=== PATIENT | female | born 1950 | race Caucasian/White ===

== ENCOUNTER 2019-08-04 14:10 | Inpatient (IN) | payer MEDICARE ==
[~2019-08-04] VITALS: Ht 167.6 cm; Wt 92.0 kg
[2019-08-04] MEDS ORDERED: IV NORMAL SALINE 1,000ML 1,000 ML IV ONE (14:30)
--- NOTE | 2019-08-04 14:36 | PHYS DOC ---
Past History Past Medical History: Anxiety, Cancer (Squamous Cell Carcinoma, Melanoma), Dementia, Depression, GERD, High Cholesterol, Migraines Additional Past Medical Histor: Multiple Lung Nodules Past Medical History Limited secondary to dementia Past Surgical History Limited secondary to dementia Social History Limited secondary to dementia General Adult EDM: Chief Complaint: MEDICAL CLEARANCE HPI: HPI: 69-year-old female presents from residential for medical clearance for Senior behavioral unit. Patient does have a history of dementia and has apparently bee n more combative with staff and other residents. Patient has also multiple medications without improvement. Patient was recently tested for COVID-19 and found to be negative. History of present illness limited secondary to dementia. Review of Systems: Review of Systems: Review of systems limited secondary to dementia Current Medications: Current Meds: Current Medications Medications (Trade) Dose Ordered Sig/Bindu Start Time Stop Time Status Last Admin Dose Admin Sodium Chloride 1,000 ml @ 1,000 mls/hr 1X ONCE 08/04/19 14:30 08/04/19 15:29 UNV Physical Exam: PE: Constitutional: Well developed, well nourished, no acute distress, non-toxic appearance HENT: Normocephalic, atraumatic Eyes: Conjunctiva normal, no discharge Neck: Normal range of motion, no tenderness, supple Cardiovascular: Heart rate normal, regular rhythm Lungs & Thorax: Bilateral breath sounds clear to auscultation, no wheezing Abdomen: Soft, no tenderness Skin: Warm, dry, no erythema, no rash Extremities: No tenderness, ROM intact Neurologic: Alert and oriented to name only, patient will intermittently follow commands however majority of the time she does not follow, moves all extremities, sensation appears intact, no focal deficits noted Psychologic: Affect flat, judgment abnormal EKG: EKG: @1429 NSR at 97bpm, NO ST elevation, QRS 86ms, QT/QTc 362/464ms Radiology/Procedures: Radiology/Procedures: PROCEDURE: PORTABLE CHEST 1V EXAM: CHEST 1 VIEW History: Osteoarthritis COMPARISON: None available. TECHNIQUE: Single portable radiograph of the chest FINDINGS: The cardiac silhouette is unremarkable. The lungs are clear bilaterally. The costophrenic sulci are clear and well demarcated. . IMPRESSION: No radiographic evidence of an acute cardiopulmonary process. Electronically signed by: Piotr Mcknight MD (08/04/2019 3:49 PM) [id number] PROCEDURE: CT HEAD WO CONTRAST Exam: CT head INDICATION: Altered mental status TECHNIQUE: Sequential axial images through the head were obtained without the administration of IV contrast. Comparisons: None FINDINGS: No focal parenchymal lesion or hemorrhage is identified. There is no midline shift or sulcal effacement. No acute vascular territory infarction is identified. Hauser-white distinction is preserved. The ventricular system is within normal limits without compression hydrocephalus. The basal cisterns are well maintained. The visualized portions of the paranasal sinuses and mastoid air cells are well-pneumatized. No acute fractures. IMPRESSION: No acute intracranial abnormality. Exposure: One or more of the following in the visualized dose reduction techniques were utilized for this examination: 1. Automated exposure control 2. Adjustment of the MA and/or KV according to patient size Use of iterative of reconstructive technique Electronically signed by: Opal Braxton MD (08/04/2019 4:12 PM) [id number] Course & Med Decision Making: Course & Med Decision Making Pertinent Labs and Imaging studies reviewed. (See chart for details) Patient with past medical history of dementia presents from residential for medical clearance for Senior behavioral unit. Patient does appear significantly confused. Unclear what baseline mentation is. CT head without acute process. Chest x-ray stable. Labs obtained and posted to chart. Patient deemed medically cleared for inpatient psychiatric admission to Senior behavioral unit. Willie Disclaimer: Willie Disclaimer: This electronic medical record was generated, in whole or in part, using a voice recognition dictation system. Departure Departure: Impression: Primary Impression: Medical clearance for psychiatric admission Disposition: ADMITTED INPATIENT (Geriatric psych- Senior Behavioral Health) Condition: STABLE TABITHA LONDON DO August 04, 2019 14:36
--- NOTE | 2019-08-04 15:17 | EKG ---
[address] [address] Test Date: 2019-08-04 Test Time: 14:29:56 Pat Name: MUNDO LONDON Department: Room: Gender: F Doctor Of Naturopathic Medicine: : 1950 Requested By: TABITHA LONDON Order Number: [id number] Reading MD: Jacky Becker Measurements Intervals [facility] Rate: 97 P: 51 CO: 154 QRS: 24 QRSD: 86 T: 71 QT: 362 QTc: 464 Interpretive Statements SINUS RHYTHM T ABNORMALITY IN HIGH LATERAL LEADS ABNORMAL ECG RI6.02 No previous ECG available for comparison Electronically Signed On 08-05-2019 8:24:53 CDT by Jacky Becker
[2019-08-04 15:23] LABS: BARBITURATES NEG (NEG); BENZODIAZEPINES NEG (NEG); CANNABINOIDS NEG (NEG); COCAINE NEG (NEG); METHADONE NEG (NEG); OPIATES NEG (NEG); PHENCYCLIDINE NEG (NEG)
[2019-08-04 15:23] LABS: BASO # 0.1 x10^3/uL (0.0-0.2); BASO % 1 % (0-3); EOS # 0.1 x10^3/uL (0.0-0.7); EOS % 2 % (0-3); HEMATOCRIT 44.9 % (36.0-47.0); HEMOGLOBIN 14.9 g/dL (12.0-15.5); LYMPH # 0.8 x10^3/uL (1.0-4.8); LYMPH % 13 % (24-48); MEAN CORPUSCULAR HEMOGLOBIN 32 pg (25-35); MEAN CORPUSCULAR HGB CONC 33 g/dL (31-37); MEAN CORPUSCULAR VOLUME 97 fL (79-100); MONO # 0.5 x10^3/uL (0.0-1.1); MONO % 9 % (0-9); NEUT # 4.7 x10^3uL (1.8-7.7); NEUT % 75 % (31-73); PLATELET COUNT 322 x10^3/uL (140-400); RED BLOOD COUNT 4.65 x10^6/uL (3.50-5.40); RED CELL DISTRIBUTION WIDTH 13.1 % (11.5-14.5); WHITE BLOOD COUNT 6.3 x10^3/uL (4.0-11.0)
[2019-08-04 15:25] LABS: AMPHETAMINE/METHAMPHETAMINE NEG (NEG)
[2019-08-04 15:32] LABS: BACTERIA,URINE 0 /HPF (0-FEW); BILIRUBIN,URINE NEG (NEG); CLARITY,URINE CLEAR; COLOR,URINE YELLOW; GLUCOSE,URINE NEG (NEG); NITRITE,URINE NEG (NEG); RBC,URINE OCC /HPF (0-2); UROBILINOGEN,URINE 0.2 mg/dL (0.2 mg/dL)
[2019-08-04 15:33] LABS: HYALINE CASTS, URINE FEW /HPF
[2019-08-04 15:39] LABS: CALCIUM 9.2 mg/dL (8.5-10.1); CREATININE 0.7 mg/dL (0.6-1.0); GFR 82.5; POTASSIUM 4.4 mmol/L (3.5-5.1)
[2019-08-04 15:45] LABS: ALBUMIN 3.1 g/dL (3.4-5.0); ALBUMIN/GLOBULIN RATIO 0.8 (1.0-1.7); MAGNESIUM 1.9 mg/dL (1.8-2.4); TOTAL BILIRUBIN 0.4 mg/dL (0.2-1.0); TOTAL PROTEIN 7.2 g/dL (6.4-8.2)
[2019-08-04 15:47] LABS: SALIC < 2.8 mg/dL (2.8-20.0)
[2019-08-04 15:48] LABS: ACETAMIN < 2.0 mcg/mL (10-30)
--- NOTE | 2019-08-04 15:52 | RAD ---
EXAM: CHEST 1 VIEW History: Osteoarthritis COMPARISON: None available. TECHNIQUE: Single portable radiograph of the chest FINDINGS: The cardiac silhouette is unremarkable. The lungs are clear bilaterally. The costophrenic sulci are clear and well demarcated. . IMPRESSION: No radiographic evidence of an acute cardiopulmonary process. Electronically signed by: Piotr Mcknight MD (08/04/2019 3:49 PM) [id number]
--- NOTE | 2019-08-04 16:15 | RAD ---
Exam: CT head INDICATION: Altered mental status TECHNIQUE: Sequential axial images through the head were obtained without the administration of IV contrast. Comparisons: None FINDINGS: No focal parenchymal lesion or hemorrhage is identified. There is no midline shift or sulcal effacement. No acute vascular territory infarction is identified. Hauser-white distinction is preserved. The ventricular system is within normal limits without compression hydrocephalus. The basal cisterns are well maintained. The visualized portions of the paranasal sinuses and mastoid air cells are well-pneumatized. No acute fractures. IMPRESSION: No acute intracranial abnormality. Exposure: One or more of the following in the visualized dose reduction techniques were utilized for this examination: 1. Automated exposure control 2. Adjustment of the MA and/or KV according to patient size Use of iterative of reconstructive technique Electronically signed by: Opal Braxton MD (08/04/2019 4:12 PM) [id number]
--- NOTE | 2019-08-04 16:45 | NUR ---
Admission Note with Justification for Admission to [facility] Patient admitted to [facility] for protective oversight for emergency stabilization of acute psychiatric crisis. Pt admitted from: [facility] via [facility] ED Mode of arrival: EMS Accompanied By: [facility] Staff Precipitating behaviors that initiated intake and admission: Patient reportedly believes staff are poisoning her; talking to people that aren't there; attempting to bite and kick staff; hitting staff; and hallucinating. Description of failure of out patient attempts at stabilization in previous setting list behavior and medication trials: Patient sent to [facility] for medical evaluation with no improvement in behaviors. Behaviors and assessment findings upon admission: Patient initially agitated and combativei with cares ans assessment, then calmed down and fell asleep. She was unable to answer any orientation questions, and denied any pain. Patient has a large bruise on the right upper sideo fo her face and a smaller on the left side of her face. She has some reddening of the skin under each breast. Her legs have multiple small abrasions in various states of healing. Plan: Admit for protective oversight for adjustment and stabilization of medications, behaviors and mood. Intense treatment regimen including groups, medication adjustments, therapy, consistent regimen for ADL's, self care, and sleep hygiene. Daily monitoring by Inpatient staff, Psychiatry, and Medical Physician.
[2019-08-04 17:38] VITALS: BP 132/76
[2019-08-04] MEDS ORDERED: METHYL SALICYLATE/MENTHOL TOPICAL OINTMENT 57GM TUBE. TP PRN (18:15)
[2019-08-04] MEDS ORDERED: MAG HYDROX/AL HYDROX/SIMETH 30 ML ORAL.SUSP PO PRN (18:15)
[2019-08-04] MEDS ORDERED: HYDR-2868 PO (18:48)
[2019-08-04] MEDS ORDERED: MELA5TAB20 PO (18:48)
[2019-08-04] MEDS ORDERED: CEPH500C PO (18:48)
[2019-08-04] MEDS ORDERED: LORA-254 PO (18:48)
[2019-08-04] MEDS ORDERED: FURO20TA3 PO (18:48)
[2019-08-04] MEDS ORDERED: ASCO500C PO (18:48)
[2019-08-04] MEDS ORDERED: [UNRECOGNIZED DRUG - CODE] TP (18:48)
[2019-08-04] MEDS ORDERED: MUPI15CR8 TP (18:48)
[2019-08-04] MEDS ORDERED: BISA10SU4 RC (18:48)
[2019-08-04] MEDS ORDERED: ACET500T68 PO (18:48)
[2019-08-04] MEDS ORDERED: OLAN10VI2 IM (18:48)
[2019-08-04] MEDS ORDERED: SENN1TAB62 PO (18:48)
[2019-08-04] MEDS ORDERED: RISP0.5T3 PO (18:54)
[2019-08-04] MEDS ORDERED: ZIPR20CA3 PO (18:54)
[2019-08-04] MEDS ORDERED: POTA10TA5 PO (18:54)
[2019-08-04] MEDS ORDERED: THIA100T57 PO (18:54)
[2019-08-04] MEDS ORDERED: OLAN5TAB9 PO (18:54)
[2019-08-04] MEDS ORDERED: CAMPHOR TP PRN (20:00)
[2019-08-04] MEDS ORDERED: BISACODYL 10 MG SUPP.RECT RC PRN (20:00)
[2019-08-04] MEDS ORDERED: MENTHOL TP PRN (20:00)
[2019-08-04] MEDS: hydrALAZINE 25 MG TABLET PO SCH (21:00)
[2019-08-04] MEDS: MUPIROCIN 2% TOPICAL OINTMENT 22GM TUBE. TP SCH (21:00)
[2019-08-04] MEDS: SENNOSIDES/DOCUSATE 8.6/50MG TABLET. PO SCH (21:00)
[2019-08-04] MEDS: LORazepam 1 MG TABLET PO SCH (21:00)
[2019-08-04] MEDS: ZIPRASIDONE 20 MG CAPSULE. PO SCH (21:00)
[2019-08-04] MEDS ORDERED: OLANZapine IM 10 MG VIAL. IM SCH (21:00)
[2019-08-04] MEDS: MELATONIN 3 MG TABLET PO SCH (21:00)
[2019-08-04] MEDS: risperiDONE 0.5 MG TABLET. PO SCH (21:00)
--- NOTE | 2019-08-04 22:15 | PDOC ---
Exam Note: David Note: Please also refer to the separate dictated note~for this date of service dictated separately. Discussed the patient with Nursing staff reviewed the chart.~Reviewed interim history and current functioning. Reviewed vital signs,~Labs/ Radiology~and current medications noted below. Continue current treatment with the changes noted in the dictated addendum note Assessment: Vital Signs/I&O: Vital Signs Date Time Temp Pulse Resp B/P (MAP) Pulse Ox O2 Delivery O2 Flow Rate FiO2 08/04/19 20:29 97.6 08/04/19 17:38 99 18 132/76 (94) 98 08/04/19 14:11 Room Air Labs: Laboratory Tests Test 08/04/19 14:46 08/04/19 14:53 White Blood Count 6.3 x10^3/uL (4.0-11.0) Red Blood Count 4.65 x10^6/uL (3.50-5.40) Hemoglobin 14.9 g/dL (12.0-15.5) Hematocrit 44.9 % (36.0-47.0) Mean Corpuscular Volume 97 fL (79-100) Mean Corpuscular Hemoglobin 32 pg (25-35) Mean Corpuscular Hemoglobin Concent 33 g/dL (31-37) Red Cell Distribution Width 13.1 % (11.5-14.5) Platelet Count 322 x10^3/uL (140-400) Neutrophils (%) (Auto) 75 % (31-73) H Lymphocytes (%) (Auto) 13 % (24-48) L Monocytes (%) (Auto) 9 % (0-9) Eosinophils (%) (Auto) 2 % (0-3) Basophils (%) (Auto) 1 % (0-3) Neutrophils # (Auto) 4.7 x10^3uL (1.8-7.7) Lymphocytes # (Auto) 0.8 x10^3/uL (1.0-4.8) L Monocytes # (Auto) 0.5 x10^3/uL (0.0-1.1) Eosinophils # (Auto) 0.1 x10^3/uL (0.0-0.7) Basophils # (Auto) 0.1 x10^3/uL (0.0-0.2) Prothrombin Time 9.9 SEC (9.4-11.4) Prothrombin Time INR 1.0 (0.9-1.1) Activated Partial Thromboplast Time 31 SEC (23-33) Sodium Level 143 mmol/L (136-145) Potassium Level 4.4 mmol/L (3.5-5.1) Chloride Level 104 mmol/L (98-107) Carbon Dioxide Level 29 mmol/L (21-32) Anion Gap 10 (6-14) Blood Urea Nitrogen 23 mg/dL (7-20) H Creatinine 0.7 mg/dL (0.6-1.0) Estimated GFR (Cockcroft-Gault) 82.5 BUN/Creatinine Ratio 33 (6-20) H Glucose Level 102 mg/dL (70-99) H Lactic Acid Level < 0.3 mmol/L (0.4-2.0) L Calcium Level 9.2 mg/dL (8.5-10.1) Magnesium Level 1.9 mg/dL (1.8-2.4) Total Bilirubin 0.4 mg/dL (0.2-1.0) Aspartate Amino Transferase (AST) 22 U/L (15-37) Alanine Aminotransferase (ALT) 22 U/L (14-59) Alkaline Phosphatase 109 U/L (46-116) Ammonia 24 mcmol/L (11-34) Creatine Kinase 144 U/L (26-192) Creatine Kinase MB (Mass) 1.3 ng/mL (0.0-3.6) Creatine Kinase MB Relative Index 0.9 % (0-4) Troponin I Quantitative < 0.017 ng/mL (0-0.055) Total Protein 7.2 g/dL (6.4-8.2) Albumin 3.1 g/dL (3.4-5.0) L Albumin/Globulin Ratio 0.8 (1.0-1.7) L Salicylates Level < 2.8 mg/dL (2.8-20.0) L Salicylate Last Dose Date Unknown Salicylate Last Dose Time Unknown Acetaminophen Level < 2.0 mcg/mL (10-30) L Acetaminophen Last Dose Date Unknown Acetaminophen Last Dose Time Unknown Urine Collection Type U cath Urine Color Yellow Urine Clarity Clear Urine pH 6.5 Urine Specific [place] 1.020 Urine Protein Neg (NEG-TRACE) Urine Glucose (UA) Neg mg/dL (NEG) Urine Ketones (Stick) Neg mg/dL (NEG) Urine Blood Neg (NEG) Urine Nitrite Neg (NEG) Urine Bilirubin Neg (NEG) Urine Urobilinogen Dipstick 0.2 mg/dL (0.2 mg/dL) Urine Leukocyte Esterase Neg (NEG) Urine RBC Occ /HPF (0-2) Urine WBC 1-4 /HPF (0-4) Urine Bacteria 0 /HPF (0-FEW) Urine Hyaline Casts Few /HPF Urine Mucus Slight /LPF Urine Opiates Screen Neg (NEG) Urine Methadone Screen Neg (NEG) Urine Barbiturates Neg (NEG) Urine Phencyclidine Screen Neg (NEG) Urine Amphetamine/Methamphetamine Neg (NEG) Urine Benzodiazepines Screen Neg (NEG) Urine Cocaine Screen Neg (NEG) Urine Cannabinoids Screen Neg (NEG) Urine Ethyl Alcohol Neg (NEG) Current Medications: Meds: Current Medications Medications (Trade) Dose Ordered Sig/Bindu Route PRN Reason Start Time Stop Time Status Last Admin Dose Admin Sodium Chloride 1,000 ml @ 1,000 mls/hr 1X ONCE IV 08/04/19 14:30 08/04/19 15:29 DC 08/04/19 15:26 Lorazepam (Ativan Inj) 1 mg 1X ONCE IVP 08/04/19 15:30 08/04/19 15:42 DC 08/04/19 15:27 I have reviewed the current psychotropics carefully including drug interactions. Risk benefit ratio favors no change other than as noted in my dictated progress note. Diagnosis: Problems: (1) Behavior disorder NAEEM SADLER MD August 04, 2019 22:15
--- NOTE | 2019-08-05 02:07 | NUR ---
Pt was sleeping in bed this shift she is responsive and follows simple commands then goes back to sleep. With HS cares pt did fully awaken and said to staff "get out of here you bastards" then went back to sleep.
[2019-08-05] MEDS: CEPHALEXIN 250 MG CAPSULE PO SCH ×6 (06:00→23:54)
[2019-08-05 06:36] VITALS: BP 132/84
--- NOTE | 2019-08-05 06:40 | NUR ---
Pt has slept well now up and in her WC in [facility] she is sleepy, possibly ignoring staff, and will not take meds . Lab here and pt cooperative with blood draw.
[2019-08-05 06:58] LABS: BASO # 0.1 x10^3/uL (0.0-0.2); BASO % 1 % (0-3); EOS # 0.1 x10^3/uL (0.0-0.7); EOS % 2 % (0-3); HEMATOCRIT 43.1 % (36.0-47.0); HEMOGLOBIN 14.3 g/dL (12.0-15.5); LYMPH # 0.7 x10^3/uL (1.0-4.8); LYMPH % 13 % (24-48); MEAN CORPUSCULAR HEMOGLOBIN 32 pg (25-35); MEAN CORPUSCULAR HGB CONC 33 g/dL (31-37); MEAN CORPUSCULAR VOLUME 96 fL (79-100); MONO # 0.5 x10^3/uL (0.0-1.1); MONO % 9 % (0-9); NEUT # 4.1 x10^3uL (1.8-7.7); NEUT % 75 % (31-73); PLATELET COUNT 330 x10^3/uL (140-400); RED BLOOD COUNT 4.48 x10^6/uL (3.50-5.40); RED CELL DISTRIBUTION WIDTH 13.2 % (11.5-14.5); WHITE BLOOD COUNT 5.5 x10^3/uL (4.0-11.0)
[2019-08-05 07:15] LABS: ALBUMIN/GLOBULIN RATIO 0.7 (1.0-1.7); CALCIUM 9.1 mg/dL (8.5-10.1); CREATININE 0.7 mg/dL (0.6-1.0); GFR 82.5; MAGNESIUM 1.9 mg/dL (1.8-2.4); TOTAL BILIRUBIN 0.5 mg/dL (0.2-1.0); TOTAL PROTEIN 7.1 g/dL (6.4-8.2)
[2019-08-05] MEDS: ZIPRASIDONE 20 MG CAPSULE. PO SCH ×3 (08:32→20:29)
[2019-08-05] MEDS: SENNOSIDES/DOCUSATE 8.6/50MG TABLET. PO SCH ×2 (08:32→20:28)
[2019-08-05] MEDS: hydrALAZINE 25 MG TABLET PO SCH ×3 (08:32→20:30)
[2019-08-05] MEDS: risperiDONE 0.5 MG TABLET. PO SCH ×2 (08:33→20:30)
[2019-08-05] MEDS: LORazepam 1 MG TABLET PO SCH ×3 (08:33→20:29)
[2019-08-05] MEDS: POTASSIUM CHLORIDE 10 MEQ TABLET.ER. PO SCH (08:33)
[2019-08-05] MEDS: FUROSEMIDE 20 MG TABLET PO SCH (08:33)
[2019-08-05] MEDS: THIAMINE 100 MG TABLET. PO SCH (08:33)
[2019-08-05] MEDS: ASCORBIC ACID 500 MG TABLET PO SCH (08:33)
[2019-08-05] MEDS: MUPIROCIN 2% TOPICAL OINTMENT 22GM TUBE. TP SCH ×2 (08:34→20:30)
--- NOTE | 2019-08-05 10:28 | NUR ---
Call placed to Rajan at [facility], , to inform of admission to [facility]. Pre-authorization is not required per Rajan. Call reference number is [id number]. Addendum: 08/05/19 at 1039 by KATHLEEN BENJAMIN Claims can be mailed to [address] [place] [address] or faxed to [phone] attn: Claims.
--- NOTE | 2019-08-05 13:49 | NUR ---
PSYCHOSOCIAL ASSESSMENT ADMISSION DATE: 08/04/19 CONTACT INFORMATION: DPOA/Guardian Contact Name: Pal Curiel Contact Address: [place], [place] Contact Phone #: ETHNIC ORIGIN: REASONS FOR ADMISSION: Aggressive Combative Confusion/Disoriented Poor impulse control ADDITIONAL ADMISSION COMMENTS: According to the intake, pt things that staff are poisoning her, confused, talking to people not there, kicking and hitting the nurse, attempted to bite, hallucinating, paranoid (picking at her skin), agitated. REASON FOR ADMISSION IN PATIENT/FAMILY'S OWN WORDS: She has never been like this. I assume this is part of the diagnosis? PATIENT/FAMILY EXPECTATIONS FOR ADMISSION: Medication and Behavioral Mgmt LIVING SITUATION: Patient lives with: [facility] Other living arrangements: Contact Name: Rock Duarte Contact Address: [address] [place] [address]; [place], [place] Contact Phone #: Contact Fax #: FAMILY RELATIONS: Marital Status: # of Marriages: 2 # of Children: 0 [facility] Family Support: Concerned Involved in DC Planning Additional Comments r/t Family: Pt sister reports that pt was 2 times for roughly 10 years each marriage ending in divorce. Pt does not have any children. SIGNIFICANT PSYCHIATRIC/MEDICAL HISTORY: Psychiatric/Treatment History: This is pt first psychiatric stay at [facility]. Pt has been to [facility] and a couple other facilities. Hx of Dementia and Anxiety Pertinent Family History: Pt father had Dementia dx; roughly 20 years ago. HISTORICAL DATA: Childhood Environment: [place] Supportive Childhood Environment Additional Comments: [place] a farm "we had 1 cow" and a bunch of land. Pt is 1 of 4 girls. We had a great childhood. Trauma History: None Is Trauma: Additional Comments: Drug Abuse History last 12 months: No Comment: PERSONAL HISTORY: Vocational history: Pt has worked at [employer] since the age 14 and retired from there. service: N [employer] background: No Preference Sexual orientation: Heterosexual Educational Level: Pt graduated from . Past/Present Interests/Hobbies: Pt used to do a lot of painting and crafts. Pt also maintained a tomato gardening. Pt loves dogs Financial support/resources: Mcfp/Pension Social Security Monthly income: Person handling finances: Pt sister maintains finances Do you have a history of legal problems: N Cultural considerations: SOCIAL RELATIONSHIPS-CURRENT/PAST: Psychiatrist: PCP: Dr. Tatianna Black Counselor/Therapist: [facility]: Support Group: Hat Ironer/Chip Crusher Operator: Other relationships: STRENGTHS & WEAKNESSES: Patient's strengths: Good verbal skills Education level Other patient strengths: Patient's weaknesses: Impulsive Poor social skills Other patient weaknesses: PRELIMINARY PLAN OF TREATMENT: Preliminary plan: Dec. Hallucination/Delus Promote Coping Skill Medication Stabilization Dec. Outbursts Dec. Aggression Other preliminary treatment comments: DISCHARGE PLANNING: Discharge planning/disposition: Current Living Arrange. Additional discharge needs identified: Potential for a different level of care; family is concerned that current placement cannot handle pt. ADDITIONAL INFORMATION: Other Pertinent Data: SW completed PSA with pt sister. She reports that pt has always been an upbeat person with tons of friends. Pt sister reports that she has never seen her sister angry. In this current state, pt is very delusional and hallucinates. Pt sister will plan to participate in tx team on .
--- NOTE | 2019-08-05 16:11 | NUR ---
Nursing note: Pt in the hallway this morning for meds and assessment. She was compliant with her meds whole and cooperative with her assessment. Pt was unable to answer orientation questions and does not seem to be in any pain. She is very disorganized and rambles when she talks about things that are completely off topic and then yelling out occasionally. Pt had asked for a cigarette this morning, record shows that she is a former smoker. Called [facility]. According to them, pt quit smoking in February before moving to the facility where they had put her on a "level 3" nicotine patch, but eventually took her off of it, and pt never asked for cigarette after that. Facility was also questioned about the Keflex on her medication list that she is supposed to receive for 3 days. [facility] was unable to say how many days she had received it. Dr. Avery reviewed pt's UA results. Keflex will be d/c on 08/[address] Avery. Will continue to monitor.
--- NOTE | 2019-08-05 16:20 | NUR ---
ACTIVITY THERAPY ASSESSMENT Completed based on observation, interview, and notes. Pt. was agreeable to speak with OUTBOARD TECHNICIAN and knew where his room was. He was talkative and needed some redirection back on topic. He felt that he was tricked here, told he was needed here for a job. When asked about leisure interest/ hobbies, Pt. talked about work. 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 Pt. talked about his awareness of this "Alzheimers" OUTBOARD TECHNICIAN tried to ask about hobbies again, music interest specifically, and Pt. shared he liked [employer]Want[employer] roll (Metall[employer]) the best. Notes indicate Pt. was a "worker" but had interest in canoeing, hiking and some yard work. Pt. made a couple jokes, complimented OUTBOARD TECHNICIAN's eyes and quickly clarified he wasn't "hitting on" her because he doesn't do that. Pt. has been seen in a hospital gown, wandering the halls, needing reminders to keep his mask on this face appropriately. Usually responds well to redirection. Pt. expressed interest in calling his which OUTBOARD TECHNICIAN was able to help coordinate after the interview. Initial goal aimed to increase leisure engagement and socialization: Pt. will participate in at least three Activity Therapy groups before discharge. Addendum: 08/10/19 at 1127 by ESTEPHANIA MARCH ACT DISREGARD this assessment. Entered on the wrong patient.
--- NOTE | 2019-08-05 16:35 | NUR ---
ACTIVITY THERAPY ASSESSMENT Completed based on observation, attempted interview, and notes. Pt. appeared to be sleeping when TYRE FINISHER AND EXAMINER tried to arouse her. Pt. remained asleep and did not respond to TYRE FINISHER AND EXAMINER. TYRE FINISHER AND EXAMINER confirmed she was breathing. Reports of this have been noted- Pt. possibly ignoring staff. She is difficult to engage in an activity for any length of time. She hallucinates and has nonsensical speech. Potentially simple cues with repeat directions. Pt. is impulsive, restless, disorganized if she is not sleeping. Reports indicate Pt is usually "upbeat w/ tons of friends." Pt. enjoys painting, crafts, imgix, and loves dogs. Initial goal aimed to increase sensory stimulation: Pt. will participate in at least one individual Activity Therapy session before discharge. Addendum: 08/22/19 at 1505 by ESTEPHANIA MARCH ACT Goal changed 08/18/19: Pt. will participate in at three Activity Therapy group sessions per week Addendum: 08/25/19 at 1050 by VIRGINIA KIRK ACT Goal changed 08/25/19: Pt. will participate moderately in at least three Activity Therapy Sessions per week.
[2019-08-05 16:47] VITALS: BP 107/56
--- NOTE | 2019-08-05 18:15 | NUR ---
Nursing note: Pt refused 1800 Keflex, spitting both the meds and water on staff. Pt continued to drink more water to spit back out until cup was managed to be removed. She then took the ice out of her cup from dinner and also threw it at staff. Pt was redirected at that time. Will continue to monitor.
--- NOTE | 2019-08-05 18:37 | NUR ---
Nursing note: Pt became agitated. She was yelling at staff and attempting to hit and bite staff. She was moved to the quiet room for deescalation. Will continue to monitor.
[2019-08-05 19:28] LABS: THYROID STIM HORMONE (TSH) 2.258 uIU/mL (0.358-3.740)
[2019-08-05] MEDS: LACTOBACILLUS RHAMNOSUS GG 1 CAPSULE. PO SCH (20:28)
[2019-08-05] MEDS: MELATONIN 3 MG TABLET PO SCH (20:31)
[2019-08-05] MEDS: OLANZapine 5 MG TABLET PO PRN (20:31)
--- NOTE | 2019-08-05 22:00 | NUR ---
Patient is located in the quiet room on assumption of care. She is intermittently yelling out, "Come get me Catracho, put your arms around me!" She was compliant with assessments and medications whole in pudding. Babbling nonsensically, asking this nurse about the "green button" and slapping the floor repeatedly. PRN Zydis given with HS meds, with good effect. Patient was cooperative with HS cares. Refused to take 0000 dose of Keflex. No further agitation. No s/s or c/o pain or discomfort. Will continue to monitor.
--- NOTE | 2019-08-05 22:06 | PDOC ---
Exam Note: David Note: Please also refer to the separate dictated note~for this date of service dictated separately.~Patient seen individually. Discussed the patient with Nursing staff reviewed the chart.~Reviewed interim history and current functioning. Reviewed vital signs,~Labs/ Radiology~and current medications noted below. Continue current treatment with the changes noted in the dictated addendum note Assessment: Vital Signs/I&O: Vital Signs Date Time Temp Pulse Resp B/P (MAP) Pulse Ox O2 Delivery O2 Flow Rate FiO2 08/05/19 21:43 97.4 92 08/05/19 20:30 79 107/56 08/05/19 16:47 18 08/04/19 14:11 Room Air Labs: Laboratory Tests Test 08/05/19 06:48 White Blood Count 5.5 x10^3/uL (4.0-11.0) Red Blood Count 4.48 x10^6/uL (3.50-5.40) Hemoglobin 14.3 g/dL (12.0-15.5) Hematocrit 43.1 % (36.0-47.0) Mean Corpuscular Volume 96 fL (79-100) Mean Corpuscular Hemoglobin 32 pg (25-35) Mean Corpuscular Hemoglobin Concent 33 g/dL (31-37) Red Cell Distribution Width 13.2 % (11.5-14.5) Platelet Count 330 x10^3/uL (140-400) Neutrophils (%) (Auto) 75 % (31-73) H Lymphocytes (%) (Auto) 13 % (24-48) L Monocytes (%) (Auto) 9 % (0-9) Eosinophils (%) (Auto) 2 % (0-3) Basophils (%) (Auto) 1 % (0-3) Neutrophils # (Auto) 4.1 x10^3uL (1.8-7.7) Lymphocytes # (Auto) 0.7 x10^3/uL (1.0-4.8) L Monocytes # (Auto) 0.5 x10^3/uL (0.0-1.1) Eosinophils # (Auto) 0.1 x10^3/uL (0.0-0.7) Basophils # (Auto) 0.1 x10^3/uL (0.0-0.2) Sodium Level 143 mmol/L (136-145) Potassium Level 4.0 mmol/L (3.5-5.1) Chloride Level 105 mmol/L (98-107) Carbon Dioxide Level 28 mmol/L (21-32) Anion Gap 10 (6-14) Blood Urea Nitrogen 20 mg/dL (7-20) Creatinine 0.7 mg/dL (0.6-1.0) Estimated GFR (Cockcroft-Gault) 82.5 BUN/Creatinine Ratio 29 (6-20) H Glucose Level 95 mg/dL (70-99) Calcium Level 9.1 mg/dL (8.5-10.1) Magnesium Level 1.9 mg/dL (1.8-2.4) Iron Level 54 ug/dL (50-170) Total Iron Binding Capacity 241 ug/dL (250-450) L Iron Saturation 22 % (15-34) Total Bilirubin 0.5 mg/dL (0.2-1.0) Aspartate Amino Transferase (AST) 19 U/L (15-37) Alanine Aminotransferase (ALT) 21 U/L (14-59) Alkaline Phosphatase 108 U/L (46-116) Total Protein 7.1 g/dL (6.4-8.2) Albumin 3.0 g/dL (3.4-5.0) L Albumin/Globulin Ratio 0.7 (1.0-1.7) L Triglycerides Level 74 mg/dL (0-150) Cholesterol Level 160 mg/dL (0-200) LDL Cholesterol, Calculated 88 mg/dL (0-100) VLDL Cholesterol, Calculated 14 mg/dL (0-40) Non-HDL Cholesterol Calculated 102 mg/dL (0-129) HDL Cholesterol 58 mg/dL (40-60) Cholesterol/HDL Ratio 2.0 Vitamin B12 Level 840 pg/mL (247-911) 25-Hydroxy Vitamin D Total 16.9 ng/mL (30-100) L Thyroid Stimulating Hormone (TSH) 2.258 uIU/mL (0.358-3.740) Treponema pallidum Antibody Nonreactive (Nonreactive) Current Medications: Meds: Current Medications Medications (Trade) Dose Ordered Sig/Bindu Route PRN Reason Start Time Stop Time Status Last Admin Dose Admin Furosemide (Lasix) 20 mg DAILY PO 08/05/19 09:00 08/05/19 08:33 Ascorbic Acid (Vitamin C) 500 mg DAILY PO 08/05/19 09:00 08/05/19 08:33 Cephalexin HCl (Keflex) 500 mg Q6HRS PO 08/05/19 00:00 08/06/19 18:00 08/05/19 11:51 Potassium Chloride (Klor-Con) 10 meq DAILY PO 08/05/19 09:00 08/05/19 08:33 Thiamine HCl (Vitamin B-1) 100 mg DAILY PO 08/05/19 09:00 08/05/19 08:33 Lactobacillus Rhamnosus (Culturelle) 1 cap BID PO 08/05/19 21:00 08/05/19 20:28 I have reviewed the current psychotropics carefully including drug interactions. Risk benefit ratio favors no change other than as noted in my dictated progress note. Diagnosis: Problems: (1) Behavior disorder NAEEM SADLER MD August 05, 2019 22:06
[2019-08-06 00:06] LABS: THYROXINE 7.1 ug/dL (4.5-12.0)
[2019-08-06 02:07] LABS: HEMOGLOBIN A1C 5.3 % (4.8-5.6)
--- NOTE | 2019-08-06 02:49 | CONS ---
DATE OF CONSULTATION: 08/05/2019 REASON FOR CONSULTATION: Medical management. HISTORY OF PRESENT ILLNESS: The patient is a 69-year-old female patient, a resident at [facility] who was [facility] on account of hitting staff, thinks they are poisoning her, hallucinating, screaming, paranoid, picking at her skin, all this on a background of major neurocognitive disorder, vascular Alzheimer with delusion. She is here for inpatient psychiatric stabilization. The patient is extremely demented and does not really give any useful information. PAST MEDICAL HISTORY: Significant for hyperlipidemia, gastroesophageal reflux disease, migraine headache, squamous cell carcinoma, lung nodules and anxiety. PAST PSYCHIATRIC HISTORY: Significant for dementia of Alzheimer vascular type and anxiety disorder. PAST SURGICAL HISTORY: Unremarkable. ALLERGIES: She is allergic to AUGMENTIN. MEDICATIONS: She is currently on following medications: She is on cephalexin 500 mg every 6 hours, started yesterday in the Emergency Room; hydralazine 25 mg 3 times a day; acetaminophen 500 mg every 4 hours; olanzapine 10 mg 3 times a day; olanzapine 5 mg 3 times a day as needed; Respirdal 0.5 mg twice a day; ziprasidone 20 mg 3 times a day; lorazepam 0.5 mg 3 times a day; potassium chloride 10 mEq daily; furosemide 20 mg once a day; Dulcolax suppositories 10 mg rectally daily p.r.n. for constipation; senna-S 1 capsule twice a day; mupirocin cream apply topically twice a day; menthol/camphor applied topically for muscle pain; thiamine 100 mg once a day; ascorbic acid 500 mg once a day; melatonin 5 mg at bedtime. REVIEW OF SYSTEMS: Unobtainable. PHYSICAL EXAMINATION: GENERAL: On examining the patient, she looked well and was clearly in no apparent respiratory distress. She was pale, but no jaundice, cyanosis or thyromegaly. No jugular venous distention. No lower limb edema. VITAL SIGNS: Her heart rate was 82, blood pressure 132/84, her temperature was 97.4, respiratory rate was 14 and oxygen saturation was 98%. HEAD, EYES, EARS, NOSE AND THROAT: Showed normocephalic, atraumatic. NECK: Supple. HEART: Showed normal first and second heart sounds. No gallop, rub or murmur. CHEST: Shows central trachea, equal bilateral expansion, air entry, vesicular sounds. No crepitation or rhonchi. ABDOMEN: Distended, soft, nontender. NEUROLOGIC: She is demented, but without any obvious lateralizing sign. All her cranial nerves intact. EXTREMITIES: She moves extremities without difficulty, although she is mostly bedbound, wheelchair bound. She is extremely unsteady on her feet and is very high fall risk. LABORATORY DATA: On admission showed a white cell count of 6300, hemoglobin 15, hematocrit 45, MCV 97 and platelet count of 322,000, with normal manual differential. Her chemistry showed a serum sodium 143, potassium 4.4, chloride 104, bicarbonate 29, anion gap of 10, BUN 23, creatinine 0.7, estimated GFR was 82 mL per minute. Her glucose 102, calcium was 9.2, magnesium was 1.9. Total bilirubin, AST, ALT, alkaline phosphatase were normal. CK was 144. Total protein 7.2, albumin 3.1. Her prothrombin time, INR and aPTT are all normal. Urinalysis was fairly unremarkable. The urine was yellow, clear with a pH of 6.5, specific gravity of 1.020. Her urine was negative for protein, glucose, ketones, blood, nitrites, and leukocyte esterase. There are occasional rbc's, 1-4 wbc's and no bacteria. Her toxic screen was essentially negative. ASSESSMENT AND PLAN: In summary, this is a 69-year-old female patient, a resident at [facility], who was admitted on account of hitting staff, thinks they are poisoning her, hallucinating, screaming, paranoid, all this in a background of major neurocognitive disorder, vascular Alzheimer with delusion. The patient is medically very stable. Her vital signs and all her labs are all within acceptable range. I am not really sure that she has UTI. I would have waited at least for a few days and my recommendation is to discontinue Keflex. Thank you, Dr. Hensley for allowing me to participate in the care of this patient. JESSICA GALEAS MD DR: DENNY/telma JOB#: [id number] / [id number]
[2019-08-06] MEDS: CEPHALEXIN 250 MG CAPSULE PO SCH ×3 (06:11→17:38)
[2019-08-06 06:15] VITALS: BP 117/75
[2019-08-06] MEDS: LACTOBACILLUS RHAMNOSUS GG 1 CAPSULE. PO SCH ×2 (08:21→20:32)
[2019-08-06] MEDS: ZIPRASIDONE 20 MG CAPSULE. PO SCH ×3 (08:21→20:33)
[2019-08-06] MEDS: MUPIROCIN 2% TOPICAL OINTMENT 22GM TUBE. TP SCH ×2 (08:21→20:33)
[2019-08-06] MEDS: SENNOSIDES/DOCUSATE 8.6/50MG TABLET. PO SCH ×2 (08:21→20:33)
[2019-08-06] MEDS: hydrALAZINE 25 MG TABLET PO SCH ×3 (08:21→20:34)
[2019-08-06] MEDS: LORazepam 1 MG TABLET PO SCH ×3 (08:22→20:33)
[2019-08-06] MEDS: ASCORBIC ACID 500 MG TABLET PO SCH (08:22)
[2019-08-06] MEDS: POTASSIUM CHLORIDE 10 MEQ TABLET.ER. PO SCH (08:22)
[2019-08-06] MEDS: risperiDONE 0.5 MG TABLET. PO SCH ×2 (08:22→20:34)
[2019-08-06] MEDS: THIAMINE 100 MG TABLET. PO SCH (08:22)
[2019-08-06] MEDS: FUROSEMIDE 20 MG TABLET PO SCH (08:23)
--- NOTE | 2019-08-06 09:33 | NUR ---
Patient compliant with medication and assessment. Patient cheerful and social this morning. Patient unable to hold a conversation, patient has flight of ideas.
[2019-08-06 16:19] VITALS: BP 129/87
[2019-08-06] MEDS: MELATONIN 3 MG TABLET PO SCH (20:34)
--- NOTE | 2019-08-06 21:35 | HP ---
ADMIT DATE: 08/04/2019 This late entry date of service 08/04/2019 covers the elements not covered in my initial note. SUBJECTIVE: I met with the patient in the evening of 08/04/2019 on telehealth rounds shortly after she was admitted on our unit. She is quite sedated since she received Ativan in the ER due to being extremely agitated. She remains confused. IDENTIFYING DATA: The patient is a 69-year-old female referred to us from [facility] by Dr. Black, her primary care physician after she had failed an inpatient psychiatric hospitalization at [facility] from 07/08/2019-07/29/2019 and then had a medical deterioration resulting in her referral to [facility]. She was then returned back to the nursing facility, but has been agitated, aggressive, extremely confused, hitting staff. She thinks they are poisoning her and she is extremely paranoid, delusional. She has been having active hallucinations, screaming, picking at her skin. She has failed outpatient psychiatric interventions resulting in this referral, having failed prior inpatient and outpatient treatment. I met with the patient in the evening of 08/04/2019 for this evaluation. CHIEF COMPLAINT: "No." The patient is not very verbally interactive. She is quite sedated with the Ativan, received in the ER, has a bruise on her right temporal area, but CT head in the ER was unremarkable. HISTORY OF PRESENT ILLNESS: The patient has a history of dementia, Alzheimer's vascular type. She has been residing at the above facility for some time, recently getting more paranoid, agitated, active hallucinations are being problematic. She has been screaming, paranoid, picking at her skin. No active suicidal or homicidal ideation. No clear history of bipolar disorder. PAST PSYCHIATRIC HISTORY: As above. MEDICAL HISTORY: Positive for hyperlipidemia, GERD, migraines, squamous cell carcinoma, melanoma, lung nodules. ACCU-CHEKS: None. DIET: Regular. Takes medications whole, ambulates in wheelchair. UA 08/04/2019 was negative. CODE STATUS: DNR. ALLERGIES: AUGMENTIN. CURRENT PSYCHOTROPICS: Ativan 0.5 mg t.i.d., melatonin 4.5 mg at bedtime, Risperdal 0.5 mg b.i.d., Zyprexa 5 mg t.i.d. p.r.n., Geodon 20 mg t.i.d. FAMILY HISTORY: Noncontributory. SOCIAL HISTORY: No history of alcohol, drug abuse, physical, sexual or elder abuse. She is not known to be a perpetrator. REACTION TO HOSPITALIZATION: The patient oblivious of this. Ambulation impaired. MENTAL STATUS EXAMINATION: The patient is oriented to herself. She is quite sedated. Insight, judgment, recent and remote memory, attention, concentration, fund of knowledge poor, consistent with her diagnosis. The patient is not very verbal. LABORATORY DATA: Reviewed. IMPRESSION: Major neurocognitive disorder, Alzheimer, vascular with delusion, depression, behavioral disturbance; anxiety disorder, unspecified; impulse control disorder, unspecified. Rest as above. PLAN: Admit to Geropsychiatry Unit at [facility]. I will see the patient daily individually from a psychiatric standpoint. Medical followup per Dr. Avery/Dr. Alatorre. We will observe the patient's baseline. Continue current psychotropics and then adjust as clinically indicated. She is on multiple atypical antipsychotics and I would like to simplify this regimen and if she is extremely agitated may consider Depakote. May consider SSRIs for anxiety, mood lability. Estimated length of stay 10-12 days. DISPOSITION: Plans back to nursing facility when stable. MAN Lobo SADLER MD DR: BEN/telma JOB#: [id number] / [id number]
--- NOTE | 2019-08-06 21:39 | PN ---
DATE: 08/06/2019 PSYCHIATRIC PROGRESS NOTE This note covers the elements not covered in my initial note of 08/05. SUBJECTIVE: I met with the patient on the evening of 08/05 face to face rounds. The patient has been confused, anxious, restless, trying to get out of her chair, has flight of ideas. She is trying to remove her clothes and has been placed in onesie per LALIT Wade. She was agitated, restless as I met with over her dinnertime, trying to get out of her chair. REVIEW OF SYSTEMS: No CV, , pulmonary, eye, ENT systems symptoms on review. Reliability poor. MENTAL STATUS EXAM: Oriented to herself. Insight, judgment, recent and remote memory, attention, concentration, fund of knowledge poor, consistent with her diagnosis. IMPRESSION: Major neurocognitive disorder, Alzheimer vascular with delusion, depression, behavioral disturbance; anxiety disorder, unspecified; impulse control disorder, unspecified. Rest unchanged from admission. PLAN: Continue current psychotropics including Ativan, schedule melatonin, Risperdal, and Geodon along with Zyprexa p.r.n. She was sedated the first day and I need another 24 hours to assess her before deciding on SSRIs versus Depakote as a mood stabilizer. Reviewed all of this at length. NAEEM SADLER MD DR: BEN/telma JOB#: [id number] / [id number]
--- NOTE | 2019-08-06 21:39 | PN ---
DATE: 08/05/2019 PSYCHIATRIC PROGRESS NOTE This late entry 08/05/2019 covers elements not covered in my initial note. SUBJECTIVE: I met with the patient evening of 08/05/2019 in [id number] rounds. The patient slept 6-3/4 hours previous night. The patient was also staffed at a treatment team meeting in the morning with LALIT Murphy and social service staff and seen individually in the evening face to face rounds. The patient slept 6-3/4 hours previous night. She remains confused. CT head shows no acute changes. She has a bruise right side of forehead. She is anxious, restless. REVIEW OF SYSTEMS: No CV, , pulmonary, eye system symptoms on review. Ambulation impaired. MENTAL STATUS EXAM: Oriented to herself. Insight, judgment, recent and remote memory, attention, concentration, fund of knowledge poor, consistent with her diagnoses. IMPRESSION: Major neurocognitive disorder, Alzheimer, vascular with delusion, depression, behavioral disturbance; anxiety disorder, unspecified; impulse control disorder, unspecified. Rest unchanged from admission. PLAN: Continue the patient on her current psychotropics including Ativan 0.5 t.i.d., melatonin 4.5 mg at bedtime, Risperdal 0.5 b.i.d., Zyprexa 5 mg t.i.d. p.r.n. psychosis or agitation, Geodon 20 mg t.i.d. Adjust further as clinically indicated. Consider Depakote and SSRIs. We will observe another 24 hours and decide. NAEEM SADLER MD DR: BEN/telma JOB#: [id number] / [id number]
--- NOTE | 2019-08-06 22:00 | NUR ---
Patient is in her room on assumption of care. She is disorganized, confused, but seems to be in good spirits. Nonsensical babbling, flight of ideas. She was cooperative with HS cares, but repeatedly removed her clothing and brief, and then proceeded to play with and throw feces around. After being cleaned thoroughly for a second time, she was dressed in a onesie. Compliant with medications taken whole and floated in pudding. No agitation. Does not appear to be experiencing any pain or discomfort. Patient currently appears to be sleeping comfortably. Will continue to monitor.
--- NOTE | 2019-08-06 22:35 | PDOC ---
Exam Note: David Note: Please also refer to the separate dictated note~for this date of service dictated separately.~Patient seen individually. Discussed the patient with Nursing staff reviewed the chart.~Reviewed interim history and current functioning. Reviewed vital signs,~Labs/ Radiology~and current medications noted below. Continue current treatment with the changes noted in the dictated addendum note Assessment: Vital Signs/I&O: Vital Signs Date Time Temp Pulse Resp B/P (MAP) Pulse Ox O2 Delivery O2 Flow Rate FiO2 08/06/19 21:00 98.3 93 08/06/19 20:34 76 129/87 08/06/19 16:19 16 Room Air I & O 08/05/19 08/05/19 08/06/19 15:00 23:00 07:00 Intake Total 240 ml 240 ml Balance 240 ml 240 ml Current Medications: I have reviewed the current psychotropics carefully including drug interactions. Risk benefit ratio favors no change other than as noted in my dictated progress note. Diagnosis: Problems: (1) Major neurocognitive disorder, due to vascular disease, with behavioral disturbance, mild (2) Dementia, vascular, with depression (3) Dementia, vascular, with delusions (4) Dementia in Alzheimer's disease with delusions (5) Dementia in Alzheimer's disease with depression (6) Anxiety disorder, unspecified (7) Impulse control disorder, unspecified NAEEM SADLER MD August 06, 2019 22:35
[2019-08-07 06:50] VITALS: BP 93/60
[2019-08-07] MEDS: hydrALAZINE 25 MG TABLET PO SCH ×3 (07:25→20:45)
[2019-08-07] MEDS: SENNOSIDES/DOCUSATE 8.6/50MG TABLET. PO SCH ×2 (08:35→20:44)
[2019-08-07] MEDS: MUPIROCIN 2% TOPICAL OINTMENT 22GM TUBE. TP SCH ×2 (08:36→20:44)
[2019-08-07] MEDS: LACTOBACILLUS RHAMNOSUS GG 1 CAPSULE. PO SCH ×2 (08:36→20:44)
[2019-08-07] MEDS: FUROSEMIDE 20 MG TABLET PO SCH (08:36)
[2019-08-07] MEDS: THIAMINE 100 MG TABLET. PO SCH (08:36)
[2019-08-07] MEDS: ZIPRASIDONE 20 MG CAPSULE. PO SCH ×3 (08:36→20:45)
[2019-08-07] MEDS: POTASSIUM CHLORIDE 10 MEQ TABLET.ER. PO SCH (08:36)
[2019-08-07] MEDS: risperiDONE 0.5 MG TABLET. PO SCH ×2 (08:36→20:44)
[2019-08-07] MEDS: LORazepam 1 MG TABLET PO SCH ×3 (08:36→20:45)
[2019-08-07] MEDS: ASCORBIC ACID 500 MG TABLET PO SCH (08:36)
[2019-08-07 08:47] VITALS: BP 93/60
--- NOTE | 2019-08-07 08:56 | NUR ---
Patient is compliant with medication and assessment. Patient ornery towards staff attempting to making unconventional jokes to amuse her self.
[2019-08-07 16:12] VITALS: BP 100/62
[2019-08-07] MEDS: MELATONIN 3 MG TABLET PO SCH (20:46)
--- NOTE | 2019-08-07 22:01 | PDOC ---
Exam Note: David Note: Please also refer to the separate dictated note~for this date of service dictated separately.~Patient seen individually. Discussed the patient with Nursing staff reviewed the chart.~Reviewed interim history and current functioning. Reviewed vital signs,~Labs/ Radiology~and current medications noted below. Continue current treatment with the changes noted in the dictated addendum note Assessment: Vital Signs/I&O: Vital Signs Date Time Temp Pulse Resp B/P (MAP) Pulse Ox O2 Delivery O2 Flow Rate FiO2 08/07/19 20:45 89 100/62 08/07/19 18:07 97.6 08/07/19 16:12 16 95 Room Air I & O 08/06/19 08/06/19 08/07/19 15:00 23:00 07:00 Intake Total 720 ml 240 ml Balance 720 ml 240 ml Current Medications: I have reviewed the current psychotropics carefully including drug interactions. Risk benefit ratio favors no change other than as noted in my dictated progress note. Diagnosis: Problems: (1) Behavior disorder (2) Impulse control disorder, unspecified (3) Anxiety disorder, unspecified (4) Dementia, vascular, with depression (5) Dementia, vascular, with delusions (6) Dementia in Alzheimer's disease with depression (7) Dementia in Alzheimer's disease with delusions (8) Major neurocognitive disorder, due to vascular disease, with behavioral disturbance, mild NAEEM SADLER MD August 07, 2019 22:01
--- NOTE | 2019-08-07 22:47 | NUR ---
Patient is in her room on assumption of care. She is disorganized, confused, but seems to be in good spirits. Nonsensical babbling, flight of ideas. She was cooperative with HS cares. Compliant with medications crushed and floated in pudding. No agitation. Does not appear to be experiencing any pain or discomfort. Patient currently appears to be sleeping comfortably. Will continue to monitor.
[2019-08-08 06:21] VITALS: BP 119/64
[2019-08-08 07:14] LABS: BASO # 0.1 x10^3/uL (0.0-0.2); BASO % 1 % (0-3); EOS # 0.2 x10^3/uL (0.0-0.7); EOS % 3 % (0-3); HEMATOCRIT 43.9 % (36.0-47.0); HEMOGLOBIN 14.1 g/dL (12.0-15.5); LYMPH # 0.9 x10^3/uL (1.0-4.8); LYMPH % 17 % (24-48); MEAN CORPUSCULAR HEMOGLOBIN 32 pg (25-35); MEAN CORPUSCULAR HGB CONC 32 g/dL (31-37); MEAN CORPUSCULAR VOLUME 99 fL (79-100); MONO # 0.5 x10^3/uL (0.0-1.1); MONO % 8 % (0-9); NEUT % 71 % (31-73); PLATELET COUNT 327 x10^3/uL (140-400); RED BLOOD COUNT 4.43 x10^6/uL (3.50-5.40); RED CELL DISTRIBUTION WIDTH 13.5 % (11.5-14.5); WHITE BLOOD COUNT 5.6 x10^3/uL (4.0-11.0)
[2019-08-08 07:26] LABS: ALBUMIN 2.9 g/dL (3.4-5.0); ALBUMIN/GLOBULIN RATIO 0.7 (1.0-1.7); CALCIUM 9.2 mg/dL (8.5-10.1); CREATININE 0.6 mg/dL (0.6-1.0); GFR 98.5; POTASSIUM 3.8 mmol/L (3.5-5.1); TOTAL BILIRUBIN 0.4 mg/dL (0.2-1.0); TOTAL PROTEIN 6.9 g/dL (6.4-8.2)
--- NOTE | 2019-08-08 07:29 | PDOC ---
Exam Note: David Note: This note is a late entry for 08/07/2019 covers elements not covered in my initial note. Subjective: The patient was seen face to face in the evening of 08/07/2019. Nursing report was with Armen COHN. Discussed the patient with nursing staff reviewed the chart. She slept reasonably well previous night. Appetite is fair compliant with medications in pudding. Has flight of ideas, confused. She was in a wheelchair as I entered the unit. She was blocking the door. I adjusted her wheelchair and then she was banging on the doors. Review of Systems: No CV, GI/, Pulmonary, Eye system symptoms on review. Mental Status Exam: Oriented to herself. Insight and judgment, recent and seymour te memory, attention and concentration, fund of knowledge is poor consistent with her diagnosis. Laboratory Data: Reviewed. Impression: Major neurocognitive disorder Alzheimer, vascular with delusion, depression and behavioral disturbance. Anxiety disorder unspecified. Impulse control disorder unspecified. Rest as mentioned in initial note. Plan: No change from initial note. Assessment: Vital Signs/I&O: Vital Signs Date Time Temp Pulse Resp B/P (MAP) Pulse Ox O2 Delivery O2 Flow Rate FiO2 08/08/19 06:21 97.7 68 18 119/64 (82) 95 08/07/19 16:12 Room Air I & O 08/07/19 08/07/19 08/08/19 15:00 23:00 07:00 Intake Total 480 ml 120 ml Balance 480 ml 120 ml Labs: Laboratory Tests Test 08/08/19 06:12 White Blood Count 5.6 x10^3/uL (4.0-11.0) Red Blood Count 4.43 x10^6/uL (3.50-5.40) Hemoglobin 14.1 g/dL (12.0-15.5) Hematocrit 43.9 % (36.0-47.0) Mean Corpuscular Volume 99 fL (79-100) Mean Corpuscular Hemoglobin 32 pg (25-35) Mean Corpuscular Hemoglobin Concent 32 g/dL (31-37) Red Cell Distribution Width 13.5 % (11.5-14.5) Platelet Count 327 x10^3/uL (140-400) Neutrophils (%) (Auto) 71 % (31-73) Lymphocytes (%) (Auto) 17 % (24-48) L Monocytes (%) (Auto) 8 % (0-9) Eosinophils (%) (Auto) 3 % (0-3) Basophils (%) (Auto) 1 % (0-3) Neutrophils # (Auto) 4.0 x10^3uL (1.8-7.7) Lymphocytes # (Auto) 0.9 x10^3/uL (1.0-4.8) L Monocytes # (Auto) 0.5 x10^3/uL (0.0-1.1) Eosinophils # (Auto) 0.2 x10^3/uL (0.0-0.7) Basophils # (Auto) 0.1 x10^3/uL (0.0-0.2) Current Medications: I have reviewed the current psychotropics carefully including drug interactions. Risk benefit ratio favors no change other than as noted in my dictated progress note. Diagnosis: Problems: (1) Behavior disorder (2) Impulse control disorder, unspecified (3) Anxiety disorder, unspecified (4) Dementia, vascular, with depression (5) Dementia, vascular, with delusions (6) Dementia in Alzheimer's disease with depression (7) Dementia in Alzheimer's disease with delusions (8) Major neurocognitive disorder, due to vascular disease, with behavioral disturbance, mild NAEEM SADLER MD August 08, 2019 07:29
[2019-08-08] MEDS: ZIPRASIDONE 20 MG CAPSULE. PO SCH ×2 (08:08→20:32)
[2019-08-08] MEDS: LORazepam 1 MG TABLET PO SCH ×3 (08:08→20:31)
[2019-08-08] MEDS: SENNOSIDES/DOCUSATE 8.6/50MG TABLET. PO SCH ×3 (08:08→20:31)
[2019-08-08] MEDS: risperiDONE 0.5 MG TABLET. PO SCH (08:08)
[2019-08-08] MEDS: ASCORBIC ACID 500 MG TABLET PO SCH ×2 (08:08→09:00)
[2019-08-08] MEDS: FUROSEMIDE 20 MG TABLET PO SCH ×2 (08:08→09:00)
[2019-08-08] MEDS: POTASSIUM CHLORIDE 10 MEQ TABLET.ER. PO SCH ×2 (08:09→09:00)
[2019-08-08] MEDS: hydrALAZINE 25 MG TABLET PO SCH ×3 (08:09→20:32)
[2019-08-08] MEDS: LACTOBACILLUS RHAMNOSUS GG 1 CAPSULE. PO SCH ×3 (08:09→20:31)
[2019-08-08] MEDS: THIAMINE 100 MG TABLET. PO SCH ×2 (08:09→09:00)
[2019-08-08] MEDS: MUPIROCIN 2% TOPICAL OINTMENT 22GM TUBE. TP SCH ×2 (08:10→20:32)
[2019-08-08] MEDS ORDERED: ZIPRASIDONE 40 MG CAPSULE. PO SCH (14:00)
[2019-08-08 16:19] VITALS: BP 101/67
--- NOTE | 2019-08-08 16:38 | NUR ---
Nursing note: Pt was in dining room for morning meds and assessment. Pt was very resistive with her meds, she was eventually compliant with her psych meds crushed in pudding. Pt was compliant with her 1400 meds whole. She continues to have nonsensical babbling. Pt is currently in good spirits and is up in her wheelchair getting ready to eat supper. Will continue to monitor.
[2019-08-08] MEDS: MELATONIN 3 MG TABLET PO SCH (20:32)
--- NOTE | 2019-08-08 21:08 | NUR ---
Nursing note: Assumed care of pt in her room where she was awake in her bed and talking nonsensically. She was pleasant and interactive, compliant with meds and assessment. No s/s or c/o pain. No negative behaviors.
[2019-08-09 05:47] VITALS: BP 116/67
--- NOTE | 2019-08-09 08:21 | PDOC ---
Exam Note: David Note: This is a late entry for DOS 08/08/2019. Please also refer to the separate dictated note~for this date of service dictated separately.~Patient seen individually. Discussed the patient with Nursing staff reviewed the chart.~Reviewed interim history and current functioning. Reviewed vital signs,~Labs/ Radiology~and current medications noted below. Continue current treatment with the changes noted in the dictated addendum note Assessment: Vital Signs/I&O: Vital Signs Date Time Temp Pulse Resp B/P (MAP) Pulse Ox O2 Delivery O2 Flow Rate FiO2 08/09/19 05:47 97.4 91 16 116/67 (83) 96 08/07/19 16:12 Room Air I & O 08/08/19 08/08/19 08/09/19 15:00 23:00 07:00 Intake Total 300 ml 360 ml Balance 300 ml 360 ml Current Medications: Meds: Current Medications Medications (Trade) Dose Ordered Sig/Bindu Route PRN Reason Start Time Stop Time Status Last Admin Dose Admin Ziprasidone (Geodon) 40 mg [id number] PO 08/08/19 14:00 08/08/19 19:59 DC 08/08/19 13:52 Ziprasidone (Geodon) 20 mg QHS PO 08/08/19 21:00 08/08/19 20:32 I have reviewed the current psychotropics carefully including drug interactions. Risk benefit ratio favors no change other than as noted in my dictated progress note. Diagnosis: Problems: (1) Behavior disorder (2) Impulse control disorder, unspecified (3) Anxiety disorder, unspecified (4) Dementia, vascular, with depression (5) Dementia, vascular, with delusions (6) Dementia in Alzheimer's disease with depression (7) Dementia in Alzheimer's disease with delusions (8) Major neurocognitive disorder, due to vascular disease, with behavioral disturbance, mild NAEEM SADLER MD August 09, 2019 08:21
[2019-08-09] MEDS: SERTRALINE 25 MG TABLET. PO SCH (08:30)
[2019-08-09] MEDS: LACTOBACILLUS RHAMNOSUS GG 1 CAPSULE. PO SCH ×2 (08:30→19:39)
[2019-08-09] MEDS: SENNOSIDES/DOCUSATE 8.6/50MG TABLET. PO SCH ×2 (08:30→19:38)
[2019-08-09] MEDS: FUROSEMIDE 20 MG TABLET PO SCH (08:31)
[2019-08-09] MEDS: hydrALAZINE 25 MG TABLET PO SCH ×3 (08:31→19:39)
[2019-08-09] MEDS: POTASSIUM CHLORIDE 10 MEQ TABLET.ER. PO SCH (08:31)
[2019-08-09] MEDS: LORazepam 1 MG TABLET PO SCH ×3 (08:32→19:39)
[2019-08-09] MEDS: ASCORBIC ACID 500 MG TABLET PO SCH (08:32)
[2019-08-09] MEDS: THIAMINE 100 MG TABLET. PO SCH (08:32)
[2019-08-09] MEDS: MUPIROCIN 2% TOPICAL OINTMENT 22GM TUBE. TP SCH ×2 (08:34→19:38)
[2019-08-09] MEDS: ZIPRASIDONE 40 MG CAPSULE. PO SCH (08:34)
[2019-08-09 15:59] VITALS: BP 107/69
[2019-08-09] MEDS: MELATONIN 3 MG TABLET PO SCH (19:38)
[2019-08-09] MEDS: ZIPRASIDONE 20 MG CAPSULE. PO SCH (19:39)
--- NOTE | 2019-08-09 21:24 | NUR ---
Nursing note: Assumed care of pt in he room where she was awake. She was compliant with meds and assessment. Pleasant and interactive, nonsensical conversation. No s/s or c/o pain. No behaviors.
--- NOTE | 2019-08-09 22:11 | PDOC ---
Exam Note: David Note: Please also refer to the separate dictated note~for this date of service dictated separately.~Patient seen individually. Discussed the patient with Nursing staff reviewed the chart.~Reviewed interim history and current functioning. Reviewed vital signs,~Labs/ Radiology~and current medications noted below. Continue current treatment with the changes noted in the dictated addendum note Assessment: Vital Signs/I&O: Vital Signs Date Time Temp Pulse Resp B/P (MAP) Pulse Ox O2 Delivery O2 Flow Rate FiO2 08/09/19 19:39 84 107/69 08/09/19 18:37 97.9 08/09/19 15:59 16 95 08/07/19 16:12 Room Air I & O 08/08/19 08/08/19 08/09/19 15:00 23:00 07:00 Intake Total 300 ml 360 ml Balance 300 ml 360 ml Current Medications: Meds: Current Medications Medications (Trade) Dose Ordered Sig/Bindu Route PRN Reason Start Time Stop Time Status Last Admin Dose Admin Sertraline HCl (Zoloft) 25 mg DAILY PO 08/09/19 09:00 08/11/19 21:00 08/09/19 08:30 Ziprasidone (Geodon) 40 mg DAILY PO 08/09/19 09:00 08/09/19 08:34 I have reviewed the current psychotropics carefully including drug interactions. Risk benefit ratio favors no change other than as noted in my dictated progress note. Diagnosis: Problems: (1) Behavior disorder (2) Impulse control disorder, unspecified (3) Anxiety disorder, unspecified (4) Dementia, vascular, with depression (5) Dementia, vascular, with delusions (6) Dementia in Alzheimer's disease with depression (7) Dementia in Alzheimer's disease with delusions (8) Major neurocognitive disorder, due to vascular disease, with behavioral disturbance, mild NAEEM SADLER MD August 09, 2019 22:11
[2019-08-10 05:11] VITALS: BP 116/72
[2019-08-10 07:16] LABS: BASO # 0.1 x10^3/uL (0.0-0.2); BASO % 1 % (0-3); EOS # 0.2 x10^3/uL (0.0-0.7); EOS % 4 % (0-3); HEMATOCRIT 42.5 % (36.0-47.0); HEMOGLOBIN 13.9 g/dL (12.0-15.5); LYMPH # 0.8 x10^3/uL (1.0-4.8); LYMPH % 16 % (24-48); MEAN CORPUSCULAR HEMOGLOBIN 32 pg (25-35); MEAN CORPUSCULAR HGB CONC 33 g/dL (31-37); MEAN CORPUSCULAR VOLUME 97 fL (79-100); MONO # 0.3 x10^3/uL (0.0-1.1); MONO % 7 % (0-9); NEUT # 3.8 x10^3uL (1.8-7.7); NEUT % 73 % (31-73); PLATELET COUNT 340 x10^3/uL (140-400); RED BLOOD COUNT 4.39 x10^6/uL (3.50-5.40); RED CELL DISTRIBUTION WIDTH 13.3 % (11.5-14.5); WHITE BLOOD COUNT 5.2 x10^3/uL (4.0-11.0)
[2019-08-10 07:30] LABS: ALBUMIN/GLOBULIN RATIO 0.8 (1.0-1.7); CREATININE 0.6 mg/dL (0.6-1.0); GFR 98.5; POTASSIUM 3.8 mmol/L (3.5-5.1); TOTAL BILIRUBIN 0.4 mg/dL (0.2-1.0); TOTAL PROTEIN 6.8 g/dL (6.4-8.2)
--- NOTE | 2019-08-10 07:53 | PDOC ---
Exam Note: David Note: This note is a late entry for 08/08/2019 covers elements not covered in my initial note. Subjective: The patient was seen face to face in the evening of 08/08/2019. Nursing report was with Katherine COHN. Discussed the patient with nursing staff reviewed the chart. She slept 7-3/4 hours previous night. She remains confused, is throwing her fecal matter around, inappropriate, having some non- sensible conversations and perceptions resistive to medications. She is in his wheelchair pushing herself up and down the hallway. Review of Systems: No CV, GI/, Pulmonary, Eye system symptoms on review. Mental Status Exam: Oriented to herself. Insight and judgment, recent and remote memory, attention and concentration, fund of knowledge is poor consistent with her diagnosis. Laboratory Data: Reviewed. Impression: Major neurocognitive disorder Alzheimer, vascular with delusion, depression and behavioral disturbance. Anxiety disorder unspecified. Impulse control disorder unspecified. Plan: The patient is currently on Geodon 20 mg t.i.d. We will change to 40 mg a.m. and 20 mg p.m. Start Zoloft as an SSRI agent for her mood and anxiety symptoms 25 mg a day for 3 days and 50 mg a day. She is also on another atypical antipsychotic Risperdal 0.5 mg b.i.d. and we will go ahead and stop this. Maintain rest of the psychotropics as noted. Adjust further as clinically indicated. Assessment: Vital Signs/I&O: Vital Signs Date Time Temp Pulse Resp B/P (MAP) Pulse Ox O2 Delivery O2 Flow Rate FiO2 08/10/19 05:11 98.1 86 16 116/72 (87) 95 08/07/19 16:12 Room Air I & O 08/09/19 08/09/19 08/10/19 15:00 23:00 07:00 Intake Total 720 ml 120 ml Balance 720 ml 120 ml Labs: Laboratory Tests Test 08/10/19 06:47 White Blood Count 5.2 x10^3/uL (4.0-11.0) Red Blood Count 4.39 x10^6/uL (3.50-5.40) Hemoglobin 13.9 g/dL (12.0-15.5) Hematocrit 42.5 % (36.0-47.0) Mean Corpuscular Volume 97 fL (79-100) Mean Corpuscular Hemoglobin 32 pg (25-35) Mean Corpuscular Hemoglobin Concent 33 g/dL (31-37) Red Cell Distribution Width 13.3 % (11.5-14.5) Platelet Count 340 x10^3/uL (140-400) Neutrophils (%) (Auto) 73 % (31-73) Lymphocytes (%) (Auto) 16 % (24-48) L Monocytes (%) (Auto) 7 % (0-9) Eosinophils (%) (Auto) 4 % (0-3) H Basophils (%) (Auto) 1 % (0-3) Neutrophils # (Auto) 3.8 x10^3uL (1.8-7.7) Lymphocytes # (Auto) 0.8 x10^3/uL (1.0-4.8) L Monocytes # (Auto) 0.3 x10^3/uL (0.0-1.1) Eosinophils # (Auto) 0.2 x10^3/uL (0.0-0.7) Basophils # (Auto) 0.1 x10^3/uL (0.0-0.2) Sodium Level 146 mmol/L (136-145) H Potassium Level 3.8 mmol/L (3.5-5.1) Chloride Level 109 mmol/L (98-107) H Carbon Dioxide Level 28 mmol/L (21-32) Anion Gap 9 (6-14) Blood Urea Nitrogen 21 mg/dL (7-20) H Creatinine 0.6 mg/dL (0.6-1.0) Estimated GFR (Cockcroft-Gault) 98.5 BUN/Creatinine Ratio 35 (6-20) H Glucose Level 95 mg/dL (70-99) Calcium Level 9.0 mg/dL (8.5-10.1) Total Bilirubin 0.4 mg/dL (0.2-1.0) Aspartate Amino Transferase (AST) 21 U/L (15-37) Alanine Aminotransferase (ALT) 23 U/L (14-59) Alkaline Phosphatase 101 U/L (46-116) Total Protein 6.8 g/dL (6.4-8.2) Albumin 3.0 g/dL (3.4-5.0) L Albumin/Globulin Ratio 0.8 (1.0-1.7) L Current Medications: Meds: Current Medications Medications (Trade) Dose Ordered Sig/Bindu Route PRN Reason Start Time Stop Time Status Last Admin Dose Admin Sertraline HCl (Zoloft) 25 mg DAILY PO 08/09/19 09:00 08/11/19 21:00 08/09/19 08:30 Ziprasidone (Geodon) 40 mg DAILY PO 08/09/19 09:00 08/09/19 08:34 I have reviewed the current psychotropics carefully including drug interactions. Risk benefit ratio favors no change other than as noted in my dictated progress note. Diagnosis: Problems: (1) Behavior disorder (2) Impulse control disorder, unspecified (3) Anxiety disorder, unspecified (4) Dementia, vascular, with depression (5) Dementia, vascular, with delusions (6) Dementia in Alzheimer's disease with depression (7) Dementia in Alzheimer's disease with delusions (8) Major neurocognitive disorder, due to vascular disease, with behavioral disturbance, mild NAEEM SADLER MD August 10, 2019 07:53
--- NOTE | 2019-08-10 08:14 | PDOC ---
Exam Note: David Note: This note is a late entry for 08/09/2019 covers elements not covered in my initial note. Subjective: The patient was seen face to face with the treatment team in the morning including Jihan Kaplan, and Sienna (social insurance adviser), Agueda, Activity Therapy. Nursing report was with Cele COHN. Discussed the patient with nursing staff in the evening reviewed the chart. She slept 3-1/2 hours previous night. She is complaint with medications. She undresses herself oblivious of all of this. Review of Systems: Ambulation impaired, in wheelchair. No CV, GI/, Pulm onary, Eye system symptoms on review. Reliability poor. Mental Status Exam: Oriented to herself. Insight and judgment, recent and remote memory, attention and concentration, fund of knowledge is poor consistent with her diagnosis. Laboratory Data: Reviewed. Impression: Major neurocognitive disorder Alzheimer, vascular with delusion, depression and behavioral disturbance. Anxiety disorder unspecified. Impulse control disorder unspecified. Plan: No change from initial note. Assessment: Vital Signs/I&O: Vital Signs Date Time Temp Pulse Resp B/P (MAP) Pulse Ox O2 Delivery O2 Flow Rate FiO2 08/10/19 05:11 98.1 86 16 116/72 (87) 95 08/07/19 16:12 Room Air I & O 08/09/19 08/09/19 08/10/19 15:00 23:00 07:00 Intake Total 720 ml 120 ml Balance 720 ml 120 ml Labs: Laboratory Tests Test 08/10/19 06:47 White Blood Count 5.2 x10^3/uL (4.0-11.0) Red Blood Count 4.39 x10^6/uL (3.50-5.40) Hemoglobin 13.9 g/dL (12.0-15.5) Hematocrit 42.5 % (36.0-47.0) Mean Corpuscular Volume 97 fL (79-100) Mean Corpuscular Hemoglobin 32 pg (25-35) Mean Corpuscular Hemoglobin Concent 33 g/dL (31-37) Red Cell Distribution Width 13.3 % (11.5-14.5) Platelet Count 340 x10^3/uL (140-400) Neutrophils (%) (Auto) 73 % (31-73) Lymphocytes (%) (Auto) 16 % (24-48) L Monocytes (%) (Auto) 7 % (0-9) Eosinophils (%) (Auto) 4 % (0-3) H Basophils (%) (Auto) 1 % (0-3) Neutrophils # (Auto) 3.8 x10^3uL (1.8-7.7) Lymphocytes # (Auto) 0.8 x10^3/uL (1.0-4.8) L Monocytes # (Auto) 0.3 x10^3/uL (0.0-1.1) Eosinophils # (Auto) 0.2 x10^3/uL (0.0-0.7) Basophils # (Auto) 0.1 x10^3/uL (0.0-0.2) Sodium Level 146 mmol/L (136-145) H Potassium Level 3.8 mmol/L (3.5-5.1) Chloride Level 109 mmol/L (98-107) H Carbon Dioxide Level 28 mmol/L (21-32) Anion Gap 9 (6-14) Blood Urea Nitrogen 21 mg/dL (7-20) H Creatinine 0.6 mg/dL (0.6-1.0) Estimated GFR (Cockcroft-Gault) 98.5 BUN/Creatinine Ratio 35 (6-20) H Glucose Level 95 mg/dL (70-99) Calcium Level 9.0 mg/dL (8.5-10.1) Total Bilirubin 0.4 mg/dL (0.2-1.0) Aspartate Amino Transferase (AST) 21 U/L (15-37) Alanine Aminotransferase (ALT) 23 U/L (14-59) Alkaline Phosphatase 101 U/L (46-116) Total Protein 6.8 g/dL (6.4-8.2) Albumin 3.0 g/dL (3.4-5.0) L Albumin/Globulin Ratio 0.8 (1.0-1.7) L Current Medications: Meds: Current Medications Medications (Trade) Dose Ordered Sig/Bindu Route PRN Reason Start Time Stop Time Status Last Admin Dose Admin Sertraline HCl (Zoloft) 25 mg DAILY PO 08/09/19 09:00 08/11/19 21:00 08/09/19 08:30 Ziprasidone (Geodon) 40 mg DAILY PO 08/09/19 09:00 08/09/19 08:34 I have reviewed the current psychotropics carefully including drug interactions. Risk benefit ratio favors no change other than as noted in my dictated progress note. Diagnosis: Problems: (1) Behavior disorder (2) Impulse control disorder, unspecified (3) Anxiety disorder, unspecified (4) Dementia, vascular, with depression (5) Dementia, vascular, with delusions (6) Dementia in Alzheimer's disease with depression (7) Dementia in Alzheimer's disease with delusions (8) Major neurocognitive disorder, due to vascular disease, with behavioral disturbance, mild NAEEM SADLER MD August 10, 2019 08:14
[2019-08-10] MEDS: LORazepam 1 MG TABLET PO SCH ×3 (08:35→20:09)
[2019-08-10] MEDS: SERTRALINE 25 MG TABLET. PO SCH (08:35)
[2019-08-10] MEDS: SENNOSIDES/DOCUSATE 8.6/50MG TABLET. PO SCH ×2 (08:35→20:09)
[2019-08-10] MEDS: ASCORBIC ACID 500 MG TABLET PO SCH (08:35)
[2019-08-10] MEDS: FUROSEMIDE 20 MG TABLET PO SCH (08:35)
[2019-08-10] MEDS: POTASSIUM CHLORIDE 10 MEQ TABLET.ER. PO SCH (08:36)
[2019-08-10] MEDS: ZIPRASIDONE 40 MG CAPSULE. PO SCH (08:36)
[2019-08-10] MEDS: LACTOBACILLUS RHAMNOSUS GG 1 CAPSULE. PO SCH ×2 (08:36→20:09)
[2019-08-10] MEDS: hydrALAZINE 25 MG TABLET PO SCH ×3 (08:36→20:13)
[2019-08-10] MEDS: THIAMINE 100 MG TABLET. PO SCH (08:37)
[2019-08-10] MEDS: MUPIROCIN 2% TOPICAL OINTMENT 22GM TUBE. TP SCH ×2 (08:37→20:10)
--- NOTE | 2019-08-10 08:57 | NUR ---
Wound Care Wound care consult for multiple abrasions to BLE. Pt has several abrasions to lower legs as well as old, in different stages of healing, pressure ulcers to bilateral feet. Right heel remains open, stage II PU and left lalteral foot is also open stage II PU. Both are dry and crusty, not new wounds. Dressed both with skin prep and hydrocolloid dressings, change every 3-4 days. No other open wounds noted, other healing and healed PU to Bilat feet painted with skin prep. No other wounds noted. WC will continue to follow for possible changes.
--- NOTE | 2019-08-10 15:30 | NUR ---
Nursing note: Pt in dining room for morning meds and assessment. She was compliant with her meds whole and cooperative with her assessment. Pt did need to be encouraged to swallow her medications rather than chew them. She was very happy, social, and sarcastic this morning making several jokes. Pt has continued to be pleasant throughout the shift, restless at times but able to be redirected. She is currently in her room listening to relaxing music. Will continue to monitor.
[2019-08-10 15:51] VITALS: BP 92/55
[2019-08-10] MEDS: ACETAMINOPHEN 325 MG TABLET PO PRN (20:08)
[2019-08-10] MEDS: MIRTAZAPINE 7.5 MG TABLET. PO SCH (20:08)
[2019-08-10] MEDS: MELATONIN 3 MG TABLET PO SCH (20:09)
[2019-08-10] MEDS: ZIPRASIDONE 20 MG CAPSULE. PO SCH (20:09)
--- NOTE | 2019-08-10 22:07 | PDOC ---
Exam Note: David Note: Please also refer to the separate dictated note~for this date of service dictated separately.~Patient seen individually. Discussed the patient with Nursing staff reviewed the chart.~Reviewed interim history and current functioning. Reviewed vital signs,~Labs/ Radiology~and current medications noted below. Continue current treatment with the changes noted in the dictated addendum note Assessment: Vital Signs/I&O: Vital Signs Date Time Temp Pulse Resp B/P (MAP) Pulse Ox O2 Delivery O2 Flow Rate FiO2 08/10/19 20:34 97.5 92 08/10/19 20:13 107 110/68 08/10/19 15:51 18 08/07/19 16:12 Room Air I & O 08/09/19 08/09/19 08/10/19 15:00 23:00 07:00 Intake Total 720 ml 120 ml Balance 720 ml 120 ml Labs: Laboratory Tests Test 08/10/19 06:47 White Blood Count 5.2 x10^3/uL (4.0-11.0) Red Blood Count 4.39 x10^6/uL (3.50-5.40) Hemoglobin 13.9 g/dL (12.0-15.5) Hematocrit 42.5 % (36.0-47.0) Mean Corpuscular Volume 97 fL (79-100) Mean Corpuscular Hemoglobin 32 pg (25-35) Mean Corpuscular Hemoglobin Concent 33 g/dL (31-37) Red Cell Distribution Width 13.3 % (11.5-14.5) Platelet Count 340 x10^3/uL (140-400) Neutrophils (%) (Auto) 73 % (31-73) Lymphocytes (%) (Auto) 16 % (24-48) L Monocytes (%) (Auto) 7 % (0-9) Eosinophils (%) (Auto) 4 % (0-3) H Basophils (%) (Auto) 1 % (0-3) Neutrophils # (Auto) 3.8 x10^3uL (1.8-7.7) Lymphocytes # (Auto) 0.8 x10^3/uL (1.0-4.8) L Monocytes # (Auto) 0.3 x10^3/uL (0.0-1.1) Eosinophils # (Auto) 0.2 x10^3/uL (0.0-0.7) Basophils # (Auto) 0.1 x10^3/uL (0.0-0.2) Sodium Level 146 mmol/L (136-145) H Potassium Level 3.8 mmol/L (3.5-5.1) Chloride Level 109 mmol/L (98-107) H Carbon Dioxide Level 28 mmol/L (21-32) Anion Gap 9 (6-14) Blood Urea Nitrogen 21 mg/dL (7-20) H Creatinine 0.6 mg/dL (0.6-1.0) Estimated GFR (Cockcroft-Gault) 98.5 BUN/Creatinine Ratio 35 (6-20) H Glucose Level 95 mg/dL (70-99) Calcium Level 9.0 mg/dL (8.5-10.1) Total Bilirubin 0.4 mg/dL (0.2-1.0) Aspartate Amino Transferase (AST) 21 U/L (15-37) Alanine Aminotransferase (ALT) 23 U/L (14-59) Alkaline Phosphatase 101 U/L (46-116) Total Protein 6.8 g/dL (6.4-8.2) Albumin 3.0 g/dL (3.4-5.0) L Albumin/Globulin Ratio 0.8 (1.0-1.7) L Current Medications: Meds: Current Medications Medications (Trade) Dose Ordered Sig/Bindu Route PRN Reason Start Time Stop Time Status Last Admin Dose Admin Mirtazapine (Remeron) 7.5 mg QHS PO 08/10/19 21:00 08/10/19 20:08 I have reviewed the current psychotropics carefully including drug interactions. Risk benefit ratio favors no change other than as noted in my dictated progress note. Diagnosis: Problems: (1) Behavior disorder (2) Impulse control disorder, unspecified (3) Anxiety disorder, unspecified (4) Dementia, vascular, with depression (5) Dementia, vascular, with delusions (6) Dementia in Alzheimer's disease with depression (7) Dementia in Alzheimer's disease with delusions (8) Major neurocognitive disorder, due to vascular disease, with behavioral disturbance, mild VIKTORIYANAEEM PEREZ MD August 10, 2019 22:07
--- NOTE | 2019-08-11 00:04 | NUR ---
At shift change pt restless in bed, pt slide self out of bed and onto the ground. Incontinent pt changed and assisted back into bed. Pressure alarm/chair alarm in place. Pt compliant with medication. Pt is pleasant and interactive with staff.
[2019-08-11] MEDS: ACETAMINOPHEN 325 MG TABLET PO PRN ×2 (06:06→22:22)
[2019-08-11 06:11] VITALS: BP 93/58
[2019-08-11 08:00] VITALS: BP 114/72
[2019-08-11] MEDS: hydrALAZINE 25 MG TABLET PO SCH ×3 (08:02→20:58)
[2019-08-11] MEDS: LACTOBACILLUS RHAMNOSUS GG 1 CAPSULE. PO SCH ×2 (08:03→20:58)
[2019-08-11] MEDS: POTASSIUM CHLORIDE 10 MEQ TABLET.ER. PO SCH (08:03)
[2019-08-11] MEDS: MULTIVITAMIN with MINERAL TABLET. PO SCH (08:03)
[2019-08-11] MEDS: ZIPRASIDONE 40 MG CAPSULE. PO SCH (08:03)
[2019-08-11] MEDS: ASCORBIC ACID 500 MG TABLET PO SCH (08:03)
[2019-08-11] MEDS: SERTRALINE 25 MG TABLET. PO SCH (08:03)
[2019-08-11] MEDS: SENNOSIDES/DOCUSATE 8.6/50MG TABLET. PO SCH ×2 (08:03→20:59)
[2019-08-11] MEDS: FUROSEMIDE 20 MG TABLET PO SCH (08:04)
[2019-08-11] MEDS: MUPIROCIN 2% TOPICAL OINTMENT 22GM TUBE. TP SCH ×2 (08:04→20:59)
[2019-08-11] MEDS: LORazepam 1 MG TABLET PO SCH ×3 (08:04→20:59)
[2019-08-11] MEDS: THIAMINE 100 MG TABLET. PO SCH (08:04)
--- NOTE | 2019-08-11 09:31 | NUR ---
Nursing note: Pt in dining room for morning meds and assessment. She was compliant with her meds crushed in pudding and cooperative with her assessment. Pt does not appear to have any pain. She is currently in the day room sleeping Will continue to monitor.
--- NOTE | 2019-08-11 13:48 | NUR ---
WEEKLY ACTIVITY THERAPY NOTE Date of Admission: 08/04/19 Date of AT Assessment: 08/05/19 Precipitating behaviors that initiated intake and admission: Patient reportedly believes staff are poisoning her; talking to people that aren't there; attempting to bite and kick staff; hitting staff; and hallucinating Goal aimed: to increase sensory stimulation Initial Goal: Pt. will participate in at least one individual Activity Therapy session before discharge. Weekly progress towards goal: 0/1 Group participation level: zero Weekly highlights: around group and music on Wednesday 08/09 Behaviors observed: sleeping often, restless and attempts to get up from seat, confused, nonsensical Plan: no change to goal Beneficial adaptations:
[2019-08-11 16:14] VITALS: BP 104/71
[2019-08-11] MEDS: MIRTAZAPINE 7.5 MG TABLET. PO SCH (20:58)
[2019-08-11] MEDS: ZIPRASIDONE 20 MG CAPSULE. PO SCH (20:58)
[2019-08-11] MEDS: MELATONIN 3 MG TABLET PO SCH (20:59)
--- NOTE | 2019-08-11 22:04 | PDOC ---
Exam Note: David Note: Please also refer to the separate dictated note~for this date of service dictated separately.~Patient seen individually. Discussed the patient with Nursing staff reviewed the chart.~Reviewed interim history and current functioning. Reviewed vital signs,~Labs/ Radiology~and current medications noted below. Continue current treatment with the changes noted in the dictated addendum note Assessment: Vital Signs/I&O: Vital Signs Date Time Temp Pulse Resp B/P (MAP) Pulse Ox O2 Delivery O2 Flow Rate FiO2 08/11/19 20:58 88 104/71 08/11/19 16:14 98.2 20 96 08/07/19 16:12 Room Air I & O 08/10/19 08/10/19 08/11/19 15:00 23:00 07:00 Intake Total 360 ml 460 ml Balance 360 ml 460 ml Current Medications: Meds: Current Medications Medications (Trade) Dose Ordered Sig/Bindu Route PRN Reason Start Time Stop Time Status Last Admin Dose Admin Multivitamins/ Calcium (Thera-M Plus) 1 tab DAILY PO 08/11/19 09:00 08/11/19 08:03 I have reviewed the current psychotropics carefully including drug interactions. Risk benefit ratio favors no change other than as noted in my dictated progress note. Diagnosis: Problems: (1) Behavior disorder (2) Impulse control disorder, unspecified (3) Anxiety disorder, unspecified (4) Dementia, vascular, with depression (5) Dementia, vascular, with delusions (6) Dementia in Alzheimer's disease with depression (7) Dementia in Alzheimer's disease with delusions (8) Major neurocognitive disorder, due to vascular disease, with behavioral disturbance, mild NAEEM SADLER MD August 11, 2019 22:04
[2019-08-11] MEDS: OLANZapine 5 MG TABLET PO PRN (22:21)
--- NOTE | 2019-08-12 00:07 | NUR ---
Nursing Note The patient was located in her room laying in bed for her assessment and medication pass. The patient took her medication crushed in pudding. The patient was very restless and was repeatedly attempting to get out of bed. The patient was agitated when staff attempted to redirect the patient. The patient was given PRN Tylenol and Zyprexa per PRN order. The patient is currently laying in the quiet room for patient safety and observation.
[2019-08-12 06:03] VITALS: BP 121/60
--- NOTE | 2019-08-12 07:29 | PDOC ---
Exam Note: David Note: This note is a late entry for 08/10/2019 covers elements not covered in my initial note. Subjective: The patient was seen face to face in the evening. Nursing report was with Mandie COHN. Discussed the patient with nursing staff reviewed the chart. She slept 1-1/2 hours previous night. She has been confused, rambling in her speech, babbling, sarcastic at times, somewhat expansive per nursing report. Review of Systems: Ambulation impaired, in Broda chair. No CV, GI/, Pulmonary, Eye system symptoms on review. Mental Status Exam: Oriented to herself. Insight and judgment, recent and remote memory, attention and concentration, fund of knowledge is poor consistent with her diagnosis. Laboratory Data: Reviewed. Impression: Major neurocognitive disorder Alzheimer, vascular with delusion, depression and behavioral disturbance. Anxiety disorder unspecified. Impulse control disorder unspecified. Plan: No change from initial note. We will add Remeron 7.5 mg h.s. to help with insomnia. Assessment: Vital Signs/I&O: Vital Signs Date Time Temp Pulse Resp B/P (MAP) Pulse Ox O2 Delivery O2 Flow Rate FiO2 08/12/19 06:03 97.0 80 18 121/60 (80) 95 08/07/19 16:12 Room Air I & O 08/11/19 08/11/19 08/12/19 15:00 23:00 07:00 Intake Total 240 ml 120 ml Balance 240 ml 120 ml Current Medications: Meds: Current Medications Medications (Trade) Dose Ordered Sig/Bindu Route PRN Reason Start Time Stop Time Status Last Admin Dose Admin Multivitamins/ Calcium (Thera-M Plus) 1 tab DAILY PO 08/11/19 09:00 08/11/19 08:03 I have reviewed the current psychotropics carefully including drug interactions. Risk benefit ratio favors no change other than as noted in my dictated progress note. Diagnosis: Problems: (1) Behavior disorder (2) Impulse control disorder, unspecified (3) Anxiety disorder, unspecified (4) Dementia, vascular, with depression (5) Dementia, vascular, with delusions (6) Dementia in Alzheimer's disease with depression (7) Dementia in Alzheimer's disease with delusions (8) Major neurocognitive disorder, due to vascular disease, with behavioral disturbance, mild NAEEM SADLER MD August 12, 2019 07:29
--- NOTE | 2019-08-12 07:45 | PDOC ---
Exam Note: David Note: This note is a late entry for 08/11/2019 covers elements not covered in my initial note. Subjective: The patient was seen face to face with the treatment team in the morning including Jihan Kaplan, and Sienna (psychologist social), Agueda, Activity Therapy. Nursing report was with Adelaida COHN. The patient assisted Domenic and [id number] attended the conference room. We reviewed the patients history at length. She is sleeping average 3-1/2 hours previous night with Remeron. She remains grandiose, confused, flight of ideas, non-sensible in her speech, restless. CT head shows atrophic changes consistent with diagnosis. 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 There are bunches of beer cans fond in her house but sister said she would just drink about 2 beers every night but then would go around the area collecting and hoarding beer and that is the reason there were so many of them. The [id number] was paying her bills and helping her out a lot that she progressively deteriorated over the past 1 year. She was able to go to the grocery store till about a year back. In the evening discussed with Mandie COHN. Review of Systems: Ambulation impaired, in Broda chair. No CV, GI/, Pulmonary, Eye system symptoms on review. Mental Status Exam: Oriented to herself. She has been restless trying to get out of bed. She is pleasant, verbal, smiling as I met with her in the evening. Insight and judgment, recent and remote memory, attention and concentration, fund of knowledge is poor consistent with her diagnosis. Laboratory Data: Reviewed. Impression: Major neurocognitive disorder Alzheimer, vascular with delusion, depression and behavioral disturbance. Anxiety disorder unspecified. Impulse control disorder unspecified. Plan: No change from initial note. We will maintain the Remeron which was added. Ativan has been reduced. Maintain melatonin, Zyprexa, Geodon. Adjust further as clinically indicated. Assessment: Vital Signs/I&O: Vital Signs Date Time Temp Pulse Resp B/P (MAP) Pulse Ox O2 Delivery O2 Flow Rate FiO2 08/12/19 06:03 97.0 80 18 121/60 (80) 95 08/07/19 16:12 Room Air I & O 08/11/19 08/11/19 08/12/19 15:00 23:00 07:00 Intake Total 240 ml 120 ml Balance 240 ml 120 ml Current Medications: Meds: Current Medications Medications (Trade) Dose Ordered Sig/Bindu Route PRN Reason Start Time Stop Time Status Last Admin Dose Admin Multivitamins/ Calcium (Thera-M Plus) 1 tab DAILY PO 08/11/19 09:00 08/11/19 08:03 I have reviewed the current psychotropics carefully including drug interactions. Risk benefit ratio favors no change other than as noted in my dictated progress note. Diagnosis: Problems: (1) Behavior disorder (2) Impulse control disorder, unspecified (3) Anxiety disorder, unspecified (4) Dementia, vascular, with depression (5) Dementia, vascular, with delusions (6) Dementia in Alzheimer's disease with depression (7) Dementia in Alzheimer's disease with delusions (8) Major neurocognitive disorder, due to vascular disease, with behavioral disturbance, mild NAEEM SADLER MD August 12, 2019 07:45
[2019-08-12] MEDS: MULTIVITAMIN with MINERAL TABLET. PO SCH (08:08)
[2019-08-12] MEDS: ZIPRASIDONE 40 MG CAPSULE. PO SCH (08:08)
[2019-08-12] MEDS: hydrALAZINE 25 MG TABLET PO SCH ×3 (08:08→21:00)
[2019-08-12] MEDS: LACTOBACILLUS RHAMNOSUS GG 1 CAPSULE. PO SCH ×2 (08:08→21:25)
[2019-08-12] MEDS: ASCORBIC ACID 500 MG TABLET PO SCH (08:08)
[2019-08-12] MEDS: POTASSIUM CHLORIDE 10 MEQ TABLET.ER. PO SCH (08:08)
[2019-08-12] MEDS: THIAMINE 100 MG TABLET. PO SCH (08:09)
[2019-08-12] MEDS: MUPIROCIN 2% TOPICAL OINTMENT 22GM TUBE. TP SCH ×2 (08:09→21:26)
[2019-08-12] MEDS: SENNOSIDES/DOCUSATE 8.6/50MG TABLET. PO SCH ×2 (08:09→21:26)
[2019-08-12] MEDS: FUROSEMIDE 20 MG TABLET PO SCH (08:09)
[2019-08-12] MEDS: LORazepam 1 MG TABLET PO SCH ×3 (08:13→21:28)
[2019-08-12] MEDS: SERTRALINE 50 MG TABLET. PO SCH (08:14)
[2019-08-12 15:27] VITALS: BP 101/64
--- NOTE | 2019-08-12 18:30 | NUR ---
Pt up in broda for meals. impulsive at times. has been compliant with meds and cares.
[2019-08-12] MEDS: MELATONIN 3 MG TABLET PO SCH (21:00)
[2019-08-12] MEDS: ZIPRASIDONE 20 MG CAPSULE. PO SCH (21:25)
[2019-08-12] MEDS: MIRTAZAPINE 15 MG TABLET PO SCH (21:28)
--- NOTE | 2019-08-12 21:51 | PDOC ---
Exam Note: David Note: Please also refer to the separate dictated note~for this date of service dictated separately.~Patient seen individually. Discussed the patient with Nursing staff reviewed the chart.~Reviewed interim history and current functioning. Reviewed vital signs,~Labs/ Radiology~and current medications noted below. Continue current treatment with the changes noted in the dictated addendum note Assessment: Vital Signs/I&O: Vital Signs Date Time Temp Pulse Resp B/P (MAP) Pulse Ox O2 Delivery O2 Flow Rate FiO2 08/12/19 21:00 91 101/68 08/12/19 20:52 98.4 96 08/12/19 15:27 16 08/07/19 16:12 Room Air I & O 08/11/19 08/11/19 08/12/19 14:59 22:59 06:59 Intake Total 240 ml 120 ml Balance 240 ml 120 ml Current Medications: Meds: Current Medications Medications (Trade) Dose Ordered Sig/Bindu Route PRN Reason Start Time Stop Time Status Last Admin Dose Admin Sertraline HCl (Zoloft) 50 mg DAILY PO 08/12/19 09:00 08/12/19 08:14 Mirtazapine (Remeron) 15 mg QHS PO 08/12/19 21:00 08/12/19 21:28 I have reviewed the current psychotropics carefully including drug interactions. Risk benefit ratio favors no change other than as noted in my dictated progress note. Diagnosis: Problems: (1) Behavior disorder (2) Impulse control disorder, unspecified (3) Anxiety disorder, unspecified (4) Dementia, vascular, with depression (5) Dementia, vascular, with delusions (6) Dementia in Alzheimer's disease with depression (7) Dementia in Alzheimer's disease with delusions (8) Major neurocognitive disorder, due to vascular disease, with behavioral disturbance, mild NAEEM SADLER MD August 12, 2019 21:51
[2019-08-12] MEDS: OLANZapine 5 MG TABLET PO PRN (22:50)
--- NOTE | 2019-08-13 02:16 | NUR ---
Nursing Note The patient was initially located in the quiet room for observation and patient safety. When this nurse approached the patient for her assessment the patient was found to be cooperative and was thus transferred to her wheel chair where she received her medication crushed in pudding. The patient continues to be very disorganized but pleasant during interactions. The patient was restless and difficult to redirect when taken to bed. The patient received PRN Zyprexa per PRN order. The patient is currently sleeping in her room.
[2019-08-13 06:06] VITALS: BP 94/62
[2019-08-13] MEDS: MUPIROCIN 2% TOPICAL OINTMENT 22GM TUBE. TP SCH ×2 (08:19→20:46)
[2019-08-13] MEDS: LACTOBACILLUS RHAMNOSUS GG 1 CAPSULE. PO SCH ×2 (08:19→20:48)
[2019-08-13] MEDS: THIAMINE 100 MG TABLET. PO SCH (08:19)
[2019-08-13] MEDS: FUROSEMIDE 20 MG TABLET PO SCH (08:19)
[2019-08-13] MEDS: POTASSIUM CHLORIDE 10 MEQ TABLET.ER. PO SCH (08:19)
[2019-08-13] MEDS: ASCORBIC ACID 500 MG TABLET PO SCH (08:19)
[2019-08-13] MEDS: ZIPRASIDONE 40 MG CAPSULE. PO SCH (08:20)
[2019-08-13] MEDS: SERTRALINE 50 MG TABLET. PO SCH (08:20)
[2019-08-13] MEDS: MULTIVITAMIN with MINERAL TABLET. PO SCH (08:20)
[2019-08-13] MEDS: SENNOSIDES/DOCUSATE 8.6/50MG TABLET. PO SCH ×2 (08:20→20:47)
[2019-08-13] MEDS: hydrALAZINE 25 MG TABLET PO SCH ×3 (08:20→20:48)
[2019-08-13] MEDS: LORazepam 1 MG TABLET PO SCH ×2 (08:22→13:11)
--- NOTE | 2019-08-13 08:51 | PDOC ---
Exam Note: David Note: This note is a late entry for 08/12/2019 covers elements not covered in my initial note. Subjective: The patient was seen face to face in the evening of 08/12/2019. Nursing report was with Ana COHN. She is sleeping average 3-3/4 hours previous night. She remains anxious, restless, trying to get out of her Broda chair. She was restless previous night as well. Received p.r.n.s twice and her lack of sleep worsens her daytime restlessness as well. Review of Systems: Ambulation impaired, in Broda chair. No CV, GI/, Pulmonary, Eye system symptoms on review. Reliability poor. Mental Status Exam: Oriented to herself. She is pleasant, smiling as I met with her. Oblivious of the dinner she was eating. Insight and judgment, recent and remote memory, attention and concentration, fund of knowledge is poor consistent with her diagnosis. Laboratory Data: Reviewed. Impression: Major neurocognitive disorder Alzheimer, vascular with delusion, depression and behavioral disturbance. Anxiety disorder unspecified. Impulse control disorder unspecified. Plan: No change from initial note. Her CT head shows no acute changes and in fact no significant atrophy is noted as well. Functionally, however, she is extremely compromised cognitively. We will continue Ativan 0.5 mg t.i.d. We will reduce it gradually; melatonin is 4.5 mg h.s., Zyprexa p.r.n., Geodon 40 mg a.m. and 20 mg h.s. We will increase the Remeron from 7.5 mg h.s. to 15 mg h.s. to help with insomnia and daytime anxiety and restless. We will make further adjustments as clinically indicated. Assessment: Vital Signs/I&O: Vital Signs Date Time Temp Pulse Resp B/P (MAP) Pulse Ox O2 Delivery O2 Flow Rate FiO2 08/13/19 08:34 97.9 97 08/13/19 08:20 65 94/62 08/13/19 06:06 16 08/07/19 16:12 Room Air I & O 08/12/19 08/12/19 08/13/19 14:59 22:59 06:59 Intake Total 480 ml 240 ml Balance 480 ml 240 ml Current Medications: Meds: Current Medications Medications (Trade) Dose Ordered Sig/Bindu Route PRN Reason Start Time Stop Time Status Last Admin Dose Admin Sertraline HCl (Zoloft) 50 mg DAILY PO 08/12/19 09:00 08/13/19 08:20 Mirtazapine (Remeron) 15 mg QHS PO 08/12/19 21:00 08/12/19 21:28 I have reviewed the current psychotropics carefully including drug interactions. Risk benefit ratio favors no change other than as noted in my dictated progress note. Diagnosis: Problems: (1) Behavior disorder (2) Impulse control disorder, unspecified (3) Anxiety disorder, unspecified (4) Dementia, vascular, with depression (5) Dementia, vascular, with delusions (6) Dementia in Alzheimer's disease with depression (7) Dementia in Alzheimer's disease with delusions (8) Major neurocognitive disorder, due to vascular disease, with behavioral disturbance, mild NAEEM SADLER MD August 13, 2019 08:51
[2019-08-13 13:48] LABS: BASO # 0.1 x10^3/uL (0.0-0.2); BASO % 1 % (0-3); EOS # 0.4 x10^3/uL (0.0-0.7); EOS % 6 % (0-3); HEMATOCRIT 40.5 % (36.0-47.0); HEMOGLOBIN 13.4 g/dL (12.0-15.5); LYMPH # 0.9 x10^3/uL (1.0-4.8); LYMPH % 16 % (24-48); MEAN CORPUSCULAR HEMOGLOBIN 32 pg (25-35); MEAN CORPUSCULAR HGB CONC 33 g/dL (31-37); MEAN CORPUSCULAR VOLUME 97 fL (79-100); MONO # 0.3 x10^3/uL (0.0-1.1); MONO % 6 % (0-9); NEUT % 71 % (31-73); PLATELET COUNT 283 x10^3/uL (140-400); RED BLOOD COUNT 4.15 x10^6/uL (3.50-5.40); WHITE BLOOD COUNT 5.6 x10^3/uL (4.0-11.0)
[2019-08-13 14:06] LABS: ALBUMIN 2.7 g/dL (3.4-5.0); ALBUMIN/GLOBULIN RATIO 0.7 (1.0-1.7); CALCIUM 8.1 mg/dL (8.5-10.1); CREATININE 0.7 mg/dL (0.6-1.0); GFR 82.5; POTASSIUM 3.6 mmol/L (3.5-5.1); TOTAL BILIRUBIN 0.2 mg/dL (0.2-1.0); TOTAL PROTEIN 6.5 g/dL (6.4-8.2)
[2019-08-13 15:27] VITALS: BP 133/81
--- NOTE | 2019-08-13 18:05 | NUR ---
Pt up in wc for meals. Has been pleasantly confused. Compliant with meds and cares.
[2019-08-13] MEDS: ZIPRASIDONE 20 MG CAPSULE. PO SCH (20:47)
[2019-08-13] MEDS: traZODone 50 MG TABLET. PO PRN ×2 (20:47→22:30)
[2019-08-13] MEDS: MIRTAZAPINE 15 MG TABLET PO SCH (20:47)
[2019-08-13] MEDS: MELATONIN 3 MG TABLET PO SCH (20:48)
[2019-08-13] MEDS: LORazepam 0.5 MG TABLET PO SCH (20:57)
--- NOTE | 2019-08-13 21:56 | PDOC ---
Exam Note: David Note: Please also refer to the separate dictated note~for this date of service dictated separately.~Patient seen individually. Discussed the patient with Nursing staff reviewed the chart.~Reviewed interim history and current functioning. Reviewed vital signs,~Labs/ Radiology~and current medications noted below. Continue current treatment with the changes noted in the dictated addendum note Assessment: Vital Signs/I&O: Vital Signs Date Time Temp Pulse Resp B/P (MAP) Pulse Ox O2 Delivery O2 Flow Rate FiO2 08/13/19 20:58 97.6 96 08/13/19 20:48 71 133/81 08/13/19 15:27 18 08/07/19 16:12 Room Air I & O 08/12/19 08/12/19 08/13/19 14:59 22:59 06:59 Intake Total 480 ml 240 ml Balance 480 ml 240 ml Labs: Laboratory Tests Test 08/13/19 13:40 White Blood Count 5.6 x10^3/uL (4.0-11.0) Red Blood Count 4.15 x10^6/uL (3.50-5.40) Hemoglobin 13.4 g/dL (12.0-15.5) Hematocrit 40.5 % (36.0-47.0) Mean Corpuscular Volume 97 fL (79-100) Mean Corpuscular Hemoglobin 32 pg (25-35) Mean Corpuscular Hemoglobin Concent 33 g/dL (31-37) Red Cell Distribution Width 13.0 % (11.5-14.5) Platelet Count 283 x10^3/uL (140-400) Neutrophils (%) (Auto) 71 % (31-73) Lymphocytes (%) (Auto) 16 % (24-48) L Monocytes (%) (Auto) 6 % (0-9) Eosinophils (%) (Auto) 6 % (0-3) H Basophils (%) (Auto) 1 % (0-3) Neutrophils # (Auto) 4.0 x10^3uL (1.8-7.7) Lymphocytes # (Auto) 0.9 x10^3/uL (1.0-4.8) L Monocytes # (Auto) 0.3 x10^3/uL (0.0-1.1) Eosinophils # (Auto) 0.4 x10^3/uL (0.0-0.7) Basophils # (Auto) 0.1 x10^3/uL (0.0-0.2) Sodium Level 144 mmol/L (136-145) Potassium Level 3.6 mmol/L (3.5-5.1) Chloride Level 108 mmol/L (98-107) H Carbon Dioxide Level 31 mmol/L (21-32) Anion Gap 5 (6-14) L Blood Urea Nitrogen 21 mg/dL (7-20) H Creatinine 0.7 mg/dL (0.6-1.0) Estimated GFR (Cockcroft-Gault) 82.5 BUN/Creatinine Ratio 30 (6-20) H Glucose Level 114 mg/dL (70-99) H Calcium Level 8.1 mg/dL (8.5-10.1) L Total Bilirubin 0.2 mg/dL (0.2-1.0) Aspartate Amino Transferase (AST) 25 U/L (15-37) Alanine Aminotransferase (ALT) 27 U/L (14-59) Alkaline Phosphatase 101 U/L (46-116) Total Protein 6.5 g/dL (6.4-8.2) Albumin 2.7 g/dL (3.4-5.0) L Albumin/Globulin Ratio 0.7 (1.0-1.7) L Current Medications: Meds: Current Medications Medications (Trade) Dose Ordered Sig/Bindu Route PRN Reason Start Time Stop Time Status Last Admin Dose Admin Lorazepam (Ativan) 0.5 mg TID PO 08/13/19 21:00 08/13/19 20:57 Trazodone HCl (Desyrel) 50 mg PRN QHS PRN PO INSOMNIA, JULY REPEAT X1 08/13/19 17:15 08/13/19 20:47 I have reviewed the current psychotropics carefully including drug interactions. Risk benefit ratio favors no change other than as noted in my dictated progress note. Diagnosis: Problems: (1) Behavior disorder (2) Impulse control disorder, unspecified (3) Anxiety disorder, unspecified (4) Dementia, vascular, with depression (5) Dementia, vascular, with delusions (6) Dementia in Alzheimer's disease with depression (7) Dementia in Alzheimer's disease with delusions (8) Major neurocognitive disorder, due to vascular disease, with behavioral disturbance, NAEEM Martino MD August 13, 2019:56
--- NOTE | 2019-08-14 04:18 | NUR ---
Nursing Note The patient was restless and disoriented while up in the day room. The patient is unable to reliably follow conversations when engaged. The patient took her medication crushed in ice cream. The patient received PRN Trazodone with HS medication and repeat dose an hour later. The patient is currently sleeping in her room.
[2019-08-14] MEDS ORDERED: NYSTATIN TOPICAL POWDER 15GM BOTTLE. TP PRN (05:45)
[2019-08-14 06:00] VITALS: BP 116/74
[2019-08-14] MEDS: ASCORBIC ACID 500 MG TABLET PO SCH (08:12)
[2019-08-14] MEDS: SENNOSIDES/DOCUSATE 8.6/50MG TABLET. PO SCH ×2 (08:12→19:56)
[2019-08-14] MEDS: LORazepam 0.5 MG TABLET PO SCH ×3 (08:12→19:55)
[2019-08-14] MEDS: MULTIVITAMIN with MINERAL TABLET. PO SCH (08:12)
[2019-08-14] MEDS: LACTOBACILLUS RHAMNOSUS GG 1 CAPSULE. PO SCH ×2 (08:13→19:55)
[2019-08-14] MEDS: SERTRALINE 50 MG TABLET. PO SCH (08:13)
[2019-08-14] MEDS: hydrALAZINE 25 MG TABLET PO SCH ×3 (08:13→19:56)
[2019-08-14] MEDS: POTASSIUM CHLORIDE 10 MEQ TABLET.ER. PO SCH (08:13)
[2019-08-14] MEDS: THIAMINE 100 MG TABLET. PO SCH (08:13)
[2019-08-14] MEDS: ZIPRASIDONE 40 MG CAPSULE. PO SCH (08:13)
[2019-08-14] MEDS: FUROSEMIDE 20 MG TABLET PO SCH (08:14)
[2019-08-14] MEDS: MUPIROCIN 2% TOPICAL OINTMENT 22GM TUBE. TP SCH ×2 (08:14→19:57)
[2019-08-14 16:19] VITALS: BP 96/65
--- NOTE | 2019-08-14 17:13 | NUR ---
Pt in dining room for morning meds and assessment. Pt compliant, disorganized, non-sensical with conversation, pleasant, yells out at times, talks to people who aren't there.
[2019-08-14] MEDS: MELATONIN 3 MG TABLET PO SCH (19:56)
[2019-08-14] MEDS: MIRTAZAPINE 15 MG TABLET PO SCH (19:56)
[2019-08-14] MEDS: ZIPRASIDONE 20 MG CAPSULE. PO SCH (19:56)
--- NOTE | 2019-08-14 20:48 | NUR ---
Nursing note: Assumed care of pt in the hallway outside the nurses station. She was in a broda chair but attempting to get up frequently. She is confused but pleasant and compliant with meds and assessment. Pt denies pain.
--- NOTE | 2019-08-14 22:06 | PDOC ---
Exam Note: David Note: Please also refer to the separate dictated note~for this date of service dictated separately.~Patient seen individually. Discussed the patient with Nursing staff reviewed the chart.~Reviewed interim history and current functioning. Reviewed vital signs,~Labs/ Radiology~and current medications noted below. Continue current treatment with the changes noted in the dictated addendum note Assessment: Vital Signs/I&O: Vital Signs Date Time Temp Pulse Resp B/P (MAP) Pulse Ox O2 Delivery O2 Flow Rate FiO2 08/14/19 21:07 98.1 92 08/14/19 19:56 90 96/65 08/14/19 06:00 18 I & O 08/13/19 08/13/19 08/14/19 15:00 23:00 07:00 Intake Total 840 ml 480 ml Balance 840 ml 480 ml Current Medications: I have reviewed the current psychotropics carefully including drug interactions. Risk benefit ratio favors no change other than as noted in my dictated progress note. Diagnosis: Problems: (1) Behavior disorder (2) Impulse control disorder, unspecified (3) Anxiety disorder, unspecified (4) Dementia, vascular, with depression (5) Dementia, vascular, with delusions (6) Dementia in Alzheimer's disease with depression (7) Dementia in Alzheimer's disease with delusions (8) Major neurocognitive disorder, due to vascular disease, with behavioral disturbance, mild NAEEM SADLER MD August 14, 2019 22:06
[2019-08-15 06:17] VITALS: BP 147/90
--- NOTE | 2019-08-15 07:52 | PDOC ---
Exam Note: David Note: This note is a late entry for 08/13/2019 covers elements not covered in my initial note. Subjective: The patient was seen face to face in the evening of 08/13/2019. Nursing report was with Ana COHN. She slept 4 hours previous night. She is tolerating the increased Remeron, less combative. Review of Systems: Ambulation impaired, in wheelchair. No CV, GI/, Pulmonary, Eye system symptoms on review. Mental Status Exam: Oriented to herself. Insight and judgment, recent and remote memory, attention and concentration, fund of knowledge is poor consistent with her diagnosis. Laboratory Data: Reviewed. Impression: Major neurocognitive disorder Alzheimer, vascular with delusion, d epression and behavioral disturbance. Anxiety disorder unspecified. Impulse control disorder unspecified. Plan: No change from initial note. Start trazodone 50 mg h.s. p.r.n. may repeat x1 for insomnia, rest unchanged for now including increased Remeron. Assessment: Vital Signs/I&O: Vital Signs Date Time Temp Pulse Resp B/P (MAP) Pulse Ox O2 Delivery O2 Flow Rate FiO2 08/15/19 06:17 98.4 84 147/90 (109) 93 08/14/19 06:00 18 I & O 08/14/19 08/14/19 08/15/19 15:00 23:00 07:00 Intake Total 720 ml 600 ml Balance 720 ml 600 ml Current Medications: I have reviewed the current psychotropics carefully including drug interactions. Risk benefit ratio favors no change other than as noted in my dictated progress note. Diagnosis: Problems: (1) Behavior disorder (2) Impulse control disorder, unspecified (3) Anxiety disorder, unspecified (4) Dementia, vascular, with depression (5) Dementia, vascular, with delusions (6) Dementia in Alzheimer's disease with depression (7) Dementia in Alzheimer's disease with delusions (8) Major neurocognitive disorder, due to vascular disease, with behavioral di sturbance, mild NAEEM SADLER MD Aug 15, 2019 07:52
[2019-08-15] MEDS: MULTIVITAMIN with MINERAL TABLET. PO SCH (10:27)
[2019-08-15] MEDS: LORazepam 0.5 MG TABLET PO SCH ×3 (10:27→19:56)
[2019-08-15] MEDS: MUPIROCIN 2% TOPICAL OINTMENT 22GM TUBE. TP SCH ×2 (10:27→19:57)
[2019-08-15] MEDS: THIAMINE 100 MG TABLET. PO SCH (10:28)
[2019-08-15] MEDS: FUROSEMIDE 20 MG TABLET PO SCH (10:28)
[2019-08-15] MEDS: hydrALAZINE 25 MG TABLET PO SCH ×3 (10:28→19:56)
[2019-08-15] MEDS: SENNOSIDES/DOCUSATE 8.6/50MG TABLET. PO SCH ×2 (10:28→19:57)
[2019-08-15] MEDS: POTASSIUM CHLORIDE 10 MEQ TABLET.ER. PO SCH (10:28)
[2019-08-15] MEDS: SERTRALINE 50 MG TABLET. PO SCH (10:28)
[2019-08-15] MEDS: ASCORBIC ACID 500 MG TABLET PO SCH (10:29)
[2019-08-15] MEDS: ZIPRASIDONE 40 MG CAPSULE. PO SCH (10:29)
[2019-08-15] MEDS: LACTOBACILLUS RHAMNOSUS GG 1 CAPSULE. PO SCH ×2 (10:29→19:57)
--- NOTE | 2019-08-15 15:32 | NUR ---
Patient was asleep in quiet room at start of shift. She was awakened after breakfast and assisted to the toilet and into her chair, she was not cooperative with staff. She has been cooperative with meds and assessment. Patient is confused, very disorganized, hyperverbal at times, tangental, and hallucinating. During her assessment, she described a maldonado deer that she was seeing that she watched jump the fence into the patio and was bedding down next to one of the flower beds. Will continue to monitor and report to oncoming shift.
[2019-08-15 15:41] VITALS: BP 93/60
--- NOTE | 2019-08-15 17:02 | TX PLAN ---
Interdisciplinary Tx Plan Admission Information August 04, 2019 at 16:31 Legal Status (on Admission): Voluntary DPOA/Guardian Name: Pal Curiel Contact Other Contact Name: Rock Duarte Other Contact Verified Code Status: DNR Allergies: Coded Allergies: amoxicillin (Verified Allergy, Unknown, 08/04/19) clavulanic acid (Verified Allergy, Unknown, 08/04/19) Diagnoses Primary Diagnosis: Major Neurocognitive D/O, vascular alzheimers with delusions Reasons for Admission: Aggressive, Combative, Confusion/Disoriented, Poor impulse control Problem in Patient's Words: She has never been like this. I assume this is part of the diagnosis? Additional Admission Comments: According to the intake, pt things that staff are poisoning her, confused, talking to people not there, kicking and hitting the nurse, attempted to bite, hallucinating, paranoid (picking at her skin), agitated. Problems Active Problems: hitting staff delusional hallucinating screaming paranoid (picking at skin) Inactive Problems: Compliant with cares Pt Strengths/Limitations Ability for [place]: Poor Cognitive Functioning/Ability: Poor Communication Skills/Ability: Poor Financial Resources: Fair Insight/Judgement: Poor Intellectual Ability: Poor Physical Health: Poor Social Skills: Poor Stability in Family: Good Stability in School/Work: Poor Verbal Skills: Fair Discharge Criteria Discharge Criteria: No need for close observ., Adequate arrangements @DC, Improved behavior Preliminary Discharge Plan Preliminary DC Plan: Current Living Arrange. Special Precautions Fall Risk: Moderate Initial D/C Plan Pt is scheduled to [facility] Identified Discharge Needs: Potential for a different level of care; family is concerned that current placement cannot handle pt. Currently Utilized Resources Currently Utilized Resources/P: Primary Care Physician through placement Referrals Community Resources: Mental health services Identified Problems/Hx/Goals Objectives/Short-Term Goals Short Term Goals: Dec. Aggression, Dec. Hallucination/Delus, Dec. Outbursts, Medication Stabilization, Promote Coping Skill Short Term Goals in Patient's: Get me out of here Interventions/Frequency Staff Interventions/Frequency&: Psychiatrist to assess pt at least 3x per week. Social Work to asses pt at least 2x per week. Nursing to assess medications, behaviors and complete 15 minute checks daily Encourage group participation or 1:1 engagement based off activity assessment and goals. History Vocational History: Pt has worked at [employer] since the age 14 and retired from there. Education: Pt graduated from . 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 TELLO PRITCHETT Aug 15, 2019 17:02
[2019-08-15] MEDS: ZIPRASIDONE 20 MG CAPSULE. PO SCH (19:57)
[2019-08-15] MEDS: MELATONIN 3 MG TABLET PO SCH (19:57)
[2019-08-15] MEDS: MIRTAZAPINE 15 MG TABLET PO SCH (19:57)
--- NOTE | 2019-08-15 20:02 | NUR ---
Nursing note: Held hydralazine r/t BP 93/60.
--- NOTE | 2019-08-15 20:27 | NUR ---
Nursing note: Assumed care of pt in the quiet room where we took her for safety. She was pleasant and compliant with meds. She thinks another pt is a family member and she keeps telling her she loves her. Most verbalization is word salad. No c/o pain.
--- NOTE | 2019-08-15 22:05 | PDOC ---
Exam Note: David Note: Please also refer to the separate dictated note~for this date of service dictated separately.~Patient seen individually. Discussed the patient with Nursing staff reviewed the chart.~Reviewed interim history and current functioning. Reviewed vital signs,~Labs/ Radiology~and current medications noted below. Continue current treatment with the changes noted in the dictated addendum note Assessment: Vital Signs/I&O: Vital Signs Date Time Temp Pulse Resp B/P (MAP) Pulse Ox O2 Delivery O2 Flow Rate FiO2 08/15/19 19:56 95 93/60 08/15/19 18:33 98.1 08/15/19 15:41 18 93 I & O 08/14/19 08/14/19 08/15/19 15:00 23:00 07:00 Intake Total 720 ml 600 ml Balance 720 ml 600 ml Current Medications: I have reviewed the current psychotropics carefully including drug interactions. Risk benefit ratio favors no change other than as noted in my dictated progress note. Diagnosis: Problems: (1) Behavior disorder (2) Impulse control disorder, unspecified (3) Anxiety disorder, unspecified (4) Dementia, vascular, with depression (5) Dementia, vascular, with delusions (6) Dementia in Alzheimer's disease with depression (7) Dementia in Alzheimer's disease with delusions (8) Major neurocognitive disorder, due to vascular disease, with behavioral disturbance, mild NAEEM SADLER MD Aug 15, 2019 22:05
[2019-08-15] MEDS: traZODone 50 MG TABLET. PO PRN (22:49)
[2019-08-15] MEDS: OLANZapine 5 MG TABLET PO PRN (22:49)
[2019-08-16 06:34] VITALS: BP 129/76
--- NOTE | 2019-08-16 06:46 | PDOC ---
Exam Note: David Note: This note is a late entry for 08/14/2019 covers elements not covered in my initial note. Subjective: The patient was seen face to face in the evening of 08/14/2019. Nursing report was with Cele COHN. She slept 2-3/4 hours previous night. She has been disorganized, anxious, restless. She slept somewhat poorly last night but we will monitor for another night and then decide. Review of Systems: Ambulation impaired, in wheelchair. No CV, GI/, Pulmonary, Eye system symptoms on review. Mental Status Exam: Oriented to herself. She was calling out repeatedly as I was visiting for her, quite oblivious of her circumstances, but pleasant, smiling, verbally interactive, disorganized as I met with her. Insight and judgment, recent and remote memory, attention and concentration, fund of knowledge is poor consistent with her diagnosis. Laboratory Data: Reviewed. Impression: Major neurocognitive disorder Alzheimer, vascular with delusion, depression and behavioral disturbance. Anxiety disorder unspecified. Impulse control disorder unspecified. Plan: No change from initial note. Maintain Geodon, Remeron, trazodone, melatonin, along with Zyprexa. May add low dose Depakote as a mood stabilizer. Assessment: Vital Signs/I&O: Vital Signs Date Time Temp Pulse Resp B/P (MAP) Pulse Ox O2 Delivery O2 Flow Rate FiO2 08/16/19 06:34 97.4 76 18 129/76 (93) 94 I & O 0 08/15/19 08/15/19 08/16/19 15:00 23:00 07:00 Intake Total 360 ml 340 ml Balance 360 ml 340 ml Current Medications: I have reviewed the current psychotropics carefully including drug interactions. Risk benefit ratio favors no change other than as noted in my dictated progress note. Diagnosis: Problems: (1) Behavior disorder (2) Impulse control disorder, unspecified (3) Anxiety disorder, unspecified (4) Dementia, vascular, with depression (5) Dementia, vascular, with delusions (6) Dementia in Alzheimer's disease with depression (7) Dementia in Alzheimer's disease with delusions (8) Major neurocognitive disorder, due to vascular disease, with behavioral disturbance, mild NAEEM SADLER MD Aug 16, 2019 06:46
[2019-08-16 07:13] LABS: COLOR,URINE YELLOW
[2019-08-16 07:14] LABS: BACTERIA,URINE FEW /HPF (0-FEW); BILIRUBIN,URINE NEG (NEG); CLARITY,URINE CLEAR; GLUCOSE,URINE NEG (NEG); NITRITE,URINE NEG (NEG); SQUAMOUS EPITHELIAL CELL,UR FEW /LPF
[2019-08-16 07:42] LABS: BASO % 1 % (0-3); EOS # 0.3 x10^3/uL (0.0-0.7); EOS % 5 % (0-3); HEMOGLOBIN 12.5 g/dL (12.0-15.5); LYMPH # 0.9 x10^3/uL (1.0-4.8); LYMPH % 16 % (24-48); MEAN CORPUSCULAR HEMOGLOBIN 32 pg (25-35); MEAN CORPUSCULAR HGB CONC 33 g/dL (31-37); MEAN CORPUSCULAR VOLUME 96 fL (79-100); MONO # 0.4 x10^3/uL (0.0-1.1); MONO % 8 % (0-9); NEUT % 71 % (31-73); PLATELET COUNT 271 x10^3/uL (140-400); RED BLOOD COUNT 3.97 x10^6/uL (3.50-5.40); WHITE BLOOD COUNT 5.6 x10^3/uL (4.0-11.0)
[2019-08-16 07:48] LABS: ALBUMIN 2.7 g/dL (3.4-5.0); ALBUMIN/GLOBULIN RATIO 0.8 (1.0-1.7); CALCIUM 8.5 mg/dL (8.5-10.1); CREATININE 0.5 mg/dL (0.6-1.0); GFR 121.6; POTASSIUM 3.9 mmol/L (3.5-5.1); TOTAL BILIRUBIN 0.3 mg/dL (0.2-1.0)
[2019-08-16] MEDS: ZIPRASIDONE 40 MG CAPSULE. PO SCH (08:22)
[2019-08-16] MEDS: MULTIVITAMIN with MINERAL TABLET. PO SCH (08:22)
[2019-08-16] MEDS: MUPIROCIN 2% TOPICAL OINTMENT 22GM TUBE. TP SCH ×2 (08:22→19:55)
[2019-08-16] MEDS: SERTRALINE 50 MG TABLET. PO SCH (08:22)
[2019-08-16] MEDS: THIAMINE 100 MG TABLET. PO SCH (08:22)
[2019-08-16] MEDS: POTASSIUM CHLORIDE 10 MEQ TABLET.ER. PO SCH (08:23)
[2019-08-16] MEDS: SENNOSIDES/DOCUSATE 8.6/50MG TABLET. PO SCH ×2 (08:23→19:51)
[2019-08-16] MEDS: hydrALAZINE 25 MG TABLET PO SCH ×3 (08:23→19:51)
[2019-08-16] MEDS: LACTOBACILLUS RHAMNOSUS GG 1 CAPSULE. PO SCH ×2 (08:24→19:52)
[2019-08-16] MEDS: LORazepam 0.5 MG TABLET PO SCH ×3 (08:24→19:51)
[2019-08-16] MEDS: FUROSEMIDE 20 MG TABLET PO SCH (08:24)
[2019-08-16] MEDS: ASCORBIC ACID 500 MG TABLET PO SCH (08:24)
--- NOTE | 2019-08-16 10:14 | NUR ---
Patient is joking with staff in the dining room. She told nurse she is 20 years old and "hasn't had enough sex". She is compliant with her medications and cooperative. In the day room at various times she would say random things like "Who is ready to go to the store" and "God Dawson" to no one in particular. She has expressed no delusions this day and is oriented to name only.
--- NOTE | 2019-08-16 13:30 | NUR ---
CASSIDY contacted pt sister to go over the form that informs them that pt, as of today, is beginning to use her Medicare [employer] days. CASSIDY was able to discuss with pt sister that these are days that cannot be recalled or restarted and once they are used, they are used. With pt secondary insurance as a Medicare [employer] supplement, they will be able to continue some form of payment to keep pt days covered. Pt sister enquired how much longer pt would be here and CASSIDY informed her that CASSIDY could call her after treatment team on with that update.
--- NOTE | 2019-08-16 15:41 | NUR ---
Patient has been more labile since lunch ended; variating between crying/tearful, and mildly agitated and sarcastic. She frequently reaches for objects that are not there; chair alarm in place. Will continue to monitor.
[2019-08-16 15:56] VITALS: BP 107/70
[2019-08-16] MEDS: MIRTAZAPINE 15 MG TABLET PO SCH (19:52)
[2019-08-16] MEDS: MELATONIN 3 MG TABLET PO SCH (19:52)
--- NOTE | 2019-08-16 20:36 | NUR ---
Nursing note: Assumed care of pt in the quiet room. She is cooperative but confused, previously before she had her meds she was yelling out for help and tearful/emotional.
--- NOTE | 2019-08-16 21:38 | PDOC ---
Exam Note: David Note: Please also refer to the separate dictated note~for this date of service dictated separately.~Patient seen individually. Discussed the patient with Nursing staff reviewed the chart.~Reviewed interim history and current functioning. Reviewed vital signs,~Labs/ Radiology~and current medications noted below. Continue current treatment with the changes noted in the dictated addendum note Assessment: Vital Signs/I&O: Vital Signs Date Time Temp Pulse Resp B/P (MAP) Pulse Ox O2 Delivery O2 Flow Rate FiO2 08/16/19 19:51 91 107/70 08/16/19 18:18 98.6 08/16/19 15:56 19 96 I & O 08/15/19 08/15/19 08/16/19 15:00 23:00 07:00 Intake Total 360 ml 340 ml Balance 360 ml 340 ml Labs: Laboratory Tests Test 08/16/19 06:25 08/16/19 07:17 Urine Collection Type Unknown Urine Color Yellow Urine Clarity Clear Urine pH 6.5 Urine Specific [place] 1.020 Urine Protein Neg (NEG-TRACE) Urine Glucose (UA) Neg mg/dL (NEG) Urine Ketones (Stick) Neg mg/dL (NEG) Urine Blood Neg (NEG) Urine Nitrite Neg (NEG) Urine Bilirubin Neg (NEG) Urine Urobilinogen Dipstick 1.0 mg/dL (0.2 mg/dL) Urine Leukocyte Esterase Trace (NEG) Urine RBC 1-2 /HPF (0-2) Urine WBC 11-20 /HPF (0-4) Urine Squamous Epithelial Cells Few /LPF Urine Bacteria Few /HPF (0-FEW) White Blood Count 5.6 x10^3/uL (4.0-11.0) Red Blood Count 3.97 x10^6/uL (3.50-5.40) Hemoglobin 12.5 g/dL (12.0-15.5) Hematocrit 38.0 % (36.0-47.0) Mean Corpuscular Volume 96 fL (79-100) Mean Corpuscular Hemoglobin 32 pg (25-35) Mean Corpuscular Hemoglobin Concent 33 g/dL (31-37) Red Cell Distribution Width 13.0 % (11.5-14.5) Platelet Count 271 x10^3/uL (140-400) Neutrophils (%) (Auto) 71 % (31-73) Lymphocytes (%) (Auto) 16 % (24-48) L Monocytes (%) (Auto) 8 % (0-9) Eosinophils (%) (Auto) 5 % (0-3) H Basophils (%) (Auto) 1 % (0-3) Neutrophils # (Auto) 4.0 x10^3uL (1.8-7.7) Lymphocytes # (Auto) 0.9 x10^3/uL (1.0-4.8) L Monocytes # (Auto) 0.4 x10^3/uL (0.0-1.1) Eosinophils # (Auto) 0.3 x10^3/uL (0.0-0.7) Basophils # (Auto) 0.0 x10^3/uL (0.0-0.2) Sodium Level 141 mmol/L (136-145) Potassium Level 3.9 mmol/L (3.5-5.1) Chloride Level 105 mmol/L (98-107) Carbon Dioxide Level 30 mmol/L (21-32) Anion Gap 6 (6-14) Blood Urea Nitrogen 21 mg/dL (7-20) H Creatinine 0.5 mg/dL (0.6-1.0) L Estimated GFR (Cockcroft-Gault) 121.6 BUN/Creatinine Ratio 42 (6-20) H Glucose Level 88 mg/dL (70-99) Calcium Level 8.5 mg/dL (8.5-10.1) Total Bilirubin 0.3 mg/dL (0.2-1.0) Aspartate Amino Transferase (AST) 25 U/L (15-37) Alanine Aminotransferase (ALT) 27 U/L (14-59) Alkaline Phosphatase 94 U/L (46-116) Total Protein 6.0 g/dL (6.4-8.2) L Albumin 2.7 g/dL (3.4-5.0) L Albumin/Globulin Ratio 0.8 (1.0-1.7) L Current Medications: Meds: Current Medications Medications (Trade) Dose Ordered Sig/Bindu Route PRN Reason Start Time Stop Time Status Last Admin Dose Admin Lorazepam (Ativan) 0.5 mg 1400,2100 PO 08/16/19 14:00 08/17/19 23:50 08/16/19 19:51 Lorazepam (Ativan) 0.25 mg DAILY PO 08/16/19 09:00 08/17/19 23:50 08/16/19 08:24 I have reviewed the current psychotropics carefully including drug interactions. Risk benefit ratio favors no change other than as noted in my dictated progress note. Diagnosis: Problems: (1) Behavior disorder (2) Impulse control disorder, unspecified (3) Anxiety disorder, unspecified (4) Dementia, vascular, with depression (5) Dementia, vascular, with delusions (6) Dementia in Alzheimer's disease with depression (7) Dementia in Alzheimer's disease with delusions (8) Major neurocognitive disorder, due to vascular disease, with behavioral di sturbance, mild NAEEM SADLER MD Aug 16, 2019 21:38
[2019-08-17] MEDS: ACETAMINOPHEN 325 MG TABLET PO PRN (05:14)
[2019-08-17 06:29] VITALS: BP 123/68
--- NOTE | 2019-08-17 07:16 | PDOC ---
Exam Note: David Note: This note is a late entry for 08/15/2019 covers elements not covered in my initial note. Subjective: The patient was seen face to face in the evening of 08/15/2019. Nursing report was with Guanako COHN. She slept 4-1/4 hours previous night. She has been confused, anxious, restless, trying to get out of her Broda chair, disorganized with intermittent hallucinations. She is compliant with her medications. We will check her repeat UA to make sure she does not have UTI worsening her agitation. She was talking to nursing staff about seeing a maldonado jumping on the patio with questionable hallucinations per nursing report. Review of Systems: Ambulation impaired, in wheelchair. No CV, GI/, Pulmonary, Eye, ENT system symptoms on review. Mental Status Exam: Oriented to herself. She was confused, anxious, restless. Insight and judgment, recent and remote memory, attention and concentration, fund of knowledge is poor consistent with her diagnosis. Laboratory Data: Reviewed. Impression: Major neurocognitive disorder Alzheimer, vascular with delusion, depression and behavioral disturbance. Anxiety disorder unspecified. Impulse control disorder unspecified. Plan: No change from initial note. The patient remains intermittently psychotic. She is on Ativan 0.5 mg t.i.d. This could be causing paradoxical disinhibition and we will reduce to 0.25 mg a.m. and 0.5 mg b.i.d. for 2 days and then 0.25 mg b.i.d. and 0.5 mg once a day thereafter and we will gradually reduce further thereafter. Maintain melatonin 4 mg h.s. p.r.n., Zyprexa 5 mg t.i.d., Geodon 40 mg a day and 20 mg h.s., Remeron 15 mg h.s., trazodone h.s. p.r.n. We will reduce and possibly taper and stop the Geodon and if needed adj ust the Zyprexa. She is on two atypical antipsychotics and I would like to minimize the use of these given the risk-benefit ratio. She has also been started on Zoloft 50 mg a day, Remeron 7.5 mg h.s. We will see how she does with insomnia and then adjust further. Assessment: Vital Signs/I&O: Vital Signs Date Time Temp Pulse Resp B/P (MAP) Pulse Ox O2 Delivery O2 Flow Rate FiO2 08/17/19 06:29 98.3 81 18 123/68 (86) 95 I & O0 08/16/19 08/16/19 08/17/19 15:00 23:00 07:00 Intake Total 1200 ml 580 ml Balance 1200 ml 580 ml Labs: Laboratory Tests Test 08/16/19 07:17 White Blood Count 5.6 x10^3/uL (4.0-11.0) Red Blood Count 3.97 x10^6/uL (3.50-5.40) Hemoglobin 12.5 g/dL (12.0-15.5) Hematocrit 38.0 % (36.0-47.0) Mean Corpuscular Volume 96 fL (79-100) Mean Corpuscular Hemoglobin 32 pg (25-35) Mean Corpuscular Hemoglobin Concent 33 g/dL (31-37) Red Cell Distribution Width 13.0 % (11.5-14.5) Platelet Count 271 x10^3/uL (140-400) Neutrophils (%) (Auto) 71 % (31-73) Lymphocytes (%) (Auto) 16 % (24-48) L Monocytes (%) (Auto) 8 % (0-9) Eosinophils (%) (Auto) 5 % (0-3) H Basophils (%) (Auto) 1 % (0-3) Neutrophils # (Auto) 4.0 x10^3uL (1.8-7.7) Lymphocytes # (Auto) 0.9 x10^3/uL (1.0-4.8) L Monocytes # (Auto) 0.4 x10^3/uL (0.0-1.1) Eosinophils # (Auto) 0.3 x10^3/uL (0.0-0.7) Basophils # (Auto) 0.0 x10^3/uL (0.0-0.2) Sodium Level 141 mmol/L (136-145) Potassium Level 3.9 mmol/L (3.5-5.1) Chloride Level 105 mmol/L (98-107) Carbon Dioxide Level 30 mmol/L (21-32) Anion Gap 6 (6-14) Blood Urea Nitrogen 21 mg/dL (7-20) H Creatinine 0.5 mg/dL (0.6-1.0) L Estimated GFR (Cockcroft-Gault) 121.6 BUN/Creatinine Ratio 42 (6-20) H Glucose Level 88 mg/dL (70-99) Calcium Level 8.5 mg/dL (8.5-10.1) Total Bilirubin 0.3 mg/dL (0.2-1.0) Aspartate Amino Transferase (AST) 25 U/L (15-37) Alanine Aminotransferase (ALT) 27 U/L (14-59) Alkaline Phosphatase 94 U/L (46-116) Total Protein 6.0 g/dL (6.4-8.2) L Albumin 2.7 g/dL (3.4-5.0) L Albumin/Globulin Ratio 0.8 (1.0-1.7) L Current Medications: Meds: Current Medications Medications (Trade) Dose Ordered Sig/Bindu Route PRN Reason Start Time Stop Time Status Last Admin Dose Admin Lorazepam (Ativan) 0.5 mg 1400,2100 PO 08/16/19 14:00 08/17/19 23:50 08/16/19 19:51 Lorazepam (Ativan) 0.25 mg DAILY PO 08/16/19 09:00 08/17/19 23:50 08/16/19 08:24 I have reviewed the current psychotropics carefully including drug interactions. Risk benefit ratio favors no change other than as noted in my dictated progress note. Diagnosis: Problems: (1) Behavior disorder (2) Impulse control disorder, unspecified (3) Anxiety disorder, unspecified (4) Dementia, vascular, with depression (5) Dementia, vascular, with delusions (6) Dementia in Alzheimer's disease with depression (7) Dementia in Alzheimer's disease with delusions (8) Major neurocognitive disorder, due to vascular disease, with behavioral disturbance, mild NAEEM SADLER MD Aug 17, 2019 07:16
[2019-08-17] MEDS: MUPIROCIN 2% TOPICAL OINTMENT 22GM TUBE. TP SCH ×2 (08:42→19:56)
[2019-08-17] MEDS: SENNOSIDES/DOCUSATE 8.6/50MG TABLET. PO SCH ×2 (08:42→19:49)
[2019-08-17] MEDS: MULTIVITAMIN with MINERAL TABLET. PO SCH (08:42)
[2019-08-17] MEDS: hydrALAZINE 25 MG TABLET PO SCH ×3 (08:43→19:50)
[2019-08-17] MEDS: LACTOBACILLUS RHAMNOSUS GG 1 CAPSULE. PO SCH ×2 (08:43→19:49)
[2019-08-17] MEDS: THIAMINE 100 MG TABLET. PO SCH (08:43)
[2019-08-17] MEDS: SERTRALINE 50 MG TABLET. PO SCH (08:44)
[2019-08-17] MEDS: FUROSEMIDE 20 MG TABLET PO SCH (08:44)
[2019-08-17] MEDS: POTASSIUM CHLORIDE 10 MEQ TABLET.ER. PO SCH (08:44)
[2019-08-17] MEDS: DIVALPROEX 125 MG CAP.SPRINK PO SCH ×2 (08:44→17:22)
[2019-08-17] MEDS: ASCORBIC ACID 500 MG TABLET PO SCH (08:44)
[2019-08-17] MEDS: LORazepam 0.5 MG TABLET PO SCH ×3 (08:45→19:48)
--- NOTE | 2019-08-17 09:08 | NUR ---
Wound Care Wound care consult for multiple abrasions to BLE. Pt has several abrasions to lower legs as well as old, in different stages of healing, pressure ulcers to bilateral feet. Right heel remains open, Unstageable PU and left lalteral foot is also unstageable PU. Both are dry, crusty slough, not new wounds. Painted both with betadine and left ALONDRA change every 3-4 days. No other open wounds noted, other healing and healed PU to Bilat feet painted with betadine as well. WC will continue to follow for possible changes. Pt unable to retain teaching of PU prevention due to mental status, please continue to reinforce
--- NOTE | 2019-08-17 12:24 | NUR ---
Patient drowsy today. She was compliant with medications and joking with nurse at breakfast. She stated that it is 2002. She is only oriented to herself. Patient is cooperative with staff and pleasant.
[2019-08-17] MEDS: OLANZapine 5 MG TABLET PO PRN ×2 (15:43→21:30)
[2019-08-17 16:18] VITALS: BP 113/76
--- NOTE | 2019-08-17 18:29 | NUR ---
Patient has been calling out repeatedly and tearful since supper. She is very anxious, calling out 'Please don't leave me, Catracho come and get me' repeatedly. MD paged, new orders received.
[2019-08-17] MEDS: MIRTAZAPINE 15 MG TABLET PO SCH (19:49)
[2019-08-17] MEDS: traZODone 50 MG TABLET. PO PRN ×2 (19:49→23:30)
[2019-08-17] MEDS: MELATONIN 3 MG TABLET PO SCH (19:50)
[2019-08-17] MEDS: hydrOXYzine HCL 25 MG TABLET PO PRN (21:30)
--- NOTE | 2019-08-17 21:51 | NUR ---
Nursing Note Pt on the floor in her room yelling for "Catracho" repeatedly. Trazodone given with HS meds with little effect. Hydroxyzine and Zyprexa given later for continued yelling and agitation. Pt rolling around on the floor throwing her brief, she currently is wearing a brief around her breasts in a sort of make shift brasier. She talks non stop from topic to topic, seems manic. She is now hallucinating calling the dog to come to her, she is whistling and snapping her fingers, making kissing noises to the dog she sees at the doorway. She also sees a female standing in the door, which is my computer on wheels.
--- NOTE | 2019-08-17 22:05 | PDOC ---
Exam Note: David Note: This note is a late entry for 08/16/2019 covers elements not covered in my initial note. Subjective: The patient was seen face to face in the evening of 08/16/2019. Nursing report was with Guanako COHN. She slept 3-1/2 hours previous night. She remains confused, restless, constantly moving, trying to get out of her Broda chair, crying and agitated at times. UA has reflex to culture. We will await the results and then decide whether to treat it or not per Dr. Alatorre/Dr. Avery. She has been trying to get out of her chair, does redirect. Review of Systems: Ambulation impaired, in Broda chair. No CV, GI/, Pulmonary, Eye, ENT system symptoms on review. Mental Status Exam: Oriented to herself. She was confused, anxious, restless. Insight and judgment, recent and remote memory, attention and concentration, fund of knowledge is poor consistent with her diagnosis. Laboratory Data: Reviewed. Impression: Major neurocognitive disorder Alzheimer, vascular with delusion, depression and behavioral disturbance. Anxiety disorder unspecified. Impulse control disorder unspecified. Plan: Given the marked restlessness, constantly moving, mood lability we will start Depakote Sprinkle 125 mg 9 a.m. and 5 p.m. Check CBC, CMP, valproic acid level in 3 days. Await urine C&S and then decide of further interventions. Assessment: Vital Signs/I&O: Vital Signs Date Time Temp Pulse Resp B/P (MAP) Pulse Ox O2 Delivery O2 Flow Rate FiO2 08/17/19 20:20 99.1 98 08/17/19 19:50 95 113/76 08/17/19 16:18 16 I & O 08/16/19 08/16/19 08/17/19 15:00 23:00 07:00 Intake Total 1200 ml 580 ml Balance 1200 ml 580 ml Current Medications: Meds: Current Medications Medications (Trade) Dose Ordered Sig/Bindu Route PRN Reason Start Time Stop Time Status Last Admin Dose Admin Divalproex Sodium (Depakote Sprinkles) 125 mg 0900,1700 PO 08/17/19 09:00 08/17/19 17:22 Hydroxyzine HCl (Atarax) 25 mg PRN Q2HR PRN PO ANXIETY / AGITATION 08/17/19 18:45 08/17/19 21:30 I have reviewed the current psychotropics carefully including drug interactions. Risk benefit ratio favors no change other than as noted in my dictated progress note. Diagnosis: Problems: (1) Behavior disorder (2) Impulse control disorder, unspecified (3) Anxiety disorder, unspecified (4) Dementia, vascular, with depression (5) Dementia, vascular, with delusions (6) Dementia in Alzheimer's disease with depression (7) Dementia in Alzheimer's disease with delusions (8) Major neurocognitive disorder, due to vascular disease, with behavioral di sturbance, mild NAEEM SADLER MD Aug 17, 2019 22:05
--- NOTE | 2019-08-17 22:06 | PDOC ---
Exam Note: David Note: Please also refer to the separate dictated note~for this date of service dictated separately.~Patient seen individually. Discussed the patient with Nursing staff reviewed the chart.~Reviewed interim history and current functioning. Reviewed vital signs,~Labs/ Radiology~and current medications noted below. Continue current treatment with the changes noted in the dictated addendum note Assessment: Vital Signs/I&O: Vital Signs Date Time Temp Pulse Resp B/P (MAP) Pulse Ox O2 Delivery O2 Flow Rate FiO2 08/17/19 20:20 99.1 98 08/17/19 19:50 95 113/76 08/17/19 16:18 16 I & O 08/16/19 08/16/19 08/17/19 15:00 23:00 07:00 Intake Total 1200 ml 580 ml Balance 1200 ml 580 ml Current Medications: Meds: Current Medications Medications (Trade) Dose Ordered Sig/Bindu Route PRN Reason Start Time Stop Time Status Last Admin Dose Admin Divalproex Sodium (Depakote Sprinkles) 125 mg 0900,1700 PO 08/17/19 09:00 08/17/19 17:22 Hydroxyzine HCl (Atarax) 25 mg PRN Q2HR PRN PO ANXIETY / AGITATION 08/17/19 18:45 08/17/19 21:30 I have reviewed the current psychotropics carefully including drug interactions. Risk benefit ratio favors no change other than as noted in my dictated progress note. Diagnosis: Problems: (1) Behavior disorder (2) Impulse control disorder, unspecified (3) Anxiety disorder, unspecified (4) Dementia, vascular, with depression (5) Dementia, vascular, with delusions (6) Dementia in Alzheimer's disease with depression (7) Dementia in Alzheimer's disease with delusions (8) Major neurocognitive disorder, due to vascular disease, with behavioral disturbance, mild NAEEM SADLER MD Aug 17, 2019 22:06
--- NOTE | 2019-08-18 00:42 | NUR ---
Nursing Note Pt still awake and in her room on mats. Trazodone repeated.
[2019-08-18 07:36] LABS: ALBUMIN 2.6 g/dL (3.4-5.0); ALBUMIN/GLOBULIN RATIO 0.8 (1.0-1.7); CALCIUM 8.4 mg/dL (8.5-10.1); CREATININE 0.6 mg/dL (0.6-1.0); GFR 98.5; POTASSIUM 3.8 mmol/L (3.5-5.1); TOTAL BILIRUBIN 0.3 mg/dL (0.2-1.0); TOTAL PROTEIN 5.9 g/dL (6.4-8.2)
[2019-08-18] MEDS: MULTIVITAMIN with MINERAL TABLET. PO SCH (08:46)
[2019-08-18] MEDS: SENNOSIDES/DOCUSATE 8.6/50MG TABLET. PO SCH ×2 (08:46→20:03)
[2019-08-18] MEDS: LORazepam 0.5 MG TABLET PO SCH ×3 (08:46→20:03)
[2019-08-18] MEDS: LACTOBACILLUS RHAMNOSUS GG 1 CAPSULE. PO SCH ×2 (08:46→20:01)
[2019-08-18] MEDS: POTASSIUM CHLORIDE 10 MEQ TABLET.ER. PO SCH (08:46)
[2019-08-18] MEDS: DIVALPROEX 125 MG CAP.SPRINK PO SCH ×2 (08:46→16:58)
[2019-08-18] MEDS: THIAMINE 100 MG TABLET. PO SCH (08:47)
[2019-08-18] MEDS: FUROSEMIDE 20 MG TABLET PO SCH (08:47)
[2019-08-18] MEDS: hydrALAZINE 25 MG TABLET PO SCH ×3 (08:47→20:03)
[2019-08-18] MEDS: ASCORBIC ACID 500 MG TABLET PO SCH (08:47)
[2019-08-18] MEDS: SERTRALINE 50 MG TABLET. PO SCH (08:47)
[2019-08-18] MEDS: MUPIROCIN 2% TOPICAL OINTMENT 22GM TUBE. TP SCH ×2 (09:00→21:00)
[2019-08-18 09:27] LABS: BASO % 1 % (0-3); EOS # 0.3 x10^3/uL (0.0-0.7); EOS % 5 % (0-3); HEMATOCRIT 35.2 % (36.0-47.0); HEMOGLOBIN 11.6 g/dL (12.0-15.5); LYMPH # 1.1 x10^3/uL (1.0-4.8); LYMPH % 20 % (24-48); MEAN CORPUSCULAR HEMOGLOBIN 32 pg (25-35); MEAN CORPUSCULAR HGB CONC 33 g/dL (31-37); MEAN CORPUSCULAR VOLUME 96 fL (79-100); MONO # 0.4 x10^3/uL (0.0-1.1); MONO % 8 % (0-9); NEUT # 3.6 x10^3uL (1.8-7.7); NEUT % 67 % (31-73); PLATELET COUNT 258 x10^3/uL (140-400); RED BLOOD COUNT 3.65 x10^6/uL (3.50-5.40); RED CELL DISTRIBUTION WIDTH 13.3 % (11.5-14.5); WHITE BLOOD COUNT 5.4 x10^3/uL (4.0-11.0)
[2019-08-18] MEDS: OLANZapine 5 MG TABLET PO PRN ×3 (12:55→23:36)
--- NOTE | 2019-08-18 13:39 | NUR ---
WEEKLY ACTIVITY THERAPY NOTE Date of Admission: 08/04/19 Date of AT Assessment: 08/05/19 Precipitating behaviors that initiated intake and admission: Patient reportedly believes staff are poisoning her; talking to people that aren't there; attempting to bite and kick staff; hitting staff; and hallucinating Goal aimed: to increase sensory stimulation Initial Goal: Pt. will participate in at least one individual Activity Therapy session before discharge. Weekly progress towards goal: 0/1 individual sessions, five groups Group participation level: varied Weekly highlights: singing with [employer] songs on Thursday in group Behaviors observed: impulsive: yelling out which can be disruptive, random thoughts, pleasant and smiles often Plan: change goal to: Pt. will participate in at three Activity Therapy sessions per week Beneficial adaptations: direct prompting
--- NOTE | 2019-08-18 15:38 | NUR ---
WEEKLY NOTE: Pt is eating 100% of meals but only sleeping on average 4 hours per night. Pt continues to be confused, at times tearful, and verbally aggressive. Pt continues to hallucinate that she is seeing dogs and will whistle/call to them. Pt is compliant with her medications whole; furthermore, pt does randomly participate in group. Pt needs more 1:1 prompting as pt can be disruptive during activities. Pt is able to discharge back to [facility] once stable.
--- NOTE | 2019-08-18 15:45 | RAD ---
VENOUS LOWER EXTREMITY LEFT 08/18/2019 12:55 PM Clinical Information: Edema, wound Comparison: None. Technique: Multiple grayscale, color Doppler, and spectral Doppler sonographic images of the lower extremity venous structures were obtained. Findings: The left common femoral, femoral, and popliteal veins exhibit normal compression, respiratory phasicity, and augmentation. No intraluminal thrombi are identified. Color Doppler flow is demonstrated in the left posterior tibial veins. Greater saphenous veins are patent at the saphenofemoral junction. Impression: 1. No evidence of deep venous thrombosis. Electronically signed by: Delma Patel MD (08/18/2019 3:42 PM) VARUN
[2019-08-18 15:49] VITALS: BP 106/62
--- NOTE | 2019-08-18 15:51 | TX PLAN ---
Interdisciplinary Tx Plan Admission Information August 04, 2019 at 16:31 Legal Status (on Admission): Voluntary DPOA/Guardian Name: Pal Curiel Contact Other Contact Name: Rock Duarte Other Contact Verified Code Status: DNR Allergies: Coded Allergies: amoxicillin (Verified Allergy, Unknown, 08/04/19) clavulanic acid (Verified Allergy, Unknown, 08/04/19) Diagnoses Primary Diagnosis: Major Neurocognitive D/O, vascular alzheimers with delusions Reasons for Admission: Aggressive, Combative, Confusion/Disoriented, Poor impulse control Problem in Patient's Words: She has never been like this. I assume this is part of the diagnosis? Additional Admission Comments: According to the intake, pt things that staff are poisoning her, confused, talking to people not there, kicking and hitting the nurse, attempted to bite, hallucinating, paranoid (picking at her skin), agitated. Problems Active Problems: hitting staff delusional hallucinating screaming paranoid (picking at skin) Inactive Problems: Compliant with cares Pt Strengths/Limitations Ability for [place]: Poor Cognitive Functioning/Ability: Poor Communication Skills/Ability: Poor Financial Resources: Fair Insight/Judgement: Poor Intellectual Ability: Poor Physical Health: Poor Social Skills: Poor Stability in Family: Good Stability in School/Work: Poor Verbal Skills: Fair Discharge Criteria Discharge Criteria: No need for close observ., Adequate arrangements @DC, Improved behavior Preliminary Discharge Plan Preliminary DC Plan: Current Living Arrange. Special Precautions Fall Risk: Moderate Initial D/C Plan Pt is scheduled to return to [facility] Identified Discharge Needs: Potential for a different level of care; family is concerned that current placement cannot handle pt. Currently Utilized Resources Currently Utilized Resources/P: Primary Care Physician through placement Referrals Community Resources: Mental health services Identified Problems/Hx/Goals Objectives/Short-Term Goals Short Term Goals: Dec. Aggression, Dec. Hallucination/Delus, Dec. Outbursts, Medication Stabilization, Promote Coping Skill Short Term Goals in Patient's: Get me out of here Interventions/Frequency Staff Interventions/Frequency&: Psychiatrist to assess pt at least 3x per week. Social Work to asses pt at least 2x per week. Nursing to assess medications, behaviors and complete 15 minute checks daily Encourage group participation or 1:1 engagement based off activity assessment and goals. History Vocational History: Pt has worked at [employer] since the age 14 and retired from there. Education: Pt graduated from . Community Follow-up Follow up with PCP Community Provider/Family Inpu: She has significantly decline within the last year (August 2018) Treatment Plan Explained Patient/Regional Controller had this treatment plan explained to him/her as indicated by the signature below and has been given the opportunity to ask questions and make suggestions: Date: Patient/Regional Controller Signature: Status Update Update Pt is eating 100% of meals but only sleeping on average 4 hours per night. Pt continues to be confused, at times tearful, and verbally aggressive. Pt co ntinues to hallucinate that she is seeing dogs and will whistle/call to them. Pt is compliant with her medications whole; furthermore, pt does randomly participate in group. Pt needs more 1:1 prompting as pt can be disruptive during activities. Pt is able to discharge back to [facility] once stable. TELLO PRITCHETT Aug 18, 2019 15:51
[2019-08-18] MEDS: hydrOXYzine HCL 25 MG TABLET PO PRN (16:57)
--- NOTE | 2019-08-18 17:41 | NUR ---
Pt in dining room for morning meds and assessment. Pt compliant, disorganized, non-sensical with conversation, pleasant, yells out at times, talks to people who aren't there. Pt restless this afternoon.
--- NOTE | 2019-08-18 19:07 | RAD ---
Exam: Left foot 2 views INDICATION: Swollen, left foot with multiple wound TECHNIQUE: Frontal and lateral views left foot Comparisons: None FINDINGS: Severe degenerative change at the first MTP joint. Diffuse osteopenia. Diffuse soft tissue swelling is noted. No acute or healed fractures. IMPRESSION: Diffuse soft tissue swelling at the foot without underlying osseous abnormality identified. Electronically signed by: Opal Braxton MD (08/18/2019 7:04 PM) [id number]
--- NOTE | 2019-08-18 19:58 | PN ---
DATE: 08/18/2019 SUBJECTIVE: The patient was seen today by the nursing staff that concerned about her left foot that is swollen with multiple scabbed wounds on the dorsal aspect of the left big toe, left fifth toe as well as on the dorsal aspect of left foot. Apparently, she has had a Doppler ultrasound done, which showed that there is no evidence of deep vein thrombosis. Her urine culture has grown Pseudomonas aeruginosa with more than 100,000 colony forming units per mL and that is sensitive to oral antibiotics including ciprofloxacin and Levaquin. Unfortunately, she is on multiple medications that prolonged the QT interval and I did consult the pharmacist to recommend the antibiotic treatment as she probably needs a cephalosporin that can be given intravenously. When I examined her this afternoon, she looked well and was clearly in no apparent respiratory distress. No pallor, jaundice, cyanosis or thyromegaly. No jugular venous distention. Her left foot is more swollen than the right, although obviously her Doppler ultrasound was negative. LABORATORY DATA: Most recent lab work showed a white cell count was 5400, hemoglobin 11.6, hematocrit 35, MCV 96 and platelet count 258,000. Her chemistry showed a serum sodium 140, potassium 3.8, chloride 105, bicarbonate 31, anion gap of 4, BUN 22, creatinine 0.6. PLAN: My plan is to arrange for an x-ray of the left foot and await for the pharmacist recommendation for treatment of her urinary tract infection due to Pseudomonas aeruginosa. JESSICA GALEAS MD DR: DENNY/telma JOB#: [id number] / [id number]
[2019-08-18] MEDS: CIPROFLOXACIN HCL 250 MG TABLET PO SCH (20:02)
[2019-08-18] MEDS: ACETAMINOPHEN 500 MG TABLET PO PRN (20:02)
[2019-08-18] MEDS: MIRTAZAPINE 15 MG TABLET PO SCH (20:02)
[2019-08-18] MEDS: MELATONIN 3 MG TABLET PO SCH (21:00)
[2019-08-18] MEDS ORDERED: CIPROFLOXACIN HCL 500 MG TABLET PO SCH (21:00)
--- NOTE | 2019-08-18 21:23 | NUR ---
Nursing Note Pt in the broda chair wheeling around the unit, confused, making odd remarks that have no relation to much of anything. Tearful at times states her legs hurt. Tylenol given at HS and zyprexa.
--- NOTE | 2019-08-18 22:01 | PDOC ---
Exam Note: David Note: Please also refer to the separate dictated note~for this date of service dictated separately.~Patient seen individually. Discussed the patient with Nursing staff reviewed the chart.~Reviewed interim history and current functioning. Reviewed vital signs,~Labs/ Radiology~and current medications noted below. Continue current treatment with the changes noted in the dictated addendum note Assessment: Vital Signs/I&O: Vital Signs Date Time Temp Pulse Resp B/P (MAP) Pulse Ox O2 Delivery O2 Flow Rate FiO2 08/18/19 21:57 98.7 93 08/18/19 20:03 103 106/62 08/17/19 16:18 16 I & O 08/17/19 08/17/19 08/18/19 15:00 23:00 07:00 Intake Total 960 ml 580 ml Balance 960 ml 580 ml Labs: Laboratory Tests Test 08/18/19 06:30 White Blood Count 5.4 x10^3/uL (4.0-11.0) Red Blood Count 3.65 x10^6/uL (3.50-5.40) Hemoglobin 11.6 g/dL (12.0-15.5) L Hematocrit 35.2 % (36.0-47.0) L Mean Corpuscular Volume 96 fL (79-100) Mean Corpuscular Hemoglobin 32 pg (25-35) Mean Corpuscular Hemoglobin Concent 33 g/dL (31-37) Red Cell Distribution Width 13.3 % (11.5-14.5) Platelet Count 258 x10^3/uL (140-400) Neutrophils (%) (Auto) 67 % (31-73) Lymphocytes (%) (Auto) 20 % (24-48) L Monocytes (%) (Auto) 8 % (0-9) Eosinophils (%) (Auto) 5 % (0-3) H Basophils (%) (Auto) 1 % (0-3) Neutrophils # (Auto) 3.6 x10^3uL (1.8-7.7) Lymphocytes # (Auto) 1.1 x10^3/uL (1.0-4.8) Monocytes # (Auto) 0.4 x10^3/uL (0.0-1.1) Eosinophils # (Auto) 0.3 x10^3/uL (0.0-0.7) Basophils # (Auto) 0.0 x10^3/uL (0.0-0.2) Sodium Level 140 mmol/L (136-145) Potassium Level 3.8 mmol/L (3.5-5.1) Chloride Level 105 mmol/L (98-107) Carbon Dioxide Level 31 mmol/L (21-32) Anion Gap 4 (6-14) L Blood Urea Nitrogen 22 mg/dL (7-20) H Creatinine 0.6 mg/dL (0.6-1.0) Estimated GFR (Cockcroft-Gault) 98.5 BUN/Creatinine Ratio 37 (6-20) H Glucose Level 88 mg/dL (70-99) Calcium Level 8.4 mg/dL (8.5-10.1) L Total Bilirubin 0.3 mg/dL (0.2-1.0) Aspartate Amino Transferase (AST) 28 U/L (15-37) Alanine Aminotransferase (ALT) 27 U/L (14-59) Alkaline Phosphatase 90 U/L (46-116) Total Protein 5.9 g/dL (6.4-8.2) L Albumin 2.6 g/dL (3.4-5.0) L Albumin/Globulin Ratio 0.8 (1.0-1.7) L Current Medications: Meds: Current Medications Medications (Trade) Dose Ordered Sig/Bindu Route PRN Reason Start Time Stop Time Status Last Admin Dose Admin Lorazepam (Ativan) 0.25 mg TID PO 08/18/19 09:00 08/18/19 20:03 Ciprofloxacin (Cipro) 250 mg BID PO 08/18/19 21:00 08/18/19 20:02 I have reviewed the current psychotropics carefully including drug interactions. Risk benefit ratio favors no change other than as noted in my dictated progress note. Diagnosis: Problems: (1) Behavior disorder (2) Impulse control disorder, unspecified (3) Anxiety disorder, unspecified (4) Dementia, vascular, with depression (5) Dementia, vascular, with delusions (6) Dementia in Alzheimer's disease with depression (7) Dementia in Alzheimer's disease with delusions (8) Major neurocognitive disorder, due to vascular disease, with behavioral disturbance, mild NAEEM SADLER MD Aug 18, 2019 22:01
[2019-08-19 06:34] VITALS: BP 102/65
[2019-08-19] MEDS: OLANZapine 5 MG TABLET PO PRN ×3 (06:43→20:12)
[2019-08-19 06:52] LABS: ALBUMIN 2.8 g/dL (3.4-5.0); ALBUMIN/GLOBULIN RATIO 0.8 (1.0-1.7); CALCIUM 8.7 mg/dL (8.5-10.1); CREATININE 0.7 mg/dL (0.6-1.0); GFR 82.5; MAGNESIUM 2.1 mg/dL (1.8-2.4); POTASSIUM 3.9 mmol/L (3.5-5.1); TOTAL BILIRUBIN 0.3 mg/dL (0.2-1.0); TOTAL PROTEIN 6.3 g/dL (6.4-8.2)
--- NOTE | 2019-08-19 07:36 | PDOC ---
Exam Note: David Note: This note is a late entry for 08/17/2019 covers elements not covered in my initial note. Subjective: The patient was seen face to face in the evening of 08/17/2019. Nursing report was with Guanako COHN. She slept 6 hours previous night. She restless, labile, crying and laughing at times, talking about wanting her dads truck to be returned to her. UA shows pseudomonas and I will defer to Dr. Avery but the UTI seems to be worsening her agitation. Review of Systems: Ambulation impaired, in Broda chair. No CV, , pulmonary, eye, ENT system symptoms on review. Reliability poor. Mental Status Exam: Oriented to herself. She was confused, labile. Insight and judgment, recent and remote memory, attention and concentration, fund of knowledge is poor consistent with her diagnoses. Laboratory Data: Reviewed. Impression: Major neurocognitive disorder Alzheimer, vascular with delusion, depression and behavioral disturbance. Anxiety disorder unspecified. Impulse control disorder unspecified. Plan: No change from initial note. Treat the UTI as indicated and adjust psychotropics. Valproic acid level to be checked on 08/20/2019. We will adjust to reach therapeutic level. Assessment: Vital Signs/I&O: Vital Signs Date Time Temp Pulse Resp B/P (MAP) Pulse Ox O2 Delivery O2 Flow Rate FiO2 08/19/19 06:34 97.6 86 18 102/65 (77) 93 I & O 08/18/19 08/18/19 08/19/19 15:00 23:00 07:00 Intake Total 600 ml 240 ml Balance 600 ml 240 ml Labs: Laboratory Tests Test 08/19/19 06:02 Sodium Level 141 mmol/L (136-145) Potassium Level 3.9 mmol/L (3.5-5.1) Chloride Level 104 mmol/L (98-107) Carbon Dioxide Level 31 mmol/L (21-32) Anion Gap 6 (6-14) Blood Urea Nitrogen 18 mg/dL (7-20) Creatinine 0.7 mg/dL (0.6-1.0) Estimated GFR (Cockcroft-Gault) 82.5 BUN/Creatinine Ratio 26 (6-20) H Glucose Level 81 mg/dL (70-99) Calcium Level 8.7 mg/dL (8.5-10.1) Magnesium Level 2.1 mg/dL (1.8-2.4) Total Bilirubin 0.3 mg/dL (0.2-1.0) Aspartate Amino Transferase (AST) 31 U/L (15-37) Alanine Aminotransferase (ALT) 29 U/L (14-59) Alkaline Phosphatase 91 U/L (46-116) Total Protein 6.3 g/dL (6.4-8.2) L Albumin 2.8 g/dL (3.4-5.0) L Albumin/Globulin Ratio 0.8 (1.0-1.7) L Current Medications: Meds: Current Medications Medications (Trade) Dose Ordered Sig/Bindu Route PRN Reason Start Time Stop Time Status Last Admin Dose Admin Lorazepam (Ativan) 0.25 mg TID PO 08/18/19 09:00 08/18/19 20:03 Ciprofloxacin (Cipro) 250 mg BID PO 08/18/19 21:00 08/18/19 20:02 I have reviewed the current psychotropics carefully including drug interactions. Risk benefit ratio favors no change other than as noted in my dictated progress note. Diagnosis: Problems: (1) Behavior disorder (2) Impulse control disorder, unspecified (3) Anxiety disorder, unspecified (4) Dementia, vascular, with depression (5) Dementia, vascular, with delusions (6) Dementia in Alzheimer's disease with depression (7) Dementia in Alzheimer's disease with delusions (8) Major neurocognitive disorder, due to vascular disease, with behavioral disturbance, mild NAEEM SADLER MD Aug 19, 2019 07:36
--- NOTE | 2019-08-19 07:54 | PDOC ---
Exam Note: David Note: This note is a late entry for 08/18/2019 covers elements not covered in my initial note. Subjective: The patient was seen face to face in the morning of 08/18/2019 with treatment team meeting with Valentina COHN, Sienna Alfred and Paula (social service staff) and [facility]. Appetite is 100%. She is anxious, restless. UA is positive. She tried to jump out of the chair hallucinating intermittently, distractible. I met with her in the evening and also discussed with Cele COHN. She slept 3 hours previous night, restless. Review of Systems: Ambulation impaired, in Broda chair. No CV, , pulmonary, eye, ENT system symptoms on review. Mental Status Exam: Oriented to herself. She was confused, anxious, restless. Insight and judgment, recent and remote memory, attention and concentration, fund of knowledge is poor consistent with her diagnoses. Laboratory Data: Reviewed. Impression: Major neurocognitive disorder Alzheimer, vascular with delusion, depression and behavioral disturbance. Anxiety disorder unspecified. Impulse control disorder unspecified. Urinary tract infection. Plan: No change from initial note. Assessment: Vital Signs/I&O: Vital Signs Date Time Temp Pulse Resp B/P (MAP) Pulse Ox O2 Delivery O2 Flow Rate FiO2 08/19/19 06:34 97.6 86 18 102/65 (77) 93 I & O 08/18/19 08/18/19 08/19/19 15:00 23:00 07:00 Intake Total 600 ml 240 ml Balance 600 ml 240 ml Labs: Laboratory Tests Test 08/19/19 06:02 Sodium Level 141 mmol/L (136-145) Potassium Level 3.9 mmol/L (3.5-5.1) Chloride Level 104 mmol/L (98-107) Carbon Dioxide Level 31 mmol/L (21-32) Anion Gap 6 (6-14) Blood Urea Nitrogen 18 mg/dL (7-20) Creatinine 0.7 mg/dL (0.6-1.0) Estimated GFR (Cockcroft-Gault) 82.5 BUN/Creatinine Ratio 26 (6-20) H Glucose Level 81 mg/dL (70-99) Calcium Level 8.7 mg/dL (8.5-10.1) Magnesium Level 2.1 mg/dL (1.8-2.4) Total Bilirubin 0.3 mg/dL (0.2-1.0) Aspartate Amino Transferase (AST) 31 U/L (15-37) Alanine Aminotransferase (ALT) 29 U/L (14-59) Alkaline Phosphatase 91 U/L (46-116) Total Protein 6.3 g/dL (6.4-8.2) L Albumin 2.8 g/dL (3.4-5.0) L Albumin/Globulin Ratio 0.8 (1.0-1.7) L Current Medications: Meds: Current Medications Medications (Trade) Dose Ordered Sig/Bindu Route PRN Reason Start Time Stop Time Status Last Admin Dose Admin Lorazepam (Ativan) 0.25 mg TID PO 08/18/19 09:00 08/18/19 20:03 Ciprofloxacin (Cipro) 250 mg BID PO 08/18/19 21:00 08/18/19 20:02 I have reviewed the current psychotropics carefully including drug interactions. Risk benefit ratio favors no change other than as noted in my dictated progress note. Diagnosis: Problems: (1) Behavior disorder (2) Impulse control disorder, unspecified (3) Anxiety disorder, unspecified (4) Dementia, vascular, with depression (5) Dementia, vascular, with delusions (6) Dementia in Alzheimer's disease with depression (7) Dementia in Alzheimer's disease with delusions (8) Major neurocognitive disorder, due to vascular disease, with behavioral disturbance, mild NAEEM SADLER MD Aug 19, 2019 07:54
[2019-08-19] MEDS: POTASSIUM CHLORIDE 10 MEQ TABLET.ER. PO SCH (08:24)
[2019-08-19] MEDS: DIVALPROEX 125 MG CAP.SPRINK PO SCH ×2 (08:24→16:37)
[2019-08-19] MEDS: THIAMINE 100 MG TABLET. PO SCH (08:24)
[2019-08-19] MEDS: ASCORBIC ACID 500 MG TABLET PO SCH (08:24)
[2019-08-19] MEDS: CIPROFLOXACIN HCL 250 MG TABLET PO SCH ×2 (08:24→20:12)
[2019-08-19] MEDS: LORazepam 0.5 MG TABLET PO SCH ×3 (08:25→20:13)
[2019-08-19] MEDS: LACTOBACILLUS RHAMNOSUS GG 1 CAPSULE. PO SCH ×2 (08:25→20:12)
[2019-08-19] MEDS: SENNOSIDES/DOCUSATE 8.6/50MG TABLET. PO SCH ×2 (08:25→20:12)
[2019-08-19] MEDS: SERTRALINE 50 MG TABLET. PO SCH (08:25)
[2019-08-19] MEDS: MULTIVITAMIN with MINERAL TABLET. PO SCH (08:25)
[2019-08-19] MEDS: FUROSEMIDE 20 MG TABLET PO SCH (08:25)
[2019-08-19] MEDS: MUPIROCIN 2% TOPICAL OINTMENT 22GM TUBE. TP SCH ×2 (08:26→20:13)
[2019-08-19] MEDS: hydrALAZINE 25 MG TABLET PO SCH ×3 (08:26→20:11)
--- NOTE | 2019-08-19 13:39 | NUR ---
Patient was in the dining room during morning rounding, took medications whole, allowed for morning assessment. Pt has been a little restless mentioned to the nurse that she "needed to leave the hospital to check on her sister who is in labor." Pt was able to be redirected. Is currently visiting with staff in the dayroom. Will continue to monitor.
--- NOTE | 2019-08-19 16:14 | EKG ---
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
[2019-08-19 16:23] VITALS: BP 104/75
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
[2019-08-19] MEDS: MELATONIN 3 MG TABLET PO SCH (20:13)
[2019-08-19] MEDS: DOXEPIN HCL 10 MG CAPSULE PO SCH (21:16)
--- NOTE | 2019-08-19 22:12 | PDOC ---
Exam Note: David Note: Please also refer to the separate dictated note~for this date of service dictated separately.~Patient seen individually. Discussed the patient with Nursing staff reviewed the chart.~Reviewed interim history and current functioning. Reviewed vital signs,~Labs/ Radiology~and current medications noted below. Continue current treatment with the changes noted in the dictated addendum note Assessment: Vital Signs/I&O: Vital Signs Date Time Temp Pulse Resp B/P (MAP) Pulse Ox O2 Delivery O2 Flow Rate FiO2 08/19/19 22:06 97.8 93 08/19/19 20:11 97 104/75 08/19/19 16:23 20 I & O 08/18/19 08/18/19 08/19/19 15:00 23:00 07:00 Intake Total 600 ml 240 ml Balance 600 ml 240 ml Labs: Laboratory Tests Test 08/19/19 06:02 Sodium Level 141 mmol/L (136-145) Potassium Level 3.9 mmol/L (3.5-5.1) Chloride Level 104 mmol/L (98-107) Carbon Dioxide Level 31 mmol/L (21-32) Anion Gap 6 (6-14) Blood Urea Nitrogen 18 mg/dL (7-20) Creatinine 0.7 mg/dL (0.6-1.0) Estimated GFR (Cockcroft-Gault) 82.5 BUN/Creatinine Ratio 26 (6-20) H Glucose Level 81 mg/dL (70-99) Calcium Level 8.7 mg/dL (8.5-10.1) Magnesium Level 2.1 mg/dL (1.8-2.4) Total Bilirubin 0.3 mg/dL (0.2-1.0) Aspartate Amino Transferase (AST) 31 U/L (15-37) Alanine Aminotransferase (ALT) 29 U/L (14-59) Alkaline Phosphatase 91 U/L (46-116) Total Protein 6.3 g/dL (6.4-8.2) L Albumin 2.8 g/dL (3.4-5.0) L Albumin/Globulin Ratio 0.8 (1.0-1.7) L Current Medications: Meds: Current Medications Medications (Trade) Dose Ordered Sig/Bindu Route PRN Reason Start Time Stop Time Status Last Admin Dose Admin Doxepin HCl (SINEquan) 30 mg QHS PO 08/19/19 21:00 6/5/20 21:16 I have reviewed the current psychotropics carefully including drug interactions. Risk benefit ratio favors no change other than as noted in my dictated progress note. Diagnosis: Problems: (1) Behavior disorder (2) Impulse control disorder, unspecified (3) Anxiety disorder, unspecified (4) Dementia, vascular, with depression (5) Dementia, vascular, with delusions (6) Dementia in Alzheimer's disease with depression (7) Dementia in Alzheimer's disease with delusions (8) Major neurocognitive disorder, due to vascular disease, with behavioral disturbance, mild NAEEM SADLER MD Aug 19, 2019 22:12
--- NOTE | 2019-08-19 23:30 | NUR ---
Nursing Note Pt very disorganized, very combative with cares. Misperceives what is happening to her highly combative and angry. Zyprexa given without any effect. Lays on the floor agitated and angry kicking at staff.
[2019-08-20 06:03] VITALS: BP 116/75
[2019-08-20 07:40] LABS: BASO % 1 % (0-3); EOS # 0.2 x10^3/uL (0.0-0.7); EOS % 5 % (0-3); HEMOGLOBIN 12.3 g/dL (12.0-15.5); LYMPH # 0.8 x10^3/uL (1.0-4.8); LYMPH % 16 % (24-48); MEAN CORPUSCULAR HEMOGLOBIN 32 pg (25-35); MEAN CORPUSCULAR HGB CONC 33 g/dL (31-37); MEAN CORPUSCULAR VOLUME 96 fL (79-100); MONO # 0.5 x10^3/uL (0.0-1.1); MONO % 9 % (0-9); NEUT # 3.6 x10^3uL (1.8-7.7); NEUT % 70 % (31-73); PLATELET COUNT 271 x10^3/uL (140-400); RED BLOOD COUNT 3.86 x10^6/uL (3.50-5.40); RED CELL DISTRIBUTION WIDTH 13.6 % (11.5-14.5); WHITE BLOOD COUNT 5.2 x10^3/uL (4.0-11.0)
[2019-08-20 08:35] LABS: ALBUMIN 2.6 g/dL (3.4-5.0); ALBUMIN/GLOBULIN RATIO 0.7 (1.0-1.7); ALK PHOS 88 U/L (46-116); ALT (SGPT) 29 U/L (14-59); ANION GAP 8 (6-14); AST (SGOT) 30 U/L (15-37); BLOOD UREA NITROGEN 16 mg/dL (7-20); BUN/CREATININE RATIO 27 (6-20); CALCIUM 8.4 mg/dL (8.5-10.1); CARBON DIOXIDE 28 mmol/L (21-32); CHLORIDE 103 mmol/L (98-107); CREATININE 0.6 mg/dL (0.6-1.0); GFR 98.5; GLUCOSE 83 mg/dL (70-99); POTASSIUM 3.8 mmol/L (3.5-5.1); SODIUM 139 mmol/L (136-145); TOTAL BILIRUBIN 0.2 mg/dL (0.2-1.0); TOTAL PROTEIN 6.1 g/dL (6.4-8.2)
[2019-08-20 08:37] LABS: VAL ACID 15 mcg/mL (50-100)
[2019-08-20] MEDS: LACTOBACILLUS RHAMNOSUS GG 1 CAPSULE. PO SCH ×2 (10:53→20:32)
[2019-08-20] MEDS: CIPROFLOXACIN HCL 250 MG TABLET PO SCH ×2 (10:53→20:19)
[2019-08-20] MEDS: hydrALAZINE 25 MG TABLET PO SCH ×3 (10:53→20:31)
[2019-08-20] MEDS: LORazepam 0.5 MG TABLET PO SCH ×3 (10:53→20:18)
[2019-08-20] MEDS: MULTIVITAMIN with MINERAL TABLET. PO SCH (10:54)
[2019-08-20] MEDS: FUROSEMIDE 20 MG TABLET PO SCH (10:54)
[2019-08-20] MEDS: POTASSIUM CHLORIDE 10 MEQ TABLET.ER. PO SCH (10:54)
[2019-08-20] MEDS: DIVALPROEX 125 MG CAP.SPRINK PO SCH ×2 (10:54→16:25)
[2019-08-20] MEDS: SENNOSIDES/DOCUSATE 8.6/50MG TABLET. PO SCH ×2 (10:54→20:32)
[2019-08-20] MEDS: MUPIROCIN 2% TOPICAL OINTMENT 22GM TUBE. TP SCH ×2 (10:55→20:32)
[2019-08-20] MEDS: ASCORBIC ACID 500 MG TABLET PO SCH (10:55)
[2019-08-20] MEDS: THIAMINE 100 MG TABLET. PO SCH (10:55)
[2019-08-20] MEDS: SERTRALINE 50 MG TABLET. PO SCH (10:55)
--- NOTE | 2019-08-20 11:06 | NUR ---
Pt slept in a little this morning, took medications whole, allowed for morning assessment. Pt is sitting quietly in the dayroom. Will continue to monitor.
[2019-08-20 15:53] VITALS: BP 103/65
[2019-08-20] MEDS: OLANZapine 5 MG TABLET PO PRN ×2 (18:03→20:20)
--- NOTE | 2019-08-20 18:26 | NUR ---
Pt was restless and agitated after dinner, was hitting, kicking, spitting, trying to bite. PRN zyprexa crushed and syringed @1803. Pt is now in the hallway. Will continue to monitor.
[2019-08-20] MEDS: DOXEPIN HCL 10 MG CAPSULE PO SCH (20:18)
[2019-08-20] MEDS: MELATONIN 3 MG TABLET PO SCH (20:18)
--- NOTE | 2019-08-20 21:53 | PDOC ---
Exam Note: David Note: Please also refer to the separate dictated note~for this date of service dictated separately.~Patient seen individually. Discussed the patient with Nursing staff reviewed the chart.~Reviewed interim history and current functioning. Reviewed vital signs,~Labs/ Radiology~and current medications noted below. Continue current treatment with the changes noted in the dictated addendum note Assessment: Vital Signs/I&O: Vital Signs Date Time Temp Pulse Resp B/P (MAP) Pulse Ox O2 Delivery O2 Flow Rate FiO2 08/20/19 20:31 97 103/65 08/20/19 15:53 97.7 20 95 Room Air I & O 08/19/19 08/19/19 08/20/19 15:00 23:00 07:00 Intake Total 720 ml 240 ml Balance 720 ml 240 ml Labs: Laboratory Tests Test 08/20/19 06:45 White Blood Count 5.2 x10^3/uL (4.0-11.0) Red Blood Count 3.86 x10^6/uL (3.50-5.40) Hemoglobin 12.3 g/dL (12.0-15.5) Hematocrit 37.0 % (36.0-47.0) Mean Corpuscular Volume 96 fL (79-100) Mean Corpuscular Hemoglobin 32 pg (25-35) Mean Corpuscular Hemoglobin Concent 33 g/dL (31-37) Red Cell Distribution Width 13.6 % (11.5-14.5) Platelet Count 271 x10^3/uL (140-400) Neutrophils (%) (Auto) 70 % (31-73) Lymphocytes (%) (Auto) 16 % (24-48) L Monocytes (%) (Auto) 9 % (0-9) Eosinophils (%) (Auto) 5 % (0-3) H Basophils (%) (Auto) 1 % (0-3) Neutrophils # (Auto) 3.6 x10^3uL (1.8-7.7) Lymphocytes # (Auto) 0.8 x10^3/uL (1.0-4.8) L Monocytes # (Auto) 0.5 x10^3/uL (0.0-1.1) Eosinophils # (Auto) 0.2 x10^3/uL (0.0-0.7) Basophils # (Auto) 0.0 x10^3/uL (0.0-0.2) Sodium Level 139 mmol/L (136-145) Potassium Level 3.8 mmol/L (3.5-5.1) Chloride Level 103 mmol/L (98-107) Carbon Dioxide Level 28 mmol/L (21-32) Anion Gap 8 (6-14) Blood Urea Nitrogen 16 mg/dL (7-20) Creatinine 0.6 mg/dL (0.6-1.0) Estimated GFR (Cockcroft-Gault) 98.5 BUN/Creatinine Ratio 27 (6-20) H Glucose Level 83 mg/dL (70-99) Calcium Level 8.4 mg/dL (8.5-10.1) L Total Bilirubin 0.2 mg/dL (0.2-1.0) Aspartate Amino Transferase (AST) 30 U/L (15-37) Alanine Aminotransferase (ALT) 29 U/L (14-59) Alkaline Phosphatase 88 U/L (46-116) Total Protein 6.1 g/dL (6.4-8.2) L Albumin 2.6 g/dL (3.4-5.0) L Albumin/Globulin Ratio 0.7 (1.0-1.7) L Valproic Acid Level 15 mcg/mL (50-100) L Valproic Acid Last Dose Date 08/19/19 Valproic Acid Last Dose Time 1700 Current Medications: I have reviewed the current psychotropics carefully including drug interactions. Risk benefit ratio favors no change other than as noted in my dictated progress note. Diagnosis: Problems: (1) Impulse control disorder, unspecified (2) Anxiety disorder, unspecified (3) Dementia, vascular, with depression (4) Dementia, vascular, with delusions (5) Dementia in Alzheimer's disease with depression (6) Dementia in Alzheimer's disease with delusions (7) Major neurocognitive disorder, due to vascular disease, with behavioral disturbance, mild NAEEM SADLER MD Aug 20, 2019 21:53
--- NOTE | 2019-08-20 23:11 | NUR ---
Pt has been highly agitated this evening. Pt rolling herself in her wheelchair up and down the hallway yelling. Pt highly resistive to HS medications. Psychiatric medications crushed and administered sublingually. PRN Zyprexa administered. Pt combative and spit approximately 50% out. Pt taken to her room and laid down on mats for safety. Pt continues to yell out for Catracho Schwartz and Dr. Mi. Pt highly restless and removing her brief and gown. Pt changed and placed in a onesie. Will continue to monitor.
[2019-08-21 06:27] VITALS: BP 131/81
--- NOTE | 2019-08-21 07:34 | PDOC ---
Exam Note: David Note: This note is a late entry for 08/19/2019 covers elements not covered in my initial note. Subjective: The patient was seen face to face in the evening of 08/19/2019. Nursing report was with Gilma COHN. She slept 3-1/4 hours previous night. She is restless, agitated. Trazodone has been held since there was a propensity to cause elevated QTC due to interaction with Cipro per pharmacy recommendation and I will defer to Dr. Avery. We are repeating an EKG for QTC. She has been tearful at times. Review of Systems: Ambulation impaired, in Broda chair. No CV, , pulmonary, eye, ENT system symptoms on review. Reliability poor. Mental Status Exam: Oriented to herself. She was tearful, anxious, restless. Insight and judgment, recent and remote memory, attention and concentration, fund of knowledge is poor consistent with her diagnoses. Laboratory Data: Reviewed. Impression: Major neurocognitive disorder Alzheimer, vascular with delusion, depression and behavioral disturbance. Anxiety disorder unspecified. Impulse control disorder unspecified. Urinary tract infection. Plan: No change from initial note. Assessment: Vital Signs/I&O: Vital Signs Date Time Temp Pulse Resp B/P (MAP) Pulse Ox O2 Delivery O2 Flow Rate FiO2 08/21/19 06:27 97.5 94 16 131/81 (98) 92 08/20/19 15:53 Room Air I & O 08/20/19 08/20/19 08/21/19 15:00 23:00 07:00 Intake Total 360 ml 240 ml Balance 360 ml 240 ml Current Medications: I have reviewed the current psychotropics carefully including drug interactions. Risk benefit ratio favors no change other than as noted in my dictated progress note. Diagnosis: Problems: (1) Impulse control disorder, unspecified (2) Anxiety disorder, unspecified (3) Dementia, vascular, with depression (4) Dementia, vascular, with delusions (5) Dementia in Alzheimer's disease with depression (6) Dementia in Alzheimer's disease with delusions (7) Major neurocognitive disorder, due to vascular disease, with behavioral disturbance, mild NAEEM SADLER MD Aug 21, 2019 07:34
--- NOTE | 2019-08-21 07:50 | PDOC ---
Exam Note: David Note: This note is a late entry for 08/20/2019 covers elements not covered in my initial note. Subjective: The patient was seen face to face in the evening of 08/20/2019. Nursing report with Gilma COHN. She slept 1-3/4 hours previous night. She has been pleasant. Review of Systems: Ambulation impaired, in Broda chair. No CV, , pulmonary, eye, ENT system symptoms on review. Reliability poor. Mental Status Exam: Oriented to herself. She was confused, anxious, restless. Insight and judgment, recent and remote memory, attention and concentration, fund of knowledge is poor consistent with her diagnoses. Laboratory Data: Reviewed. Impression: Major neurocognitive disorder Alzheimer, vascular with delusion, depression and behavioral disturbance. Anxiety disorder unspecified. Impulse control disorder unspecified. Urinary tract infection. Plan: The patient continues to have significant insomnia despite Remeron 15 mg h.s. We will change this to doxepin 30 mg h.s. Maintain rest of the psychotropics unchanged from initial note. Assessment: Vital Signs/I&O: Vital Signs Date Time Temp Pulse Resp B/P (MAP) Pulse Ox O2 Delivery O2 Flow Rate FiO2 08/21/19 06:27 97.5 94 16 131/81 (98) 92 08/20/19 15:53 Room Air I & O 08/20/19 08/20/19 08/21/19 15:00 23:00 07:00 Intake Total 360 ml 240 ml Balance 360 ml 240 ml Current Medications: I have reviewed the current psychotropics carefully including drug interactions. Risk benefit ratio favors no change other than as noted in my dictated progress note. Diagnosis: Problems: (1) Impulse control disorder, unspecified (2) Anxiety disorder, unspecified (3) Dementia, vascular, with depression (4) Dementia, vascular, with delusions (5) Dementia in Alzheimer's disease with depression (6) Dementia in Alzheimer's disease with delusions (7) Major neurocognitive disorder, due to vascular disease, with behavioral disturbance, mild NAEEM SADLER MD Aug 21, 2019 07:50
[2019-08-21] MEDS: hydrALAZINE 25 MG TABLET PO SCH ×3 (09:20→15:46)
[2019-08-21] MEDS: CIPROFLOXACIN HCL 250 MG TABLET PO SCH ×2 (09:22→20:09)
[2019-08-21] MEDS: LORazepam 0.5 MG TABLET PO SCH ×2 (09:22→14:00)
[2019-08-21] MEDS: DIVALPROEX 125 MG CAP.SPRINK PO SCH ×2 (09:22→16:09)
[2019-08-21] MEDS: POTASSIUM CHLORIDE 10 MEQ TABLET.ER. PO SCH (09:22)
[2019-08-21] MEDS: LACTOBACILLUS RHAMNOSUS GG 1 CAPSULE. PO SCH ×2 (09:22→21:00)
[2019-08-21] MEDS: ASCORBIC ACID 500 MG TABLET PO SCH (09:23)
[2019-08-21] MEDS: SENNOSIDES/DOCUSATE 8.6/50MG TABLET. PO SCH ×2 (09:23→21:00)
[2019-08-21] MEDS: MULTIVITAMIN with MINERAL TABLET. PO SCH (09:23)
[2019-08-21] MEDS: FUROSEMIDE 20 MG TABLET PO SCH (09:23)
[2019-08-21] MEDS: MUPIROCIN 2% TOPICAL OINTMENT 22GM TUBE. TP SCH ×2 (09:23→21:00)
[2019-08-21] MEDS: SERTRALINE 50 MG TABLET. PO SCH (09:23)
[2019-08-21] MEDS: THIAMINE 100 MG TABLET. PO SCH (09:23)
--- NOTE | 2019-08-21 10:04 | NUR ---
Pt is confused and is yelling out. Nurse was able to redirect and reorient pt. Pt talks to self. Pt is compliant with her medication and assessment. No aggression at this time.
--- NOTE | 2019-08-21 10:45 | NUR ---
Pt yelling out for "Ashley!" pt was unable to be redirected. PRN dante licona given.
[2019-08-21 13:03] VITALS: BP 90/53
[2019-08-21 15:57] VITALS: BP 94/60
[2019-08-21 16:08] VITALS: BP 117/72
--- NOTE | 2019-08-21 16:11 | NUR ---
Pt is yelling out, pt thinks she needs to leave to see her dad at the hospital, pt is exit seeking and door checking. pt is calling out to others. Pt was unable to be redirected, calmed or reassured by staff. PRN zyprexa given.
--- NOTE | 2019-08-21 18:15 | NUR ---
Dr. Hensley here for rounds. Pt asking staff including Dr. Hensley are you "one of them." Pt yelling up and down the mena while wheeling herself. Pt stating "I want to see what they are doing with them." "I need to see them, they are all sitting on the floor." Pt is yelling "run girls!" "Help!" Pt taken to [facility] for deescalation. Dr. Hensley gave order for hydroxyzine hcl 25mg q 2 hours PRN max dose 75mg in 24 hours. Risperdal .25mg x 1 may repeat in 1 hour.
[2019-08-21] MEDS: hydrOXYzine HCL 25 MG TABLET PO PRN ×2 (18:26→20:09)
--- NOTE | 2019-08-21 18:27 | NUR ---
Pt refused to let nurse scan her arm band
[2019-08-21] MEDS ORDERED: risperiDONE 0.25 MG TABLET. PO ONE ×2 (18:30→20:15)
--- NOTE | 2019-08-21 18:32 | NUR ---
Pt continues to have hallucinations and delusions, banging on the window to the nurses station while stating things like "I'm opening this door and you start shooting." "This ain't no time for fucking around." When you hear me say hold it we are going to shoot big ones up here and little ones down here. Don't fuck with me someone is going to get hurt." "Ok, I want you not her you two grown boys or girls whatever you are, hey! shoot a couple of shots right down here." "Right in front of you I want you to shoot right in here down to the floor."Pt makes all of these statements [facility].
[2019-08-21] MEDS: DOXEPIN HCL 10 MG CAPSULE PO SCH (21:00)
[2019-08-21] MEDS: MELATONIN 3 MG TABLET PO SCH (21:00)
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
[2019-08-22 06:07] VITALS: BP 144/73
--- NOTE | 2019-08-22 06:43 | PDOC ---
Exam Note: David Note: This note is a late entry for 08/21/2019 covers elements not covered in my initial note. Subjective: The patient was seen face to face in the evening of 08/21/2019. Nursing report with Adelaida COHN. She slept just 2 hours previous night. She has been anxious, agitated, confused. She has been calling out for Efren and Catracho and previous night disrobed herself. Today calling out for Carolyn. Herr seems to help. At one point, BP was low, 2 p.m. Ativan was held, 3 p.m. BP was stable, then she was getting more agitated. She is still getting her Cipro for the UTI and I feel the UTI is worsening her psychosis, agitation, and confusion. Review of Systems: Ambulation impaired, in Broda chair. No CV, , pulmonary, eye, ENT system symptoms on review. Mental Status Exam: The patient was in the West hallway to get her out of the environment. As I met with her she was making statements that I was in with them. She was paranoid, suspicious, restless, constantly moving. Insight and judgment, recent and remote memory, attention and concentration, fund of knowle dge is poor consistent with her diagnoses. Laboratory Data: Reviewed. Impression: Major neurocognitive disorder Alzheimer, vascular with delusion, depression and behavioral disturbance. Anxiety disorder unspecified. Impulse control disorder unspecified. Urinary tract infection. Plan: Continue Cipro at current dosage. We will taper and stop the Ativan since this could be causing paradoxical disinhibition, Remeron 15 mg h.s. We will change to doxepin 30 mg h.s. due to her ongoing insomnia. Valproic acid level is subtherapeutic at 15 on Depakote Sprinkle 125 mg twice a day. We will increase it to 125 mg four times a day. Check CBC, CMP, valproic acid level in 3 days. Rest unchanged for now. Assessment: Vital Signs/I&O: Vital Signs Date Time Temp Pulse Resp B/P (MAP) Pulse Ox O2 Delivery O2 Flow Rate FiO2 08/22/19 06:07 97.5 74 18 144/73 (96) 92 08/21/19 15:57 Room Air I & O 08/21/19 08/21/19 08/22/19 15:00 23:00 07:00 Intake Total 360 ml 120 ml Balance 360 ml 120 ml Current Medications: Meds: Current Medications Medications (Trade) Dose Ordered Sig/Bindu Route PRN Reason Start Time Stop Time Status Last Admin Dose Admin Olanzapine (ZyPREXA ZYDIS) 5 mg TID PRN PRN PO PSYCHOSIS 08/21/19 10:00 08/21/19 20:09 Hydroxyzine HCl (Atarax) 25 mg PRN Q2HR PRN PO ITCHING 08/21/19 18:15 08/21/19 20:09 Risperidone (RisperDAL) 0.25 mg 1X ONCE PO 08/21/19 18:30 08/21/19 18:31 DC 08/21/19 18:25 Risperidone (RisperDAL) 0.25 mg 1X ONCE PO 08/21/19 20:15 08/21/19 20:16 DC 08/21/19 20:09 I have reviewed the current psychotropics carefully including drug interactions. Risk benefit ratio favors no change other than as noted in my dictated progress note. Diagnosis: Problems: (1) Impulse control disorder, unspecified (2) Anxiety disorder, unspecified (3) Dementia, vascular, with depression (4) Dementia, vascular, with delusions (5) Dementia in Alzheimer's disease with depression (6) Dementia in Alzheimer's disease with delusions (7) Major neurocognitive disorder, due to vascular disease, with behavioral disturbance, mild NAEEM SADLER MD Aug 22, 2019 06:43
[2019-08-22] MEDS: hydrALAZINE 25 MG TABLET PO SCH ×3 (09:42→20:03)
[2019-08-22] MEDS: LORazepam 0.5 MG TABLET PO SCH ×2 (09:42→20:05)
[2019-08-22] MEDS: CIPROFLOXACIN HCL 250 MG TABLET PO SCH ×2 (09:43→20:01)
[2019-08-22] MEDS: POTASSIUM CHLORIDE 10 MEQ TABLET.ER. PO SCH (09:43)
[2019-08-22] MEDS: DIVALPROEX 125 MG CAP.SPRINK PO SCH ×3 (09:43→16:10)
[2019-08-22] MEDS: FUROSEMIDE 20 MG TABLET PO SCH (09:44)
[2019-08-22] MEDS: SERTRALINE 50 MG TABLET. PO SCH (09:44)
[2019-08-22] MEDS: risperiDONE 0.25 MG TABLET. PO SCH ×2 (09:44→13:15)
[2019-08-22] MEDS: LACTOBACILLUS RHAMNOSUS GG 1 CAPSULE. PO SCH ×2 (09:53→20:01)
[2019-08-22] MEDS: MULTIVITAMIN with MINERAL TABLET. PO SCH (09:54)
[2019-08-22] MEDS: SENNOSIDES/DOCUSATE 8.6/50MG TABLET. PO SCH ×2 (09:54→19:59)
[2019-08-22] MEDS: MUPIROCIN 2% TOPICAL OINTMENT 22GM TUBE. TP SCH ×2 (09:54→21:00)
[2019-08-22] MEDS: ASCORBIC ACID 500 MG TABLET PO SCH (09:54)
[2019-08-22] MEDS: THIAMINE 100 MG TABLET. PO SCH (09:54)
--- NOTE | 2019-08-22 10:04 | NUR ---
Pt is labile, yelling out then crying. Pt will cry for her dogs or her mother. She is delusional believing she is being harmed then looking for her mom believing she is here. Pt was resistive in the shower yelling "ahhhhhh no! Please don't do this to me! Don't lock me in the box like they did." After her shower staff attempted to redirect pt to the dayroom and offer her breakfast however pt continued to yell out "Stop, please someone help me! I don't want to be locked up again." Nurse gave pt am medication and pt taken to [facility] for deescalation. Pt ate her breakfast. Pt is currently sitting in the [facility].
[2019-08-22 11:04] LABS: BASO % 1 % (0-3); EOS # 0.2 x10^3/uL (0.0-0.7); EOS % 5 % (0-3); HEMATOCRIT 37.2 % (36.0-47.0); HEMOGLOBIN 12.3 g/dL (12.0-15.5); LYMPH # 0.6 x10^3/uL (1.0-4.8); LYMPH % 16 % (24-48); MEAN CORPUSCULAR HEMOGLOBIN 32 pg (25-35); MEAN CORPUSCULAR HGB CONC 33 g/dL (31-37); MEAN CORPUSCULAR VOLUME 96 fL (79-100); MONO # 0.3 x10^3/uL (0.0-1.1); MONO % 8 % (0-9); NEUT # 2.9 x10^3uL (1.8-7.7); NEUT % 71 % (31-73); PLATELET COUNT 267 x10^3/uL (140-400); RED BLOOD COUNT 3.88 x10^6/uL (3.50-5.40); RED CELL DISTRIBUTION WIDTH 13.6 % (11.5-14.5); WHITE BLOOD COUNT 4.1 x10^3/uL (4.0-11.0)
[2019-08-22 11:25] LABS: ALBUMIN 2.7 g/dL (3.4-5.0); ALBUMIN/GLOBULIN RATIO 0.8 (1.0-1.7); CALCIUM 8.6 mg/dL (8.5-10.1); CREATININE 0.7 mg/dL (0.6-1.0); GFR 82.5; POTASSIUM 3.6 mmol/L (3.5-5.1); TOTAL BILIRUBIN 0.4 mg/dL (0.2-1.0); TOTAL PROTEIN 6.2 g/dL (6.4-8.2)
[2019-08-22 13:13] VITALS: BP 118/77
[2019-08-22] MEDS: hydrOXYzine HCL 25 MG TABLET PO PRN (15:04)
[2019-08-22] MEDS: ACETAMINOPHEN 325 MG TABLET PO PRN (15:04)
--- NOTE | 2019-08-22 15:10 | NUR ---
Pt is attempting to get out of her chair unassisted. Pt is pulling on the handles of doors to the cabinets of the dayroom attempting to stand unassisted. Pt is delusional stating she must give this blanket away. When nurse approached pt, pt stated she needed to leave. Staff is unable to redirect pt. PRN tylenol and hydroxyzine given.
[2019-08-22 16:01] VITALS: BP 94/59
--- NOTE | 2019-08-22 16:37 | NUR ---
While doing rounds the security system installer reported pt stated she still works for [employer] has been for 50 years and is about to retire but she thinks she may get fired bc another employee (patient) is stealing from her. Pt then started to cry. airport operations officer offered pt redirection and emotional support. While giving report to Dr. Hensley new orders received. Give risperdal 0.25mg now and starting tomorrow increase am dose to 0.5mg.
[2019-08-22] MEDS ORDERED: risperiDONE 0.25 MG TABLET. PO ONE (16:45)
--- NOTE | 2019-08-22 17:12 | NUR ---
While giving x1 dose of risperdal pt bit the pill in half and took one half of the pill and put the other half down her shirt.
--- NOTE | 2019-08-22 17:15 | NUR ---
Spoke with Dr. Aveyr regarding pts Cipro, urine c & s, and psychiatric medications. new order to dc hydroxyzine d/t potential drug interactions. Pt is to stay on the cipro until 08/24 r/t the strain of bacteria in her urine.
[2019-08-22] MEDS: DOXEPIN HCL 10 MG CAPSULE PO SCH (20:00)
[2019-08-22] MEDS: MELATONIN 3 MG TABLET PO SCH (20:02)
--- NOTE | 2019-08-22 22:05 | PDOC ---
Exam Note: David Note: Please also refer to the separate dictated note~for this date of service dictated separately.~Patient seen individually. Discussed the patient with Nursing staff reviewed the chart.~Reviewed interim history and current functioning. Reviewed vital signs,~Labs/ Radiology~and current medications noted below. Continue current treatment with the changes noted in the dictated addendum note Assessment: Vital Signs/I&O: Vital Signs Date Time Temp Pulse Resp B/P (MAP) Pulse Ox O2 Delivery O2 Flow Rate FiO2 08/22/19 20:03 93 110/59 08/22/19 16:01 98.7 18 94 08/21/19 15:57 Room Air I & O 08/21/19 08/21/19 08/22/19 15:00 23:00 07:00 Intake Total 360 ml 120 ml Balance 360 ml 120 ml Labs: Laboratory Tests Test 08/22/19 10:25 White Blood Count 4.1 x10^3/uL (4.0-11.0) Red Blood Count 3.88 x10^6/uL (3.50-5.40) Hemoglobin 12.3 g/dL (12.0-15.5) Hematocrit 37.2 % (36.0-47.0) Mean Corpuscular Volume 96 fL (79-100) Mean Corpuscular Hemoglobin 32 pg (25-35) Mean Corpuscular Hemoglobin Concent 33 g/dL (31-37) Red Cell Distribution Width 13.6 % (11.5-14.5) Platelet Count 267 x10^3/uL (140-400) Neutrophils (%) (Auto) 71 % (31-73) Lymphocytes (%) (Auto) 16 % (24-48) L Monocytes (%) (Auto) 8 % (0-9) Eosinophils (%) (Auto) 5 % (0-3) H Basophils (%) (Auto) 1 % (0-3) Neutrophils # (Auto) 2.9 x10^3uL (1.8-7.7) Lymphocytes # (Auto) 0.6 x10^3/uL (1.0-4.8) L Monocytes # (Auto) 0.3 x10^3/uL (0.0-1.1) Eosinophils # (Auto) 0.2 x10^3/uL (0.0-0.7) Basophils # (Auto) 0.0 x10^3/uL (0.0-0.2) Sodium Level 139 mmol/L (136-145) Potassium Level 3.6 mmol/L (3.5-5.1) Chloride Level 104 mmol/L (98-107) Carbon Dioxide Level 27 mmol/L (21-32) Anion Gap 8 (6-14) Blood Urea Nitrogen 14 mg/dL (7-20) Creatinine 0.7 mg/dL (0.6-1.0) Estimated GFR (Cockcroft-Gault) 82.5 BUN/Creatinine Ratio 20 (6-20) Glucose Level 121 mg/dL (70-99) H Calcium Level 8.6 mg/dL (8.5-10.1) Total Bilirubin 0.4 mg/dL (0.2-1.0) Aspartate Amino Transferase (AST) 29 U/L (15-37) Alanine Aminotransferase (ALT) 28 U/L (14-59) Alkaline Phosphatase 91 U/L (46-116) Total Protein 6.2 g/dL (6.4-8.2) L Albumin 2.7 g/dL (3.4-5.0) L Albumin/Globulin Ratio 0.8 (1.0-1.7) L Current Medications: Meds: Current Medications Medications (Trade) Dose Ordered Sig/Bindu Route PRN Reason Start Time Stop Time Status Last Admin Dose Admin Divalproex Sodium (Depakote Sprinkles) 125 mg 0900,1300,1700 PO 08/22/19 09:00 08/22/19 16:10 Lorazepam (Ativan) 0.25 mg BID PO 08/22/19 09:00 08/23/19 11:00 08/22/19 20:05 Risperidone (RisperDAL) 0.25 mg 0900,1500 PO 08/22/19 09:45 08/22/19 16:50 DC 08/22/19 13:15 Risperidone (RisperDAL) 0.25 mg 1X ONCE PO 08/22/19 16:45 08/22/19 16:54 DC 08/22/19 17:02 Hydralazine HCl (Apresoline) 25 mg BID PO 08/22/19 21:00 08/22/19 20:03 I have reviewed the current psychotropics carefully including drug interactions. Risk benefit ratio favors no change other than as noted in my dictated progress note. Diagnosis: Problems: (1) Impulse control disorder, unspecified (2) Anxiety disorder, unspecified (3) Dementia, vascular, with depression (4) Dementia, vascular, with delusions (5) Dementia in Alzheimer's disease with depression (6) Dementia in Alzheimer's disease with delusions (7) Major neurocognitive disorder, due to vascular disease, with behavioral disturbance, mild NAEEM SADLER MD Aug 22, 2019 22:05
--- NOTE | 2019-08-22 23:24 | NUR ---
Nursing Note Pt in hallway in chair at shift change. She is loud, demanding, disruptive, manic acting with peers, alternating with crying at times. Highly combative with HS care. Pt on the mats in his room.
[2019-08-23 05:22] VITALS: BP 152/90
[2019-08-23] MEDS: DIVALPROEX 125 MG CAP.SPRINK PO SCH ×3 (08:36→16:47)
[2019-08-23] MEDS: risperiDONE 0.5 MG TABLET. PO SCH (08:36)
[2019-08-23] MEDS: MULTIVITAMIN with MINERAL TABLET. PO SCH (08:36)
[2019-08-23] MEDS: LACTOBACILLUS RHAMNOSUS GG 1 CAPSULE. PO SCH ×2 (08:36→20:13)
[2019-08-23] MEDS: SENNOSIDES/DOCUSATE 8.6/50MG TABLET. PO SCH ×2 (08:36→20:14)
[2019-08-23] MEDS: THIAMINE 100 MG TABLET. PO SCH (08:36)
[2019-08-23] MEDS: SERTRALINE 50 MG TABLET. PO SCH (08:36)
[2019-08-23] MEDS: POTASSIUM CHLORIDE 10 MEQ TABLET.ER. PO SCH (08:36)
[2019-08-23] MEDS: ASCORBIC ACID 500 MG TABLET PO SCH (08:36)
[2019-08-23] MEDS: LORazepam 0.5 MG TABLET PO SCH (08:37)
[2019-08-23] MEDS: CIPROFLOXACIN HCL 250 MG TABLET PO SCH ×2 (08:37→20:14)
[2019-08-23] MEDS: MUPIROCIN 2% TOPICAL OINTMENT 22GM TUBE. TP SCH ×2 (08:37→20:15)
[2019-08-23] MEDS: FUROSEMIDE 20 MG TABLET PO SCH (08:37)
[2019-08-23] MEDS: hydrALAZINE 25 MG TABLET PO SCH ×2 (08:37→20:14)
--- NOTE | 2019-08-23 10:12 | NUR ---
Patient was drowsy at breakfast. She was able to take most of her medicine crushed in chocolate pudding. She spit the last bite of pudding with medication in it into the cup of water. Patient is very disorganized and has poor short term memory. She alternates between sleeping and drowsy to being talkative and delusional. She is looking for different things, at one point she was yelling "you know, the various ones" but she is unable to express what it is she is actually talking about. Later she came up to this nurse in the hallway and said "you want these checks? well I am just gonna throw them away". She does not seem too notice that people do not know what she is talking about. She is able to ambulate in wheelchair. On the right side of her foot there is an open area, she has been picking at a scab on her knee. Mupirocin ointment applied to dry, scabby areas on feet and legs. Patient told nurse she "needed a shower, there was grease on her legs" about five minutes after nurse applied ointment.
--- NOTE | 2019-08-23 10:35 | NUR ---
CASSIDY received call from Nuvia (CASSIDY), Radha (THUAN) and Salena (Admin) to discuss how pt is doing. SW explained that pt is not doing as well as expected as she has a UTI that came up on 08/15 and had to be placed on Cipro. There were concerns about some of her psych meds interacting with the Cipro and those had to be stopped for a period of time. Pt did start back on a low dose of Risperdal and will work towards getting that increased. In the meantime, pt has been labile (crying, angry), yelling at peers/staff, and having delusions/hallucinations throughout the day. CASSIDY will send updated notes for them to review and discussed another 10-12 days for pt to be on SB[facility].
--- NOTE | 2019-08-23 11:40 | NUR ---
Patient has been non stop talking since breakfast. She is switching subjects in the middle of her sentences and very disorganized. She has been asking for directions to [place], [place] and other places. She becomes anxious and tearful mid sentence. She also stated that her feet hurt. She has very dry skin with some scabs on them, she refuses to keep socks or shoes on them. PRN zydis provided per order for agitation/anxiety and PRN tylenol provided for foot pain. Will continue to monitor. Addendum: 08/23/19 at 1155 by FAIZAN LEE RN Patient very resistive with medications given crushed in chocolate pudding. She eventually took them. Will continue to monitor her behaviors.
[2019-08-23] MEDS: ACETAMINOPHEN 500 MG TABLET PO PRN (11:49)
--- NOTE | 2019-08-23 13:04 | NUR ---
CASSIDY faxed updated notes to Nuvia at [facility]. CASSIDY will plan to update Nuvia on Thursday.
[2019-08-23 15:57] VITALS: BP 100/71
[2019-08-23] MEDS: risperiDONE 0.25 MG TABLET. PO SCH (16:49)
[2019-08-23] MEDS: DOXEPIN HCL 10 MG CAPSULE PO SCH (20:13)
[2019-08-23] MEDS: MELATONIN 3 MG TABLET PO SCH (20:14)
--- NOTE | 2019-08-23 21:45 | PDOC ---
Exam Note: David Note: Please also refer to the separate dictated note~for this date of service dictated separately.~Patient seen individually. Discussed the patient with Nursing staff reviewed the chart.~Reviewed interim history and current functioning. Reviewed vital signs,~Labs/ Radiology~and current medications noted below. Continue current treatment with the changes noted in the dictated addendum note Assessment: Vital Signs/I&O: Vital Signs Date Time Temp Pulse Resp B/P (MAP) Pulse Ox O2 Delivery O2 Flow Rate FiO2 08/23/19 20:14 88 100/71 08/23/19 15:57 98.1 20 94 08/21/19 15:57 Room Air I & O 08/22/19 08/22/19 08/23/19 15:00 23:00 07:00 Intake Total 860 ml 240 ml Balance 860 ml 240 ml Current Medications: Meds: Current Medications Medications (Trade) Dose Ordered Sig/Bindu Route PRN Reason Start Time Stop Time Status Last Admin Dose Admin Risperidone (RisperDAL) 0.25 mg 1500 PO 08/23/19 15:00 08/23/19 16:49 Risperidone (RisperDAL) 0.5 mg DAILY PO 08/23/19 09:00 08/23/19 08:36 I have reviewed the current psychotropics carefully including drug interactions. Risk benefit ratio favors no change other than as noted in my dictated progress note. Diagnosis: Problems: (1) Impulse control disorder, unspecified (2) Anxiety disorder, unspecified (3) Dementia, vascular, with depression (4) Dementia, vascular, with delusions (5) Dementia in Alzheimer's disease with depression (6) Dementia in Alzheimer's disease with delusions (7) Major neurocognitive disorder, due to vascular disease, with behavioral disturbance, mild NAEEM SADLER MD Aug 23, 2019 21:45
[2019-08-24 06:00] VITALS: BP 146/84
[2019-08-24 06:32] LABS: BASO % 1 % (0-3); EOS # 0.2 x10^3/uL (0.0-0.7); EOS % 5 % (0-3); HEMATOCRIT 39.2 % (36.0-47.0); HEMOGLOBIN 13.1 g/dL (12.0-15.5); LYMPH # 1.1 x10^3/uL (1.0-4.8); LYMPH % 24 % (24-48); MEAN CORPUSCULAR HEMOGLOBIN 32 pg (25-35); MEAN CORPUSCULAR HGB CONC 34 g/dL (31-37); MEAN CORPUSCULAR VOLUME 97 fL (79-100); MONO # 0.4 x10^3/uL (0.0-1.1); MONO % 9 % (0-9); NEUT # 2.7 x10^3uL (1.8-7.7); NEUT % 61 % (31-73); PLATELET COUNT 292 x10^3/uL (140-400); RED BLOOD COUNT 4.05 x10^6/uL (3.50-5.40); RED CELL DISTRIBUTION WIDTH 13.9 % (11.5-14.5); WHITE BLOOD COUNT 4.5 x10^3/uL (4.0-11.0)
[2019-08-24 06:45] LABS: ALBUMIN 2.9 g/dL (3.4-5.0); ALBUMIN/GLOBULIN RATIO 0.8 (1.0-1.7); CALCIUM 8.5 mg/dL (8.5-10.1); CREATININE 0.7 mg/dL (0.6-1.0); GFR 82.5; TOTAL BILIRUBIN 0.4 mg/dL (0.2-1.0); TOTAL PROTEIN 6.6 g/dL (6.4-8.2)
--- NOTE | 2019-08-24 07:29 | PDOC ---
Exam Note: David Note: This note is a late entry for 08/22/2019 covers elements not covered in my initial note. Subjective: The patient was seen face to face in the evening of 08/22/2019. Nursing report with Adelaida COHN. She slept 3 hours previous night. At night she was up and down in her moods according to nursing staff. All night she was extremely agitated, labile, and reece blood and she was agitated, aggressive, disruptive. Mood is labile, compliant with medications. She received Atarax and Tylenol after staff called me late in the evening. Review of Systems: Ambulation impaired, in Broda chair. No CV, , pulmonary, eye, ENT system symptoms on review. Mental Status Exam: Insight and judgment, recent and remote memory, attention and concentration, fund of knowledge is poor consistent with her diagnoses. Laboratory Data: Reviewed. Impression: Major neurocognitive disorder Alzheimer, vascular with delusion, depression and behavioral disturbance. Anxiety disorder unspecified. Impulse control disorder unspecified. Urinary tract infection. Plan: Continue her psychotropics. Check valproic acid level on 08/24. We will continue Risperdal at current dosage but on 08/22 increase it to 0.5 mg a.m. and 0.25 mg p.m. Rest unchanged for now. She is still on Cipro for UTI. Assessment: Vital Signs/I&O: Vital Signs Date Time Temp Pulse Resp B/P (MAP) Pulse Ox O2 Delivery O2 Flow Rate FiO2 08/24/19 06:00 97.7 77 20 146/84 (104) 97 08/21/19 15:57 Room Air I & O 08/23/19 08/23/19 08/24/19 15:00 23:00 07:00 Intake Total 600 ml 480 ml Balance 600 ml 480 ml Labs: Laboratory Tests Test 08/24/19 05:54 White Blood Count 4.5 x10^3/uL (4.0-11.0) Red Blood Count 4.05 x10^6/uL (3.50-5.40) Hemoglobin 13.1 g/dL (12.0-15.5) Hematocrit 39.2 % (36.0-47.0) Mean Corpuscular Volume 97 fL (79-100) Mean Corpuscular Hemoglobin 32 pg (25-35) Mean Corpuscular Hemoglobin Concent 34 g/dL (31-37) Red Cell Distribution Width 13.9 % (11.5-14.5) Platelet Count 292 x10^3/uL (140-400) Neutrophils (%) (Auto) 61 % (31-73) Lymphocytes (%) (Auto) 24 % (24-48) Monocytes (%) (Auto) 9 % (0-9) Eosinophils (%) (Auto) 5 % (0-3) H Basophils (%) (Auto) 1 % (0-3) Neutrophils # (Auto) 2.7 x10^3uL (1.8-7.7) Lymphocytes # (Auto) 1.1 x10^3/uL (1.0-4.8) Monocytes # (Auto) 0.4 x10^3/uL (0.0-1.1) Eosinophils # (Auto) 0.2 x10^3/uL (0.0-0.7) Basophils # (Auto) 0.0 x10^3/uL (0.0-0.2) Sodium Level 143 mmol/L (136-145) Potassium Level 4.0 mmol/L (3.5-5.1) Chloride Level 106 mmol/L (98-107) Carbon Dioxide Level 29 mmol/L (21-32) Anion Gap 8 (6-14) Blood Urea Nitrogen 17 mg/dL (7-20) Creatinine 0.7 mg/dL (0.6-1.0) Estimated GFR (Cockcroft-Gault) 82.5 BUN/Creatinine Ratio 24 (6-20) H Glucose Level 82 mg/dL (70-99) Calcium Level 8.5 mg/dL (8.5-10.1) Total Bilirubin 0.4 mg/dL (0.2-1.0) Aspartate Amino Transferase (AST) 26 U/L (15-37) Alanine Aminotransferase (ALT) 28 U/L (14-59) Alkaline Phosphatase 94 U/L (46-116) Total Protein 6.6 g/dL (6.4-8.2) Albumin 2.9 g/dL (3.4-5.0) L Albumin/Globulin Ratio 0.8 (1.0-1.7) L Current Medications: Meds: Current Medications Medications (Trade) Dose Ordered Sig/Bindu Route PRN Reason Start Time Stop Time Status Last Admin Dose Admin Risperidone (RisperDAL) 0.25 mg 1500 PO 08/23/19 15:00 08/23/19 16:49 Risperidone (RisperDAL) 0.5 mg DAILY PO 08/23/19 09:00 08/23/19 08:36 I have reviewed the current psychotropics carefully including drug interactions. Risk benefit ratio favors no change other than as noted in my dictated progress note. Diagnosis: Problems: (1) Behavior disorder (2) Impulse control disorder, unspecified (3) Anxiety disorder, unspecified (4) Dementia, vascular, with depression (5) Dementia, vascular, with delusions (6) Dementia in Alzheimer's disease with depression (7) Dementia in Alzheimer's disease with delusions (8) Major neurocognitive disorder, due to vascular disease, with behavioral disturbance, mild NAEEM SADLER MD Aug 24, 2019 07:29
--- NOTE | 2019-08-24 07:30 | PDOC ---
Exam Note: David Note: This note is a late entry for 08/23/2019 covers elements not covered in my initial note. Subjective: The patient was seen face to face in the evening of 08/23/2019. Nursing report with Valentina COHN. She slept just 2-1/2 hours previous night. She is disorganized, labile in her mood, tearful with flight of ideas, talking about going to [place]. She took her a.m. meds in [facility]. Labs are due on 08/24. She received Zyprexa at 11 p.m. and in the morning for her psychosis, agitation, and mood lability. I met with her in her room in the evening. She was lying on the mat on the floor. Review of Systems: Ambulation impaired, in Broda chair. No CV, , pulmonary, eye, ENT system symptoms on review. Mental Status Exam: Insight and judgment, recent and remote memory, attention and concentration, fund of knowledge is poor consistent with her diagnoses. Mood and affect extremely labile. Laboratory Data: Reviewed. Impression: Major neurocognitive disorder Alzheimer, vascular with delusion, depression and behavioral disturbance. Anxiety disorder unspecified. Impulse control disorder unspecified. Urinary tract infection. Plan: Continue psychotropics from initial note. Continue Cipro for UTI, Risperdal has been adjusted. Rest unchanged for now. Assessment: Vital Signs/I&O: Vital Signs Date Time Temp Pulse Resp B/P (MAP) Pulse Ox O2 Delivery O2 Flow Rate FiO2 08/24/19 06:00 97.7 77 20 146/84 (104) 97 08/21/19 15:57 Room Air I & O 08/23/19 08/23/19 08/24/19 15:00 23:00 07:00 Intake Total 600 ml 480 ml Balance 600 ml 480 ml Labs: Laboratory Tests Test 08/24/19 05:54 White Blood Count 4.5 x10^3/uL (4.0-11.0) Red Blood Count 4.05 x10^6/uL (3.50-5.40) Hemoglobin 13.1 g/dL (12.0-15.5) Hematocrit 39.2 % (36.0-47.0) Mean Corpuscular Volume 97 fL (79-100) Mean Corpuscular Hemoglobin 32 pg (25-35) Mean Corpuscular Hemoglobin Concent 34 g/dL (31-37) Red Cell Distribution Width 13.9 % (11.5-14.5) Platelet Count 292 x10^3/uL (140-400) Neutrophils (%) (Auto) 61 % (31-73) Lymphocytes (%) (Auto) 24 % (24-48) Monocytes (%) (Auto) 9 % (0-9) Eosinophils (%) (Auto) 5 % (0-3) H Basophils (%) (Auto) 1 % (0-3) Neutrophils # (Auto) 2.7 x10^3uL (1.8-7.7) Lymphocytes # (Auto) 1.1 x10^3/uL (1.0-4.8) Monocytes # (Auto) 0.4 x10^3/uL (0.0-1.1) Eosinophils # (Auto) 0.2 x10^3/uL (0.0-0.7) Basophils # (Auto) 0.0 x10^3/uL (0.0-0.2) Sodium Level 143 mmol/L (136-145) Potassium Level 4.0 mmol/L (3.5-5.1) Chloride Level 106 mmol/L (98-107) Carbon Dioxide Level 29 mmol/L (21-32) Anion Gap 8 (6-14) Blood Urea Nitrogen 17 mg/dL (7-20) Creatinine 0.7 mg/dL (0.6-1.0) Estimated GFR (Cockcroft-Gault) 82.5 BUN/Creatinine Ratio 24 (6-20) H Glucose Level 82 mg/dL (70-99) Calcium Level 8.5 mg/dL (8.5-10.1) Total Bilirubin 0.4 mg/dL (0.2-1.0) Aspartate Amino Transferase (AST) 26 U/L (15-37) Alanine Aminotransferase (ALT) 28 U/L (14-59) Alkaline Phosphatase 94 U/L (46-116) Total Protein 6.6 g/dL (6.4-8.2) Albumin 2.9 g/dL (3.4-5.0) L Albumin/Globulin Ratio 0.8 (1.0-1.7) L Current Medications: Meds: Current Medications Medications (Trade) Dose Ordered Sig/Bindu Route PRN Reason Start Time Stop Time Status Last Admin Dose Admin Risperidone (RisperDAL) 0.25 mg 1500 PO 08/23/19 15:00 08/23/19 16:49 Risperidone (RisperDAL) 0.5 mg DAILY PO 08/23/19 09:00 08/23/19 08:36 I have reviewed the current psychotropics carefully including drug interactions. Risk benefit ratio favors no change other than as noted in my dictated progress note. Diagnosis: Problems: (1) Behavior disorder (2) Impulse control disorder, unspecified (3) Anxiety disorder, unspecified (4) Dementia, vascular, with depression (5) Dementia, vascular, with delusions (6) Dementia in Alzheimer's disease with depression (7) Dementia in Alzheimer's disease with delusions (8) Major neurocognitive disorder, due to vascular disease, with behavioral disturbance, mild NAEEM SADLER MD Aug 24, 2019 07:30
[2019-08-24] MEDS: FUROSEMIDE 20 MG TABLET PO SCH (08:17)
[2019-08-24] MEDS: SENNOSIDES/DOCUSATE 8.6/50MG TABLET. PO SCH ×2 (08:17→20:16)
[2019-08-24] MEDS: MULTIVITAMIN with MINERAL TABLET. PO SCH (08:17)
[2019-08-24] MEDS: THIAMINE 100 MG TABLET. PO SCH (08:17)
[2019-08-24] MEDS: risperiDONE 0.5 MG TABLET. PO SCH (08:17)
[2019-08-24] MEDS: LACTOBACILLUS RHAMNOSUS GG 1 CAPSULE. PO SCH ×2 (08:17→20:17)
[2019-08-24] MEDS: LORazepam 0.5 MG TABLET PO SCH (08:18)
[2019-08-24] MEDS: POTASSIUM CHLORIDE 10 MEQ TABLET.ER. PO SCH (08:19)
[2019-08-24] MEDS: CIPROFLOXACIN HCL 250 MG TABLET PO SCH ×2 (08:19→20:17)
[2019-08-24] MEDS: SERTRALINE 50 MG TABLET. PO SCH (08:19)
[2019-08-24] MEDS: DIVALPROEX 125 MG CAP.SPRINK PO SCH ×3 (08:19→17:29)
[2019-08-24] MEDS: ASCORBIC ACID 500 MG TABLET PO SCH (08:19)
[2019-08-24] MEDS: hydrALAZINE 25 MG TABLET PO SCH ×2 (08:20→20:16)
--- NOTE | 2019-08-24 10:28 | NUR ---
Patient very concerned that she did not have her glasses at breakfast. According to patient belonging sheet patient did not bring any glasses. Medications given crushed and hidden in chocolate ice cream. Patient oriented to self only. Patient showered by staff, she was not combative in shower. She has been drowsy this morning.
[2019-08-24] MEDS: risperiDONE 0.25 MG TABLET. PO SCH (14:43)
--- NOTE | 2019-08-24 14:45 | NUR ---
Patient is in day room running over [employer] feet. She is delusional and asking people about money and talking about [employer]. She is screaming and yelling, crying at times. Verbal redirection has failed. PRN zyprexa given for agitation/psychosis. Addendum: 08/24/19 at 1457 by FAIZAN LEE RN patient slapped medication out of nurse. Refusing medications stating they are not hers. Medication administered crushed and hidden in chocolate ice cream. Patient has a [employer] greeting card that someone sent her. She has been reading it and is now "looking for the directions". Addendum: 08/24/19 at 1507 by FAIZAN LEE RN Medication administered sublingually. Patient is in [facility] at this time. Will continue to monitor.
[2019-08-24 15:47] VITALS: BP 106/68
--- NOTE | 2019-08-24 16:11 | NUR ---
CASSIDY contacted pt sister, Monet, to give her an update on how pt is doing. Pt continues to exhibit quite a few behaviors as she is just finishing the antibiotic for her UTI and then having to have her psychiatric medications re-started yesterday. Monet questioned pt behaviors, in which SW told her about the last few days and Monet apologized thoroughly for pt behaviors. Monet stated "I just wish you guys knew her before this came about. 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 CASSIDY explained that pt cannot help a lot of her behaviors. Between the UTI and having her psych medications stopped, it was a set back for her. CASSIDY will continue to keep pt sister up to date and encouraged her to call anytime she has questions or wants to check in.
[2019-08-24] MEDS: MELATONIN 3 MG TABLET PO SCH (20:17)
[2019-08-24] MEDS: DOXEPIN HCL 10 MG CAPSULE PO SCH (20:17)
--- NOTE | 2019-08-24 22:07 | PDOC ---
Exam Note: David Note: Please also refer to the separate dictated note~for this date of service dictated separately.~Patient seen individually. Discussed the patient with Nursing staff reviewed the chart.~Reviewed interim history and current functioning. Reviewed vital signs,~Labs/ Radiology~and current medications noted below. Continue current treatment with the changes noted in the dictated addendum note Assessment: Vital Signs/I&O: Vital Signs Date Time Temp Pulse Resp B/P (MAP) Pulse Ox O2 Delivery O2 Flow Rate FiO2 08/24/19 20:16 98 106/68 08/24/19 15:47 97.6 20 97 08/21/19 15:57 Room Air I & O 08/23/19 08/23/19 08/24/19 15:00 23:00 07:00 Intake Total 600 ml 480 ml Balance 600 ml 480 ml Labs: Laboratory Tests Test 08/24/19 05:54 White Blood Count 4.5 x10^3/uL (4.0-11.0) Red Blood Count 4.05 x10^6/uL (3.50-5.40) Hemoglobin 13.1 g/dL (12.0-15.5) Hematocrit 39.2 % (36.0-47.0) Mean Corpuscular Volume 97 fL (79-100) Mean Corpuscular Hemoglobin 32 pg (25-35) Mean Corpuscular Hemoglobin Concent 34 g/dL (31-37) Red Cell Distribution Width 13.9 % (11.5-14.5) Platelet Count 292 x10^3/uL (140-400) Neutrophils (%) (Auto) 61 % (31-73) Lymphocytes (%) (Auto) 24 % (24-48) Monocytes (%) (Auto) 9 % (0-9) Eosinophils (%) (Auto) 5 % (0-3) H Basophils (%) (Auto) 1 % (0-3) Neutrophils # (Auto) 2.7 x10^3uL (1.8-7.7) Lymphocytes # (Auto) 1.1 x10^3/uL (1.0-4.8) Monocytes # (Auto) 0.4 x10^3/uL (0.0-1.1) Eosinophils # (Auto) 0.2 x10^3/uL (0.0-0.7) Basophils # (Auto) 0.0 x10^3/uL (0.0-0.2) Sodium Level 143 mmol/L (136-145) Potassium Level 4.0 mmol/L (3.5-5.1) Chloride Level 106 mmol/L (98-107) Carbon Dioxide Level 29 mmol/L (21-32) Anion Gap 8 (6-14) Blood Urea Nitrogen 17 mg/dL (7-20) Creatinine 0.7 mg/dL (0.6-1.0) Estimated GFR (Cockcroft-Gault) 82.5 BUN/Creatinine Ratio 24 (6-20) H Glucose Level 82 mg/dL (70-99) Calcium Level 8.5 mg/dL (8.5-10.1) Total Bilirubin 0.4 mg/dL (0.2-1.0) Aspartate Amino Transferase (AST) 26 U/L (15-37) Alanine Aminotransferase (ALT) 28 U/L (14-59) Alkaline Phosphatase 94 U/L (46-116) Total Protein 6.6 g/dL (6.4-8.2) Albumin 2.9 g/dL (3.4-5.0) L Albumin/Globulin Ratio 0.8 (1.0-1.7) L Current Medications: Meds: Current Medications Medications (Trade) Dose Ordered Sig/Bindu Route PRN Reason Start Time Stop Time Status Last Admin Dose Admin Lorazepam (Ativan) 0.25 mg DAILY PO 08/24/19 09:00 08/25/19 11:00 08/24/19 08:18 I have reviewed the current psychotropics carefully including drug interactions. Risk benefit ratio favors no change other than as noted in my dictated progress note. Diagnosis: Problems: (1) Impulse control disorder, unspecified (2) Anxiety disorder, unspecified (3) Dementia, vascular, with depression (4) Dementia, vascular, with delusions (5) Dementia in Alzheimer's disease with depression (6) Dementia in Alzheimer's disease with delusions (7) Major neurocognitive disorder, due to vascular disease, with behavioral disturbance, mild VIKTORIYANAEEM PEREZ MD Aug 24, 2019 22:07
--- NOTE | 2019-08-24 23:59 | NUR ---
Nursing Note pt asks for chocolate pudding. I take her the chocolate pudding and she tells me it "tastes like shit! I asked for pudding NOT poopy!!" she then laughs quite loud smiling. She takes meds crushed in 1 bite of pudding and is pleasant and cooperative.
[2019-08-25 05:21] VITALS: BP 117/74
[2019-08-25 06:16] LABS: BASO % 1 % (0-3); EOS # 0.2 x10^3/uL (0.0-0.7); EOS % 6 % (0-3); HEMATOCRIT 36.6 % (36.0-47.0); HEMOGLOBIN 12.3 g/dL (12.0-15.5); LYMPH # 0.9 x10^3/uL (1.0-4.8); LYMPH % 21 % (24-48); MEAN CORPUSCULAR HEMOGLOBIN 32 pg (25-35); MEAN CORPUSCULAR HGB CONC 34 g/dL (31-37); MEAN CORPUSCULAR VOLUME 97 fL (79-100); MONO # 0.4 x10^3/uL (0.0-1.1); MONO % 10 % (0-9); NEUT # 2.7 x10^3uL (1.8-7.7); NEUT % 63 % (31-73); PLATELET COUNT 281 x10^3/uL (140-400); RED BLOOD COUNT 3.79 x10^6/uL (3.50-5.40); RED CELL DISTRIBUTION WIDTH 13.8 % (11.5-14.5); WHITE BLOOD COUNT 4.3 x10^3/uL (4.0-11.0)
[2019-08-25 06:30] LABS: ALBUMIN 2.7 g/dL (3.4-5.0); ALBUMIN/GLOBULIN RATIO 0.8 (1.0-1.7); ALK PHOS 84 U/L (46-116); ALT (SGPT) 24 U/L (14-59); ANION GAP 6 (6-14); AST (SGOT) 22 U/L (15-37); BLOOD UREA NITROGEN 17 mg/dL (7-20); BUN/CREATININE RATIO 24 (6-20); CALCIUM 8.3 mg/dL (8.5-10.1); CARBON DIOXIDE 30 mmol/L (21-32); CHLORIDE 106 mmol/L (98-107); CREATININE 0.7 mg/dL (0.6-1.0); GFR 82.5; GLUCOSE 82 mg/dL (70-99); POTASSIUM 4.1 mmol/L (3.5-5.1); SODIUM 142 mmol/L (136-145); TOTAL BILIRUBIN 0.3 mg/dL (0.2-1.0)
[2019-08-25 06:31] LABS: VAL ACID 13 mcg/mL (50-100)
--- NOTE | 2019-08-25 07:11 | PN ---
DATE: 08/24/2019 PSYCHIATRIC PROGRESS NOTE This late entry 08/23 covers elements not covered in my initial note. SUBJECTIVE: I met with the patient evening of 08/23 in her room. Per LALIT Montgomery, the patient slept 8-1/2 hours previous night. She remains on Cipro for her UTI. She remains extremely disorganized, obsessive about her glasses. Did well during showers, but at 2:30 p.m., she was screaming, yelling, trying to run over other residents' feet with her wheelchair, oblivious of this; spit out her medications twice. REVIEW OF SYSTEMS: Ambulation impaired, in wheelchair. No CV, , pulmonary, eye, ENT system symptoms on review. Reliability poor. MENTAL STATUS EXAM: Oriented to herself. Insight, judgment, recent and remote memory, attention, concentration, fund of knowledge poor consistent with her diagnoses. IMPRESSION: Major neurocognitive disorder, Alzheimer, vascular with delusion; depression; behavioral disturbance; anxiety disorder, unspecified; impulse control disorder, unspecified; urinary tract infection. Rest unchanged from initial note. PLAN: Increase Risperdal from 0.25 mg at 1500 to 0.5 mg at 1500. Continue Risperdal 0.5 mg daily. Maintain rest of the psychotropics unchanged from initial note. Adjust further as clinically indicated. MAN Lobo SADLER MD DR: BEN/telma JOB#: [id number] / [id number]
[2019-08-25] MEDS: MULTIVITAMIN with MINERAL TABLET. PO SCH (08:13)
[2019-08-25] MEDS: THIAMINE 100 MG TABLET. PO SCH (08:13)
[2019-08-25] MEDS: ASCORBIC ACID 500 MG TABLET PO SCH (08:13)
[2019-08-25] MEDS: DIVALPROEX 125 MG CAP.SPRINK PO SCH ×3 (08:14→17:00)
[2019-08-25] MEDS: LACTOBACILLUS RHAMNOSUS GG 1 CAPSULE. PO SCH ×2 (08:14→20:41)
[2019-08-25] MEDS: FUROSEMIDE 20 MG TABLET PO SCH (08:14)
[2019-08-25] MEDS: SERTRALINE 50 MG TABLET. PO SCH (08:14)
[2019-08-25] MEDS: POTASSIUM CHLORIDE 10 MEQ TABLET.ER. PO SCH (08:14)
[2019-08-25] MEDS: LORazepam 0.5 MG TABLET PO SCH (08:15)
[2019-08-25] MEDS: CIPROFLOXACIN HCL 250 MG TABLET PO SCH (08:15)
[2019-08-25] MEDS: risperiDONE 0.5 MG TABLET. PO SCH ×2 (08:15→15:00)
[2019-08-25] MEDS: SENNOSIDES/DOCUSATE 8.6/50MG TABLET. PO SCH ×2 (08:15→20:41)
[2019-08-25] MEDS: hydrALAZINE 25 MG TABLET PO SCH ×2 (08:15→21:00)
--- NOTE | 2019-08-25 09:07 | NUR ---
Patient refused to take her medications crushed in ice cream as he usually does. Nurse pulled meds again and the patient took the medications whole. She has been calm, social with peers. Patient is currently sitting with an anxious, tearful peer holding her hand and comforting her. She is oriented to self, [facility] and [place]. She is aware that she is not in [place], has no idea what the date is.
--- NOTE | 2019-08-25 10:19 | NUR ---
WEEKLY ACTIVITY THERAPY NOTE Date of Admission: 08/04/19 Date of AT Assessment: 08/05/19 Precipitating behaviors that initiated intake and admission: Patient reportedly believes staff are poisoning her; talking to people that aren't there; attempting to bite and kick staff; hitting staff; and hallucinating Goal aimed: to increase sensory stimulation Initial Goal: Pt. will participate in at least one individual Activity Therapy session before discharge. Goal changed 08/18/19: Pt. will participate in at three Activity Therapy group sessions per week Weekly progress towards goal: achieved 07/16, 1:1 with MANAGER SALES Group participation level: 4 MIN, 1 FULL Weekly highlights: horseshoes, sang along to songs Behaviors observed: pleasant, asks to go to the bathroom frequently, tearful, responds well to music, needs redirection, wandering, nonsensical at times, inappropriate language at times, anxious on Thursday morning Plan: Change goal to Pt. will participate moderately in at least three Activity Therapy Sessions per week. Beneficial adaptations: direct prompting
[2019-08-25] MEDS: MAGNESIUM HYDROXIDE 2,400 MG/30 ML ORAL.SUSP. PO PRN (10:59)
--- NOTE | 2019-08-25 11:02 | NUR ---
Patient does not have a documented bowel movement since 08/20. Milk of Magnesium given for constipation with a large glass of water.
--- NOTE | 2019-08-25 11:23 | TX PLAN ---
Interdisciplinary Tx Plan Admission Information August 04, 2019 at 16:31 Legal Status (on Admission): Voluntary DPOA/Guardian Name: Pal Curiel Contact Other Contact Name: Rock Duarte Other Contact Verified Code Status: DNR Allergies: Coded Allergies: amoxicillin (Verified Allergy, Unknown, 08/04/19) clavulanic acid (Verified Allergy, Unknown, 08/04/19) Diagnoses Primary Diagnosis: Major Neurocognitive D/O, vascular alzheimers with delusions Reasons for Admission: Aggressive, Combative, Confusion/Disoriented, Poor impulse control Problem in Patient's Words: She has never been like this. I assume this is part of the diagnosis? Additional Admission Comments: According to the intake, pt things that staff are poisoning her, confused, talking to people not there, kicking and hitting the nurse, attempted to bite, hallucinating, paranoid (picking at her skin), agitated. Problems Active Problems: hitting staff delusional hallucinating screaming paranoid (picking at skin) Inactive Problems: Compliant with cares Pt Strengths/Limitations Ability for [place]: Poor Cognitive Functioning/Ability: Poor Communication Skills/Ability: Poor Financial Resources: Fair Insight/Judgement: Poor Intellectual Ability: Poor Physical Health: Poor Social Skills: Poor Stability in Family: Good Stability in School/Work: Poor Verbal Skills: Fair Discharge Criteria Discharge Criteria: No need for close observ., Adequate arrangements @DC, Improved behavior Preliminary Discharge Plan Preliminary DC Plan: Current Living Arrange. Special Precautions Fall Risk: Moderate Initial D/C Plan Pt is scheduled [facility] to [facility] Identified Discharge Needs: Potential for a different level of care; family is concerned that current placement cannot handle pt. Currently Utilized Resources Currently Utilized Resources/P: Primary Care Physician through placement Referrals Community Resources: Mental health services Identified Problems/Hx/Goals Objectives/Short-Term Goals Short Term Goals: Dec. Aggression, Dec. Hallucination/Delus, Dec. Outbursts, Medication Stabilization, Promote Coping Skill Short Term Goals in Patient's: Get me out of here Interventions/Frequency Staff Interventions/Frequency&: Psychiatrist to assess pt at least 3x per week. Social Work to asses pt at least 2x per week. Nursing to assess medications, behaviors and complete 15 minute checks daily Encourage group participation or 1:1 engagement based off activity assessment and goals. History Vocational History: Pt has worked at [employer] since the age 14 and retired from there. Education: Pt graduated from . 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 Pt continues to be resistive to medications in which different attempts and techn iques have to be made (e.g. whole versus crushed; hidden in food). Pt continues to yell and is very delusional. Today is pt last day pt is to take Cipro for her UTI; a repeat UA will be completed in concern that pt is still having behaviors despite its treatment. Pt will be able to return to [facility] once stable. SW will continue to update the facility and pt family of pt progress. TELLO PRITCHETT Aug 25, 2019 11:23
[2019-08-25 15:29] VITALS: BP 96/64
--- NOTE | 2019-08-25 15:32 | NUR ---
Staff unable to get urine sample at this time as patient was incontinent. Patient is sitting on the very front edge of her wheelchair seat. Multiple staff members have asked her at least 5 times to sit back onto chair. She is capable of scooting back on cushion but will not do it. Patient compliant with 1500 Risperdal taken whole.
--- NOTE | 2019-08-25 15:34 | NUR ---
WOW has lost communication with system. IT is aware. Had to use "administer" button on computer when give meds.
--- NOTE | 2019-08-25 17:04 | NUR ---
WOW has lost communication with system. IT is aware. Medication administered without scanning.
[2019-08-25] MEDS: DOXEPIN HCL 10 MG CAPSULE PO SCH (20:41)
[2019-08-25] MEDS: MELATONIN 3 MG TABLET PO SCH (20:41)
--- NOTE | 2019-08-25 22:21 | PDOC ---
Exam Note: David Note: Please also refer to the separate dictated note~for this date of service dictated separately.~Patient seen individually. Discussed the patient with Nursing staff reviewed the chart.~Reviewed interim history and current functioning. Reviewed vital signs,~Labs/ Radiology~and current medications noted below. Continue current treatment with the changes noted in the dictated addendum note Assessment: Vital Signs/I&O: Vital Signs Date Time Temp Pulse Resp B/P (MAP) Pulse Ox O2 Delivery O2 Flow Rate FiO2 08/25/19 15:29 98.3 95 16 96/64 (75) 96 08/25/19 05:21 Room Air I & O 08/24/19 08/24/19 08/25/19 14:59 22:59 06:59 Intake Total 720 ml 480 ml Balance 720 ml 480 ml Labs: Laboratory Tests Test 08/25/19 05:52 White Blood Count 4.3 x10^3/uL (4.0-11.0) Red Blood Count 3.79 x10^6/uL (3.50-5.40) Hemoglobin 12.3 g/dL (12.0-15.5) Hematocrit 36.6 % (36.0-47.0) Mean Corpuscular Volume 97 fL (79-100) Mean Corpuscular Hemoglobin 32 pg (25-35) Mean Corpuscular Hemoglobin Concent 34 g/dL (31-37) Red Cell Distribution Width 13.8 % (11.5-14.5) Platelet Count 281 x10^3/uL (140-400) Neutrophils (%) (Auto) 63 % (31-73) Lymphocytes (%) (Auto) 21 % (24-48) L Monocytes (%) (Auto) 10 % (0-9) H Eosinophils (%) (Auto) 6 % (0-3) H Basophils (%) (Auto) 1 % (0-3) Neutrophils # (Auto) 2.7 x10^3uL (1.8-7.7) Lymphocytes # (Auto) 0.9 x10^3/uL (1.0-4.8) L Monocytes # (Auto) 0.4 x10^3/uL (0.0-1.1) Eosinophils # (Auto) 0.2 x10^3/uL (0.0-0.7) Basophils # (Auto) 0.0 x10^3/uL (0.0-0.2) Sodium Level 142 mmol/L (136-145) Potassium Level 4.1 mmol/L (3.5-5.1) Chloride Level 106 mmol/L (98-107) Carbon Dioxide Level 30 mmol/L (21-32) Anion Gap 6 (6-14) Blood Urea Nitrogen 17 mg/dL (7-20) Creatinine 0.7 mg/dL (0.6-1.0) Estimated GFR (Cockcroft-Gault) 82.5 BUN/Creatinine Ratio 24 (6-20) H Glucose Level 82 mg/dL (70-99) Calcium Level 8.3 mg/dL (8.5-10.1) L Total Bilirubin 0.3 mg/dL (0.2-1.0) Aspartate Amino Transferase (AST) 22 U/L (15-37) Alanine Aminotransferase (ALT) 24 U/L (14-59) Alkaline Phosphatase 84 U/L (46-116) Total Protein 6.0 g/dL (6.4-8.2) L Albumin 2.7 g/dL (3.4-5.0) L Albumin/Globulin Ratio 0.8 (1.0-1.7) L Valproic Acid Level 13 mcg/mL (50-100) L Valproic Acid Last Dose Date 08/24/2019 Valproic Acid Last Dose Time 1700 Current Medications: Meds: Current Medications Medications (Trade) Dose Ordered Sig/Bindu Route PRN Reason Start Time Stop Time Status Last Admin Dose Admin Risperidone (RisperDAL) 0.5 mg 1500 PO 08/25/19 15:00 08/25/19 15:00 Divalproex Sodium (Depakote Sprinkles) 125 mg 0900,1700 PO 08/25/19 17:00 08/25/19 17:00 Divalproex Sodium (Depakote Sprinkles) 250 mg 1300 PO 08/25/19 13:00 08/25/19 12:15 I have reviewed the current psychotropics carefully including drug interactions. Risk benefit ratio favors no change other than as noted in my dictated progress note. Diagnosis: Problems: (1) Impulse control disorder, unspecified (2) Anxiety disorder, unspecified (3) Dementia, vascular, with depression (4) Dementia, vascular, with delusions (5) Dementia in Alzheimer's disease with depression (6) Dementia in Alzheimer's disease with delusions (7) Major neurocognitive disorder, due to vascular disease, with behavioral disturbance, mild NAEEM SADLER MD Aug 25, 2019 22:21
--- NOTE | 2019-08-26 00:29 | NUR ---
Nursing Note The patient was located in her room and the day room for her assessment and medication pass. the patient took her medication crushed in ice cream. The patient was very restless and agitated while up in the day room but after taking her HS medications and changing into clean clothes the patent calmed and was able to lay in bed and fall asleep. The patient is currently sleeping in her room.
[2019-08-26 04:29] LABS: BILIRUBIN,URINE NEG (NEG); CLARITY,URINE CLEAR; COLOR,URINE YELLOW; GLUCOSE,URINE NEG (NEG)
[2019-08-26 04:30] LABS: AMORPHOUS SEDIMENT,UR PRESENT /HPF; BACTERIA,URINE 0 /HPF (0-FEW); NITRITE,URINE NEG (NEG); RBC,URINE 0 /HPF (0-2); SQUAMOUS EPITHELIAL CELL,UR OCC /LPF; UROBILINOGEN,URINE 0.2 mg/dL (0.2 mg/dL); WBC,URINE OCC /HPF (0-4)
[2019-08-26 05:51] VITALS: BP 134/80
[2019-08-26] MEDS: SENNOSIDES/DOCUSATE 8.6/50MG TABLET. PO SCH ×2 (08:13→19:36)
[2019-08-26] MEDS: ASCORBIC ACID 500 MG TABLET PO SCH (08:14)
[2019-08-26] MEDS: hydrALAZINE 25 MG TABLET PO SCH ×2 (08:14→19:44)
[2019-08-26] MEDS: LACTOBACILLUS RHAMNOSUS GG 1 CAPSULE. PO SCH ×2 (08:14→19:36)
[2019-08-26] MEDS: SERTRALINE 50 MG TABLET. PO SCH (08:15)
[2019-08-26] MEDS: POTASSIUM CHLORIDE 10 MEQ TABLET.ER. PO SCH (08:15)
[2019-08-26] MEDS: MULTIVITAMIN with MINERAL TABLET. PO SCH (08:15)
[2019-08-26] MEDS: risperiDONE 0.5 MG TABLET. PO SCH ×2 (08:15→15:17)
[2019-08-26] MEDS: DIVALPROEX 125 MG CAP.SPRINK PO SCH ×3 (08:15→17:10)
[2019-08-26] MEDS: THIAMINE 100 MG TABLET. PO SCH (08:15)
[2019-08-26] MEDS: FUROSEMIDE 20 MG TABLET PO SCH (08:16)
[2019-08-26 15:40] VITALS: BP 103/68
--- NOTE | 2019-08-26 16:54 | NUR ---
Pt up for meals in wc. Has been in pleasant spirits untill the afternoon. Pt restless, impulsive and hard to redirect. Zydis given x1. Pt in better mood at this time.
[2019-08-26] MEDS: MAGNESIUM HYDROXIDE 2,400 MG/30 ML ORAL.SUSP. PO PRN (19:36)
[2019-08-26] MEDS: MELATONIN 3 MG TABLET PO SCH (19:36)
[2019-08-26] MEDS: DOXEPIN HCL 10 MG CAPSULE PO SCH (19:39)
--- NOTE | 2019-08-26 22:17 | PDOC ---
Exam Note: David Note: Please also refer to the separate dictated note~for this date of service dictated separately.~Patient seen individually. Discussed the patient with Nursing staff reviewed the chart.~Reviewed interim history and current functioning. Reviewed vital signs,~Labs/ Radiology~and current medications noted below. Continue current treatment with the changes noted in the dictated addendum note Assessment: Vital Signs/I&O: Vital Signs Date Time Temp Pulse Resp B/P (MAP) Pulse Ox O2 Delivery O2 Flow Rate FiO2 08/26/19 19:44 85 115/72 08/26/19 15:40 98.2 16 94 08/25/19 05:21 Room Air I & O 08/25/19 08/25/19 08/26/19 15:00 23:00 07:00 Intake Total 960 ml 480 ml Balance 960 ml 480 ml Labs: Laboratory Tests Test 08/26/19 04:00 Urine Collection Type U cath Urine Color Yellow Urine Clarity Clear Urine pH 8.0 Urine Specific [place] 1.020 Urine Protein Neg (NEG-TRACE) Urine Glucose (UA) Neg mg/dL (NEG) Urine Ketones (Stick) Neg mg/dL (NEG) Urine Blood Neg (NEG) Urine Nitrite Neg (NEG) Urine Bilirubin Neg (NEG) Urine Urobilinogen Dipstick 0.2 mg/dL (0.2 mg/dL) Urine Leukocyte Esterase Neg (NEG) Urine RBC 0 /HPF (0-2) Urine WBC Occ /HPF (0-4) Urine Squamous Epithelial Cells Occ /LPF Urine Amorphous Sediment Present /HPF Urine Bacteria 0 /HPF (0-FEW) Current Medications: I have reviewed the current psychotropics carefully including drug interactions. Risk benefit ratio favors no change other than as noted in my dictated progress note. Diagnosis: Problems: (1) Impulse control disorder, unspecified (2) Anxiety disorder, unspecified (3) Dementia, vascular, with depression (4) Dementia, vascular, with delusions (5) Dementia in Alzheimer's disease with depression (6) Dementia in Alzheimer's disease with delusions (7) Major neurocognitive disorder, due to vascular disease, with behavioral disturbance, mild NAEEM SADLER MD Aug 26, 2019 22:17
--- NOTE | 2019-08-26 22:59 | PN ---
DATE: 08/25/2019 PSYCHIATRIC PROGRESS NOTE This late entry 08/24 covers elements not covered in my initial note. SUBJECTIVE: I met with the patient evening of 08/24. The patient was also staffed at a treatment team meeting with the entire team in the morning along with LALIT Son; social service staff; activity therapy staff. The patient is sleeping 5 hours average, slept 8 hours previous night; appetite 100%; resistive to medications at times. Cipro for UTI is ending. She remains anxious, restless, very confused, but less jumping out of the chair. Discussed with LALIT Montgomery in the evening. She took her meds whole, sitting at the edge of her chair, is quite constipated, milk of mag was given and we will repeat it. REVIEW OF SYSTEMS: Ambulation impaired, in Broda chair. No CV, , pulmonary, eye system symptoms on review. MENTAL STATUS EXAM: Oriented to herself. Insight, judgment, recent and remote memory, attention, concentration, fund of knowledge poor, consistent with her diagnosis. IMPRESSION: Major neurocognitive disorder, Alzheimer, vascular with delusion, depression, behavioral disturbance; anxiety disorder, unspecified; impulse control disorder, unspecified. PLAN: The patient's valproic acid level is subtherapeutic at 13 on Depakote 125 mg 3 times a day. We will increase the middle dosage to 250 mg. Check labs level in 3 days. Repeat a UA to make sure this is not worsening her agitation. NAEEM SADLER MD DR: BEN/telma JOB#: [id number] / [id number]
--- NOTE | 2019-08-27 00:36 | NUR ---
The patient was very disorganized when initially approached for her assessment and medicaiton pass but was compliant with meds crushed in ice cream. The last documented BM at the time of her medication pass was 08/21/19 the patient was given PRN Milk of Magnesia per PRN order with HS medication. The patient became very angry and combative@ HS. PRN Zyprexa given per PRN order. The patient is currently sleeping in her room.
[2019-08-27 05:59] VITALS: BP 146/88
[2019-08-27] MEDS: SENNOSIDES/DOCUSATE 8.6/50MG TABLET. PO SCH ×2 (08:46→20:35)
[2019-08-27] MEDS: SERTRALINE 50 MG TABLET. PO SCH (08:47)
[2019-08-27] MEDS: FUROSEMIDE 20 MG TABLET PO SCH (08:47)
[2019-08-27] MEDS: POTASSIUM CHLORIDE 10 MEQ TABLET.ER. PO SCH (08:47)
[2019-08-27] MEDS: LACTOBACILLUS RHAMNOSUS GG 1 CAPSULE. PO SCH ×2 (08:47→20:35)
[2019-08-27] MEDS: DIVALPROEX 125 MG CAP.SPRINK PO SCH ×3 (08:47→16:04)
[2019-08-27] MEDS: hydrALAZINE 25 MG TABLET PO SCH ×2 (08:47→20:35)
[2019-08-27] MEDS: ASCORBIC ACID 500 MG TABLET PO SCH (08:48)
[2019-08-27] MEDS: risperiDONE 0.5 MG TABLET. PO SCH ×2 (08:48→15:00)
[2019-08-27] MEDS: MULTIVITAMIN with MINERAL TABLET. PO SCH (08:48)
[2019-08-27] MEDS: THIAMINE 100 MG TABLET. PO SCH (08:48)
[2019-08-27 15:53] VITALS: BP 124/85
--- NOTE | 2019-08-27 16:55 | NUR ---
Pt has been hyperverbal and disruptive in day room. Zydis given at lunch. Pt laid down after lunch but did not sleep and was yelling out most of time. Attempted to given afternoon meds. Pt smacked med cup out of nurses hand. Pt noted to not have sleep previous noc. New order to increase Doxepin.
[2019-08-27] MEDS: MELATONIN 3 MG TABLET PO SCH (20:35)
[2019-08-27] MEDS: DOXEPIN HCL 10 MG CAPSULE PO SCH (20:37)
--- NOTE | 2019-08-27 22:11 | PDOC ---
Exam Note: David Note: Please also refer to the separate dictated note~for this date of service dictated separately.~Patient seen individually. Discussed the patient with Nursing staff reviewed the chart.~Reviewed interim history and current functioning. Reviewed vital signs,~Labs/ Radiology~and current medications noted below. Continue current treatment with the changes noted in the dictated addendum note Assessment: Vital Signs/I&O: Vital Signs Date Time Temp Pulse Resp B/P (MAP) Pulse Ox O2 Delivery O2 Flow Rate FiO2 08/27/19 20:35 97 124/85 08/27/19 15:53 98.4 20 98 08/27/19 05:59 Room Air I & O 08/26/19 08/26/19 08/27/19 15:00 23:00 07:00 Intake Total 620 ml 360 ml Balance 620 ml 360 ml Current Medications: Meds: Current Medications Medications (Trade) Dose Ordered Sig/Bindu Route PRN Reason Start Time Stop Time Status Last Admin Dose Admin Doxepin HCl (SINEquan) 50 mg QHS PO 08/27/19 21:00 08/27/19 20:37 I have reviewed the current psychotropics carefully including drug interactions. Risk benefit ratio favors no change other than as noted in my dictated progress note. Diagnosis: Problems: (1) Impulse control disorder, unspecified (2) Anxiety disorder, unspecified (3) Dementia, vascular, with depression (4) Dementia, vascular, with delusions (5) Dementia in Alzheimer's disease with depression (6) Dementia in Alzheimer's disease with delusions (7) Major neurocognitive disorder, due to vascular disease, with behavioral disturbance, mild NAEEM SADLER MD Aug 27, 2019 22:11
--- NOTE | 2019-08-28 01:41 | NUR ---
Nursing Note The patient was located in the day room for her assessment and medication pass. The patient took her medication crushed in pudding. The patient remains disorganized during her assessment. The patient is currently sleeping in her room.
[2019-08-28 06:06] VITALS: BP 139/95
[2019-08-28 07:26] LABS: BASO % 1 % (0-3); EOS # 0.2 x10^3/uL (0.0-0.7); EOS % 5 % (0-3); HEMATOCRIT 39.4 % (36.0-47.0); LYMPH # 0.8 x10^3/uL (1.0-4.8); LYMPH % 19 % (24-48); MEAN CORPUSCULAR HEMOGLOBIN 32 pg (25-35); MEAN CORPUSCULAR HGB CONC 33 g/dL (31-37); MEAN CORPUSCULAR VOLUME 97 fL (79-100); MONO # 0.3 x10^3/uL (0.0-1.1); MONO % 7 % (0-9); NEUT # 2.7 x10^3uL (1.8-7.7); NEUT % 68 % (31-73); PLATELET COUNT 291 x10^3/uL (140-400); RED BLOOD COUNT 4.05 x10^6/uL (3.50-5.40); RED CELL DISTRIBUTION WIDTH 13.8 % (11.5-14.5)
[2019-08-28] MEDS: DIVALPROEX 125 MG CAP.SPRINK PO SCH ×3 (07:36→17:33)
[2019-08-28] MEDS: LACTOBACILLUS RHAMNOSUS GG 1 CAPSULE. PO SCH ×2 (07:36→20:16)
[2019-08-28] MEDS: ASCORBIC ACID 500 MG TABLET PO SCH (07:37)
[2019-08-28] MEDS: THIAMINE 100 MG TABLET. PO SCH (07:37)
[2019-08-28] MEDS: risperiDONE 0.5 MG TABLET. PO SCH ×2 (07:37→17:33)
[2019-08-28] MEDS: MULTIVITAMIN with MINERAL TABLET. PO SCH (07:37)
[2019-08-28] MEDS: SENNOSIDES/DOCUSATE 8.6/50MG TABLET. PO SCH ×2 (07:37→20:16)
[2019-08-28] MEDS: SERTRALINE 50 MG TABLET. PO SCH (07:37)
[2019-08-28] MEDS: POTASSIUM CHLORIDE 10 MEQ TABLET.ER. PO SCH (07:37)
[2019-08-28] MEDS: FUROSEMIDE 20 MG TABLET PO SCH (07:37)
[2019-08-28] MEDS: hydrALAZINE 25 MG TABLET PO SCH ×2 (07:38→20:16)
[2019-08-28 07:52] LABS: ALBUMIN 2.8 g/dL (3.4-5.0); ALBUMIN/GLOBULIN RATIO 0.8 (1.0-1.7); ALK PHOS 88 U/L (46-116); ALT (SGPT) 22 U/L (14-59); ANION GAP 6 (6-14); AST (SGOT) 24 U/L (15-37); BLOOD UREA NITROGEN 19 mg/dL (7-20); BUN/CREATININE RATIO 27 (6-20); CALCIUM 8.6 mg/dL (8.5-10.1); CARBON DIOXIDE 31 mmol/L (21-32); CHLORIDE 104 mmol/L (98-107); CREATININE 0.7 mg/dL (0.6-1.0); GFR 82.5; GLUCOSE 113 mg/dL (70-99); POTASSIUM 4.3 mmol/L (3.5-5.1); SODIUM 141 mmol/L (136-145); TOTAL BILIRUBIN 0.3 mg/dL (0.2-1.0); TOTAL PROTEIN 6.4 g/dL (6.4-8.2)
[2019-08-28 08:05] LABS: VAL ACID 19 mcg/mL (50-100)
--- NOTE | 2019-08-28 12:54 | PN ---
DATE: 08/27/2019 PSYCHIATRIC PROGRESS NOTE This late entry August 26, covers elements not covered in my initial note. SUBJECTIVE: I met with the patient in the evening. Per LALIT Perez, the patient slept one and a half hours previous night. She was agitated in the evening, smacked nursing assistants teacher who had her medications in her hand for the patient. She has been yelling out from her room, confused, agitated, somewhat paranoid. REVIEW OF SYSTEMS: Ambulation impaired, in Broda chair. No CV, , pulmonary, eye, ENT system symptoms on review. Slept just one and a half hours previous night. MENTAL STATUS EXAM: Oriented to herself. Insight, judgment, recent and remote memory, attention, concentration, fund of knowledge poor, consistent with her diagnosis mentioned in my initial note. PLAN: No change from initial note, but increase doxepin from 30 mg at bedtime to 50 mg at bedtime for insomnia and anxiety. MAN Lobo SADLER MD DR: BEN/telma JOB#: [id number] / [id number]
--- NOTE | 2019-08-28 12:54 | PN ---
DATE: 08/26/2019 PSYCHIATRIC PROGRESS NOTE This late entry 08/26/2019 covers elements not covered in my initial note. SUBJECTIVE: I met with the patient evening of 08/26/2019. Per LALIT Perez, the patient slept 5 hours previous night. UA is not reflective of a UTI. She was agitated in the evening, received Zyprexa Zydis, was screaming at times, then better. REVIEW OF SYSTEMS: Ambulation impaired, in Broda chair. No CV, , pulmonary, eye, ENT system symptoms on review. Reliability poor. MENTAL STATUS EXAM: Oriented to herself. Insight, judgment, recent and remote memory, attention, concentration, fund of knowledge poor, consistent with her diagnosis mentioned in my initial note. PLAN: No change from initial note. MAN Lobo SADLER MD DR: BEN/telma JOB#: [id number] / [id number]
--- NOTE | 2019-08-28 16:40 | NUR ---
Pt up in wc for meals. Has been hyperverbal at times. occasionally sarcastic. Has been redirectable. Compliant with meds and cares.
[2019-08-28 16:56] VITALS: BP 174/71
[2019-08-28] MEDS: MELATONIN 3 MG TABLET PO SCH (20:16)
[2019-08-28] MEDS: DOXEPIN HCL 10 MG CAPSULE PO SCH (20:16)
--- NOTE | 2019-08-28 21:22 | NUR ---
Nursing Note The patient was located in the day room for her assessment and medication pass. the patient took her medication crushed in chocolate ice cream. The patient was pleasant but confused during interactions with this nurse. The patient and this nurse discussed several topics including how much she likes to eat ice cream. The patient is currently sleeping in her room.
--- NOTE | 2019-08-28 22:16 | PDOC ---
Exam Note: David Note: Please also refer to the separate dictated note~for this date of service dictated separately.~Patient seen individually. Discussed the patient with Nursing staff reviewed the chart.~Reviewed interim history and current functioning. Reviewed vital signs,~Labs/ Radiology~and current medications noted below. Continue current treatment with the changes noted in the dictated addendum note Assessment: Vital Signs/I&O: Vital Signs Date Time Temp Pulse Resp B/P (MAP) Pulse Ox O2 Delivery O2 Flow Rate FiO2 08/28/19 20:16 84 174/71 08/28/19 16:56 98.6 18 97 08/28/19 06:06 Room Air I & O 08/27/19 08/27/19 08/28/19 14:59 22:59 06:59 Intake Total 1080 ml 600 ml Balance 1080 ml 600 ml Labs: Laboratory Tests Test 08/28/19 06:42 White Blood Count 4.0 x10^3/uL (4.0-11.0) Red Blood Count 4.05 x10^6/uL (3.50-5.40) Hemoglobin 13.0 g/dL (12.0-15.5) Hematocrit 39.4 % (36.0-47.0) Mean Corpuscular Volume 97 fL (79-100) Mean Corpuscular Hemoglobin 32 pg (25-35) Mean Corpuscular Hemoglobin Concent 33 g/dL (31-37) Red Cell Distribution Width 13.8 % (11.5-14.5) Platelet Count 291 x10^3/uL (140-400) Neutrophils (%) (Auto) 68 % (31-73) Lymphocytes (%) (Auto) 19 % (24-48) L Monocytes (%) (Auto) 7 % (0-9) Eosinophils (%) (Auto) 5 % (0-3) H Basophils (%) (Auto) 1 % (0-3) Neutrophils # (Auto) 2.7 x10^3uL (1.8-7.7) Lymphocytes # (Auto) 0.8 x10^3/uL (1.0-4.8) L Monocytes # (Auto) 0.3 x10^3/uL (0.0-1.1) Eosinophils # (Auto) 0.2 x10^3/uL (0.0-0.7) Basophils # (Auto) 0.0 x10^3/uL (0.0-0.2) Sodium Level 141 mmol/L (136-145) Potassium Level 4.3 mmol/L (3.5-5.1) Chloride Level 104 mmol/L (98-107) Carbon Dioxide Level 31 mmol/L (21-32) Anion Gap 6 (6-14) Blood Urea Nitrogen 19 mg/dL (7-20) Creatinine 0.7 mg/dL (0.6-1.0) Estimated GFR (Cockcroft-Gault) 82.5 BUN/Creatinine Ratio 27 (6-20) H Glucose Level 113 mg/dL (70-99) H Calcium Level 8.6 mg/dL (8.5-10.1) Total Bilirubin 0.3 mg/dL (0.2-1.0) Aspartate Amino Transferase (AST) 24 U/L (15-37) Alanine Aminotransferase (ALT) 22 U/L (14-59) Alkaline Phosphatase 88 U/L (46-116) Total Protein 6.4 g/dL (6.4-8.2) Albumin 2.8 g/dL (3.4-5.0) L Albumin/Globulin Ratio 0.8 (1.0-1.7) L Valproic Acid Level 19 mcg/mL (50-100) L Valproic Acid Last Dose Date 08/27/19 Valproic Acid Last Dose Time 1700 Current Medications: I have reviewed the current psychotropics carefully including drug interactions. Risk benefit ratio favors no change other than as noted in my dictated progress note. Diagnosis: Problems: (1) Impulse control disorder, unspecified (2) Anxiety disorder, unspecified (3) Dementia, vascular, with depression (4) Dementia, vascular, with delusions (5) Dementia in Alzheimer's disease with depression (6) Dementia in Alzheimer's disease with delusions (7) Major neurocognitive disorder, due to vascular disease, with behavioral disturbance, mild NAEEM SADLER MD Aug 28, 2019 22:16
[2019-08-29 05:58] VITALS: BP 145/80
[2019-08-29] MEDS: SERTRALINE 50 MG TABLET. PO SCH (08:49)
[2019-08-29] MEDS: POTASSIUM CHLORIDE 10 MEQ TABLET.ER. PO SCH (08:49)
[2019-08-29] MEDS: hydrALAZINE 25 MG TABLET PO SCH ×2 (08:49→21:06)
[2019-08-29] MEDS: DIVALPROEX 125 MG CAP.SPRINK PO SCH ×3 (08:49→16:44)
[2019-08-29] MEDS: ASCORBIC ACID 500 MG TABLET PO SCH (08:50)
[2019-08-29] MEDS: FUROSEMIDE 20 MG TABLET PO SCH (08:50)
[2019-08-29] MEDS: SENNOSIDES/DOCUSATE 8.6/50MG TABLET. PO SCH ×2 (08:50→21:06)
[2019-08-29] MEDS: MULTIVITAMIN with MINERAL TABLET. PO SCH (08:50)
[2019-08-29] MEDS: LACTOBACILLUS RHAMNOSUS GG 1 CAPSULE. PO SCH ×2 (08:50→21:06)
[2019-08-29] MEDS: THIAMINE 100 MG TABLET. PO SCH (08:50)
[2019-08-29] MEDS: risperiDONE 0.5 MG TABLET. PO SCH ×2 (08:50→14:46)
--- NOTE | 2019-08-29 11:20 | NUR ---
Nursing note: Pt was in day room for morning meds and assessment. She was compliant with her meds crushed in chocolate ice cream and cooperative with her assessment. Pt has been drowsy this morning, falling asleep in her wheelchair. She is currently in the day room. Will continue to monitor.
--- NOTE | 2019-08-29 15:41 | NUR ---
Nursing note: Pt was very resistive with her 1500 med. When given to her whole, she spit it out. It was then crushed and mixed with pudding, which she then swatted the spoon away spilling the pudding on the floor. Pt had increased agitation, was yelling, and tearful so she was brought to the quiet mena. 1500 med and PRN was given via syringe, that she took with no difficulty at that point. Pt remained in quiet mena talking with staff for several minutes until she was able to calm down. She is now back out in the day room. Will continue to monitor.
[2019-08-29 16:10] VITALS: BP 95/62
[2019-08-29] MEDS: DOXEPIN HCL 10 MG CAPSULE PO SCH (21:06)
[2019-08-29] MEDS: MELATONIN 3 MG TABLET PO SCH (21:07)
--- NOTE | 2019-08-29 22:14 | PDOC ---
Exam Note: David Note: Please also refer to the separate dictated note~for this date of service dictated separately.~Patient seen individually. Discussed the patient with Nursing staff reviewed the chart.~Reviewed interim history and current functioning. Reviewed vital signs,~Labs/ Radiology~and current medications noted below. Continue current treatment with the changes noted in the dictated addendum note Assessment: Vital Signs/I&O: Vital Signs Date Time Temp Pulse Resp B/P (MAP) Pulse Ox O2 Delivery O2 Flow Rate FiO2 08/29/19 21:06 102 95/62 08/29/19 16:10 97.4 20 95 08/28/19 06:06 Room Air I & O 08/28/19 08/28/19 08/29/19 15:00 23:00 07:00 Intake Total 720 ml 480 ml Balance 720 ml 480 ml Current Medications: I have reviewed the current psychotropics carefully including drug interactions. Risk benefit ratio favors no change other than as noted in my dictated progress note. Diagnosis: Problems: (1) Impulse control disorder, unspecified (2) Anxiety disorder, unspecified (3) Dementia, vascular, with depression (4) Dementia, vascular, with delusions (5) Dementia in Alzheimer's disease with depression (6) Dementia in Alzheimer's disease with delusions (7) Major neurocognitive disorder, due to vascular disease, with behavioral disturbance, mild NAEEM SADLER MD Aug 29, 2019 22:14
--- NOTE | 2019-08-29 22:32 | NUR ---
This evening pt was in day room and was very busy visiting with peers and staff and propelling around day room. She made some sexually inappropriate comments to staff and self entertained. When going to bed she was cooperative and took meds whole without difficulty.
[2019-08-30 06:31] VITALS: BP 124/86
[2019-08-30 06:43] LABS: ALBUMIN 2.6 g/dL (3.4-5.0); ALBUMIN/GLOBULIN RATIO 0.8 (1.0-1.7); CALCIUM 8.4 mg/dL (8.5-10.1); CREATININE 0.7 mg/dL (0.6-1.0); GFR 82.5; POTASSIUM 4.1 mmol/L (3.5-5.1); TOTAL BILIRUBIN 0.3 mg/dL (0.2-1.0)
[2019-08-30 06:51] LABS: BASO % 1 % (0-3); EOS # 0.2 x10^3/uL (0.0-0.7); EOS % 5 % (0-3); HEMATOCRIT 37.8 % (36.0-47.0); HEMOGLOBIN 12.4 g/dL (12.0-15.5); LYMPH # 0.9 x10^3/uL (1.0-4.8); LYMPH % 20 % (24-48); MEAN CORPUSCULAR HEMOGLOBIN 32 pg (25-35); MEAN CORPUSCULAR HGB CONC 33 g/dL (31-37); MEAN CORPUSCULAR VOLUME 97 fL (79-100); MONO # 0.5 x10^3/uL (0.0-1.1); MONO % 10 % (0-9); NEUT # 2.8 x10^3uL (1.8-7.7); NEUT % 64 % (31-73); PLATELET COUNT 274 x10^3/uL (140-400); RED CELL DISTRIBUTION WIDTH 13.9 % (11.5-14.5); WHITE BLOOD COUNT 4.4 x10^3/uL (4.0-11.0)
--- NOTE | 2019-08-30 07:15 | NUR ---
Wound Care patient seen for a f/u of Wound care consult. see wound assessment. patient has multiple pressure ulcers to bilateral feet. patient has a new abrasion to the left great toe the wound was cleaned and measured. all wounds are dry. all wounds Painted with Betadine and left ALONDRA apply daily. WC will continue to follow for possible changes. Pt unable to retain teaching of PU prevention due to mental status, please continue to reinforce Notified RN about the POC and wound care will continue to f/u for changes.
[2019-08-30] MEDS: MULTIVITAMIN with MINERAL TABLET. PO SCH (08:36)
[2019-08-30] MEDS: SENNOSIDES/DOCUSATE 8.6/50MG TABLET. PO SCH ×2 (08:36→20:54)
[2019-08-30] MEDS: ASCORBIC ACID 500 MG TABLET PO SCH (08:36)
[2019-08-30] MEDS: DIVALPROEX 125 MG CAP.SPRINK PO SCH ×3 (08:36→16:56)
[2019-08-30] MEDS: FUROSEMIDE 20 MG TABLET PO SCH (08:36)
[2019-08-30] MEDS: THIAMINE 100 MG TABLET. PO SCH (08:36)
[2019-08-30] MEDS: POTASSIUM CHLORIDE 10 MEQ TABLET.ER. PO SCH (08:36)
[2019-08-30] MEDS: SERTRALINE 50 MG TABLET. PO SCH (08:37)
[2019-08-30] MEDS: risperiDONE 0.5 MG TABLET. PO SCH ×2 (08:37→16:56)
[2019-08-30] MEDS: hydrALAZINE 25 MG TABLET PO SCH ×2 (08:37→20:54)
[2019-08-30] MEDS: LACTOBACILLUS RHAMNOSUS GG 1 CAPSULE. PO SCH ×2 (08:37→20:53)
--- NOTE | 2019-08-30 11:53 | NUR ---
Nursing note: Pt in dining room for morning meds and assessment. She was in good spirits, med compliant with them crushed in chocolate ice cream, and cooperative with her assessment. Pt later became disruptive in the day room during group, was very delusional and yelling out. Pt was brought out to the hallway where she continued to beat on doors. PRN was given at that time. Will continue to monitor.
[2019-08-30 15:42] VITALS: BP 115/72
[2019-08-30] MEDS: DOXEPIN HCL 10 MG CAPSULE PO SCH (20:52)
[2019-08-30] MEDS: MELATONIN 3 MG TABLET PO SCH (20:53)
--- NOTE | 2019-08-30 21:59 | PN ---
DATE: 08/28/2019 PSYCHIATRIC PROGRESS NOTE This late entry, 08/27, covers the elements not covered in my initial note. SUBJECTIVE: I met with the patient on the evening of 08/27. Per LALIT Perez, the patient slept 5-1/4 hours previous night. She has been loud, disruptive, confused. Valproic acid level repeat is awaited, prior level was 16. REVIEW OF SYSTEMS: No CV, , pulmonary, eye systems symptoms on review. Reliability poor. MENTAL STATUS EXAM: Oriented to herself. Insight, judgment, recent and remote memory, attention, concentration, fund of knowledge poor consistent with her diagnosis mentioned in my initial note. PLAN: No change from initial note. NAEEM SADLER MD DR: BEN/telma JOB#: [id number] / [id number]
--- NOTE | 2019-08-30 22:05 | PN ---
DATE: 08/29/2019 This late entry 08/29/2019 covers elements not covered in my initial note. SUBJECTIVE: I met with the patient in the evening. Per LALIT Murphy, the patient slept 7-1/2 hours previous night, takes her medications crushed in pudding, spit out 1500 Risperdal, then was yelling, received Zyprexa Zydis p.r.n., then did better. REVIEW OF SYSTEMS: Impaired ambulation, in Broda chair. No CV, , pulmonary, eye, ENT system symptoms on review. MENTAL STATUS EXAM: Oriented to herself. Insight, judgment, recent and remote memory, attention, concentration, fund of knowledge poor, consistent with her diagnosis mentioned in my initial note. PLAN: No change from initial note, but Depakote is currently 125 mg twice a day to 50 once a day. We will increase to 250 mg twice a day, 125 mg once a day since her last level was subtherapeutic at 19. Check CBC, CMP, valproic acid level in 3 days. Make further adjustments as clinically indicated. MAN Lobo SADLER MD DR: BEN/telma JOB#: [id number] / [id number]
--- NOTE | 2019-08-30 22:11 | PDOC ---
Exam Note: David Note: Please also refer to the separate dictated note~for this date of service dictated separately.~Patient seen individually. Discussed the patient with Nursing staff reviewed the chart.~Reviewed interim history and current functioning. Reviewed vital signs,~Labs/ Radiology~and current medications noted below. Continue current treatment with the changes noted in the dictated addendum note Assessment: Vital Signs/I&O: Vital Signs Date Time Temp Pulse Resp B/P (MAP) Pulse Ox O2 Delivery O2 Flow Rate FiO2 08/30/19 20:54 96 115/72 08/30/19 15:42 98.1 18 96 08/28/19 06:06 Room Air I & O 08/29/19 08/29/19 08/30/19 14:59 22:59 06:59 Intake Total 600 ml 600 ml 100 ml Balance 600 ml 600 ml 100 ml Labs: Laboratory Tests Test 08/30/19 05:51 White Blood Count 4.4 x10^3/uL (4.0-11.0) Red Blood Count 3.90 x10^6/uL (3.50-5.40) Hemoglobin 12.4 g/dL (12.0-15.5) Hematocrit 37.8 % (36.0-47.0) Mean Corpuscular Volume 97 fL (79-100) Mean Corpuscular Hemoglobin 32 pg (25-35) Mean Corpuscular Hemoglobin Concent 33 g/dL (31-37) Red Cell Distribution Width 13.9 % (11.5-14.5) Platelet Count 274 x10^3/uL (140-400) Neutrophils (%) (Auto) 64 % (31-73) Lymphocytes (%) (Auto) 20 % (24-48) L Monocytes (%) (Auto) 10 % (0-9) H Eosinophils (%) (Auto) 5 % (0-3) H Basophils (%) (Auto) 1 % (0-3) Neutrophils # (Auto) 2.8 x10^3uL (1.8-7.7) Lymphocytes # (Auto) 0.9 x10^3/uL (1.0-4.8) L Monocytes # (Auto) 0.5 x10^3/uL (0.0-1.1) Eosinophils # (Auto) 0.2 x10^3/uL (0.0-0.7) Basophils # (Auto) 0.0 x10^3/uL (0.0-0.2) Sodium Level 142 mmol/L (136-145) Potassium Level 4.1 mmol/L (3.5-5.1) Chloride Level 106 mmol/L (98-107) Carbon Dioxide Level 33 mmol/L (21-32) H Anion Gap 3 (6-14) L Blood Urea Nitrogen 28 mg/dL (7-20) H Creatinine 0.7 mg/dL (0.6-1.0) Estimated GFR (Cockcroft-Gault) 82.5 BUN/Creatinine Ratio 40 (6-20) H Glucose Level 79 mg/dL (70-99) Calcium Level 8.4 mg/dL (8.5-10.1) L Total Bilirubin 0.3 mg/dL (0.2-1.0) Aspartate Amino Transferase (AST) 17 U/L (15-37) Alanine Aminotransferase (ALT) 18 U/L (14-59) Alkaline Phosphatase 79 U/L (46-116) Total Protein 6.0 g/dL (6.4-8.2) L Albumin 2.6 g/dL (3.4-5.0) L Albumin/Globulin Ratio 0.8 (1.0-1.7) L Current Medications: Meds: Current Medications Medications (Trade) Dose Ordered Sig/Bindu Route PRN Reason Start Time Stop Time Status Last Admin Dose Admin Divalproex Sodium (Depakote Sprinkles) 250 mg 0900,1300 PO 08/30/19 09:00 08/30/19 12:10 Divalproex Sodium (Depakote Sprinkles) 125 mg 1700 PO 08/30/19 17:00 08/30/19 16:56 I have reviewed the current psychotropics carefully including drug interactions. Risk benefit ratio favors no change other than as noted in my dictated progress note. Diagnosis: Problems: (1) Impulse control disorder, unspecified (2) Anxiety disorder, unspecified (3) Dementia, vascular, with depression (4) Dementia, vascular, with delusions (5) Dementia in Alzheimer's disease with depression (6) Dementia in Alzheimer's disease with delusions (7) Major neurocognitive disorder, due to vascular disease, with behavioral disturbance, mild NAEEM SADLER MD Aug 30, 2019 22:10
--- NOTE | 2019-08-30 22:55 | NUR ---
This evening pt was active on unit in her wc. She remains confused and disorganized. After going to bed she took her meds whole with some prompting and she has been sleeping well.
[2019-08-31 05:57] VITALS: BP 127/79
[2019-08-31] MEDS: SENNOSIDES/DOCUSATE 8.6/50MG TABLET. PO SCH ×2 (08:12→20:52)
[2019-08-31] MEDS: MULTIVITAMIN with MINERAL TABLET. PO SCH (08:13)
[2019-08-31] MEDS: SERTRALINE 50 MG TABLET. PO SCH (08:13)
[2019-08-31] MEDS: LACTOBACILLUS RHAMNOSUS GG 1 CAPSULE. PO SCH ×2 (08:13→20:54)
[2019-08-31] MEDS: ASCORBIC ACID 500 MG TABLET PO SCH (08:13)
[2019-08-31] MEDS: DIVALPROEX 125 MG CAP.SPRINK PO SCH ×3 (08:13→17:04)
[2019-08-31] MEDS: POTASSIUM CHLORIDE 10 MEQ TABLET.ER. PO SCH (08:13)
[2019-08-31] MEDS: FUROSEMIDE 20 MG TABLET PO SCH (08:14)
[2019-08-31] MEDS: hydrALAZINE 25 MG TABLET PO SCH ×2 (08:14→20:53)
[2019-08-31] MEDS: THIAMINE 100 MG TABLET. PO SCH (08:14)
[2019-08-31] MEDS: risperiDONE 0.5 MG TABLET. PO SCH ×2 (08:14→15:39)
[2019-08-31 15:40] VITALS: BP 96/64
--- NOTE | 2019-08-31 15:45 | NUR ---
CASSIDY returned call to Pal who wanted to get an update on Pal. SW discussed pt recent behaviors of continuing to have some pretty extensive delusions and believing that she is working. Pt continues to yell at other peers and gets frustrated because they "aren't doing what she told them to do. I'm the only one working around here". Pt sister discussed with CASSIDY having a call with [facility] and their decision to give pt bed up as Medicare allows for a 20 bed hold. They informed Pal that if she wanted to hold the bed, she would have to pay a daily rate until pt is able to return. Pt sister mentioned participating in treatment team and asked that SW also contact her nephew Wil who would also like to listen in. She did not have Wil's number at the moment but would call CASSIDY back to give it to her.
--- NOTE | 2019-08-31 17:00 | NUR ---
CASSIDY received a voicemail from Bowie that Wil's number for treatment team is .
[2019-08-31] MEDS: MELATONIN 3 MG TABLET PO SCH (20:53)
[2019-08-31] MEDS: DOXEPIN HCL 10 MG CAPSULE PO SCH (20:54)
--- NOTE | 2019-08-31 22:29 | PDOC ---
Exam Note: David Note: Please also refer to the separate dictated note~for this date of service dictated separately.~Patient seen individually. Discussed the patient with Nursing staff reviewed the chart.~Reviewed interim history and current functioning. Reviewed vital signs,~Labs/ Radiology~and current medications noted below. Continue current treatment with the changes noted in the dictated addendum note Assessment: Vital Signs/I&O: Vital Signs Date Time Temp Pulse Resp B/P (MAP) Pulse Ox O2 Delivery O2 Flow Rate FiO2 08/31/19 20:53 102 96/64 08/31/19 15:40 98.9 20 95 Room Air I & O 08/30/19 08/30/19 08/31/19 15:00 23:00 07:00 Intake Total 842 ml 600 ml Balance 842 ml 600 ml Current Medications: I have reviewed the current psychotropics carefully including drug interactions. Risk benefit ratio favors no change other than as noted in my dictated progress note. Diagnosis: Problems: (1) Impulse control disorder, unspecified (2) Anxiety disorder, unspecified (3) Dementia, vascular, with depression (4) Dementia, vascular, with delusions (5) Dementia in Alzheimer's disease with depression (6) Dementia in Alzheimer's disease with delusions (7) Major neurocognitive disorder, due to vascular disease, with behavioral disturbance, mild NAEEM SADLER MD Aug 31, 2019 22:29
--- NOTE | 2019-08-31 23:35 | NUR ---
Earlier this shift pt wheeled self around hallways interacting with peers and staff. She remains confused but has been pleasant and cooperative. She took her meds crushed in ice cream. Since going to bed she has been sleeping well.
[2019-09-01 03:50] VITALS: BP 101/64
[2019-09-01 06:37] LABS: BASO # 0.1 x10^3/uL (0.0-0.2); BASO % 1 % (0-3); EOS # 0.3 x10^3/uL (0.0-0.7); EOS % 6 % (0-3); HEMATOCRIT 35.4 % (36.0-47.0); HEMOGLOBIN 11.7 g/dL (12.0-15.5); LYMPH % 22 % (24-48); MEAN CORPUSCULAR HEMOGLOBIN 32 pg (25-35); MEAN CORPUSCULAR HGB CONC 33 g/dL (31-37); MEAN CORPUSCULAR VOLUME 97 fL (79-100); MONO # 0.4 x10^3/uL (0.0-1.1); MONO % 10 % (0-9); NEUT # 2.7 x10^3uL (1.8-7.7); NEUT % 61 % (31-73); PLATELET COUNT 260 x10^3/uL (140-400); RED BLOOD COUNT 3.65 x10^6/uL (3.50-5.40); RED CELL DISTRIBUTION WIDTH 13.7 % (11.5-14.5); WHITE BLOOD COUNT 4.5 x10^3/uL (4.0-11.0)
[2019-09-01 06:55] LABS: ALBUMIN 2.5 g/dL (3.4-5.0); ALBUMIN/GLOBULIN RATIO 0.8 (1.0-1.7); ALK PHOS 78 U/L (46-116); ALT (SGPT) 17 U/L (14-59); ANION GAP 4 (6-14); AST (SGOT) 15 U/L (15-37); BLOOD UREA NITROGEN 26 mg/dL (7-20); BUN/CREATININE RATIO 43 (6-20); CALCIUM 8.1 mg/dL (8.5-10.1); CARBON DIOXIDE 31 mmol/L (21-32); CHLORIDE 105 mmol/L (98-107); CREATININE 0.6 mg/dL (0.6-1.0); GFR 98.5; GLUCOSE 84 mg/dL (70-99); POTASSIUM 4.2 mmol/L (3.5-5.1); SODIUM 140 mmol/L (136-145); TOTAL BILIRUBIN 0.3 mg/dL (0.2-1.0); TOTAL PROTEIN 5.7 g/dL (6.4-8.2)
[2019-09-01 07:26] LABS: VAL ACID 18 mcg/mL (50-100)
[2019-09-01] MEDS: SENNOSIDES/DOCUSATE 8.6/50MG TABLET. PO SCH ×2 (08:25→19:49)
[2019-09-01] MEDS: DIVALPROEX 125 MG CAP.SPRINK PO SCH ×3 (08:25→16:34)
[2019-09-01] MEDS: LACTOBACILLUS RHAMNOSUS GG 1 CAPSULE. PO SCH ×2 (08:25→19:50)
[2019-09-01] MEDS: POTASSIUM CHLORIDE 10 MEQ TABLET.ER. PO SCH (08:26)
[2019-09-01] MEDS: risperiDONE 0.5 MG TABLET. PO SCH ×2 (08:26→16:34)
[2019-09-01] MEDS: SERTRALINE 50 MG TABLET. PO SCH (08:26)
[2019-09-01] MEDS: hydrALAZINE 25 MG TABLET PO SCH ×2 (08:29→19:50)
[2019-09-01] MEDS: FUROSEMIDE 20 MG TABLET PO SCH (08:29)
[2019-09-01] MEDS: ASCORBIC ACID 500 MG TABLET PO SCH (08:29)
[2019-09-01] MEDS: MULTIVITAMIN with MINERAL TABLET. PO SCH (08:30)
[2019-09-01] MEDS: THIAMINE 100 MG TABLET. PO SCH (08:30)
[2019-09-01 08:32] VITALS: BP 124/70
--- NOTE | 2019-09-01 08:48 | PDOC ---
Exam Note: David Note: This note is a late entry for 08/30/2019 covers elements not covered in my initial note. Subjective: The patient was seen face to face in the evening of 08/30/2019. Nursing report with Mandie COHN. She slept just 6-1/4 hours previous night. She did better previous night, quite irritable, medication resistive during the day today, swatting at staff. She hit the spoon out of the staff members hand as they were trying to administer her medications. Received Zyprexa at 10.30 a.m., had a 2 hour nap and did better. Review of Systems: Ambulation impaired, in Broda chair. No CV, , pulmonary, eye, ENT system symptoms on review. Mental Status Exam: Insight and judgment, recent and remote memory, attention and concentration, fund of knowledge is poor consistent with her diagnoses. Laboratory Data: Reviewed. Impression: Major neurocognitive disorder Alzheimer, vascular with delusion, depression and behavioral disturbance. Anxiety disorder unspecified. Impulse control disorder unspecified. Urinary tract infection. Plan: Continue psychotropics from initial note. Assessment: Vital Signs/I&O: Vital Signs Date Time Temp Pulse Resp B/P (MAP) Pulse Ox O2 Delivery O2 Flow Rate FiO2 09/01/19 08:32 84 124/70 (88) 09/01/19 03:50 97.5 18 94 08/31/19 15:40 Room Air I & O 08/31/19 08/31/19 09/01/19 15:00 23:00 07:00 Intake Total 960 ml 480 ml Balance 960 ml 480 ml Labs: Laboratory Tests Test 09/01/19 06:12 White Blood Count 4.5 x10^3/uL (4.0-11.0) Red Blood Count 3.65 x10^6/uL (3.50-5.40) Hemoglobin 11.7 g/dL (12.0-15.5) L Hematocrit 35.4 % (36.0-47.0) L Mean Corpuscular Volume 97 fL (79-100) Mean Corpuscular Hemoglobin 32 pg (25-35) Mean Corpuscular Hemoglobin Concent 33 g/dL (31-37) Red Cell Distribution Width 13.7 % (11.5-14.5) Platelet Count 260 x10^3/uL (140-400) Neutrophils (%) (Auto) 61 % (31-73) Lymphocytes (%) (Auto) 22 % (24-48) L Monocytes (%) (Auto) 10 % (0-9) H Eosinophils (%) (Auto) 6 % (0-3) H Basophils (%) (Auto) 1 % (0-3) Neutrophils # (Auto) 2.7 x10^3uL (1.8-7.7) Lymphocytes # (Auto) 1.0 x10^3/uL (1.0-4.8) Monocytes # (Auto) 0.4 x10^3/uL (0.0-1.1) Eosinophils # (Auto) 0.3 x10^3/uL (0.0-0.7) Basophils # (Auto) 0.1 x10^3/uL (0.0-0.2) Sodium Level 140 mmol/L (136-145) Potassium Level 4.2 mmol/L (3.5-5.1) Chloride Level 105 mmol/L (98-107) Carbon Dioxide Level 31 mmol/L (21-32) Anion Gap 4 (6-14) L Blood Urea Nitrogen 26 mg/dL (7-20) H Creatinine 0.6 mg/dL (0.6-1.0) Estimated GFR (Cockcroft-Gault) 98.5 BUN/Creatinine Ratio 43 (6-20) H Glucose Level 84 mg/dL (70-99) Calcium Level 8.1 mg/dL (8.5-10.1) L Total Bilirubin 0.3 mg/dL (0.2-1.0) Aspartate Amino Transferase (AST) 15 U/L (15-37) Alanine Aminotransferase (ALT) 17 U/L (14-59) Alkaline Phosphatase 78 U/L (46-116) Total Protein 5.7 g/dL (6.4-8.2) L Albumin 2.5 g/dL (3.4-5.0) L Albumin/Globulin Ratio 0.8 (1.0-1.7) L Valproic Acid Level 18 mcg/mL (50-100) L Valproic Acid Last Dose Date 08/31/19 Valproic Acid Last Dose Time 1700 Current Medications: I have reviewed the current psychotropics carefully including drug interactions. Risk benefit ratio favors no change other than as noted in my dictated progress note. Diagnosis: Problems: (1) Impulse control disorder, unspecified (2) Anxiety disorder, unspecified (3) Dementia, vascular, with depression (4) Dementia, vascular, with delusions (5) Dementia in Alzheimer's disease with depression (6) Dementia in Alzheimer's disease with delusions (7) Major neurocognitive disorder, due to vascular disease, with behavioral disturbance, mild NAEEM SADLER MD Sep 01, 2019 08:48
--- NOTE | 2019-09-01 09:17 | PDOC ---
Exam Note: David Note: This note is a late entry for 08/31/2019 covers elements not covered in my initial note. Subjective: The patient was seen face to face in the evening of 08/31/2019. Per Sotero COHN, she slept 7-1/2 hours previous night. She did well in the morning, was more agitated in the afternoon[facility] had to be syringed at 1 p.m. and then later took her 3 p.m. medications herself. Review of Systems: Ambulation impaired, in Broda chair. No CV, , pulmonary, eye, ENT system symptoms on review. Mental Status Exam: Insight and judgment, recent and remote memory, attention and concentration, fund of knowledge is poor consistent with her diagnoses. Laboratory Data: Reviewed. Impression: Major neurocognitive disorder Alzheimer, vascular with delusion, depression and behavioral disturbance. Anxiety disorder unspecified. Impulse control disorder unspecified. Urinary tract infection. Plan: Continue psychotropics from initial note. Assessment: Vital Signs/I&O: Vital Signs Date Time Temp Pulse Resp B/P (MAP) Pulse Ox O2 Delivery O2 Flow Rate FiO2 09/01/19 08:32 84 124/70 (88) 09/01/19 03:50 97.5 18 94 08/31/19 15:40 Room Air I & O 08/31/19 08/31/19 09/01/19 15:00 23:00 07:00 Intake Total 960 ml 480 ml Balance 960 ml 480 ml Labs: Laboratory Tests Test 09/01/19 06:12 White Blood Count 4.5 x10^3/uL (4.0-11.0) Red Blood Count 3.65 x10^6/uL (3.50-5.40) Hemoglobin 11.7 g/dL (12.0-15.5) L Hematocrit 35.4 % (36.0-47.0) L Mean Corpuscular Volume 97 fL (79-100) Mean Corpuscular Hemoglobin 32 pg (25-35) Mean Corpuscular Hemoglobin Concent 33 g/dL (31-37) Red Cell Distribution Width 13.7 % (11.5-14.5) Platelet Count 260 x10^3/uL (140-400) Neutrophils (%) (Auto) 61 % (31-73) Lymphocytes (%) (Auto) 22 % (24-48) L Monocytes (%) (Auto) 10 % (0-9) H Eosinophils (%) (Auto) 6 % (0-3) H Basophils (%) (Auto) 1 % (0-3) Neutrophils # (Auto) 2.7 x10^3uL (1.8-7.7) Lymphocytes # (Auto) 1.0 x10^3/uL (1.0-4.8) Monocytes # (Auto) 0.4 x10^3/uL (0.0-1.1) Eosinophils # (Auto) 0.3 x10^3/uL (0.0-0.7) Basophils # (Auto) 0.1 x10^3/uL (0.0-0.2) Sodium Level 140 mmol/L (136-145) Potassium Level 4.2 mmol/L (3.5-5.1) Chloride Level 105 mmol/L (98-107) Carbon Dioxide Level 31 mmol/L (21-32) Anion Gap 4 (6-14) L Blood Urea Nitrogen 26 mg/dL (7-20) H Creatinine 0.6 mg/dL (0.6-1.0) Estimated GFR (Cockcroft-Gault) 98.5 BUN/Creatinine Ratio 43 (6-20) H Glucose Level 84 mg/dL (70-99) Calcium Level 8.1 mg/dL (8.5-10.1) L Total Bilirubin 0.3 mg/dL (0.2-1.0) Aspartate Amino Transferase (AST) 15 U/L (15-37) Alanine Aminotransferase (ALT) 17 U/L (14-59) Alkaline Phosphatase 78 U/L (46-116) Total Protein 5.7 g/dL (6.4-8.2) L Albumin 2.5 g/dL (3.4-5.0) L Albumin/Globulin Ratio 0.8 (1.0-1.7) L Valproic Acid Level 18 mcg/mL (50-100) L Valproic Acid Last Dose Date 08/31/19 Valproic Acid Last Dose Time 1700 Current Medications: I have reviewed the current psychotropics carefully including drug interactions. Risk benefit ratio favors no change other than as noted in my dictated progress note. Diagnosis: Problems: (1) Behavior disorder (2) Impulse control disorder, unspecified (3) Anxiety disorder, unspecified (4) Dementia, vascular, with depression (5) Dementia, vascular, with delusions (6) Dementia in Alzheimer's disease with depression (7) Dementia in Alzheimer's disease with delusions (8) Major neurocognitive disorder, due to vascular disease, with behavioral disturbance, mild NAEEM SADLER MD Sep 01, 2019 09:17
--- NOTE | 2019-09-01 09:36 | NUR ---
WEEKLY ACTIVITY THERAPY NOTE Date of Admission: 08/04/19 Date of AT Assessment: 08/05/19 Precipitating behaviors that initiated intake and admission: Patient reportedly believes staff are poisoning her; talking to people that aren't there; attempting to bite and kick staff; hitting staff; and hallucinating Goal aimed: to increase sensory stimulation Initial Goal: Pt. will participate in at least one individual Activity Therapy session before discharge. Goal changed 08/18/19: Pt. will participate in at three Activity Therapy group sessions per week Goal changed 08/25/19: Pt. will participate moderately in at least three Activity Therapy Sessions per week. Weekly progress towards goal: did not achieve Group participation level: 1 mod, 3 min Weekly highlights: moderately engaged in Memory game on Thursday morning Behaviors observed: inappropriate language at times which results in being escorted out of groups, assistance to engage, often disengaged or unable to concentrate Plan: no change to goal Beneficial adaptations: direct prompting, simple step by step directions
--- NOTE | 2019-09-01 10:00 | NUR ---
This morning patient was delusional and looking for "Domenic" her sister. She stated Domenic had just been here, "didn't you see her?". She looked for Domenic most of the morning. Patient ambulates self in wheelchair and goes up and down hallways at will. She is taking her medications whole and has been compliant. Patient has labile moods and answers most orientation questions with "I have no idea". Patient has a good appetite and has not been paranoid this shift.
--- NOTE | 2019-09-01 13:02 | TX PLAN ---
Interdisciplinary Tx Plan Admission Information August 04, 2019 at 16:31 Legal Status (on Admission): Voluntary DPOA/Guardian Name: Pal Curiel Contact Other Contact Name: Rock Duarte Other Contact Verified Code Status: DNR Allergies: Coded Allergies: amoxicillin (Verified Allergy, Unknown, 08/04/19) clavulanic acid (Verified Allergy, Unknown, 08/04/19) Diagnoses Primary Diagnosis: Major Neurocognitive D/O, vascular alzheimers with delusions Reasons for Admission: Aggressive, Combative, Confusion/Disoriented, Poor impulse control Problem in Patient's Words: She has never been like this. I assume this is part of the diagnosis? Additional Admission Comments: According to the intake, pt things that staff are poisoning her, confused, talking to people not there, kicking and hitting the nurse, attempted to bite, hallucinating, paranoid (picking at her skin), agitated. Problems Active Problems: hitting staff delusional hallucinating screaming paranoid (picking at skin) Inactive Problems: Compliant with cares Pt Strengths/Limitations Ability for Ware: Poor Cognitive Functioning/Ability: Poor Communication Skills/Ability: Poor Financial Resources: Fair Insight/Judgement: Poor Intellectual Ability: Poor Physical Health: Poor Social Skills: Poor Stability in Family: Good Stability in School/Work: Poor Verbal Skills: Fair Discharge Criteria Discharge Criteria: No need for close observ., Adequate arrangements @DC, Improved behavior Preliminary Discharge Plan Preliminary DC Plan: Current Living Arrange. Special Precautions Fall Risk: Moderate Initial D/C Plan Pt is scheduled to return to [facility] Identified Discharge Needs: Potential for a different level of care; family is concerned that current placement cannot handle pt. Currently Utilized Resources Currently Utilized Resources/P: Primary Care Physician through placement Referrals Community Resources: Mental health services Identified Problems/Hx/Goals Objectives/Short-Term Goals Short Term Goals: Dec. Aggression, Dec. Hallucination/Delus, Dec. Outbursts, Medication Stabilization, Promote Coping Skill Short Term Goals in Patient's: Get me out of here Interventions/Frequency Staff Interventions/Frequency&: Psychiatrist to assess pt at least 3x per week. Social Work to asses pt at least 2x per week. Nursing to assess medications, behaviors and complete 15 minute checks daily Encourage group participation or 1:1 engagement based off activity assessment and goals. History Vocational History: Pt has worked at [employer] since the age 14 and retired from there. Education: Pt graduated from . Community Follow-up Follow up with PCP Community Provider/Family Inpu: She has significantly decline within the last year (August 2018) Treatment Plan Explained Patient/Front Office Agent had this treatment plan explained to him/her as indicated by the signature below and has been given the opportunity to ask questions and make suggestions: Date: Patient/Front Office Agent Signature: Status Update Update Pt sister, Pal and nephew Wil, participated in tx team via telephone. Pt continues to be resistive to medications; however, nursing staff try back at a different time and can usually convince pt to take them. Pt is delusional and it appears to be surrounding a work environment. Pt has some periods of inappropriate comments but can be redirected. Pt continues to yell out and has some mood lability; but behaviors have decreased since admission. Pt facility gave pt bed away as the Medicare hold allows for 20 days. Pt sister was told that she would have to pay $200 a day to hold pt room. Pt family has requested that pt look at facilities surrounding [place] and [address] surrounding the area. SW will start that process JOSIANE. Pt nephew questioned what happens in the event pt needs another psych stay once she maintains at a new placement. SW will plan to contact the family in a conference call to go over that. TELLO PRITCHETT Sep 01, 2019 13:02
--- NOTE | 2019-09-01 13:12 | NUR ---
Patient in dining room yelling at peer because "we've got to feed the babies". Patient redirected to hallway where she began yelling at male nurse, "why don't you feed the babies". This nurse approached patient and said the babies have been fed and they are laying down. Patient followed the nurse to the nurses station, she was now becoming visibly anxious and agitated about "the babies". PRN zyprexa provided with 1300 medications for anxiety and agitation.
[2019-09-01 15:47] VITALS: BP 119/79
[2019-09-01] MEDS: MELATONIN 3 MG TABLET PO SCH (19:49)
[2019-09-01] MEDS: DOXEPIN HCL 10 MG CAPSULE PO SCH (19:50)
--- NOTE | 2019-09-01 22:21 | NUR ---
Pt sitting up in Broda chair at shift change. Pt irritable, agitated, and delusional- pt accusing staff of stealing her cigarettes and looking for her sister, Harini. Pt resistive with assessment and compliant with medications administered whole. After taking HS medications, pt much calmer and more pleasantly confused.
--- NOTE | 2019-09-01 22:52 | PDOC ---
Exam Note: David Note: Please also refer to the separate dictated note~for this date of service dictated separately.~Patient seen individually. Discussed the patient with Nursing staff reviewed the chart.~Reviewed interim history and current functioning. Reviewed vital signs,~Labs/ Radiology~and current medications noted below. Continue current treatment with the changes noted in the dictated addendum note Assessment: Vital Signs/I&O: Vital Signs Date Time Temp Pulse Resp B/P (MAP) Pulse Ox O2 Delivery O2 Flow Rate FiO2 09/01/19 19:50 84 119/79 09/01/19 15:47 98.1 20 95 08/31/19 15:40 Room Air I & O 08/31/19 08/31/19 09/01/19 15:00 23:00 07:00 Intake Total 960 ml 480 ml Balance 960 ml 480 ml Labs: Laboratory Tests Test 09/01/19 06:12 White Blood Count 4.5 x10^3/uL (4.0-11.0) Red Blood Count 3.65 x10^6/uL (3.50-5.40) Hemoglobin 11.7 g/dL (12.0-15.5) L Hematocrit 35.4 % (36.0-47.0) L Mean Corpuscular Volume 97 fL (79-100) Mean Corpuscular Hemoglobin 32 pg (25-35) Mean Corpuscular Hemoglobin Concent 33 g/dL (31-37) Red Cell Distribution Width 13.7 % (11.5-14.5) Platelet Count 260 x10^3/uL (140-400) Neutrophils (%) (Auto) 61 % (31-73) Lymphocytes (%) (Auto) 22 % (24-48) L Monocytes (%) (Auto) 10 % (0-9) H Eosinophils (%) (Auto) 6 % (0-3) H Basophils (%) (Auto) 1 % (0-3) Neutrophils # (Auto) 2.7 x10^3uL (1.8-7.7) Lymphocytes # (Auto) 1.0 x10^3/uL (1.0-4.8) Monocytes # (Auto) 0.4 x10^3/uL (0.0-1.1) Eosinophils # (Auto) 0.3 x10^3/uL (0.0-0.7) Basophils # (Auto) 0.1 x10^3/uL (0.0-0.2) Sodium Level 140 mmol/L (136-145) Potassium Level 4.2 mmol/L (3.5-5.1) Chloride Level 105 mmol/L (98-107) Carbon Dioxide Level 31 mmol/L (21-32) Anion Gap 4 (6-14) L Blood Urea Nitrogen 26 mg/dL (7-20) H Creatinine 0.6 mg/dL (0.6-1.0) Estimated GFR (Cockcroft-Gault) 98.5 BUN/Creatinine Ratio 43 (6-20) H Glucose Level 84 mg/dL (70-99) Calcium Level 8.1 mg/dL (8.5-10.1) L Total Bilirubin 0.3 mg/dL (0.2-1.0) Aspartate Amino Transferase (AST) 15 U/L (15-37) Alanine Aminotransferase (ALT) 17 U/L (14-59) Alkaline Phosphatase 78 U/L (46-116) Total Protein 5.7 g/dL (6.4-8.2) L Albumin 2.5 g/dL (3.4-5.0) L Albumin/Globulin Ratio 0.8 (1.0-1.7) L Valproic Acid Level 18 mcg/mL (50-100) L Valproic Acid Last Dose Date 08/31/19 Valproic Acid Last Dose Time 1700 Current Medications: I have reviewed the current psychotropics carefully including drug interactions. Risk benefit ratio favors no change other than as noted in my dictated progress note. Diagnosis: Problems: (1) Impulse control disorder, unspecified (2) Anxiety disorder, unspecified (3) Dementia, vascular, with depression (4) Dementia, vascular, with delusions (5) Dementia in Alzheimer's disease with depression (6) Dementia in Alzheimer's disease with delusions (7) Major neurocognitive disorder, due to vascular disease, with behavioral disturbance, mild NAEEM SADLER MD Sep 01, 2019 22:52
[2019-09-02 06:19] VITALS: BP 164/97
[2019-09-02] MEDS: FUROSEMIDE 20 MG TABLET PO SCH (08:21)
[2019-09-02] MEDS: THIAMINE 100 MG TABLET. PO SCH (08:22)
[2019-09-02] MEDS: DIVALPROEX 125 MG CAP.SPRINK PO SCH ×3 (08:22→17:28)
[2019-09-02] MEDS: hydrALAZINE 25 MG TABLET PO SCH ×2 (08:22→19:57)
[2019-09-02] MEDS: LACTOBACILLUS RHAMNOSUS GG 1 CAPSULE. PO SCH ×2 (08:22→19:42)
[2019-09-02] MEDS: MULTIVITAMIN with MINERAL TABLET. PO SCH (08:22)
[2019-09-02] MEDS: risperiDONE 0.5 MG TABLET. PO SCH ×2 (08:22→15:21)
[2019-09-02] MEDS: SENNOSIDES/DOCUSATE 8.6/50MG TABLET. PO SCH ×2 (08:22→19:43)
[2019-09-02] MEDS: SERTRALINE 50 MG TABLET. PO SCH (08:23)
[2019-09-02] MEDS: POTASSIUM CHLORIDE 10 MEQ TABLET.ER. PO SCH (08:23)
[2019-09-02] MEDS: ASCORBIC ACID 500 MG TABLET PO SCH (08:23)
--- NOTE | 2019-09-02 12:01 | NUR ---
Nursing note: Pt in dining room for morning meds and assessment. Pt very tearful and med resistive. Pt was eventually compliant with her meds crushed and mixed in chocolate milk. Pt has remained up in her broda and in better spirits this morning. Will continue to monitor.
[2019-09-02 15:53] VITALS: BP 101/68
[2019-09-02] MEDS: MELATONIN 3 MG TABLET PO SCH (19:43)
[2019-09-02] MEDS: DOXEPIN HCL 10 MG CAPSULE PO SCH (19:43)
--- NOTE | 2019-09-02 22:27 | NUR ---
Pt sitting up in w/c in the day room at shift change. Pt confused and disorganized, labile mood. Pt has been less agitated this evening but has been more tearful. Pt cooperative with assessment and compliant with medications administered whole. Wounds to bilateral feet cleansed and dressings applied.
--- NOTE | 2019-09-02 22:57 | PDOC ---
Exam Note: David Note: Please also refer to the separate dictated note~for this date of service dictated separately.~Patient seen individually. Discussed the patient with Nursing staff reviewed the chart.~Reviewed interim history and current functioning. Reviewed vital signs,~Labs/ Radiology~and current medications noted below. Continue current treatment with the changes noted in the dictated addendum note Assessment: Vital Signs/I&O: Vital Signs Date Time Temp Pulse Resp B/P (MAP) Pulse Ox O2 Delivery O2 Flow Rate FiO2 09/02/19 19:57 105 96/63 09/02/19 15:53 98.7 18 96 08/31/19 15:40 Room Air I & O 09/01/19 09/01/19 09/02/19 15:00 23:00 07:00 Intake Total 720 ml 360 ml Balance 720 ml 360 ml Current Medications: I have reviewed the current psychotropics carefully including drug interactions. Risk benefit ratio favors no change other than as noted in my dictated progress note. Diagnosis: Problems: (1) Impulse control disorder, unspecified (2) Anxiety disorder, unspecified (3) Dementia, vascular, with depression (4) Dementia, vascular, with delusions (5) Dementia in Alzheimer's disease with depression (6) Dementia in Alzheimer's disease with delusions (7) Major neurocognitive disorder, due to vascular disease, with behavioral disturbance, mild NAEEM SADLER MD Sep 02, 2019 22:57
--- NOTE | 2019-09-03 01:16 | PN ---
DATE: 09/01/2019 PSYCHIATRIC PROGRESS NOTE This late entry 09/01/2019 covers the elements not covered in my initial note. SUBJECTIVE: I met with the patient in the evening of 09/01/2019 and discussed with LALIT Montgomery. The patient remains delusional, anxious, confused. Believes she has been feeding her baby, looking for Domneic. Her valproic acid level is 18. The patient was also staffed at a treatment team meeting with the entire team in the morning including Johnathan, social service staff, Hollie activity therapy staff and LALIT Connors and the patient's sister, Pal and nephew Wil attended the conference. She often refuses evening medications, takes them in the morning, and remains confused. REVIEW OF SYSTEMS: Ambulation impaired, in wheelchair. No CV, , pulmonary, eye, ENT system symptoms on review. Reliability is poor. MENTAL STATUS EXAM: Oriented to herself. Insight, judgment, recent and remote memory, attention, concentration, fund of knowledge poor, consistent with her diagnoses. IMPRESSION: Major neurocognitive disorder, Alzheimer, vascular with delusion, depression, behavioral disturbance; anxiety disorder, unspecified; impulse control disorder, unspecified. PLAN: Continue psychotropics from initial note. Generally, her agitation is better. Maintain Depakote along with Zyprexa p.r.n., melatonin, doxepin, Risperdal and Zoloft. NAEEM SADLER MD DR: BEN/telma JOB#: [id number] / [id number]
[2019-09-03 05:56] VITALS: BP 155/87
--- NOTE | 2019-09-03 07:58 | PDOC ---
Exam Note: David Note: This note is a late entry for 09/02/2019 covers elements not covered in my initial note. Subjective: The patient was seen individually in the evening of 09/02/2019. Per Mandie COHN, she slept 5-1/2 hours previous night. At times, she is resistive, tearful. She is in a Broda chair, and pushes herself around, in a wheelchair later. She initially refused her medications, took them in chocolate milk later. Per nursing report at times she makes statements that she was seeing a naked female, walking the hallway, was seeing some flying birds around her. Nursing staff have observed her hallucinating. We will monitor this. Review of Systems: Ambulation impaired, in wheelchair/Broda chair. No CV, , pulmonary, eye, ENT system symptoms on review. Reliability poor. Mental Status Exam: Insight and judgment, recent and remote memory, attention and concentration, fund of knowledge is poor consistent with her diagnoses. Laboratory Data: Reviewed. Impression: Major neurocognitive disorder Alzheimer, vascular with delusion. Anxiety disorder unspecified. Impulse control disorder unspecified. Plan: Continue psychotropics from initial note. Assessment: Vital Signs/I&O: Vital Signs Date Time Temp Pulse Resp B/P (MAP) Pulse Ox O2 Delivery O2 Flow Rate FiO2 09/03/19 05:56 97.5 83 18 155/87 (109) 97 08/31/19 15:40 Room Air I & O 09/02/19 09/02/19 09/03/19 15:00 23:00 07:00 Intake Total 360 ml 720 ml Balance 360 ml 720 ml Current Medications: I have reviewed the current psychotropics carefully including drug interactions. Risk benefit ratio favors no change other than as noted in my dictated progress note. Diagnosis: Problems: (1) Impulse control disorder, unspecified (2) Anxiety disorder, unspecified (3) Dementia, vascular, with depression (4) Dementia, vascular, with delusions (5) Dementia in Alzheimer's disease with depression (6) Dementia in Alzheimer's disease with delusions (7) Major neurocognitive disorder, due to vascular disease, with behavioral disturbance, mild NAEEM SADLER MD Sep 03, 2019 07:58
[2019-09-03] MEDS: hydrALAZINE 25 MG TABLET PO SCH ×2 (08:26→20:31)
[2019-09-03] MEDS: ASCORBIC ACID 500 MG TABLET PO SCH (08:26)
[2019-09-03] MEDS: MULTIVITAMIN with MINERAL TABLET. PO SCH (08:26)
[2019-09-03] MEDS: POTASSIUM CHLORIDE 10 MEQ TABLET.ER. PO SCH (08:26)
[2019-09-03] MEDS: SERTRALINE 50 MG TABLET. PO SCH (08:26)
[2019-09-03] MEDS: risperiDONE 0.5 MG TABLET. PO SCH ×2 (08:26→15:00)
[2019-09-03] MEDS: SENNOSIDES/DOCUSATE 8.6/50MG TABLET. PO SCH ×2 (08:26→20:31)
[2019-09-03] MEDS: DIVALPROEX 125 MG CAP.SPRINK PO SCH ×3 (08:26→17:00)
[2019-09-03] MEDS: LACTOBACILLUS RHAMNOSUS GG 1 CAPSULE. PO SCH ×2 (08:26→20:31)
[2019-09-03] MEDS: FUROSEMIDE 20 MG TABLET PO SCH (08:27)
[2019-09-03] MEDS: THIAMINE 100 MG TABLET. PO SCH (08:27)
[2019-09-03 10:06] LABS: BASO % 1 % (0-3); EOS # 0.2 x10^3/uL (0.0-0.7); EOS % 4 % (0-3); HEMATOCRIT 38.6 % (36.0-47.0); HEMOGLOBIN 12.7 g/dL (12.0-15.5); LYMPH # 0.6 x10^3/uL (1.0-4.8); LYMPH % 14 % (24-48); MEAN CORPUSCULAR HEMOGLOBIN 32 pg (25-35); MEAN CORPUSCULAR HGB CONC 33 g/dL (31-37); MEAN CORPUSCULAR VOLUME 97 fL (79-100); MONO # 0.3 x10^3/uL (0.0-1.1); MONO % 7 % (0-9); NEUT # 3.3 x10^3uL (1.8-7.7); NEUT % 74 % (31-73); PLATELET COUNT 265 x10^3/uL (140-400); RED BLOOD COUNT 3.97 x10^6/uL (3.50-5.40); RED CELL DISTRIBUTION WIDTH 13.7 % (11.5-14.5); WHITE BLOOD COUNT 4.4 x10^3/uL (4.0-11.0)
[2019-09-03 10:18] LABS: ALBUMIN 2.8 g/dL (3.4-5.0); ALBUMIN/GLOBULIN RATIO 0.8 (1.0-1.7); CALCIUM 8.6 mg/dL (8.5-10.1); CREATININE 0.8 mg/dL (0.6-1.0); GFR 70.7; POTASSIUM 3.8 mmol/L (3.5-5.1); TOTAL BILIRUBIN 0.3 mg/dL (0.2-1.0); TOTAL PROTEIN 6.4 g/dL (6.4-8.2)
[2019-09-03 16:17] VITALS: BP 118/79
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
[2019-09-03] MEDS: MELATONIN 3 MG TABLET PO SCH (20:31)
[2019-09-03] MEDS: DOXEPIN HCL 10 MG CAPSULE PO SCH (20:31)
--- NOTE | 2019-09-03 22:32 | PDOC ---
Exam Note: David Note: Please also refer to the separate dictated note~for this date of service dictated separately.~Patient seen individually. Discussed the patient with Nursing staff reviewed the chart.~Reviewed interim history and current functioning. Reviewed vital signs,~Labs/ Radiology~and current medications noted below. Continue current treatment with the changes noted in the dictated addendum note Assessment: Vital Signs/I&O: Vital Signs Date Time Temp Pulse Resp B/P (MAP) Pulse Ox O2 Delivery O2 Flow Rate FiO2 09/03/19 20:31 80 118/79 09/03/19 16:17 98.0 20 98 Room Air I & O 09/02/19 09/02/19 09/03/19 14:59 22:59 06:59 Intake Total 360 ml 720 ml Balance 360 ml 720 ml Labs: Laboratory Tests Test 09/03/19 09:35 White Blood Count 4.4 x10^3/uL (4.0-11.0) Red Blood Count 3.97 x10^6/uL (3.50-5.40) Hemoglobin 12.7 g/dL (12.0-15.5) Hematocrit 38.6 % (36.0-47.0) Mean Corpuscular Volume 97 fL (79-100) Mean Corpuscular Hemoglobin 32 pg (25-35) Mean Corpuscular Hemoglobin Concent 33 g/dL (31-37) Red Cell Distribution Width 13.7 % (11.5-14.5) Platelet Count 265 x10^3/uL (140-400) Neutrophils (%) (Auto) 74 % (31-73) H Lymphocytes (%) (Auto) 14 % (24-48) L Monocytes (%) (Auto) 7 % (0-9) Eosinophils (%) (Auto) 4 % (0-3) H Basophils (%) (Auto) 1 % (0-3) Neutrophils # (Auto) 3.3 x10^3uL (1.8-7.7) Lymphocytes # (Auto) 0.6 x10^3/uL (1.0-4.8) L Monocytes # (Auto) 0.3 x10^3/uL (0.0-1.1) Eosinophils # (Auto) 0.2 x10^3/uL (0.0-0.7) Basophils # (Auto) 0.0 x10^3/uL (0.0-0.2) Sodium Level 141 mmol/L (136-145) Potassium Level 3.8 mmol/L (3.5-5.1) Chloride Level 105 mmol/L (98-107) Carbon Dioxide Level 32 mmol/L (21-32) Anion Gap 4 (6-14) L Blood Urea Nitrogen 26 mg/dL (7-20) H Creatinine 0.8 mg/dL (0.6-1.0) Estimated GFR (Cockcroft-Gault) 70.7 BUN/Creatinine Ratio 33 (6-20) H Glucose Level 108 mg/dL (70-99) H Calcium Level 8.6 mg/dL (8.5-10.1) Total Bilirubin 0.3 mg/dL (0.2-1.0) Aspartate Amino Transferase (AST) 17 U/L (15-37) Alanine Aminotransferase (ALT) 20 U/L (14-59) Alkaline Phosphatase 91 U/L (46-116) Total Protein 6.4 g/dL (6.4-8.2) Albumin 2.8 g/dL (3.4-5.0) L Albumin/Globulin Ratio 0.8 (1.0-1.7) L Current Medications: I have reviewed the current psychotropics carefully including drug interactions. Risk benefit ratio favors no change other than as noted in my dictated progress note. Diagnosis: Problems: (1) Impulse control disorder, unspecified (2) Anxiety disorder, unspecified (3) Dementia, vascular, with depression (4) Dementia, vascular, with delusions (5) Dementia in Alzheimer's disease with depression (6) Dementia in Alzheimer's disease with delusions (7) Major neurocognitive disorder, due to vascular disease, with behavioral disturbance, mild NAEEM SADLER MD Sep 03, 2019 22:32
--- NOTE | 2019-09-04 02:06 | NUR ---
Pt located in the dayroom this evening. Pt extremely restless and manic. Compliant with whole medications. Later in the evening, pt was witnessed sticking her leg out and tripping male patient.
[2019-09-04 06:12] VITALS: BP 125/81
[2019-09-04] MEDS: SENNOSIDES/DOCUSATE 8.6/50MG TABLET. PO SCH ×2 (08:15→19:55)
[2019-09-04] MEDS: MULTIVITAMIN with MINERAL TABLET. PO SCH (08:15)
[2019-09-04] MEDS: risperiDONE 0.5 MG TABLET. PO SCH ×2 (08:16→17:29)
[2019-09-04] MEDS: DIVALPROEX 125 MG CAP.SPRINK PO SCH ×3 (08:16→19:55)
[2019-09-04] MEDS: ASCORBIC ACID 500 MG TABLET PO SCH (08:16)
[2019-09-04] MEDS: hydrALAZINE 25 MG TABLET PO SCH ×2 (08:16→19:55)
[2019-09-04] MEDS: POTASSIUM CHLORIDE 10 MEQ TABLET.ER. PO SCH (08:16)
[2019-09-04] MEDS: SERTRALINE 50 MG TABLET. PO SCH (08:16)
[2019-09-04] MEDS: FUROSEMIDE 20 MG TABLET PO SCH (08:16)
[2019-09-04] MEDS: THIAMINE 100 MG TABLET. PO SCH (08:17)
[2019-09-04] MEDS: LACTOBACILLUS RHAMNOSUS GG 1 CAPSULE. PO SCH ×2 (08:17→19:54)
[2019-09-04 16:23] VITALS: BP 106/70
--- NOTE | 2019-09-04 17:42 | NUR ---
Pt up in broda for meals. Out to Day room. Was irritable with redirection prior to lunch. Zydis given. Pt has been restless but calm this afternoon. Has been compliant with meds.
[2019-09-04] MEDS: DOXEPIN HCL 10 MG CAPSULE PO SCH (19:55)
[2019-09-04] MEDS: MELATONIN 3 MG TABLET PO SCH (19:55)
--- NOTE | 2019-09-04 22:35 | PDOC ---
Exam Note: David Note: Please also refer to the separate dictated note~for this date of service dictated separately.~Patient seen individually. Discussed the patient with Nursing staff reviewed the chart.~Reviewed interim history and current functioning. Reviewed vital signs,~Labs/ Radiology~and current medications noted below. Continue current treatment with the changes noted in the dictated addendum note Assessment: Vital Signs/I&O: Vital Signs Date Time Temp Pulse Resp B/P (MAP) Pulse Ox O2 Delivery O2 Flow Rate FiO2 09/04/19 19:55 99 106/70 09/04/19 16:23 97.5 20 98 09/03/19 16:17 Room Air I & O 09/03/19 09/03/19 09/04/19 14:59 22:59 06:59 Intake Total 840 ml 240 ml Balance 840 ml 240 ml Current Medications: Meds: Current Medications Medications (Trade) Dose Ordered Sig/Bindu Route PRN Reason Start Time Stop Time Status Last Admin Dose Admin Divalproex Sodium (Depakote Sprinkles) 250 mg TID PO 09/04/19 21:00 09/04/19 19:55 I have reviewed the current psychotropics carefully including drug interactions. Risk benefit ratio favors no change other than as noted in my dictated progress note. Diagnosis: Problems: (1) Impulse control disorder, unspecified (2) Anxiety disorder, unspecified (3) Dementia, vascular, with depression (4) Dementia, vascular, with delusions (5) Dementia in Alzheimer's disease with depression (6) Dementia in Alzheimer's disease with delusions (7) Major neurocognitive disorder, due to vascular disease, with behavioral disturbance, mild NAEEM SADLER MD Sep 04, 2019 22:35
--- NOTE | 2019-09-04 23:54 | NUR ---
Pt extremely manic and hyperverbal this evening. Pt talking loudly in the dayroom; demanding, tangental and restless. Pt running over other pt's feet with her wheelchair. Compliant with whole medications. PRN Zydis administered with HS medications.
[2019-09-05 06:31] VITALS: BP 146/83
[2019-09-05 06:58] LABS: BASO # 0.1 x10^3/uL (0.0-0.2); BASO % 1 % (0-3); EOS # 0.2 x10^3/uL (0.0-0.7); EOS % 5 % (0-3); HEMATOCRIT 38.5 % (36.0-47.0); HEMOGLOBIN 12.8 g/dL (12.0-15.5); LYMPH # 0.7 x10^3/uL (1.0-4.8); LYMPH % 15 % (24-48); MEAN CORPUSCULAR HEMOGLOBIN 32 pg (25-35); MEAN CORPUSCULAR HGB CONC 33 g/dL (31-37); MEAN CORPUSCULAR VOLUME 97 fL (79-100); MONO # 0.4 x10^3/uL (0.0-1.1); MONO % 9 % (0-9); NEUT # 3.2 x10^3uL (1.8-7.7); NEUT % 70 % (31-73); PLATELET COUNT 234 x10^3/uL (140-400); RED BLOOD COUNT 3.98 x10^6/uL (3.50-5.40); RED CELL DISTRIBUTION WIDTH 13.6 % (11.5-14.5); WHITE BLOOD COUNT 4.5 x10^3/uL (4.0-11.0)
[2019-09-05 07:12] LABS: ALBUMIN 2.7 g/dL (3.4-5.0); ALBUMIN/GLOBULIN RATIO 0.8 (1.0-1.7); CALCIUM 8.5 mg/dL (8.5-10.1); CREATININE 0.7 mg/dL (0.6-1.0); GFR 82.5; POTASSIUM 4.1 mmol/L (3.5-5.1); TOTAL BILIRUBIN 0.3 mg/dL (0.2-1.0); TOTAL PROTEIN 6.1 g/dL (6.4-8.2)
[2019-09-05] MEDS: hydrALAZINE 25 MG TABLET PO SCH ×2 (09:56→20:29)
[2019-09-05] MEDS: LACTOBACILLUS RHAMNOSUS GG 1 CAPSULE. PO SCH ×2 (09:56→20:29)
[2019-09-05] MEDS: DIVALPROEX 125 MG CAP.SPRINK PO SCH ×3 (09:56→20:29)
[2019-09-05] MEDS: SENNOSIDES/DOCUSATE 8.6/50MG TABLET. PO SCH ×2 (09:57→20:29)
[2019-09-05] MEDS: POTASSIUM CHLORIDE 10 MEQ TABLET.ER. PO SCH (09:57)
[2019-09-05] MEDS: THIAMINE 100 MG TABLET. PO SCH (09:57)
[2019-09-05] MEDS: MULTIVITAMIN with MINERAL TABLET. PO SCH (09:57)
[2019-09-05] MEDS: risperiDONE 0.5 MG TABLET. PO SCH ×2 (09:57→16:56)
[2019-09-05] MEDS: FUROSEMIDE 20 MG TABLET PO SCH (09:57)
[2019-09-05] MEDS: ASCORBIC ACID 500 MG TABLET PO SCH (09:57)
[2019-09-05] MEDS: SERTRALINE 50 MG TABLET. PO SCH (09:58)
--- NOTE | 2019-09-05 10:08 | PDOC ---
Exam Note: David Note: This note is a late entry for 09/03/2019 covers elements not covered in my initial note. Subjective: The patient was seen individually in the evening of 09/03/2019. Per Ana COHN, she slept 6-3/4 hours previous night. She remains confused, pushes herself around the unit in Broda chair/wheelchair. Late at night on 09/02, she tripped on one of the other demented patients who fell and fractured his nose. Review of Systems: Ambulation impaired, in wheelchair/Broda chair. No CV, , pulmonary, eye, ENT system symptoms on review. Reliability poor. Mental Status Exam: Oriented to herself. Insight and judgment, recent and remote memory, attention and concentration, fund of knowledge is poor consistent with her diagnoses. Laboratory Data: Reviewed. Impression: Major neurocognitive disorder Alzheimer, vascular with delusion. Anxiety disorder unspecified. Impulse control disorder unspecified. Plan: Continue psychotropics from initial note. Assessment: Vital Signs/I&O: Vital Signs Date Time Temp Pulse Resp B/P (MAP) Pulse Ox O2 Delivery O2 Flow Rate FiO2 09/05/19 09:56 76 146/83 09/05/19 06:31 97.3 20 97 09/03/19 16:17 Room Air I & O 09/04/19 09/04/19 09/05/19 14:59 22:59 06:59 Intake Total 600 ml 480 ml Balance 600 ml 480 ml Labs: Laboratory Tests Test 09/05/19 06:15 White Blood Count 4.5 x10^3/uL (4.0-11.0) Red Blood Count 3.98 x10^6/uL (3.50-5.40) Hemoglobin 12.8 g/dL (12.0-15.5) Hematocrit 38.5 % (36.0-47.0) Mean Corpuscular Volume 97 fL (79-100) Mean Corpuscular Hemoglobin 32 pg (25-35) Mean Corpuscular Hemoglobin Concent 33 g/dL (31-37) Red Cell Distribution Width 13.6 % (11.5-14.5) Platelet Count 234 x10^3/uL (140-400) Neutrophils (%) (Auto) 70 % (31-73) Lymphocytes (%) (Auto) 15 % (24-48) L Monocytes (%) (Auto) 9 % (0-9) Eosinophils (%) (Auto) 5 % (0-3) H Basophils (%) (Auto) 1 % (0-3) Neutrophils # (Auto) 3.2 x10^3uL (1.8-7.7) Lymphocytes # (Auto) 0.7 x10^3/uL (1.0-4.8) L Monocytes # (Auto) 0.4 x10^3/uL (0.0-1.1) Eosinophils # (Auto) 0.2 x10^3/uL (0.0-0.7) Basophils # (Auto) 0.1 x10^3/uL (0.0-0.2) Sodium Level 142 mmol/L (136-145) Potassium Level 4.1 mmol/L (3.5-5.1) Chloride Level 107 mmol/L (98-107) Carbon Dioxide Level 33 mmol/L (21-32) H Anion Gap 2 (6-14) L Blood Urea Nitrogen 21 mg/dL (7-20) H Creatinine 0.7 mg/dL (0.6-1.0) Estimated GFR (Cockcroft-Gault) 82.5 BUN/Creatinine Ratio 30 (6-20) H Glucose Level 85 mg/dL (70-99) Calcium Level 8.5 mg/dL (8.5-10.1) Total Bilirubin 0.3 mg/dL (0.2-1.0) Aspartate Amino Transferase (AST) 16 U/L (15-37) Alanine Aminotransferase (ALT) 19 U/L (14-59) Alkaline Phosphatase 92 U/L (46-116) Total Protein 6.1 g/dL (6.4-8.2) L Albumin 2.7 g/dL (3.4-5.0) L Albumin/Globulin Ratio 0.8 (1.0-1.7) L Current Medications: Meds: Current Medications Medications (Trade) Dose Ordered Sig/Bindu Route PRN Reason Start Time Stop Time Status Last Admin Dose Admin Divalproex Sodium (Depakote Sprinkles) 250 mg TID PO 09/04/19 21:00 09/05/19 09:56 I have reviewed the current psychotropics carefully including drug interactions. Risk benefit ratio favors no change other than as noted in my dictated progress note. Diagnosis: Problems: (1) Impulse control disorder, unspecified (2) Anxiety disorder, unspecified (3) Dementia, vascular, with depression (4) Dementia, vascular, with delusions (5) Dementia in Alzheimer's disease with depression (6) Dementia in Alzheimer's disease with delusions (7) Major neurocognitive disorder, due to vascular disease, with behavioral disturbance, mild NAEEM SADLER MD Sep 05, 2019 10:08
--- NOTE | 2019-09-05 10:43 | PDOC ---
Exam Note: David Note: This note is a late entry for 09/04/2019 covers elements not covered in my initial note. Subjective: The patient was seen individually in the evening of 09/04/2019. Per Ana COHN, she slept 3 hours previous night. Last evening she was quite agitated, tripped on one of the other demented patients who fell and fractured his nose. She received Zyprexa at noon. She remains quite labile in her mood. Review of Systems: Ambulation impaired, in wheelchair/Broda chair. No CV, , pulmonary, eye, ENT system symptoms on review. Reliability poor. Mental Status Exam: Oriented to herself. Insight and judgment, recent and remote memory, attention and concentration, fund of knowledge is poor consistent with her diagnoses. Laboratory Data: Reviewed. Impression: Major neurocognitive disorder Alzheimer, vascular with delusion. Anxiety disorder unspecified. Impulse control disorder unspecified. Plan: The patient continues to have ongoing mood lability. She is currently on Depakote 125 mg 1700 and 250 mg 0900 and 1300 hours. We will increase the 125 mg dosage to 250 mg three times a day. Check CBC, CMP, valproic acid level in 3 days. Continue psychotropics unchanged. Assessment: Vital Signs/I&O: Vital Signs Date Time Temp Pulse Resp B/P (MAP) Pulse Ox O2 Delivery O2 Flow Rate FiO2 09/05/19 09:56 76 146/83 09/05/19 06:31 97.3 20 97 09/03/19 16:17 Room Air I & O 09/04/19 09/04/19 09/05/19 15:00 23:00 07:00 Intake Total 600 ml 480 ml Balance 600 ml 480 ml Labs: Laboratory Tests Test 09/05/19 06:15 White Blood Count 4.5 x10^3/uL (4.0-11.0) Red Blood Count 3.98 x10^6/uL (3.50-5.40) Hemoglobin 12.8 g/dL (12.0-15.5) Hematocrit 38.5 % (36.0-47.0) Mean Corpuscular Volume 97 fL (79-100) Mean Corpuscular Hemoglobin 32 pg (25-35) Mean Corpuscular Hemoglobin Concent 33 g/dL (31-37) Red Cell Distribution Width 13.6 % (11.5-14.5) Platelet Count 234 x10^3/uL (140-400) Neutrophils (%) (Auto) 70 % (31-73) Lymphocytes (%) (Auto) 15 % (24-48) L Monocytes (%) (Auto) 9 % (0-9) Eosinophils (%) (Auto) 5 % (0-3) H Basophils (%) (Auto) 1 % (0-3) Neutrophils # (Auto) 3.2 x10^3uL (1.8-7.7) Lymphocytes # (Auto) 0.7 x10^3/uL (1.0-4.8) L Monocytes # (Auto) 0.4 x10^3/uL (0.0-1.1) Eosinophils # (Auto) 0.2 x10^3/uL (0.0-0.7) Basophils # (Auto) 0.1 x10^3/uL (0.0-0.2) Sodium Level 142 mmol/L (136-145) Potassium Level 4.1 mmol/L (3.5-5.1) Chloride Level 107 mmol/L (98-107) Carbon Dioxide Level 33 mmol/L (21-32) H Anion Gap 2 (6-14) L Blood Urea Nitrogen 21 mg/dL (7-20) H Creatinine 0.7 mg/dL (0.6-1.0) Estimated GFR (Cockcroft-Gault) 82.5 BUN/Creatinine Ratio 30 (6-20) H Glucose Level 85 mg/dL (70-99) Calcium Level 8.5 mg/dL (8.5-10.1) Total Bilirubin 0.3 mg/dL (0.2-1.0) Aspartate Amino Transferase (AST) 16 U/L (15-37) Alanine Aminotransferase (ALT) 19 U/L (14-59) Alkaline Phosphatase 92 U/L (46-116) Total Protein 6.1 g/dL (6.4-8.2) L Albumin 2.7 g/dL (3.4-5.0) L Albumin/Globulin Ratio 0.8 (1.0-1.7) L Current Medications: Meds: Current Medications Medications (Trade) Dose Ordered Sig/Bindu Route PRN Reason Start Time Stop Time Status Last Admin Dose Admin Divalproex Sodium (Depakote Sprinkles) 250 mg TID PO 09/04/19 21:00 09/05/19 09:56 I have reviewed the current psychotropics carefully including drug interactions. Risk benefit ratio favors no change other than as noted in my dictated progress note. Diagnosis: Problems: (1) Impulse control disorder, unspecified (2) Anxiety disorder, unspecified (3) Dementia, vascular, with depression (4) Dementia, vascular, with delusions (5) Dementia in Alzheimer's disease with depression (6) Dementia in Alzheimer's disease with delusions (7) Major neurocognitive disorder, due to vascular disease, with behavioral disturbance, mild NAEEM SADLER MD Sep 05, 2019 10:42
--- NOTE | 2019-09-05 13:12 | NUR ---
Nursing note: Pt was med compliant and cooperative this morning. Pt denied having any pain. She has been pleasantly confused this shift and participated in activity group this morning. Pt is currently laying in bed. Will continue to monitor.
[2019-09-05 16:14] VITALS: BP 136/84
[2019-09-05] MEDS: MELATONIN 3 MG TABLET PO SCH (20:29)
[2019-09-05] MEDS: DOXEPIN HCL 10 MG CAPSULE PO SCH (20:29)
--- NOTE | 2019-09-05 22:24 | PDOC ---
Exam Note: David Note: Please also refer to the separate dictated note~for this date of service dictated separately.~Patient seen individually. Discussed the patient with Nursing staff reviewed the chart.~Reviewed interim history and current functioning. Reviewed vital signs,~Labs/ Radiology~and current medications noted below. Continue current treatment with the changes noted in the dictated addendum note Assessment: Vital Signs/I&O: Vital Signs Date Time Temp Pulse Resp B/P (MAP) Pulse Ox O2 Delivery O2 Flow Rate FiO2 09/05/19 20:29 92 136/84 09/05/19 16:14 98.7 18 96 09/03/19 16:17 Room Air I & O 09/04/19 09/04/19 09/05/19 15:00 23:00 07:00 Intake Total 600 ml 480 ml Balance 600 ml 480 ml Labs: Laboratory Tests Test 09/05/19 06:15 White Blood Count 4.5 x10^3/uL (4.0-11.0) Red Blood Count 3.98 x10^6/uL (3.50-5.40) Hemoglobin 12.8 g/dL (12.0-15.5) Hematocrit 38.5 % (36.0-47.0) Mean Corpuscular Volume 97 fL (79-100) Mean Corpuscular Hemoglobin 32 pg (25-35) Mean Corpuscular Hemoglobin Concent 33 g/dL (31-37) Red Cell Distribution Width 13.6 % (11.5-14.5) Platelet Count 234 x10^3/uL (140-400) Neutrophils (%) (Auto) 70 % (31-73) Lymphocytes (%) (Auto) 15 % (24-48) L Monocytes (%) (Auto) 9 % (0-9) Eosinophils (%) (Auto) 5 % (0-3) H Basophils (%) (Auto) 1 % (0-3) Neutrophils # (Auto) 3.2 x10^3uL (1.8-7.7) Lymphocytes # (Auto) 0.7 x10^3/uL (1.0-4.8) L Monocytes # (Auto) 0.4 x10^3/uL (0.0-1.1) Eosinophils # (Auto) 0.2 x10^3/uL (0.0-0.7) Basophils # (Auto) 0.1 x10^3/uL (0.0-0.2) Sodium Level 142 mmol/L (136-145) Potassium Level 4.1 mmol/L (3.5-5.1) Chloride Level 107 mmol/L (98-107) Carbon Dioxide Level 33 mmol/L (21-32) H Anion Gap 2 (6-14) L Blood Urea Nitrogen 21 mg/dL (7-20) H Creatinine 0.7 mg/dL (0.6-1.0) Estimated GFR (Cockcroft-Gault) 82.5 BUN/Creatinine Ratio 30 (6-20) H Glucose Level 85 mg/dL (70-99) Calcium Level 8.5 mg/dL (8.5-10.1) Total Bilirubin 0.3 mg/dL (0.2-1.0) Aspartate Amino Transferase (AST) 16 U/L (15-37) Alanine Aminotransferase (ALT) 19 U/L (14-59) Alkaline Phosphatase 92 U/L (46-116) Total Protein 6.1 g/dL (6.4-8.2) L Albumin 2.7 g/dL (3.4-5.0) L Albumin/Globulin Ratio 0.8 (1.0-1.7) L Current Medications: I have reviewed the current psychotropics carefully including drug interactions. Risk benefit ratio favors no change other than as noted in my dictated progress note. Diagnosis: Problems: (1) Impulse control disorder, unspecified (2) Anxiety disorder, unspecified (3) Dementia, vascular, with depression (4) Dementia, vascular, with delusions (5) Dementia in Alzheimer's disease with depression (6) Dementia in Alzheimer's disease with delusions (7) Major neurocognitive disorder, due to vascular disease, with behavioral d istcinda, NAEEM Martino MD Sep 05, 2019 22:24
--- NOTE | 2019-09-05 23:51 | NUR ---
Pt located in the dayroom this evening. Pt much calmer than previous evenings. Compliant with whole medications.
[2019-09-06 06:23] VITALS: BP 149/95
[2019-09-06] MEDS: LACTOBACILLUS RHAMNOSUS GG 1 CAPSULE. PO SCH ×2 (08:47→20:16)
[2019-09-06] MEDS: SENNOSIDES/DOCUSATE 8.6/50MG TABLET. PO SCH ×2 (08:47→20:15)
[2019-09-06] MEDS: ASCORBIC ACID 500 MG TABLET PO SCH (08:47)
[2019-09-06] MEDS: FUROSEMIDE 20 MG TABLET PO SCH (08:47)
[2019-09-06] MEDS: POTASSIUM CHLORIDE 10 MEQ TABLET.ER. PO SCH (08:47)
[2019-09-06] MEDS: SERTRALINE 50 MG TABLET. PO SCH (08:48)
[2019-09-06] MEDS: risperiDONE 0.5 MG TABLET. PO SCH ×2 (08:48→15:11)
[2019-09-06] MEDS: DIVALPROEX 125 MG CAP.SPRINK PO SCH ×3 (08:48→20:16)
[2019-09-06] MEDS: MULTIVITAMIN with MINERAL TABLET. PO SCH (08:48)
[2019-09-06] MEDS: THIAMINE 100 MG TABLET. PO SCH (08:48)
[2019-09-06] MEDS: hydrALAZINE 25 MG TABLET PO SCH ×2 (08:48→20:17)
--- NOTE | 2019-09-06 09:53 | PDOC ---
Exam Note: David Note: This note is a late entry for 09/05/2019 covers elements not covered in my initial note. Subjective: The patient was seen individually in the evening of 09/05/2019. Per Mandie COHN, she slept 5-3/4 hours previous night. Previous evening she was quite manic, restless, yelling in the dayroom. Today she has been better. Review of Systems: Ambulation impaired, in wheelchair/Broda chair. No CV, , pulmonary, eye, ENT system symptoms on review. Mental Status Exam: Oriented to herself. Insight and judgment, recent and remote memory, attention and concentration, fund of knowledge is poor consistent with her diagnoses. Laboratory Data: Reviewed. Impression: Major neurocognitive disorder Alzheimer, vascular with delusion. Anxiety disorder unspecified. Impulse control disorder unspecified. Plan: Continue psychotropics unchanged. Assessment: Vital Signs/I&O: Vital Signs Date Time Temp Pulse Resp B/P (MAP) Pulse Ox O2 Delivery O2 Flow Rate FiO2 09/06/19 08:48 72 149/95 09/06/19 06:23 97.5 18 92 09/03/19 16:17 Room Air I & O 09/05/19 09/05/19 09/06/19 15:00 23:00 07:00 Intake Total 720 ml 360 ml Balance 720 ml 360 ml Current Medications: I have reviewed the current psychotropics carefully including drug interactions. Risk benefit ratio favors no change other than as noted in my dictated progress note. Diagnosis: Problems: (1) Impulse control disorder, unspecified (2) Anxiety disorder, unspecified (3) Dementia, vascular, with depression (4) Dementia, vascular, with delusions (5) Dementia in Alzheimer's disease with depression (6) Dementia in Alzheimer's disease with delusions (7) Major neurocognitive disorder, due to vascular disease, with behavioral disturbance, mild NAEEM SADLER MD Sep 06, 2019 09:53
--- NOTE | 2019-09-06 10:33 | NUR ---
Patient wheeling self around unit this morning. Asking how to get to the for a maryse she doesn't know. Told nursing that she is thinking about going back to work at [employer], she heard they are hiring and making changes so maybe it will be better this time. Pt compliant with medications. Pt is currently participating in group. BONNY.
--- NOTE | 2019-09-06 14:00 | NUR ---
CASSIDY contacted [facility] to find that they are full and having a waiting list on both their LTC and Memory Care sides. CASSIDY will go ahead and send the referral and make sure to inform pt family that she can be put on the waiting list.
[2019-09-06 15:55] VITALS: BP 100/56
[2019-09-06] MEDS: DOXEPIN HCL 10 MG CAPSULE PO SCH (20:15)
[2019-09-06] MEDS: MELATONIN 3 MG TABLET PO SCH (20:17)
--- NOTE | 2019-09-06 22:14 | PDOC ---
Exam Note: David Note: Please also refer to the separate dictated note~for this date of service dictated separately.~Patient seen individually. Discussed the patient with Nursing staff reviewed the chart.~Reviewed interim history and current functioning. Reviewed vital signs,~Labs/ Radiology~and current medications noted below. Continue current treatment with the changes noted in the dictated addendum note Assessment: Vital Signs/I&O: Vital Signs Date Time Temp Pulse Resp B/P (MAP) Pulse Ox O2 Delivery O2 Flow Rate FiO2 09/06/19 20:17 64 100/56 09/06/19 15:55 97.3 18 97 Room Air I & O 09/05/19 09/05/19 09/06/19 15:00 23:00 07:00 Intake Total 720 ml 360 ml Balance 720 ml 360 ml Current Medications: Meds: Current Medications Medications (Trade) Dose Ordered Sig/Bindu Route PRN Reason Start Time Stop Time Status Last Admin Dose Admin Divalproex Sodium (Depakote Sprinkles) 375 mg QHS PO 09/06/19 21:00 09/06/19 20:16 I have reviewed the current psychotropics carefully including drug interactions. Risk benefit ratio favors no change other than as noted in my dictated progress note. Diagnosis: Problems: (1) Impulse control disorder, unspecified (2) Anxiety disorder, unspecified (3) Dementia, vascular, with depression (4) Dementia, vascular, with delusions (5) Dementia in Alzheimer's disease with depression (6) Dementia in Alzheimer's disease with delusions (7) Major neurocognitive disorder, due to vascular disease, with behavioral disturbance, mild NAEEM SADLER MD Sep 06, 2019 22:14
--- NOTE | 2019-09-07 00:43 | NUR ---
Last evening pt was active in day room pleasantly confused and social with others. Meds were taken whole without difficulty. She was cooperative with cares and has been sleeping well tonight.
[2019-09-07 05:51] VITALS: BP 156/96
[2019-09-07] MEDS: FUROSEMIDE 20 MG TABLET PO SCH (08:04)
[2019-09-07] MEDS: DIVALPROEX 125 MG CAP.SPRINK PO SCH ×3 (08:05→20:30)
[2019-09-07] MEDS: POTASSIUM CHLORIDE 10 MEQ TABLET.ER. PO SCH (08:05)
[2019-09-07] MEDS: THIAMINE 100 MG TABLET. PO SCH (08:05)
[2019-09-07] MEDS: risperiDONE 0.5 MG TABLET. PO SCH ×2 (08:05→15:00)
[2019-09-07] MEDS: MULTIVITAMIN with MINERAL TABLET. PO SCH (08:05)
[2019-09-07] MEDS: SENNOSIDES/DOCUSATE 8.6/50MG TABLET. PO SCH ×2 (08:05→20:29)
[2019-09-07] MEDS: LACTOBACILLUS RHAMNOSUS GG 1 CAPSULE. PO SCH ×2 (08:06→20:28)
[2019-09-07] MEDS: SERTRALINE 50 MG TABLET. PO SCH (08:06)
[2019-09-07] MEDS: ASCORBIC ACID 500 MG TABLET PO SCH (08:06)
[2019-09-07] MEDS: hydrALAZINE 25 MG TABLET PO SCH ×2 (08:06→20:31)
--- NOTE | 2019-09-07 13:04 | NUR ---
CASSIDY left a message for pt sister Pal, to contact CASSIDY when possible in hopes to have her and nephew Wil on the phone together to discuss placement, discharge and answer Wil's questions about pt finances.
[2019-09-07 15:59] VITALS: BP 118/69
--- NOTE | 2019-09-07 16:57 | NUR ---
Patient has been calm and compliant. Pt is still delusional and hallucinates. Asking "Is that baby supposed to be out there that long?" looking out the window. Patient has been yelling out for family members and asking if we need to fill buckets with water but patient is redirectable. Less anxiety and agitation the last couple of days. Pt has been compliant with cares and meds today. WCTM.
[2019-09-07] MEDS: MELATONIN 3 MG TABLET PO SCH (20:29)
[2019-09-07] MEDS: DOXEPIN HCL 10 MG CAPSULE PO SCH (20:31)
--- NOTE | 2019-09-07 22:10 | PDOC ---
Exam Note: David Note: Please also refer to the separate dictated note~for this date of service dictated separately.~Patient seen individually. Discussed the patient with Nursing staff reviewed the chart.~Reviewed interim history and current functioning. Reviewed vital signs,~Labs/ Radiology~and current medications noted below. Continue current treatment with the changes noted in the dictated addendum note Assessment: Vital Signs/I&O: Vital Signs Date Time Temp Pulse Resp B/P (MAP) Pulse Ox O2 Delivery O2 Flow Rate FiO2 09/07/19 20:31 110 118/69 09/07/19 15:59 98.9 22 96 09/07/19 05:51 Room Air I & O 09/06/19 09/06/19 09/07/19 15:00 23:00 07:00 Intake Total 940 ml 360 ml Balance 940 ml 360 ml Current Medications: Meds: Current Medications Medications (Trade) Dose Ordered Sig/Bindu Route PRN Reason Start Time Stop Time Status Last Admin Dose Admin Divalproex Sodium (Depakote Sprinkles) 250 mg 0900,1400 PO 09/07/19 09:00 09/07/19 15:00 I have reviewed the current psychotropics carefully including drug interactions. Risk benefit ratio favors no change other than as noted in my dictated progress note. Diagnosis: Problems: (1) Impulse control disorder, unspecified (2) Anxiety disorder, unspecified (3) Dementia, vascular, with depression (4) Dementia, vascular, with delusions (5) Dementia in Alzheimer's disease with depression (6) Dementia in Alzheimer's disease with delusions (7) Major neurocognitive disorder, due to vascular disease, with behavioral disturbance, mild NAEEM SADLER MD Sep 07, 2019 22:10
--- NOTE | 2019-09-07 23:07 | NUR ---
Pt was in day room this evening socializing with staff and peers. She has been in good spirits and cooperative. She remains confused and has frequent delusions about what is going on around her. At times she call for family, talks about bills she needs to pay, sais a family member is making a beer run and many other rapidly changing topics and she was pleasant throughout it all. She took meds whole and got ready for bed without difficulty and has been sleeping well.
[2019-09-08 06:21] VITALS: BP 137/86
[2019-09-08] MEDS: risperiDONE 0.5 MG TABLET. PO SCH ×2 (08:28→14:15)
[2019-09-08] MEDS: MULTIVITAMIN with MINERAL TABLET. PO SCH (08:28)
[2019-09-08] MEDS: ASCORBIC ACID 500 MG TABLET PO SCH (08:28)
[2019-09-08] MEDS: LACTOBACILLUS RHAMNOSUS GG 1 CAPSULE. PO SCH ×2 (08:28→20:27)
[2019-09-08] MEDS: SENNOSIDES/DOCUSATE 8.6/50MG TABLET. PO SCH ×2 (08:28→20:25)
[2019-09-08] MEDS: SERTRALINE 50 MG TABLET. PO SCH (08:29)
[2019-09-08] MEDS: DIVALPROEX 125 MG CAP.SPRINK PO SCH ×3 (08:29→20:28)
[2019-09-08] MEDS: hydrALAZINE 25 MG TABLET PO SCH ×2 (08:29→20:26)
[2019-09-08] MEDS: POTASSIUM CHLORIDE 10 MEQ TABLET.ER. PO SCH (08:29)
[2019-09-08] MEDS: THIAMINE 100 MG TABLET. PO SCH (08:30)
[2019-09-08] MEDS: FUROSEMIDE 20 MG TABLET PO SCH (08:30)
--- NOTE | 2019-09-08 09:04 | PDOC ---
Exam Note: David Note: This note is a late entry for 09/06/2019 covers elements not covered in my initial note. Subjective: The patient was seen individually in the evening of 09/06/2019. Per Sotero COHN, she slept 6-1/4 hours previous night. She has been quite anxious, restless, but as I met with her in the evening she was calmer in her Broda chair. Review of Systems: Ambulation impaired, in wheelchair/Broda chair. No CV, , pulmonary, eye, ENT system symptoms on review. Reliability poor. Mental Status Exam: Oriented to herself. Insight and judgment, recent and remote memory, attention and concentration, fund of knowledge is poor consistent with her diagnoses. Laboratory Data: Reviewed. Impression: Major neurocognitive disorder Alzheimer, vascular with delusion. Anxiety disorder unspecified. Impulse control disorder unspecified. Plan: The patient is currently on Depakote 250 mg t.i.d., level subtherapeutic at 18. We will increase to 250 mg b.i.d and 375 mg h.s. Check CBC, CMP, valproic acid level in 3 days. Continue melatonin along with Zyprexa p.r.n., Zoloft, doxepin for insomnia, Risperdal 0.5 mg a day. Check labs level for the Depakote on 09/07/2019. Adjust further as clinically indicated. Assessment: Vital Signs/I&O: Vital Signs Date Time Temp Pulse Resp B/P (MAP) Pulse Ox O2 Delivery O2 Flow Rate FiO2 09/08/19 08:29 89 137/86 09/08/19 06:21 97.5 16 97 09/07/19 05:51 Room Air I & O 09/07/19 09/07/19 09/08/19 15:00 23:00 07:00 Intake Total 720 ml 360 ml 120 ml Balance 720 ml 360 ml 120 ml Current Medications: I have reviewed the current psychotropics carefully including drug interactions. Risk benefit ratio favors no change other than as noted in my dictated progress note. Diagnosis: Problems: (1) Impulse control disorder, unspecified (2) Anxiety disorder, unspecified (3) Dementia, vascular, with depression (4) Dementia, vascular, with delusions (5) Dementia in Alzheimer's disease with depression (6) Dementia in Alzheimer's disease with delusions (7) Major neurocognitive disorder, due to vascular disease, with behavioral disturbance, mild NAEEM SADLER MD Sep 08, 2019 09:04
--- NOTE | 2019-09-08 10:21 | NUR ---
Nursing note: Pt in dining room for morning meds and assessment. She is pleasantly confused, compliant with meds whole, and cooperative with her assessment. Pt denied having any pain at time of assessment. She was worried about leaving her bags and wilkinson on the plane and she was about to get another plane, so she did not know what to do about it. Pt was able to be redirected at that time. She is currently sitting quietly in the day room. Will continue to monitor.
--- NOTE | 2019-09-08 10:37 | TX PLAN ---
Interdisciplinary Tx Plan Admission Information August 04, 2019 at 16:31 Legal Status (on Admission): Voluntary DPOA/Guardian Name: Pal Curiel Contact Other Contact Name: Rock Duarte Other Contact Verified Code Status: DNR Allergies: Coded Allergies: amoxicillin (Verified Allergy, Unknown, 08/04/19) clavulanic acid (Verified Allergy, Unknown, 08/04/19) Diagnoses Primary Diagnosis: Major Neurocognitive D/O, vascular alzheimers with delusions Reasons for Admission: Aggressive, Combative, Confusion/Disoriented, Poor impulse control Problem in Patient's Words: She has never been like this. I assume this is part of the diagnosis? Additional Admission Comments: According to the intake, pt things that staff are poisoning her, confused, talking to people not there, kicking and hitting the nurse, attempted to bite, hallucinating, paranoid (picking at her skin), agitated. Problems Active Problems: hitting staff delusional hallucinating screaming paranoid (picking at skin) Inactive Problems: Compliant with cares Pt Strengths/Limitations Ability for [place]: Poor Cognitive Functioning/Ability: Poor Communication Skills/Ability: Poor Financial Resources: Fair Insight/Judgement: Poor Intellectual Ability: Poor Physical Health: Poor Social Skills: Poor Stability in Family: Good Stability in School/Work: Poor Verbal Skills: Fair Discharge Criteria Discharge Criteria: No need for close observ., Adequate arrangements @DC, Improved behavior Preliminary Discharge Plan Preliminary DC Plan: Current Living Arrange. Special Precautions Fall Risk: Moderate Initial D/C Plan Pt is scheduled to return to [facility] Identified Discharge Needs: Potential for a different level of care; family is concerned that current placement cannot handle pt. Currently Utilized Resources Currently Utilized Resources/P: Primary Care Physician through placement Referrals Community Resources: Mental health services Identified Problems/Hx/Goals Objectives/Short-Term Goals Short Term Goals: Dec. Aggression, Dec. Hallucination/Delus, Dec. Outbursts, Medication Stabilization, Promote Coping Skill Short Term Goals in Patient's: Get me out of here Interventions/Frequency Staff Interventions/Frequency&: Psychiatrist to assess pt at least 3x per week. Social Work to asses pt at least 2x per week. Nursing to assess medications, behaviors and complete 15 minute checks daily Encourage group participation or 1:1 engagement based off activity assessment and goals. History Vocational History: Pt has worked at [employer] since the age 14 and retired from there. Education: Pt graduated from . Community Follow-up Follow up with PCP Community Provider/Family Inpu: She has significantly decline within the last year (August 2018) Treatment Plan Explained Patient/Programs Director had this treatment plan explained to him/her as indicated by the signature below and has been given the opportunity to ask questions and make suggestions: Date: Patient/Programs Director Signature: Status Update Update Pt is eating 100% of meals and sleeping on average 6 hours per night. Pt continues to be delusional and hyperverbal; however, more redirectable. Pt is m ore calm and cooperative with staff direction this week and more compliant in taking her medications. Pt is currently on Depakote 250mg at 0900 and 1400, Depakote 375mg q HS; Zoloft 50mg q HS and Risperdal 0.5mg BID. SW started to send out referrals for pt and will continue to follow up with pt family on a final discharge plan. TELLO PRITCHETT Sep 08, 2019 10:37
--- NOTE | 2019-09-08 11:28 | NUR ---
WEEKLY ACTIVITY THERAPY NOTE Date of Admission: 08/04/19 Date of AT Assessment: 08/05/19 Precipitating behaviors that initiated intake and admission: Patient reportedly believes staff are poisoning her; talking to people that aren't there; attempting to bite and kick staff; hitting staff; and hallucinating Goal aimed: to increase sensory stimulation Initial Goal: Pt. will participate in at least one individual Activity Therapy session before discharge. Goal changed 08/18/19: Pt. will participate in at three Activity Therapy group sessions per week Goal changed 08/25/19: Pt. will participate moderately in at least three Activity Therapy Sessions per week. Weekly progress towards goal: achieved 07/16 Group participation level: 2 full, 3 mod, 3 min Weekly highlights: engaged in exercises and patio on Thursday morning Behaviors observed: similar behaviors as the week before, at times more engaged and easier to redirect, other times, disruptive and nonsensical, struggles to follow along with group, tearful once this week in group Plan: no change to goal Beneficial adaptations: direct prompting, simple step by step directions
--- NOTE | 2019-09-08 12:41 | NUR ---
Nursing note: Pt became very tearful in the dining room during lunch and began to attempt to put herself on the floor. She was unable to be redirected at that time. PRN given. Will continue to monitor.
--- NOTE | 2019-09-08 15:15 | NUR ---
Wound Care patient seen for a f/u of Wound care consult. see wound assessment. patient has two pressure ulcers to the right foot and an abrasion to the left great toe. patient has a stage 3 pressure ulcer to the left ischium, the wounds were all cleaned, measured and redressed. Recommendations to the foot wounds of Xeroform gauze with gauze, Kerlix and tape, change every 2-3 days, and the left ischium of Calazime cream, prn. WC will continue to follow for possible changes. Pt unable to retain teaching of PU prevention due to mental status, please continue to reinforce. Notified RN about the POC and wound care will continue to f/u for changes.
[2019-09-08 15:48] VITALS: BP 113/79
[2019-09-08] MEDS: MELATONIN 3 MG TABLET PO SCH (20:26)
[2019-09-08] MEDS: DOXEPIN HCL 25 MG CAPSULE PO SCH (20:30)
--- NOTE | 2019-09-08 22:08 | PDOC ---
Exam Note: David Note: Please also refer to the separate dictated note~for this date of service dictated separately.~Patient seen individually. Discussed the patient with Nursing staff reviewed the chart.~Reviewed interim history and current functioning. Reviewed vital signs,~Labs/ Radiology~and current medications noted below. Continue current treatment with the changes noted in the dictated addendum note Assessment: Vital Signs/I&O: Vital Signs Date Time Temp Pulse Resp B/P (MAP) Pulse Ox O2 Delivery O2 Flow Rate FiO2 09/08/19 20:26 86 113/79 09/08/19 15:48 98.1 18 96 Room Air I & O 09/07/19 09/07/19 09/08/19 15:00 23:00 07:00 Intake Total 720 ml 360 ml 120 ml Balance 720 ml 360 ml 120 ml Current Medications: Meds: Current Medications Medications (Trade) Dose Ordered Sig/Bindu Route PRN Reason Start Time Stop Time Status Last Admin Dose Admin Doxepin HCl (SINEquan) 50 mg QHS PO 09/08/19 21:00 09/08/19 20:30 I have reviewed the current psychotropics carefully including drug interactions. Risk benefit ratio favors no change other than as noted in my dictated progress note. Diagnosis: Problems: (1) Impulse control disorder, unspecified (2) Anxiety disorder, unspecified (3) Dementia, vascular, with depression (4) Dementia, vascular, with delusions (5) Dementia in Alzheimer's disease with depression (6) Dementia in Alzheimer's disease with delusions (7) Major neurocognitive disorder, due to vascular disease, with behavioral disturbance, mild NAEEM SADLER MD Sep 08, 2019 22:07
--- NOTE | 2019-09-08 23:59 | NUR ---
Patient is in the day room on assumption of care. She is in pleasant spirits. Disorganized, confused. She was compliant with assessments and medications taken whole. She was cooperative with HS cares. No agitation. No c/o or s/s of pain or discomfort. Denies SI.
[2019-09-09 06:21] VITALS: BP 148/97
[2019-09-09 06:27] LABS: BASO % 1 % (0-3); EOS # 0.3 x10^3/uL (0.0-0.7); EOS % 8 % (0-3); HEMATOCRIT 39.9 % (36.0-47.0); HEMOGLOBIN 13.1 g/dL (12.0-15.5); LYMPH # 0.8 x10^3/uL (1.0-4.8); LYMPH % 20 % (24-48); MEAN CORPUSCULAR HEMOGLOBIN 32 pg (25-35); MEAN CORPUSCULAR HGB CONC 33 g/dL (31-37); MEAN CORPUSCULAR VOLUME 97 fL (79-100); MONO # 0.4 x10^3/uL (0.0-1.1); MONO % 10 % (0-9); NEUT # 2.5 x10^3uL (1.8-7.7); NEUT % 61 % (31-73); PLATELET COUNT 250 x10^3/uL (140-400); RED CELL DISTRIBUTION WIDTH 13.8 % (11.5-14.5); WHITE BLOOD COUNT 4.1 x10^3/uL (4.0-11.0)
[2019-09-09 06:40] LABS: ALBUMIN 2.9 g/dL (3.4-5.0); ALBUMIN/GLOBULIN RATIO 0.8 (1.0-1.7); CALCIUM 8.8 mg/dL (8.5-10.1); CREATININE 0.8 mg/dL (0.6-1.0); GFR 70.7; POTASSIUM 4.2 mmol/L (3.5-5.1); TOTAL BILIRUBIN 0.3 mg/dL (0.2-1.0); TOTAL PROTEIN 6.7 g/dL (6.4-8.2)
[2019-09-09 06:41] LABS: VAL ACID 58 mcg/mL (50-100)
[2019-09-09] MEDS: LACTOBACILLUS RHAMNOSUS GG 1 CAPSULE. PO SCH ×2 (08:43→20:43)
[2019-09-09] MEDS: MULTIVITAMIN with MINERAL TABLET. PO SCH (08:43)
[2019-09-09] MEDS: DIVALPROEX 125 MG CAP.SPRINK PO SCH ×3 (08:43→20:45)
[2019-09-09] MEDS: SENNOSIDES/DOCUSATE 8.6/50MG TABLET. PO SCH ×2 (08:43→20:44)
[2019-09-09] MEDS: ASCORBIC ACID 500 MG TABLET PO SCH (08:43)
[2019-09-09] MEDS: THIAMINE 100 MG TABLET. PO SCH (08:44)
[2019-09-09] MEDS: POTASSIUM CHLORIDE 10 MEQ TABLET.ER. PO SCH (08:44)
[2019-09-09] MEDS: risperiDONE 0.5 MG TABLET. PO SCH ×2 (08:44→16:49)
[2019-09-09] MEDS: hydrALAZINE 25 MG TABLET PO SCH ×2 (08:44→20:44)
[2019-09-09] MEDS: FUROSEMIDE 20 MG TABLET PO SCH (08:45)
[2019-09-09] MEDS: SERTRALINE 50 MG TABLET. PO SCH (08:45)
--- NOTE | 2019-09-09 12:36 | NUR ---
Nursing note: Pt in dining room for morning meds and assessment. She was compliant with meds whole and cooperative with her assessment. She was very drowsy this morning, falling asleep off and on in her chair. She is currently in the dining room eating lunch. Will continue to monitor.
[2019-09-09 15:33] VITALS: BP 145/80
[2019-09-09] MEDS: DOXEPIN HCL 25 MG CAPSULE PO SCH (20:44)
[2019-09-09] MEDS: MELATONIN 3 MG TABLET PO SCH (20:44)
--- NOTE | 2019-09-09 22:02 | PDOC ---
Exam Note: David Note: Please also refer to the separate dictated note~for this date of service dictated separately.~Patient seen individually. Discussed the patient with Nursing staff reviewed the chart.~Reviewed interim history and current functioning. Reviewed vital signs,~Labs/ Radiology~and current medications noted below. Continue current treatment with the changes noted in the dictated addendum note Assessment: Vital Signs/I&O: Vital Signs Date Time Temp Pulse Resp B/P (MAP) Pulse Ox O2 Delivery O2 Flow Rate FiO2 09/09/19 20:44 80 145/80 09/09/19 15:33 98.3 18 96 09/08/19 15:48 Room Air I & O 09/08/19 09/08/19 09/09/19 15:00 23:00 07:00 Intake Total 960 ml 240 ml 240 ml Balance 960 ml 240 ml 240 ml Labs: Laboratory Tests Test 09/09/19 06:00 White Blood Count 4.1 x10^3/uL (4.0-11.0) Red Blood Count 4.10 x10^6/uL (3.50-5.40) Hemoglobin 13.1 g/dL (12.0-15.5) Hematocrit 39.9 % (36.0-47.0) Mean Corpuscular Volume 97 fL (79-100) Mean Corpuscular Hemoglobin 32 pg (25-35) Mean Corpuscular Hemoglobin Concent 33 g/dL (31-37) Red Cell Distribution Width 13.8 % (11.5-14.5) Platelet Count 250 x10^3/uL (140-400) Neutrophils (%) (Auto) 61 % (31-73) Lymphocytes (%) (Auto) 20 % (24-48) L Monocytes (%) (Auto) 10 % (0-9) H Eosinophils (%) (Auto) 8 % (0-3) H Basophils (%) (Auto) 1 % (0-3) Neutrophils # (Auto) 2.5 x10^3uL (1.8-7.7) Lymphocytes # (Auto) 0.8 x10^3/uL (1.0-4.8) L Monocytes # (Auto) 0.4 x10^3/uL (0.0-1.1) Eosinophils # (Auto) 0.3 x10^3/uL (0.0-0.7) Basophils # (Auto) 0.0 x10^3/uL (0.0-0.2) Sodium Level 141 mmol/L (136-145) Potassium Level 4.2 mmol/L (3.5-5.1) Chloride Level 106 mmol/L (98-107) Carbon Dioxide Level 32 mmol/L (21-32) Anion Gap 3 (6-14) L Blood Urea Nitrogen 28 mg/dL (7-20) H Creatinine 0.8 mg/dL (0.6-1.0) Estimated GFR (Cockcroft-Gault) 70.7 BUN/Creatinine Ratio 35 (6-20) H Glucose Level 77 mg/dL (70-99) Calcium Level 8.8 mg/dL (8.5-10.1) Total Bilirubin 0.3 mg/dL (0.2-1.0) Aspartate Amino Transferase (AST) 18 U/L (15-37) Alanine Aminotransferase (ALT) 19 U/L (14-59) Alkaline Phosphatase 94 U/L (46-116) Total Protein 6.7 g/dL (6.4-8.2) Albumin 2.9 g/dL (3.4-5.0) L Albumin/Globulin Ratio 0.8 (1.0-1.7) L Valproic Acid Level 58 mcg/mL (50-100) Valproic Acid Last Dose Date 09/08/2019 Valproic Acid Last Dose Time 2100 Current Medications: Meds: Current Medications Medications (Trade) Dose Ordered Sig/Bindu Route PRN Reason Start Time Stop Time Status Last Admin Dose Admin Sertraline HCl (Zoloft) 75 mg DAILY PO 09/09/19 09:00 09/09/19 08:45 I have reviewed the current psychotropics carefully including drug interactions. Risk benefit ratio favors no change other than as noted in my dictated progress note. Diagnosis: Problems: (1) Impulse control disorder, unspecified (2) Anxiety disorder, unspecified (3) Dementia, vascular, with depression (4) Dementia, vascular, with delusions (5) Dementia in Alzheimer's disease with depression (6) Dementia in Alzheimer's disease with delusions (7) Major neurocognitive disorder, due to vascular disease, with behavioral disturbance, mild NAEEM SADLER MD Sep 09, 2019 22:02
--- NOTE | 2019-09-10 01:41 | NUR ---
Nursing Note The patient was located in the day room for her assessment and medication pass. The patient was calm and compliant for her assessment and medication pass. the patient took her medication whole floated in ice cream. The patient was disorganized but pleasant during her assessment. The patient became increasingly agitated as HS neared. The patient received PRN Zyprexa@ HS per PRN order. The patient is currently sleeping in her room.
[2019-09-10 06:40] VITALS: BP 127/81
--- NOTE | 2019-09-10 07:06 | PDOC ---
Exam Note: David Note: This note is a late entry for 09/07/2019 covers elements not covered in my initial note. Subjective: The patient was seen individually in the evening of 09/07/2019. Per Sotero COHN, she slept 5-3/4 hours previous night. She remains calmer, still delusional, making statements is that baby supposed to be out for so long. Review of Systems: Ambulation impaired, in Broda chair. No CV, , pulmonary, eye, ENT system symptoms on review. Reliability poor. Mental Status Exam: Oriented to herself. Insight and judgment, recent and remote memory, attention and concentration, fund of knowledge is poor consistent with her diagnoses. Laboratory Data: Reviewed. Impression: Major neurocognitive disorder Alzheimer, vascular with delusion. Anxiety disorder unspecified. Impulse control disorder unspecified. Plan: No change from prior note. Assessment: Vital Signs/I&O: Vital Signs Date Time Temp Pulse Resp B/P (MAP) Pulse Ox O2 Delivery O2 Flow Rate FiO2 09/10/19 06:40 97.4 86 16 127/81 (96) 98 09/08/19 15:48 Room Air I & O 09/09/19 09/09/19 09/10/19 15:00 23:00 07:00 Intake Total 720 ml 600 ml Balance 720 ml 600 ml Current Medications: Meds: Current Medications Medications (Trade) Dose Ordered Sig/Bindu Route PRN Reason Start Time Stop Time Status Last Admin Dose Admin Sertraline HCl (Zoloft) 75 mg DAILY PO 09/09/19 09:00 09/09/19 08:45 I have reviewed the current psychotropics carefully including drug interactions. Risk benefit ratio favors no change other than as noted in my dictated progress note. Diagnosis: Problems: (1) Impulse control disorder, unspecified (2) Anxiety disorder, unspecified (3) Dementia, vascular, with depression (4) Dementia, vascular, with delusions (5) Dementia in Alzheimer's disease with depression (6) Dementia in Alzheimer's disease with delusions (7) Major neurocognitive disorder, due to vascular disease, with behavioral disturbance, mild NAEEM SADLER MD Sep 10, 2019 07:06
--- NOTE | 2019-09-10 07:32 | PDOC ---
Exam Note: David Note: This note is a late entry for 09/08/2019 covers elements not covered in my initial note. Subjective: The patient was seen individually in the morning of 09/08/2019 with treatment team meeting with Marc (social service staff), [facility] staff. Sleeping average 6 hours. Appetite is 100%. She remains hyperverbal and is in a Carmelo lift. Discussed with Mandie COHN on rounds in the evening. She was tearful, restless during the middle of lunch, later calmer. She remains confused. Review of Systems: Ambulation impaired, in Broda chair. No CV, , pulmonary, eye, ENT system symptoms on review. Reliability poor. Mental Status Exam: Oriented to herself. Insight and judgment, recent and remote memory, attention and concentration, fund of knowledge is poor consistent with her diagnoses. Laboratory Data: Reviewed. Impression: Major neurocognitive disorder Alzheimer, vascular with delusion. Anxiety disorder unspecified. Impulse control disorder unspecified. Plan: Increase Zoloft from 50 mg a day to 75 mg a day. Rest unchanged for now. Assessment: Vital Signs/I&O: Vital Signs Date Time Temp Pulse Resp B/P (MAP) Pulse Ox O2 Delivery O2 Flow Rate FiO2 09/10/19 06:40 97.4 86 16 127/81 (96) 98 09/08/19 15:48 Room Air I & O 09/09/19 09/09/19 09/10/19 15:00 23:00 07:00 Intake Total 720 ml 600 ml Balance 720 ml 600 ml Current Medications: Meds: Current Medications Medications (Trade) Dose Ordered Sig/Bindu Route PRN Reason Start Time Stop Time Status Last Admin Dose Admin Sertraline HCl (Zoloft) 75 mg DAILY PO 09/09/19 09:00 09/09/19 08:45 I have reviewed the current psychotropics carefully including drug interactions. Risk benefit ratio favors no change other than as noted in my dictated progress note. Diagnosis: Problems: (1) Impulse control disorder, unspecified (2) Anxiety disorder, unspecified (3) Dementia, vascular, with depression (4) Dementia, vascular, with delusions (5) Dementia in Alzheimer's disease with depression (6) Dementia in Alzheimer's disease with delusions (7) Major neurocognitive disorder, due to vascular disease, with behavioral disturbance, mild NAEEM SADLER MD Sep 10, 2019 07:32
[2019-09-10] MEDS: risperiDONE 0.5 MG TABLET. PO SCH ×2 (08:16→15:00)
[2019-09-10] MEDS: LACTOBACILLUS RHAMNOSUS GG 1 CAPSULE. PO SCH ×2 (08:16→20:40)
[2019-09-10] MEDS: FUROSEMIDE 20 MG TABLET PO SCH (08:16)
[2019-09-10] MEDS: SERTRALINE 50 MG TABLET. PO SCH (08:16)
[2019-09-10] MEDS: THIAMINE 100 MG TABLET. PO SCH (08:17)
[2019-09-10] MEDS: POTASSIUM CHLORIDE 10 MEQ TABLET.ER. PO SCH (08:17)
[2019-09-10] MEDS: DIVALPROEX 125 MG CAP.SPRINK PO SCH ×3 (08:17→20:39)
[2019-09-10] MEDS: MULTIVITAMIN with MINERAL TABLET. PO SCH (08:17)
[2019-09-10] MEDS: SENNOSIDES/DOCUSATE 8.6/50MG TABLET. PO SCH ×2 (08:17→20:40)
[2019-09-10] MEDS: hydrALAZINE 25 MG TABLET PO SCH ×2 (08:17→20:40)
[2019-09-10] MEDS: ASCORBIC ACID 500 MG TABLET PO SCH (08:18)
--- NOTE | 2019-09-10 09:44 | NUR ---
Patient resistive to medication. Patient compliant with assessment. Patient anxious and is intrusively socializing with people.
[2019-09-10 15:55] VITALS: BP 114/68
[2019-09-10] MEDS: DOXEPIN HCL 25 MG CAPSULE PO SCH (20:39)
[2019-09-10] MEDS: MELATONIN 3 MG TABLET PO SCH (20:39)
--- NOTE | 2019-09-10 22:11 | PDOC ---
Exam Note: David Note: Please also refer to the separate dictated note~for this date of service dictated separately.~Patient seen individually. Discussed the patient with Nursing staff reviewed the chart.~Reviewed interim history and current functioning. Reviewed vital signs,~Labs/ Radiology~and current medications noted below. Continue current treatment with the changes noted in the dictated addendum note Assessment: Vital Signs/I&O: Vital Signs Date Time Temp Pulse Resp B/P (MAP) Pulse Ox O2 Delivery O2 Flow Rate FiO2 09/10/19 20:40 104 114/68 09/10/19 15:55 98.4 24 96 09/08/19 15:48 Room Air I & O 09/09/19 09/09/19 09/10/19 15:00 23:00 07:00 Intake Total 720 ml 600 ml Balance 720 ml 600 ml Current Medications: I have reviewed the current psychotropics carefully including drug interactions. Risk benefit ratio favors no change other than as noted in my dictated progress note. Diagnosis: Problems: (1) Impulse control disorder, unspecified (2) Anxiety disorder, unspecified (3) Dementia, vascular, with depression (4) Dementia, vascular, with delusions (5) Dementia in Alzheimer's disease with delusions (6) Major neurocognitive disorder, due to vascular disease, with behavioral disturbance, mild (7) Dementia in Alzheimer's disease with depression NAEEM SADLER MD Sep 10, 2019 22:11
--- NOTE | 2019-09-10 23:49 | NUR ---
Nursing Note The patient was located in the day room for her assessment and medication pass. The patient took her medication whole floated in chocolate ice cream. The patient remains very disorganized but is typically easy to redirect. The patient is currently sleeping in her room.
[2019-09-11 06:30] VITALS: BP 132/67
--- NOTE | 2019-09-11 07:09 | PDOC ---
Exam Note: David Note: This note is a late entry for 09/09/2019 covers elements not covered in my initial note. Subjective: The patient was seen individually in the evening of 09/09/2019. Per Mandie COHN, she slept 5-3/4 hours previous night. Valproic acid level is therapeutic at 58. The patient remains confused, overall better. She slept well, drowsy at times, not very verbal. Review of Systems: Ambulation impaired, in Broda chair. No CV, , pulmonary, eye, ENT system symptoms on review. Mental Status Exam: Oriented to herself. Insight and judgment, recent and remote memory, attention and concentration, fund of knowledge is poor consistent with her diagnoses. Laboratory Data: Reviewed. Impression: Major neurocognitive disorder Alzheimer, vascular with delusion. Anxiety disorder unspecified. Impulse control disorder unspecified. Plan: No change from initial note. Assessment: Vital Signs/I&O: Vital Signs Date Time Temp Pulse Resp B/P (MAP) Pulse Ox O2 Delivery O2 Flow Rate FiO2 09/11/19 06:30 97.2 81 18 132/67 (88) 94 Room Air I & O 09/10/19 09/10/19 09/11/19 15:00 23:00 07:00 Intake Total 960 ml 360 ml Balance 960 ml 360 ml Current Medications: I have reviewed the current psychotropics carefully including drug interactions. Risk benefit ratio favors no change other than as noted in my dictated progress note. Diagnosis: Problems: (1) Impulse control disorder, unspecified (2) Anxiety disorder, unspecified (3) Dementia, vascular, with depression (4) Dementia, vascular, with delusions (5) Dementia in Alzheimer's disease with depression (6) Dementia in Alzheimer's disease with delusions (7) Major neurocognitive disorder, due to vascular disease, with behavioral disturbance, mild NAEEM SADLER MD Sep 11, 2019 07:09
--- NOTE | 2019-09-11 07:31 | PDOC ---
Exam Note: David Note: This note is a late entry for 09/10/2019 covers elements not covered in my initial note. Subjective: The patient was seen individually in the evening of 09/10/2019. Per Armen COHN, she slept 4-1/2 hours previous night. She did better earlier in the day, then was agitated, restless, up and down the hallway in the Broda chair. I followed her along. Received Zyprexa at 3.30 p.m. p.r.n. She is resistive to meds, takes it in chocolate syrup. Review of Systems: Ambulation impaired, in Broda chair. No CV, , pulmonary, eye, ENT system symptoms on review. Reliability poor. Mental Status Exam: Oriented to herself. Insight and judgment, recent and remote memory, attention and concentration, fund of knowledge is poor consistent with her diagnoses. Laboratory Data: Reviewed. Impression: Major neurocognitive disorder Alzheimer, vascular with delusion. Anxiety disorder unspecified. Impulse control disorder unspecified. Plan: No change from initial note. Assessment: Vital Signs/I&O: Vital Signs Date Time Temp Pulse Resp B/P (MAP) Pulse Ox O2 Delivery O2 Flow Rate FiO2 09/11/19 06:30 97.2 81 18 132/67 (88) 94 Room Air I & O 09/10/19 09/10/19 09/11/19 15:00 23:00 07:00 Intake Total 960 ml 360 ml Balance 960 ml 360 ml Current Medications: I have reviewed the current psychotropics carefully including drug interactions. Risk benefit ratio favors no change other than as noted in my dictated progress note. Diagnosis: Problems: (1) Impulse control disorder, unspecified (2) Anxiety disorder, unspecified (3) Dementia, vascular, with depression (4) Dementia, vascular, with delusions (5) Dementia in Alzheimer's disease with depression (6) Dementia in Alzheimer's disease with delusions (7) Major neurocognitive disorder, due to vascular disease, with behavioral disturbance, mild NAEEM SADLER MD Sep 11, 2019 07:31
[2019-09-11] MEDS: SERTRALINE 50 MG TABLET. PO SCH (08:15)
[2019-09-11] MEDS: ASCORBIC ACID 500 MG TABLET PO SCH (08:16)
[2019-09-11] MEDS: FUROSEMIDE 20 MG TABLET PO SCH (08:16)
[2019-09-11] MEDS: SENNOSIDES/DOCUSATE 8.6/50MG TABLET. PO SCH ×2 (08:16→20:09)
[2019-09-11] MEDS: risperiDONE 0.5 MG TABLET. PO SCH ×2 (08:16→15:25)
[2019-09-11] MEDS: DIVALPROEX 125 MG CAP.SPRINK PO SCH ×3 (08:16→20:09)
[2019-09-11] MEDS: LACTOBACILLUS RHAMNOSUS GG 1 CAPSULE. PO SCH ×2 (08:16→20:09)
[2019-09-11] MEDS: POTASSIUM CHLORIDE 10 MEQ TABLET.ER. PO SCH (08:16)
[2019-09-11] MEDS: THIAMINE 100 MG TABLET. PO SCH (08:17)
[2019-09-11] MEDS: hydrALAZINE 25 MG TABLET PO SCH ×2 (08:17→20:08)
[2019-09-11] MEDS: MULTIVITAMIN with MINERAL TABLET. PO SCH (08:17)
--- NOTE | 2019-09-11 09:07 | NUR ---
Patient calm and compliant this morning. Patient willing to have medications with chocolate syrup. Patient socializing with other people.
[2019-09-11 16:29] VITALS: BP 112/72
[2019-09-11] MEDS: DOXEPIN HCL 25 MG CAPSULE PO SCH (20:08)
[2019-09-11] MEDS: MELATONIN 3 MG TABLET PO SCH (20:09)
--- NOTE | 2019-09-11 22:18 | PDOC ---
Exam Note: David Note: Please also refer to the separate dictated note~for this date of service dictated separately.~Patient seen individually. Discussed the patient with Nursing staff reviewed the chart.~Reviewed interim history and current functioning. Reviewed vital signs,~Labs/ Radiology~and current medications noted below. Continue current treatment with the changes noted in the dictated addendum note Assessment: Vital Signs/I&O: Vital Signs Date Time Temp Pulse Resp B/P (MAP) Pulse Ox O2 Delivery O2 Flow Rate FiO2 09/11/19 20:08 100 112/72 09/11/19 16:29 98.0 16 96 09/11/19 06:30 Room Air I & O 09/10/19 09/10/19 09/11/19 14:59 22:59 06:59 Intake Total 960 ml 360 ml Balance 960 ml 360 ml Current Medications: I have reviewed the current psychotropics carefully including drug interactions. Risk benefit ratio favors no change other than as noted in my dictated progress note. Diagnosis: Problems: (1) Impulse control disorder, unspecified (2) Anxiety disorder, unspecified (3) Dementia, vascular, with depression (4) Dementia, vascular, with delusions (5) Dementia in Alzheimer's disease with depression (6) Dementia in Alzheimer's disease with delusions (7) Major neurocognitive disorder, due to vascular disease, with behavioral disturbance, mild NAEEM SADLER MD Sep 11, 2019 22:18
[2019-09-12 04:58] VITALS: BP 145/97
[2019-09-12] MEDS: DIVALPROEX 125 MG CAP.SPRINK PO SCH ×3 (08:28→19:57)
[2019-09-12] MEDS: MULTIVITAMIN with MINERAL TABLET. PO SCH (08:28)
[2019-09-12] MEDS: risperiDONE 0.5 MG TABLET. PO SCH ×2 (08:28→14:13)
[2019-09-12] MEDS: THIAMINE 100 MG TABLET. PO SCH (08:29)
[2019-09-12] MEDS: SERTRALINE 50 MG TABLET. PO SCH (08:29)
[2019-09-12] MEDS: LACTOBACILLUS RHAMNOSUS GG 1 CAPSULE. PO SCH ×2 (08:29→19:57)
[2019-09-12] MEDS: FUROSEMIDE 20 MG TABLET PO SCH (08:29)
[2019-09-12] MEDS: ASCORBIC ACID 500 MG TABLET PO SCH (08:29)
[2019-09-12] MEDS: SENNOSIDES/DOCUSATE 8.6/50MG TABLET. PO SCH ×2 (08:30→19:58)
[2019-09-12] MEDS: POTASSIUM CHLORIDE 10 MEQ TABLET.ER. PO SCH (08:30)
[2019-09-12] MEDS: hydrALAZINE 25 MG TABLET PO SCH ×2 (08:30→19:57)
--- NOTE | 2019-09-12 09:49 | PDOC ---
Exam Note: David Note: This note is a late entry for 09/11/2019 covers elements not covered in my initial note. Subjective: The patient was seen individually in the evening of 09/11/2019. Per Armen COHN, she slept 6-1/2 hours previous night. She has been confused, pushing herself around the unit in her wheelchair, agitated around noon time asking for Bianca. She did receive Zyprexa p.r.n. and then did better, took a nap. Review of Systems: Ambulation impaired, in Broda chair. No CV, , pulmonary, eye, ENT system symptoms on review. Mental Status Exam: Oriented to herself. Insight and judgment, recent and remote memory, attention and concentration, fund of knowledge is poor consistent with her diagnoses. Laboratory Data: Reviewed. Impression: Major neurocognitive disorder Alzheimer, vascular with delusion. Anxiety disorder unspecified. Impulse control disorder unspecified. Plan: No change from initial note. Assessment: Vital Signs/I&O: Vital Signs Date Time Temp Pulse Resp B/P (MAP) Pulse Ox O2 Delivery O2 Flow Rate FiO2 09/12/19 08:30 86 145/97 09/12/19 04:58 97.2 16 96 09/11/19 06:30 Room Air I & O0 09/11/19 09/11/19 09/12/19 15:00 23:00 07:00 Intake Total 960 ml 700 ml Balance 960 ml 700 ml Current Medications: I have reviewed the current psychotropics carefully including drug interactions. Risk benefit ratio favors no change other than as noted in my dictated progress note. Diagnosis: Problems: (1) Impulse control disorder, unspecified (2) Anxiety disorder, unspecified (3) Dementia, vascular, with depression (4) Dementia, vascular, with delusions (5) Dementia in Alzheimer's disease with depression (6) Dementia in Alzheimer's disease with delusions (7) Major neurocognitive disorder, due to vascular disease, with behavioral disturbance, mild NAEEM SADLER MD Sep 12, 2019 09:49
--- NOTE | 2019-09-12 11:29 | NUR ---
Nursing note: Pt in dining room for morning meds and assessment. She was in pleasant spirits, compliant with meds whole, and cooperative with her assessment. Pt was delusional, thinking other pts are Pal [place]osa and Ángel. She thinks she is about to get on a plane and is wondering how to schedule the flight and how to call her family to tell them where she's at. Pt was able to be redirected. She is currently sitting quietly in the day room. Will continue to monitor.
--- NOTE | 2019-09-12 14:46 | NUR ---
Nursing note: Pt hallucinating and yelling out. She is unable to be redirected. PRN given. Will continue to monitor.
[2019-09-12 16:41] VITALS: BP 116/65
[2019-09-12] MEDS: DOXEPIN HCL 25 MG CAPSULE PO SCH (19:57)
[2019-09-12] MEDS: MELATONIN 3 MG TABLET PO SCH (19:58)
--- NOTE | 2019-09-12 20:52 | NUR ---
Pt sitting in day room at shift change. Pt calm and social but disorganized and confused as well. Pt cooperative with assessment and compliant with medications administered whole. Pt believes that we are leaving tonight, heading to [place].
--- NOTE | 2019-09-12 22:15 | PDOC ---
Exam Note: David Note: Please also refer to the separate dictated note~for this date of service dictated separately.~Patient seen individually. Discussed the patient with Nursing staff reviewed the chart.~Reviewed interim history and current functioning. Reviewed vital signs,~Labs/ Radiology~and current medications noted below. Continue current treatment with the changes noted in the dictated addendum note Assessment: Vital Signs/I&O: Vital Signs Date Time Temp Pulse Resp B/P (MAP) Pulse Ox O2 Delivery O2 Flow Rate FiO2 09/12/19 19:57 81 116/65 09/12/19 16:41 97.9 20 97 09/11/19 06:30 Room Air I & O 09/11/19 09/11/19 09/12/19 15:00 23:00 07:00 Intake Total 960 ml 700 ml Balance 960 ml 700 ml Current Medications: I have reviewed the current psychotropics carefully including drug interactions. Risk benefit ratio favors no change other than as noted in my dictated progress note. Diagnosis: Problems: (1) Impulse control disorder, unspecified (2) Anxiety disorder, unspecified (3) Dementia, vascular, with depression (4) Dementia, vascular, with delusions (5) Dementia in Alzheimer's disease with depression (6) Dementia in Alzheimer's disease with delusions (7) Major neurocognitive disorder, due to vascular disease, with behavioral disturbance, mild NAEEM SADLER MD Sep 12, 2019 22:15
[2019-09-12 23:24] LABS: BACTERIA,URINE MOD /HPF (0-FEW); BILIRUBIN,URINE NEG (NEG); CLARITY,URINE CLOUDY; COLOR,URINE YELLOW; GLUCOSE,URINE NEG (NEG); NITRITE,URINE POS (NEG); RBC,URINE 0 /HPF (0-2); SQUAMOUS EPITHELIAL CELL,UR OCC /LPF; UROBILINOGEN,URINE 0.2 mg/dL (0.2 mg/dL)
[2019-09-13 05:32] VITALS: BP 135/82
--- NOTE | 2019-09-13 07:20 | PDOC ---
Exam Note: David Note: This note is a late entry for 09/12/2019 covers elements not covered in my initial note. Subjective: The patient was seen individually in the evening of 09/12/2019. Per Mandie COHN, she slept 6-3/4 hours previous night. At 11.45 this morning she was quite agitated anxious, restless, delusional, stating she had to go to work. She did receive Zyprexa, did better, then later in the afternoon was actively hallucinating, restless, anxious, distractible. She received another Zyprexa p.r.n., then again did better. We will repeat UA and make sure she does not have recurrent UTI, explaining her symptoms. I met with her at some length at the dining room. Review of Systems: Ambulation impaired, in Broda chair. No CV, , pulmonary, eye, ENT system symptoms on review. Mental Status Exam: Oriented to herself. Insight and judgment, recent and remote memory, attention and concentration, fund of knowledge is poor consistent with her diagnoses. Laboratory Data: Reviewed. Impression: Major neurocognitive disorder Alzheimer, vascular with delusion. Anxiety disorder unspecified. Impulse control disorder unspecified. Plan: No change from initial note. We will repeat UA and make sure she does not have recurrent UTI, explaining her symptoms. Assessment: Vital Signs/I&O: Vital Signs Date Time Temp Pulse Resp B/P (MAP) Pulse Ox O2 Delivery O2 Flow Rate FiO2 09/13/19 05:32 97.6 99 20 135/82 (99) 97 09/11/19 06:30 Room Air I & O 09/12/19 09/12/19 09/13/19 15:00 23:00 07:00 Intake Total 840 ml 480 ml 240 ml Output Total 1300 ml Balance 840 ml 480 ml -1060 ml Labs: Laboratory Tests Test 09/12/19 22:30 Urine Collection Type Unknown Urine Color Yellow Urine Clarity Cloudy Urine pH 7.0 Urine Specific [place] 1.025 Urine Protein Neg (NEG-TRACE) Urine Glucose (UA) Neg mg/dL (NEG) Urine Ketones (Stick) Neg mg/dL (NEG) Urine Blood Neg (NEG) Urine Nitrite Pos (NEG) Urine Bilirubin Neg (NEG) Urine Urobilinogen Dipstick 0.2 mg/dL (0.2 mg/dL) Urine Leukocyte Esterase Neg (NEG) Urine RBC 0 /HPF (0-2) Urine WBC 11-20 /HPF (0-4) Urine Squamous Epithelial Cells Occ /LPF Urine Bacteria Mod /HPF (0-FEW) Current Medications: I have reviewed the current psychotropics carefully including drug interactions. Risk benefit ratio favors no change other than as noted in my dictated progress note. Diagnosis: Problems: (1) Impulse control disorder, unspecified (2) Anxiety disorder, unspecified (3) Dementia, vascular, with depression (4) Dementia, vascular, with delusions (5) Dementia in Alzheimer's disease with depression (6) Dementia in Alzheimer's disease with delusions (7) Major neurocognitive disorder, due to vascular disease, with behavioral disturbance, mild NAEEM SADLER MD Sep 13, 2019 07:20
[2019-09-13] MEDS: ASCORBIC ACID 500 MG TABLET PO SCH (08:00)
[2019-09-13] MEDS: FUROSEMIDE 20 MG TABLET PO SCH (08:01)
[2019-09-13] MEDS: SERTRALINE 50 MG TABLET. PO SCH (08:01)
[2019-09-13] MEDS: SENNOSIDES/DOCUSATE 8.6/50MG TABLET. PO SCH ×2 (08:02→19:28)
[2019-09-13] MEDS: THIAMINE 100 MG TABLET. PO SCH (08:02)
[2019-09-13] MEDS: POTASSIUM CHLORIDE 10 MEQ TABLET.ER. PO SCH (08:02)
[2019-09-13] MEDS: DIVALPROEX 125 MG CAP.SPRINK PO SCH ×3 (08:02→19:27)
[2019-09-13] MEDS: LACTOBACILLUS RHAMNOSUS GG 1 CAPSULE. PO SCH ×2 (08:02→19:27)
[2019-09-13] MEDS: risperiDONE 0.5 MG TABLET. PO SCH ×2 (08:03→14:30)
[2019-09-13] MEDS: MULTIVITAMIN with MINERAL TABLET. PO SCH (08:03)
[2019-09-13] MEDS: hydrALAZINE 25 MG TABLET PO SCH ×2 (08:03→19:28)
--- NOTE | 2019-09-13 08:50 | NUR ---
Wound Care patient seen for a f/u of Wound care consult. see wound assessment. patient has two pressure ulcers to the right foot and an abrasion to the left great toe. patient has a stage 3 pressure ulcer to the left ischium, the wounds were all cleaned, measured and redressed. Recommendations to the foot wounds of Xeroform gauze with gauze, Kerlix and tape, change every 2-3 days, and the left ischium of Calazime cream, prn. Wheel chair cushion placed in wheel chair as the bars under the seat were putting pressure on pt ischium. WC will continue to follow for possible changes. Pt unable to retain teaching of PU prevention due to mental status, please continue to reinforce. Notified RN about the POC and wound care will continue to f/u for changes.
--- NOTE | 2019-09-13 11:45 | NUR ---
Patient is getting restless and increasingly agitated. She is following staff, asking them to either give her a ride or give her her keys; she states she has to get back to [place]. Patient is very resistive to redirection. Attempted to provide prn medication, patient refused and knocked it on the floor. Second dose pulled and provided sublingually. Will continue to monitor.
--- NOTE | 2019-09-13 15:30 | NUR ---
Patient has been increasingly agitated, exit seeking, and door checking. She was combative with staff; 4 staff members required to change her dirty brief. PRN medication provided per eMAR, will continue to monitor,
[2019-09-13 19:18] VITALS: BP 108/70
[2019-09-13] MEDS: DOXEPIN HCL 25 MG CAPSULE PO SCH (19:27)
[2019-09-13] MEDS: MELATONIN 3 MG TABLET PO SCH (19:28)
--- NOTE | 2019-09-13 21:21 | NUR ---
Pt sitting in day room at shift change. Pt confused, disorganized, and delusional- thinks she is working but doesn't want anyone else to help her with the project that she is working on. Pt cooperative with assessment and compliant with medications administered whole.
--- NOTE | 2019-09-13 22:04 | PDOC ---
Exam Note: David Note: Please also refer to the separate dictated note~for this date of service dictated separately.~Patient seen individually. Discussed the patient with Nursing staff reviewed the chart.~Reviewed interim history and current functioning. Reviewed vital signs,~Labs/ Radiology~and current medications noted below. Continue current treatment with the changes noted in the dictated addendum note Assessment: Vital Signs/I&O: Vital Signs Date Time Temp Pulse Resp B/P (MAP) Pulse Ox O2 Delivery O2 Flow Rate FiO2 09/13/19 19:28 84 108/70 09/13/19 19:18 18 93 Room Air 09/13/19 05:32 97.6 I & O 09/12/19 09/12/19 09/13/19 15:00 23:00 07:00 Intake Total 840 ml 480 ml 240 ml Output Total 1300 ml Balance 840 ml 480 ml -1060 ml Labs: Laboratory Tests Test 09/12/19 22:30 Urine Collection Type Unknown Urine Color Yellow Urine Clarity Cloudy Urine pH 7.0 Urine Specific [place] 1.025 Urine Protein Neg (NEG-TRACE) Urine Glucose (UA) Neg mg/dL (NEG) Urine Ketones (Stick) Neg mg/dL (NEG) Urine Blood Neg (NEG) Urine Nitrite Pos (NEG) Urine Bilirubin Neg (NEG) Urine Urobilinogen Dipstick 0.2 mg/dL (0.2 mg/dL) Urine Leukocyte Esterase Neg (NEG) Urine RBC 0 /HPF (0-2) Urine WBC 11-20 /HPF (0-4) Urine Squamous Epithelial Cells Occ /LPF Urine Bacteria Mod /HPF (0-FEW) Current Medications: I have reviewed the current psychotropics carefully including drug interactions. Risk benefit ratio favors no change other than as noted in my dictated progress note. Diagnosis: Problems: (1) Impulse control disorder, unspecified (2) Anxiety disorder, unspecified (3) Dementia, vascular, with depression (4) Dementia, vascular, with delusions (5) Dementia in Alzheimer's disease with depression (6) Dementia in Alzheimer's disease with delusions (7) Major neurocognitive disorder, due to vascular disease, with behavioral disturbance, mild NAEEM SADLER MD Sep 13, 2019 22:04
[2019-09-14 05:18] VITALS: BP 163/87
--- NOTE | 2019-09-14 07:01 | PDOC ---
Exam Note: David Note: This note is a late entry for 09/13/2019 covers elements not covered in my initial note. Subjective: The patient was seen individually in the evening of 09/13/2019. Per Guanako COHN, she slept 6 hours previous night. Per nursing report the patient was somewhat delusional, agitated yesterday, repeatedly talking about wanting to get back to [place]. Today she received Zyprexa twice, once at 11.30 a.m. and then at 15.30. She is agitated wanting to leave. Urine has reflex to culture and this may be causing some of her agitation. She takes her medications intermittently. Review of Systems: Ambulation impaired, in Broda chair. No CV, , pulmonary, eye, ENT system symptoms on review. Mental Status Exam: Oriented to herself. Insight and judgment, recent and remote memory, attention and concentration, fund of knowledge is poor consistent with her diagnoses. Laboratory Data: Reviewed. Impression: Major neurocognitive disorder Alzheimer, vascular with delusion. Anxiety disorder unspecified. Impulse control disorder unspecified. Plan: No change from initial note. We will await the urine C&S. If positive treat the UTI and this may help improve agitation as well. Assessment: Vital Signs/I&O: Vital Signs Date Time Temp Pulse Resp B/P (MAP) Pulse Ox O2 Delivery O2 Flow Rate FiO2 09/14/19 05:18 97.3 86 18 163/87 (112) 98 Room Air I & O 09/13/19 09/13/19 09/14/19 15:00 23:00 07:00 Intake Total 720 ml 720 ml Balance 720 ml 720 ml Current Medications: I have reviewed the current psychotropics carefully including drug interactions. Risk benefit ratio favors no change other than as noted in my dictated progress note. Diagnosis: Problems: (1) Impulse control disorder, unspecified (2) Anxiety disorder, unspecified (3) Dementia, vascular, with depression (4) Dementia, vascular, with delusions (5) Dementia in Alzheimer's disease with depression (6) Dementia in Alzheimer's disease with delusions (7) Major neurocognitive disorder, due to vascular disease, with behavioral disturbance, mild NAEEM SADLER MD Sep 14, 2019 07:00
[2019-09-14] MEDS: FUROSEMIDE 20 MG TABLET PO SCH (08:13)
[2019-09-14] MEDS: ASCORBIC ACID 500 MG TABLET PO SCH (08:13)
[2019-09-14] MEDS: THIAMINE 100 MG TABLET. PO SCH (08:14)
[2019-09-14] MEDS: LACTOBACILLUS RHAMNOSUS GG 1 CAPSULE. PO SCH ×2 (08:14→19:58)
[2019-09-14] MEDS: MULTIVITAMIN with MINERAL TABLET. PO SCH (08:14)
[2019-09-14] MEDS: SERTRALINE 50 MG TABLET. PO SCH (08:15)
[2019-09-14] MEDS: risperiDONE 0.5 MG TABLET. PO SCH ×2 (08:15→14:35)
[2019-09-14] MEDS: POTASSIUM CHLORIDE 10 MEQ TABLET.ER. PO SCH (08:15)
[2019-09-14] MEDS: DIVALPROEX 125 MG CAP.SPRINK PO SCH ×3 (08:15→19:58)
[2019-09-14] MEDS: hydrALAZINE 25 MG TABLET PO SCH ×2 (08:16→19:58)
[2019-09-14] MEDS: SENNOSIDES/DOCUSATE 8.6/50MG TABLET. PO SCH ×2 (08:16→19:59)
[2019-09-14] MEDS: ACETAMINOPHEN 325 MG TABLET PO PRN (13:11)
[2019-09-14 16:45] VITALS: BP 107/69
[2019-09-14] MEDS: busPIRone 5 MG TABLET. PO SCH (17:35)
--- NOTE | 2019-09-14 18:30 | NUR ---
Patient has been restless, delusional, wandering, exit seeking for most of this shift. She was redirectable, but became increasingly agitated after lunch. PRN provided per eMAR, patient became less agitated but spent mos tof the afternoon exit seeking and wandering; she stated at various times that she was trying to find a place to 'park this thing' referring to her wheelchair, trying to get to a pile of supplies in the other building, or trying to find Domenic. Patient calmer after dinner; she is currently resting quietly in bed. Bandages to wounds on bilateral feet changed after supper. Both feet were washed, dressed, and bandaged per wound care instructions. Tubi-payroll manager applied to both feet extending to just below her knees. Patient tolerated procedure very well.
[2019-09-14 19:53] VITALS: BP 124/73
[2019-09-14] MEDS: DOXEPIN HCL 25 MG CAPSULE PO SCH (19:58)
[2019-09-14] MEDS: MELATONIN 3 MG TABLET PO SCH (20:00)
--- NOTE | 2019-09-14 22:13 | PDOC ---
Exam Note: David Note: Please also refer to the separate dictated note~for this date of service dictated separately.~Patient seen individually. Discussed the patient with Nursing staff reviewed the chart.~Reviewed interim history and current functioning. Reviewed vital signs,~Labs/ Radiology~and current medications noted below. Continue current treatment with the changes noted in the dictated addendum note Assessment: Vital Signs/I&O: Vital Signs Date Time Temp Pulse Resp B/P (MAP) Pulse Ox O2 Delivery O2 Flow Rate FiO2 09/14/19 19:58 98 124/73 09/14/19 19:53 97.5 18 97 Room Air I & O 09/13/19 09/13/19 09/14/19 15:00 23:00 07:00 Intake Total 720 ml 720 ml Balance 720 ml 720 ml Current Medications: Meds: Current Medications Medications (Trade) Dose Ordered Sig/Bindu Route PRN Reason Start Time Stop Time Status Last Admin Dose Admin Buspirone HCl (Buspar) 5 mg 0900,1700 PO 09/14/19 17:00 09/14/19 17:35 I have reviewed the current psychotropics carefully including drug interactions. Risk benefit ratio favors no change other than as noted in my dictated progress note. Diagnosis: Problems: (1) Impulse control disorder, unspecified (2) Anxiety disorder, unspecified (3) Dementia, vascular, with depression (4) Dementia, vascular, with delusions (5) Dementia in Alzheimer's disease with depression (6) Dementia in Alzheimer's disease with delusions (7) Major neurocognitive disorder, due to vascular disease, with behavioral disturbance, mild NAEEM SADLER MD Sep 14, 2019 22:13
--- NOTE | 2019-09-14 22:22 | NUR ---
Pt lying in bed with eyes closed upon approach. Pt calm, pleasantly confused, and interactive. Pt cooperative with assessment and compliant with medications administered whole.
[2019-09-15 05:34] VITALS: BP 157/84
--- NOTE | 2019-09-15 07:16 | PDOC ---
Exam Note: David Note: This note is a late entry for 09/14/2019 covers elements not covered in my initial note. Subjective: The patient was seen individually in the evening of 09/14/2019. Per Guanako COHN, she slept 7-1/2 hours previous night. She remains anxious, restless constantly moving, oblivious of her surroundings. She takes her medications. She has been somewhat delusional during the day today, feels like she has to leave to go to her job. Received Zyprexa at 1.30 p.m. She was wandering, exit seeking, tearful. Review of Systems: Ambulation impaired, in Broda chair. No CV, , pulmonary, eye, ENT system symptoms on review. Mental Status Exam: Oriented to herself. Insight and judgment, recent and remote memory, attention and concentration, fund of knowledge is poor consistent with her diagnoses. Laboratory Data: Reviewed. Impression: Major neurocognitive disorder Alzheimer, vascular with delusion. Anxiety disorder unspecified. Impulse control disorder unspecified. Plan: No change from initial note. Urine C&S is negative. Start BuSpar 5 mg 9.m. and 5 p.m. for her anxiety and agitation. Adjust further as clinically indicated. Assessment: Vital Signs/I&O: Vital Signs Date Time Temp Pulse Resp B/P (MAP) Pulse Ox O2 Delivery O2 Flow Rate FiO2 09/15/19 05:34 97.5 93 18 157/84 (108) 97 Room Air I & O 09/14/19 09/14/19 09/15/19 15:00 23:00 07:00 Intake Total 960 ml 240 ml Balance 960 ml 240 ml Current Medications: Meds: Current Medications Medications (Trade) Dose Ordered Sig/Bindu Route PRN Reason Start Time Stop Time Status Last Admin Dose Admin Buspirone HCl (Buspar) 5 mg 0900,1700 PO 09/14/19 17:00 09/14/19 17:35 I have reviewed the current psychotropics carefully including drug interactions. Risk benefit ratio favors no change other than as noted in my dictated progress note. Diagnosis: Problems: (1) Impulse control disorder, unspecified (2) Anxiety disorder, unspecified (3) Dementia, vascular, with depression (4) Dementia, vascular, with delusions (5) Dementia in Alzheimer's disease with depression (6) Dementia in Alzheimer's disease with delusions (7) Major neurocognitive disorder, due to vascular disease, with behavioral disturbance, mild NAEEM SADLER MD Sep 15, 2019 07:16
[2019-09-15] MEDS: POTASSIUM CHLORIDE 10 MEQ TABLET.ER. PO SCH (08:41)
[2019-09-15] MEDS: FUROSEMIDE 20 MG TABLET PO SCH (08:41)
[2019-09-15] MEDS: hydrALAZINE 25 MG TABLET PO SCH ×2 (08:41→19:57)
[2019-09-15] MEDS: LACTOBACILLUS RHAMNOSUS GG 1 CAPSULE. PO SCH ×2 (08:41→19:51)
[2019-09-15] MEDS: DIVALPROEX 125 MG CAP.SPRINK PO SCH ×3 (08:41→19:51)
[2019-09-15] MEDS: busPIRone 5 MG TABLET. PO SCH ×2 (08:42→16:46)
[2019-09-15] MEDS: ASCORBIC ACID 500 MG TABLET PO SCH (08:42)
[2019-09-15] MEDS: SERTRALINE 50 MG TABLET. PO SCH (08:42)
[2019-09-15] MEDS: risperiDONE 0.5 MG TABLET. PO SCH ×2 (08:42→14:32)
[2019-09-15] MEDS: MULTIVITAMIN with MINERAL TABLET. PO SCH (08:42)
[2019-09-15] MEDS: SENNOSIDES/DOCUSATE 8.6/50MG TABLET. PO SCH ×2 (08:42→19:52)
[2019-09-15] MEDS: THIAMINE 100 MG TABLET. PO SCH (08:43)
--- NOTE | 2019-09-15 09:20 | NUR ---
WEEKLY NOTE: Pt sister Pal participated in tx team via telephone. Pt is eating 100% of meals and sleeping on average 6 hours a night. Pt is very disorganized and restless; continues to wander endless in her w/c through the hallways looking for her sister Pal. It was noted that pt does attend some groups but with minimal participation. Pt is currently medication compliant although it does take some coaxing to take them. SW has sent 7 referrals within the week and was denied by all referrals. Pt and CASSIDY agreed to meet separately at 1600 to discuss the search area and other options for placement.
--- NOTE | 2019-09-15 10:28 | NUR ---
WEEKLY ACTIVITY THERAPY NOTE Date of Admission: 08/04/19 Date of AT Assessment: 08/05/19 Precipitating behaviors that initiated intake and admission: Patient reportedly believes staff are poisoning her; talking to people that aren't there; attempting to bite and kick staff; hitting staff; and hallucinating Goal aimed: to increase sensory stimulation Initial Goal: Pt. will participate in at least one individual Activity Therapy session before discharge. Goal changed 08/18/19: Pt. will participate in at three Activity Therapy group sessions per week Goal changed 08/25/19: Pt. will participate moderately in at least three Activity Therapy Sessions per week. Weekly progress towards goal: did not achieve Group participation level: 5 min, 2 mod Weekly highlights: dancing to music on Thursday Behaviors observed: increased attention towards the end of this week, wanders, confused, doesn't make sense most of the time, restless and difficult to redirect Thursday Plan: no change to goal Beneficial adaptations: direct prompting, simple step by step directions, delightful person, funny
--- NOTE | 2019-09-15 10:50 | NUR ---
Nursing note: Pt in dining room for morning meds and assessment. She was pleasant, compliant with meds whole, and cooperative with her assessment. Pt had no complaints at time of assessment. She is currently sitting in the day room. Will continue to monitor.
[2019-09-15 15:45] VITALS: BP 94/52
--- NOTE | 2019-09-15 18:45 | NUR ---
CASSIDY contacted Pal to profusely apologize for not making the conference call at 1400 as she was tied up with a separate pt and their family. CASSIDY offered to do the conference call now or could reschedule for tomorrow. Pal requested to just reschedule for tomorrow and both parties agreed to meeting at 1200.
[2019-09-15] MEDS: MELATONIN 3 MG TABLET PO SCH (19:52)
[2019-09-15] MEDS: DOXEPIN HCL 25 MG CAPSULE PO SCH (19:57)
--- NOTE | 2019-09-15 22:03 | PDOC ---
Exam Note: David Note: Please also refer to the separate dictated note~for this date of service dictated separately.~Patient seen individually. Discussed the patient with Nursing staff reviewed the chart.~Reviewed interim history and current functioning. Reviewed vital signs,~Labs/ Radiology~and current medications noted below. Continue current treatment with the changes noted in the dictated addendum note Assessment: Vital Signs/I&O: Vital Signs Date Time Temp Pulse Resp B/P (MAP) Pulse Ox O2 Delivery O2 Flow Rate FiO2 09/15/19 19:57 97 120/75 09/15/19 15:45 98.0 20 95 09/15/19 05:34 Room Air I & O 09/14/19 09/14/19 09/15/19 15:00 23:00 07:00 Intake Total 960 ml 240 ml Balance 960 ml 240 ml Current Medications: I have reviewed the current psychotropics carefully including drug interactions. Risk benefit ratio favors no change other than as noted in my dictated progress note. Diagnosis: Problems: (1) Impulse control disorder, unspecified (2) Anxiety disorder, unspecified (3) Dementia, vascular, with depression (4) Dementia, vascular, with delusions (5) Dementia in Alzheimer's disease with depression (6) Dementia in Alzheimer's disease with delusions (7) Major neurocognitive disorder, due to vascular disease, with behavioral disturbance, mild NAEEM SADLER MD Sep 15, 2019 22:03
--- NOTE | 2019-09-16 02:14 | NUR ---
Nursing Note The patient was located in the day room for her assessment and medication pass. The patient was compliant with her medication floated in chocolate ice cream. The patient was interactive with this nurse during her assessment but was very disorganized. The patient is currently sleeping in her room.
[2019-09-16 05:11] VITALS: BP 141/82
[2019-09-16 07:23] LABS: BASO # 0.1 x10^3/uL (0.0-0.2); BASO % 1 % (0-3); EOS # 0.2 x10^3/uL (0.0-0.7); EOS % 5 % (0-3); HEMATOCRIT 38.6 % (36.0-47.0); HEMOGLOBIN 12.7 g/dL (12.0-15.5); LYMPH # 0.9 x10^3/uL (1.0-4.8); LYMPH % 21 % (24-48); MEAN CORPUSCULAR HEMOGLOBIN 32 pg (25-35); MEAN CORPUSCULAR HGB CONC 33 g/dL (31-37); MEAN CORPUSCULAR VOLUME 97 fL (79-100); MONO # 0.4 x10^3/uL (0.0-1.1); MONO % 10 % (0-9); NEUT # 2.6 x10^3uL (1.8-7.7); NEUT % 63 % (31-73); PLATELET COUNT 255 x10^3/uL (140-400); RED BLOOD COUNT 3.96 x10^6/uL (3.50-5.40); RED CELL DISTRIBUTION WIDTH 14.1 % (11.5-14.5); WHITE BLOOD COUNT 4.2 x10^3/uL (4.0-11.0)
[2019-09-16 07:32] LABS: ALBUMIN 2.9 g/dL (3.4-5.0); ALBUMIN/GLOBULIN RATIO 0.8 (1.0-1.7); CALCIUM 8.5 mg/dL (8.5-10.1); CREATININE 0.8 mg/dL (0.6-1.0); GFR 70.7; POTASSIUM 4.1 mmol/L (3.5-5.1); TOTAL BILIRUBIN 0.3 mg/dL (0.2-1.0); TOTAL PROTEIN 6.4 g/dL (6.4-8.2)
[2019-09-16] MEDS: busPIRone 5 MG TABLET. PO SCH ×2 (08:55→17:08)
[2019-09-16] MEDS: SENNOSIDES/DOCUSATE 8.6/50MG TABLET. PO SCH ×2 (08:56→20:38)
[2019-09-16] MEDS: DIVALPROEX 125 MG CAP.SPRINK PO SCH ×3 (08:56→20:38)
[2019-09-16] MEDS: risperiDONE 0.5 MG TABLET. PO SCH ×2 (08:56→14:42)
[2019-09-16] MEDS: hydrALAZINE 25 MG TABLET PO SCH ×2 (08:56→20:38)
[2019-09-16] MEDS: ASCORBIC ACID 500 MG TABLET PO SCH (08:56)
[2019-09-16] MEDS: LACTOBACILLUS RHAMNOSUS GG 1 CAPSULE. PO SCH ×2 (08:56→20:38)
[2019-09-16] MEDS: FUROSEMIDE 20 MG TABLET PO SCH (08:57)
[2019-09-16] MEDS: THIAMINE 100 MG TABLET. PO SCH (08:57)
[2019-09-16] MEDS: MULTIVITAMIN with MINERAL TABLET. PO SCH (08:57)
[2019-09-16] MEDS: POTASSIUM CHLORIDE 10 MEQ TABLET.ER. PO SCH (08:57)
[2019-09-16] MEDS: SERTRALINE 50 MG TABLET. PO SCH (08:58)
--- NOTE | 2019-09-16 10:50 | TX PLAN ---
Interdisciplinary Tx Plan Admission Information August 04, 2019 at 16:31 Legal Status (on Admission): Voluntary DPOA/Guardian Name: Pal Curiel Contact Other Contact Name: Rock Duarte Other Contact Verified Code Status: DNR Allergies: Coded Allergies: amoxicillin (Verified Allergy, Intermediate, 09/09/19) clavulanic acid (Verified Allergy, Intermediate, 09/09/19) Diagnoses Primary Diagnosis: Major Neurocognitive D/O, vascular alzheimers with delusions Reasons for Admission: Aggressive, Combative, Confusion/Disoriented, Poor impulse control Problem in Patient's Words: She has never been like this. I assume this is part of the diagnosis? Additional Admission Comments: According to the intake, pt things that staff are poisoning her, confused, talking to people not there, kicking and hitting the nurse, attempted to bite, hallucinating, paranoid (picking at her skin), agitated. Problems Active Problems: hitting staff delusional hallucinating screaming paranoid (picking at skin) Inactive Problems: Compliant with cares Pt Strengths/Limitations Ability for Grand: Poor Cognitive Functioning/Ability: Poor Communication Skills/Ability: Poor Financial Resources: Fair Insight/Judgement: Poor Intellectual Ability: Poor Physical Health: Poor Social Skills: Poor Stability in Family: Good Stability in School/Work: Poor Verbal Skills: Fair Discharge Criteria Discharge Criteria: No need for close observ., Adequate arrangements @DC, Improved behavior Preliminary Discharge Plan Preliminary DC Plan: Current Living Arrange. Special Precautions Fall Risk: Moderate Initial D/C Plan Pt is scheduled to [facility] Identified Discharge Needs: Potential for a different level of care; family is concerned that current placement cannot handle pt. Currently Utilized Resources Currently Utilized Resources/P: Primary Care Physician through placement Referrals Community Resources: Mental health services Identified Problems/Hx/Goals Objectives/Short-Term Goals Short Term Goals: Dec. Aggression, Dec. Hallucination/Delus, Dec. Outbursts, Medication Stabilization, Promote Coping Skill Short Term Goals in Patient's: Get me out of here Interventions/Frequency Staff Interventions/Frequency&: Psychiatrist to assess pt at least 3x per week. Social Work to asses pt at least 2x per week. Nursing to assess medications, behaviors and complete 15 minute checks daily Encourage group participation or 1:1 engagement based off activity assessment and goals. History Vocational History: Pt has worked at [employer] since the age 14 and retired from there. Education: Pt graduated from . Community Follow-up Follow up with PCP Community Provider/Family Inpu: She has significantly decline within the last year (August 2018) Treatment Plan Explained Patient/Administrative Receptionist had this treatment plan explained to him/her as indicated by the signature below and has been given the opportunity to ask questions and make suggestions: Date: Patient/Administrative Receptionist Signature: Status Update Update Pt sister Pal participated in tx team via telephone. Pt is eating 100% of meals and sleeping on average 6 hours a night. Pt is very disorganized and restless; continues to wander endless in her w/c through the hallways looking for her sister Pal. It was noted that pt does attend some groups but with minimal participation. Pt is currently medication compliant although it does take some coaxing to take them. CASSIDY has sent 7 referrals within the week and was denied by all referrals. Pt sister and SW agreed to meet separately at 1600 to discuss the search area and other options for placement. TELLO PRITCHETT Sep 16, 2019 10:50
--- NOTE | 2019-09-16 12:00 | NUR ---
CASSIDY contacted pt sister Pal and nephew Wil to go over pt behaviors on the unit. As it stood, pt last aggressive note is noted for September 12. CASSIDY and Pal discussed the fact that being able to put pt personality in her notes can be difficult as we see it but it doesn't alway convey in the paperwork. Pt can be quite funny and although she does believe she is doing important things she is also redirectable. CASSIDY and the family discussed extending the search area towards [facility] in which CASSIDY will plan to get those sent out on Thursday.
[2019-09-16] MEDS: ACETAMINOPHEN 325 MG TABLET PO PRN (14:46)
--- NOTE | 2019-09-16 15:01 | NUR ---
Nursing note: Pt in dining room this morning for meds and assessment. She was pleasant, med compliant, and cooperative. As the morning went on, pt became increasingly agitated and aggressive towards staff and was unable to be redirected. PRN was attempted to be given, but pt swatted at staff. PRN was then given sublingually. Pt eventually calmed down and has been much more pleasant. She was complaining of her feet hurting, PRN tylenol was provided. Will continue to monitor.
[2019-09-16 15:58] VITALS: BP 112/62
[2019-09-16] MEDS: DOXEPIN HCL 25 MG CAPSULE PO SCH (20:38)
[2019-09-16] MEDS: MELATONIN 3 MG TABLET PO SCH (20:38)
--- NOTE | 2019-09-16 22:13 | PDOC ---
Exam Note: David Note: Please also refer to the separate dictated note~for this date of service dictated separately.~Patient seen individually. Discussed the patient with Nursing staff reviewed the chart.~Reviewed interim history and current functioning. Reviewed vital signs,~Labs/ Radiology~and current medications noted below. Continue current treatment with the changes noted in the dictated addendum note Assessment: Vital Signs/I&O: Vital Signs Date Time Temp Pulse Resp B/P (MAP) Pulse Ox O2 Delivery O2 Flow Rate FiO2 09/16/19 20:38 96 145/78 09/16/19 15:58 97.5 20 96 09/15/19 05:34 Room Air I & O 09/15/19 09/15/19 09/16/19 15:00 23:00 07:00 Intake Total 720 ml 640 ml Balance 720 ml 640 ml Labs: Laboratory Tests Test 09/16/19 06:45 White Blood Count 4.2 x10^3/uL (4.0-11.0) Red Blood Count 3.96 x10^6/uL (3.50-5.40) Hemoglobin 12.7 g/dL (12.0-15.5) Hematocrit 38.6 % (36.0-47.0) Mean Corpuscular Volume 97 fL (79-100) Mean Corpuscular Hemoglobin 32 pg (25-35) Mean Corpuscular Hemoglobin Concent 33 g/dL (31-37) Red Cell Distribution Width 14.1 % (11.5-14.5) Platelet Count 255 x10^3/uL (140-400) Neutrophils (%) (Auto) 63 % (31-73) Lymphocytes (%) (Auto) 21 % (24-48) L Monocytes (%) (Auto) 10 % (0-9) H Eosinophils (%) (Auto) 5 % (0-3) H Basophils (%) (Auto) 1 % (0-3) Neutrophils # (Auto) 2.6 x10^3uL (1.8-7.7) Lymphocytes # (Auto) 0.9 x10^3/uL (1.0-4.8) L Monocytes # (Auto) 0.4 x10^3/uL (0.0-1.1) Eosinophils # (Auto) 0.2 x10^3/uL (0.0-0.7) Basophils # (Auto) 0.1 x10^3/uL (0.0-0.2) Sodium Level 140 mmol/L (136-145) Potassium Level 4.1 mmol/L (3.5-5.1) Chloride Level 104 mmol/L (98-107) Carbon Dioxide Level 32 mmol/L (21-32) Anion Gap 4 (6-14) L Blood Urea Nitrogen 26 mg/dL (7-20) H Creatinine 0.8 mg/dL (0.6-1.0) Estimated GFR (Cockcroft-Gault) 70.7 BUN/Creatinine Ratio 33 (6-20) H Glucose Level 85 mg/dL (70-99) Calcium Level 8.5 mg/dL (8.5-10.1) Total Bilirubin 0.3 mg/dL (0.2-1.0) Aspartate Amino Transferase (AST) 20 U/L (15-37) Alanine Aminotransferase (ALT) 20 U/L (14-59) Alkaline Phosphatase 81 U/L (46-116) Total Protein 6.4 g/dL (6.4-8.2) Albumin 2.9 g/dL (3.4-5.0) L Albumin/Globulin Ratio 0.8 (1.0-1.7) L Current Medications: I have reviewed the current psychotropics carefully including drug interactions. Risk benefit ratio favors no change other than as noted in my dictated progress note. Diagnosis: Problems: (1) Impulse control disorder, unspecified (2) Anxiety disorder, unspecified (3) Dementia, vascular, with depression (4) Dementia, vascular, with delusions (5) Dementia in Alzheimer's disease with depression (6) Dementia in Alzheimer's disease with delusions (7) Major neurocognitive disorder, due to vascular disease, with behavioral disturbance, mild NAEEM SADLER MD Sep 16, 2019 22:13
--- NOTE | 2019-09-16 23:43 | NUR ---
Nursing Note The patient was located in her room for her assessment and medication pass. The patient took her medication whole. The patient was very disorganized and thought that she had a puppy in bed with her. The patient was cooperative with her assessment. The patient is currently sleeping in her room.
[2019-09-17 05:29] VITALS: BP 167/92
--- NOTE | 2019-09-17 07:29 | PDOC ---
Exam Note: David Note: This note is a late entry for 09/15/2019 covers elements not covered in my initial note. Subjective: The patient was seen individually in the morning of 09/15/2019 with treatment team meeting with Marc Mackey RN (social service staff), [facility] staff. The patients sister Domenic attended the treatment team meeting. Her nephew Jaspreet was to attend but was unavailable. At the treatment team meeting we reviewed her history, progress, diagnoses, discharge, after care plans. Sleeping about 6 hours. Appetite is 100%. She is compliant with medications and assessments. She remains confused. Discussed with Mandie COHN in the evening. She slept 8-3/4 hours previous night, restless, tearful in the evening. Rest of the day she did better. Review of Systems: Ambulation impaired, in Broda chair. No CV, , pulmonary, eye, ENT, integumentary system symptoms on review. Mental Status Exam: Oriented to herself. She is anxious, restless, constantly moving around in her Broda chair. Insight and judgment, recent and remote memory, attention and concentration, fund of knowledge is poor consistent with her diagnoses. Laboratory Data: Reviewed. Impression: Major neurocognitive disorder Alzheimer, vascular with delusion. Anxiety disorder unspecified. Impulse control disorder unspecified. Plan: No change from initial note. Assessment: Vital Signs/I&O: Vital Signs Date Time Temp Pulse Resp B/P (MAP) Pulse Ox O2 Delivery O2 Flow Rate FiO2 09/17/19 05:29 97.3 87 20 167/92 (117) 97 Room Air I & O 09/16/19 09/16/19 09/17/19 15:00 23:00 07:00 Intake Total 960 ml 480 ml 0 ml Balance 960 ml 480 ml 0 ml Current Medications: I have reviewed the current psychotropics carefully including drug interactions. Risk benefit ratio favors no change other than as noted in my dictated progress note. Diagnosis: Problems: (1) Impulse control disorder, unspecified (2) Anxiety disorder, unspecified (3) Dementia, vascular, with depression (4) Dementia, vascular, with delusions (5) Dementia in Alzheimer's disease with depression (6) Dementia in Alzheimer's disease with delusions (7) Major neurocognitive disorder, due to vascular disease, with behavioral di sturbance, mild NAEEM SADLER MD 4, 2020 07:29
--- NOTE | 2019-09-17 08:06 | PDOC ---
Exam Note: David Note: This note is a late entry for 09/16/2019 covers elements not covered in my initial note. Subjective: The patient was seen individually in the evening of 09/16/2019. Per Ana COHN, she slept 6-1/4 hours previous night. Around 11.30 a.m. she was swinging at staff. She received Zyprexa p.r.n. and then did better. She was yelling at times intermittently in the evening. I met with her in the evening. She was trying to slide out of the Broda chair. Staff had to reposition her. Review of Systems: Ambulation impaired, in Broda chair. No CV, , pulmonary, eye, ENT, integumentary system symptoms on review. Mental Status Exam: Oriented to herself. Insight and judgment, recent and rem ote memory, attention and concentration, fund of knowledge is poor consistent with her diagnoses. Laboratory Data: Reviewed. Impression: Major neurocognitive disorder Alzheimer, vascular with delusion. Anxiety disorder unspecified. Impulse control disorder unspecified. Plan: No change from initial note. Assessment: Vital Signs/I&O: Vital Signs Date Time Temp Pulse Resp B/P (MAP) Pulse Ox O2 Delivery O2 Flow Rate FiO2 09/17/19 05:29 97.3 87 20 167/92 (117) 97 Room Air I & O 09/16/19 09/16/19 09/17/19 14:59 22:59 06:59 Intake Total 960 ml 480 ml 0 ml Balance 960 ml 480 ml 0 ml Current Medications: I have reviewed the current psychotropics carefully including drug interactions. Risk benefit ratio favors no change other than as noted in my dictated progress note. Diagnosis: Problems: (1) Impulse control disorder, unspecified (2) Anxiety disorder, unspecified (3) Dementia, vascular, with depression (4) Dementia, vascular, with delusions (5) Dementia in Alzheimer's disease with depression (6) Dementia in Alzheimer's disease with delusions (7) Major neurocognitive disorder, due to vascular disease, with behavioral disturbance, mild NAEEM SADLER MD Sep 17, 2019 08:06
--- NOTE | 2019-09-17 09:00 | NUR ---
Patient extremely drowsy and difficult to arouse at this time. CNAs state she was drowsy, woke up to eat her entire breakfast, then went back to sleep. Will hold morning medications at this time and continue to monitor.
[2019-09-17] MEDS: FUROSEMIDE 20 MG TABLET PO SCH (11:25)
[2019-09-17] MEDS: SENNOSIDES/DOCUSATE 8.6/50MG TABLET. PO SCH ×2 (11:25→21:02)
[2019-09-17] MEDS: POTASSIUM CHLORIDE 10 MEQ TABLET.ER. PO SCH (11:26)
[2019-09-17] MEDS: DIVALPROEX 125 MG CAP.SPRINK PO SCH ×3 (11:26→21:01)
[2019-09-17] MEDS: ASCORBIC ACID 500 MG TABLET PO SCH (11:26)
[2019-09-17] MEDS: hydrALAZINE 25 MG TABLET PO SCH ×2 (11:26→21:06)
[2019-09-17] MEDS: SERTRALINE 50 MG TABLET. PO SCH (11:26)
[2019-09-17] MEDS: busPIRone 5 MG TABLET. PO SCH ×2 (11:26→17:08)
[2019-09-17] MEDS: LACTOBACILLUS RHAMNOSUS GG 1 CAPSULE. PO SCH ×2 (11:27→21:01)
[2019-09-17] MEDS: THIAMINE 100 MG TABLET. PO SCH (11:27)
[2019-09-17] MEDS: risperiDONE 0.5 MG TABLET. PO SCH ×2 (11:27→14:39)
[2019-09-17] MEDS: MULTIVITAMIN with MINERAL TABLET. PO SCH (11:27)
[2019-09-17 16:43] VITALS: BP 98/65
--- NOTE | 2019-09-17 18:30 | NUR ---
Patient much more alert at around 11:00 and morning medications provided per eMAR. She was calm, compliant, and pleasantly confused for the rest of the morning and early afternoon until about 15:00 when staff reported she was becoming increasingly delusional and agitated. Patient was restless, wandering, and started calling out repeatedly 'Come on you guys, help me', 'I don't want to do that', and 'help, won't somebody help' as well as similar phrases. PRN medication provided per eMAR. Patient then escorted to dining room for supper. She has had no behaviors reported since. Will continue to monitor and report to oncoming staff.
[2019-09-17] MEDS: MELATONIN 3 MG TABLET PO SCH (21:01)
--- NOTE | 2019-09-17 22:23 | PDOC ---
Exam Note: David Note: Please also refer to the separate dictated note~for this date of service dictated separately.~Patient seen individually. Discussed the patient with Nursing staff reviewed the chart.~Reviewed interim history and current functioning. Reviewed vital signs,~Labs/ Radiology~and current medications noted below. Continue current treatment with the changes noted in the dictated addendum note Assessment: Vital Signs/I&O: Vital Signs Date Time Temp Pulse Resp B/P (MAP) Pulse Ox O2 Delivery O2 Flow Rate FiO2 09/17/19 21:06 98 131/74 09/17/19 16:43 97.4 20 93 Room Air I & O 09/16/19 09/16/19 09/17/19 15:00 23:00 07:00 Intake Total 960 ml 480 ml 0 ml Balance 960 ml 480 ml 0 ml Current Medications: I have reviewed the current psychotropics carefully including drug interactions. Risk benefit ratio favors no change other than as noted in my dictated progress note. Diagnosis: Problems: (1) Impulse control disorder, unspecified (2) Anxiety disorder, unspecified (3) Dementia, vascular, with depression (4) Dementia, vascular, with delusions (5) Dementia in Alzheimer's disease with depression (6) Dementia in Alzheimer's disease with delusions (7) Major neurocognitive disorder, due to vascular disease, with behavioral disturbance, mild NAEEM SADLER MD Sep 17, 2019 22:23
--- NOTE | 2019-09-18 00:33 | NUR ---
Nursing Note The patient was located in her room for her assessment and medication pass. The patient was very disorganized during interactions with this nurse. The patient took her medications whole. The patient is currently sleeping in her room.
[2019-09-18 06:01] VITALS: BP 135/81
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
[2019-09-18] MEDS: SENNOSIDES/DOCUSATE 8.6/50MG TABLET. PO SCH ×2 (08:33→20:29)
[2019-09-18] MEDS: POTASSIUM CHLORIDE 10 MEQ TABLET.ER. PO SCH (08:33)
[2019-09-18] MEDS: DIVALPROEX 125 MG CAP.SPRINK PO SCH ×3 (08:33→20:28)
[2019-09-18] MEDS: MULTIVITAMIN with MINERAL TABLET. PO SCH (08:33)
[2019-09-18] MEDS: risperiDONE 0.5 MG TABLET. PO SCH ×2 (08:33→15:09)
[2019-09-18] MEDS: LACTOBACILLUS RHAMNOSUS GG 1 CAPSULE. PO SCH ×2 (08:34→20:28)
[2019-09-18] MEDS: ASCORBIC ACID 500 MG TABLET PO SCH (08:34)
[2019-09-18] MEDS: busPIRone 5 MG TABLET. PO SCH ×2 (08:34→15:08)
[2019-09-18] MEDS: SERTRALINE 50 MG TABLET. PO SCH (08:34)
[2019-09-18] MEDS: FUROSEMIDE 20 MG TABLET PO SCH (08:34)
[2019-09-18] MEDS: THIAMINE 100 MG TABLET. PO SCH (08:34)
[2019-09-18] MEDS: hydrALAZINE 25 MG TABLET PO SCH ×2 (08:34→20:29)
--- NOTE | 2019-09-18 09:45 | NUR ---
Patient calmer with medications this morning. Patient able to take them whole. Patient wandering the halls and has no needs at this time.
[2019-09-18 15:34] VITALS: BP 128/73
[2019-09-18] MEDS: MELATONIN 3 MG TABLET PO SCH (20:29)
--- NOTE | 2019-09-18 21:18 | NUR ---
Pt up in w/c, wandering in the day room at shift change. Pt calm, pleasantly confused, disorganized, and social. Pt cooperative and compliant with assessment and medications administered whole.
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
--- NOTE | 2019-09-18 22:03 | PDOC ---
Exam Note: David Note: Please also refer to the separate dictated note~for this date of service dictated separately.~Patient seen individually. Discussed the patient with Nursing staff reviewed the chart.~Reviewed interim history and current functioning. Reviewed vital signs,~Labs/ Radiology~and current medications noted below. Continue current treatment with the changes noted in the dictated addendum note Assessment: Vital Signs/I&O: Vital Signs Date Time Temp Pulse Resp B/P (MAP) Pulse Ox O2 Delivery O2 Flow Rate FiO2 09/18/19 20:29 108 128/73 09/18/19 15:34 98.6 18 93 09/18/19 06:01 Room Air I & O 09/17/19 09/17/19 09/18/19 15:00 23:00 07:00 Intake Total 600 ml 240 ml Balance 600 ml 240 ml Current Medications: I have reviewed the current psychotropics carefully including drug interactions. Risk benefit ratio favors no change other than as noted in my dictated progress note. Diagnosis: Problems: (1) Impulse control disorder, unspecified (2) Anxiety disorder, unspecified (3) Dementia, vascular, with depression (4) Dementia, vascular, with delusions (5) Dementia in Alzheimer's disease with depression (6) Dementia in Alzheimer's disease with delusions (7) Major neurocognitive disorder, due to vascular disease, with behavioral disturbance, mild NAEEM SADLER MD Sep 18, 2019 22:03
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
[2019-09-19 06:14] VITALS: BP 142/95
--- NOTE | 2019-09-19 07:41 | PDOC ---
Exam Note: David Note: This note is a late entry for 09/18/2019 covers elements not covered in my initial note. Subjective: The patient was seen individually in the evening of 09/18/2019. Per Key COHN, she has been calmer. No p.r.n. has been given. She took a nap after lunch. Slept 5 hours previous night. Review of Systems: Ambulation impaired, in Broda chair. No CV, , pulmonary, eye, ENT, integumentary system symptoms on review. Mental Status Exam: Oriented to herself. Insight and judgment, recent and remote memory, attention and concentration, fund of knowledge is poor consistent with her diagnoses. Laboratory Data: Reviewed. Impression: Major neurocognitive disorder Alzheimer, vascular with delusion. Anxiety disorder unspecified. Impulse control disorder unspecified. Plan: No change from initial note. Assessment: Vital Signs/I&O: Vital Signs Date Time Temp Pulse Resp B/P (MAP) Pulse Ox O2 Delivery O2 Flow Rate FiO2 09/19/19 06:14 98.3 65 16 142/95 (111) 98 Room Air I & O 09/18/19 09/18/19 09/19/19 15:00 23:00 07:00 Intake Total 840 ml 600 ml Balance 840 ml 600 ml Current Medications: I have reviewed the current psychotropics carefully including drug interactions. Risk benefit ratio favors no change other than as noted in my dictated progress note. Diagnosis: Problems: (1) Impulse control disorder, unspecified (2) Anxiety disorder, unspecified (3) Major neurocognitive disorder, due to vascular disease, with behavioral disturbance, mild (4) Dementia, vascular, with delusions (5) Dementia, vascular, with depression (6) Dementia in Alzheimer's disease with depression (7) Dementia in Alzheimer's disease with delusions NAEEM SADLER MD Sep 19, 2019 07:41
[2019-09-19] MEDS: FUROSEMIDE 20 MG TABLET PO SCH (08:37)
[2019-09-19] MEDS: SENNOSIDES/DOCUSATE 8.6/50MG TABLET. PO SCH ×2 (08:37→20:00)
[2019-09-19] MEDS: MULTIVITAMIN with MINERAL TABLET. PO SCH (08:38)
[2019-09-19] MEDS: risperiDONE 0.5 MG TABLET. PO SCH ×2 (08:38→14:52)
[2019-09-19] MEDS: SERTRALINE 50 MG TABLET. PO SCH (08:38)
[2019-09-19] MEDS: THIAMINE 100 MG TABLET. PO SCH (08:38)
[2019-09-19] MEDS: DIVALPROEX 125 MG CAP.SPRINK PO SCH ×3 (08:38→19:59)
[2019-09-19] MEDS: hydrALAZINE 25 MG TABLET PO SCH ×2 (08:39→19:59)
[2019-09-19] MEDS: busPIRone 5 MG TABLET. PO SCH ×2 (08:39→17:16)
[2019-09-19] MEDS: ASCORBIC ACID 500 MG TABLET PO SCH (08:39)
[2019-09-19] MEDS: LACTOBACILLUS RHAMNOSUS GG 1 CAPSULE. PO SCH ×2 (08:39→19:59)
[2019-09-19] MEDS: POTASSIUM CHLORIDE 10 MEQ TABLET.ER. PO SCH (08:39)
[2019-09-19 16:23] VITALS: BP 155/92
[2019-09-19] MEDS: traZODone 50 MG TABLET. PO SCH (17:16)
--- NOTE | 2019-09-19 18:38 | NUR ---
Patient was calm, compliant, and pleasantly confused for most of the morning until lunchtime when staff reported she was becoming increasingly delusional and agitated. Patient was restless, wandering, and started calling out repeatedly and being combative with attempts to redirect. PRN medication provided per eMAR. Patient continued to call out; scheduled and prn medications provided per eMAR. She is still restless, wandering, and attention seeking. Will continue to monitor and report to oncoming staff.
[2019-09-19] MEDS: MELATONIN 3 MG TABLET PO SCH (19:59)
--- NOTE | 2019-09-19 20:17 | NUR ---
Pt sitting up in w/c in the day room at shift change. Pt calm, disorganized, and confused, restless at times. Pt cooperative and compliant with assessment and medications administered whole.
--- NOTE | 2019-09-19 22:06 | PDOC ---
Exam Note: David Note: Please also refer to the separate dictated note~for this date of service dictated separately.~Patient seen individually. Discussed the patient with Nursing staff reviewed the chart.~Reviewed interim history and current functioning. Reviewed vital signs,~Labs/ Radiology~and current medications noted below. Continue current treatment with the changes noted in the dictated addendum note Assessment: Vital Signs/I&O: Vital Signs Date Time Temp Pulse Resp B/P (MAP) Pulse Ox O2 Delivery O2 Flow Rate FiO2 09/19/19 19:59 88 155/92 09/19/19 16:23 97.6 20 98 09/19/19 06:14 Room Air I & O 09/18/19 09/18/19 09/19/19 15:00 23:00 07:00 Intake Total 840 ml 600 ml Balance 840 ml 600 ml Current Medications: Meds: Current Medications Medications (Trade) Dose Ordered Sig/Bindu Route PRN Reason Start Time Stop Time Status Last Admin Dose Admin Trazodone HCl (Desyrel) 12.5 mg 1200,1700 PO 09/19/19 17:00 09/19/19 17:16 I have reviewed the current psychotropics carefully including drug interactions. Risk benefit ratio favors no change other than as noted in my dictated progress note. Diagnosis: Problems: (1) Impulse control disorder, unspecified (2) Anxiety disorder, unspecified (3) Dementia, vascular, with depression (4) Dementia, vascular, with delusions (5) Dementia in Alzheimer's disease with depression (6) Dementia in Alzheimer's disease with delusions (7) Major neurocognitive disorder, due to vascular disease, with behavioral disturbance, mild NAEEM SADLER MD Sep 19, 2019 22:06
[2019-09-20 06:15] VITALS: BP 163/90
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
[2019-09-20] MEDS: DIVALPROEX 125 MG CAP.SPRINK PO SCH ×3 (08:15→20:12)
[2019-09-20] MEDS: risperiDONE 0.5 MG TABLET. PO SCH ×2 (08:16→13:52)
[2019-09-20] MEDS: LACTOBACILLUS RHAMNOSUS GG 1 CAPSULE. PO SCH ×2 (08:16→20:11)
[2019-09-20] MEDS: hydrALAZINE 25 MG TABLET PO SCH ×2 (08:16→20:15)
[2019-09-20] MEDS: FUROSEMIDE 20 MG TABLET PO SCH (08:17)
[2019-09-20] MEDS: ASCORBIC ACID 500 MG TABLET PO SCH (08:17)
[2019-09-20] MEDS: MULTIVITAMIN with MINERAL TABLET. PO SCH (08:17)
[2019-09-20] MEDS: THIAMINE 100 MG TABLET. PO SCH (08:17)
[2019-09-20] MEDS: SENNOSIDES/DOCUSATE 8.6/50MG TABLET. PO SCH ×2 (08:17→20:12)
[2019-09-20] MEDS: POTASSIUM CHLORIDE 10 MEQ TABLET.ER. PO SCH (08:17)
[2019-09-20] MEDS: busPIRone 5 MG TABLET. PO SCH ×2 (08:17→16:26)
[2019-09-20] MEDS: SERTRALINE 50 MG TABLET. PO SCH (08:18)
--- NOTE | 2019-09-20 10:18 | NUR ---
Patient has been increasingly agitated and restless. She has been going back and forth between the day room and her room, repeatedly asking staff which room is hers, and demanding to get her money back. She is resisting verbal redirection; prn medication provided per eMAR, will continue to monitor.
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
[2019-09-20] MEDS: traZODone 50 MG TABLET. PO SCH ×2 (11:46→16:26)
[2019-09-20 16:10] VITALS: BP 96/63
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
[2019-09-20] MEDS: MELATONIN 3 MG TABLET PO SCH (20:13)
--- NOTE | 2019-09-20 20:36 | NUR ---
Pt wandering in day room in her w/c at shift change. Pt restless, disorganized, confused, slightly irritable and delusional- pt looking for "the baby" and "Uncle Lv". Pt cooperative with assessment and compliant with medications administered whole.
--- NOTE | 2019-09-20 22:06 | PDOC ---
Exam Note: David Note: Please also refer to the separate dictated note~for this date of service dictated separately.~Patient seen individually. Discussed the patient with Nursing staff reviewed the chart.~Reviewed interim history and current functioning. Reviewed vital signs,~Labs/ Radiology~and current medications noted below. Continue current treatment with the changes noted in the dictated addendum note Assessment: Vital Signs/I&O: Vital Signs Date Time Temp Pulse Resp B/P (MAP) Pulse Ox O2 Delivery O2 Flow Rate FiO2 09/20/19 20:15 101 110/66 09/20/19 16:10 97.8 19 96 Room Air I & O 09/19/19 09/19/19 09/20/19 15:00 23:00 07:00 Intake Total 840 ml 480 ml Balance 840 ml 480 ml Current Medications: I have reviewed the current psychotropics carefully including drug interactions. Risk benefit ratio favors no change other than as noted in my dictated progress note. Diagnosis: Problems: (1) Impulse control disorder, unspecified (2) Anxiety disorder, unspecified (3) Dementia, vascular, with depression (4) Dementia, vascular, with delusions (5) Dementia in Alzheimer's disease with depression (6) Dementia in Alzheimer's disease with delusions (7) Major neurocognitive disorder, due to vascular disease, with behavioral disturbance, mild NAEEM SADLER MD Sep 20, 2019 22:06
[2019-09-21 05:01] VITALS: BP 157/90
--- NOTE | 2019-09-21 07:25 | PDOC ---
Exam Note: David Note: This note is a late entry for 09/19/2019 covers elements not covered in my initial note. Subjective: The patient was seen individually in the evening of 09/19/2019. Per Guanako COHN, she slept 4-3/4 hours previous night. She did well till noon and then was agitated. Received Zyprexa at noon, then again agitated at 3 p.m. Received another p.r.n. Zyprexa along with her Depakote dosage and then did better. Review of Systems: Ambulation impaired, in Broda chair. No CV, , pulmonary, eye, ENT, integumentary system symptoms on review. Mental Status Exam: Oriented to herself. Insight and judgment, recent and remote memory, attention and concentration, fund of knowledge is poor consistent with her diagnoses. Laboratory Data: Reviewed. Impression: Major neurocognitive disorder Alzheimer, vascular with delusion. Anxiety disorder unspecified. Impulse control disorder unspecified. Plan: Given the patients significant ongoing agitation and mood lability we will start schedule trazodone 12.5 mg noon and 5 p.m. Continue rest psychotropics unchanged. Assessment: Vital Signs/I&O: Vital Signs Date Time Temp Pulse Resp B/P (MAP) Pulse Ox O2 Delivery O2 Flow Rate FiO2 09/21/19 05:01 97.6 88 18 157/90 (112) 98 09/20/19 16:10 Room Air I & O 09/20/19 09/20/19 09/21/19 15:00 23:00 07:00 Intake Total 1080 ml 600 ml Balance 1080 ml 600 ml Current Medications: I have reviewed the current psychotropics carefully including drug interactions. Risk benefit ratio favors no change other than as noted in my dictated progress note. Diagnosis: Problems: (1) Impulse control disorder, unspecified (2) Anxiety disorder, unspecified (3) Dementia, vascular, with depression (4) Dementia, vascular, with delusions (5) Dementia in Alzheimer's disease with depression (6) Dementia in Alzheimer's disease with delusions (7) Major neurocognitive disorder, due to vascular disease, with behavioral disturbance, mild NAEEM SADLER MD Sep 21, 2019 07:25
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
--- NOTE | 2019-09-21 08:49 | NUR ---
patient is very drowsy, will hold her morning medications until she is more alert. Will continue to monitor.
[2019-09-21] MEDS: SERTRALINE 50 MG TABLET. PO SCH (10:52)
[2019-09-21] MEDS: SENNOSIDES/DOCUSATE 8.6/50MG TABLET. PO SCH ×2 (10:52→20:03)
[2019-09-21] MEDS: risperiDONE 0.5 MG TABLET. PO SCH ×2 (10:53→14:12)
[2019-09-21] MEDS: FUROSEMIDE 20 MG TABLET PO SCH (10:53)
[2019-09-21] MEDS: THIAMINE 100 MG TABLET. PO SCH (10:53)
[2019-09-21] MEDS: DIVALPROEX 125 MG CAP.SPRINK PO SCH ×3 (10:53→20:04)
[2019-09-21] MEDS: LACTOBACILLUS RHAMNOSUS GG 1 CAPSULE. PO SCH ×2 (10:53→20:04)
[2019-09-21] MEDS: MULTIVITAMIN with MINERAL TABLET. PO SCH (10:54)
[2019-09-21] MEDS: hydrALAZINE 25 MG TABLET PO SCH ×2 (10:54→20:04)
[2019-09-21] MEDS: busPIRone 5 MG TABLET. PO SCH ×2 (10:54→17:26)
[2019-09-21] MEDS: POTASSIUM CHLORIDE 10 MEQ TABLET.ER. PO SCH (10:55)
[2019-09-21] MEDS: ASCORBIC ACID 500 MG TABLET PO SCH (10:55)
[2019-09-21] MEDS: traZODone 50 MG TABLET. PO SCH ×2 (12:35→17:26)
[2019-09-21 16:05] VITALS: BP 111/66
--- NOTE | 2019-09-21 17:34 | NUR ---
Patient was more alert and medications provided at about 10:55 as per eMAR. She was delusional, social, and cooperative. Patient was drowsy in afternoon and refused 14:00 and 15:00 medications repeatedly. Patient was laid down, when she awoke, she was compliant with medications at 16:15. Patient is calm, compliant, and pleasantly confused. Will continue to monitor and report to oncoming shift.
[2019-09-21 19:15] LABS: BACTERIA,URINE FEW /HPF (0-FEW); BILIRUBIN,URINE NEG (NEG); CLARITY,URINE HAZY; COLOR,URINE YELLOW; GLUCOSE,URINE NEG (NEG); NITRITE,URINE POS (NEG); RBC,URINE OCC /HPF (0-2); SQUAMOUS EPITHELIAL CELL,UR MOD /LPF; UROBILINOGEN,URINE 0.2 mg/dL (0.2 mg/dL)
[2019-09-21] MEDS: MELATONIN 3 MG TABLET PO SCH (20:03)
--- NOTE | 2019-09-21 22:38 | PDOC ---
Exam Note: David Note: Please also refer to the separate dictated note~for this date of service dictated separately.~Patient seen individually. Discussed the patient with Nursing staff reviewed the chart.~Reviewed interim history and current functioning. Reviewed vital signs,~Labs/ Radiology~and current medications noted below. Continue current treatment with the changes noted in the dictated addendum note Assessment: Vital Signs/I&O: Vital Signs Date Time Temp Pulse Resp B/P (MAP) Pulse Ox O2 Delivery O2 Flow Rate FiO2 09/21/19 20:04 87 111/66 09/21/19 16:05 98.1 18 97 09/20/19 16:10 Room Air I & O 09/20/19 09/20/19 09/21/19 15:00 23:00 07:00 Intake Total 1080 ml 600 ml Balance 1080 ml 600 ml Labs: Laboratory Tests Test 09/21/19 06:30 Urine Collection Type U cath Urine Color Yellow Urine Clarity Hazy Urine pH 6.5 Urine Specific [place] 1.020 Urine Protein Neg (NEG-TRACE) Urine Glucose (UA) Neg mg/dL (NEG) Urine Ketones (Stick) Neg mg/dL (NEG) Urine Blood Neg (NEG) Urine Nitrite Pos (NEG) Urine Bilirubin Neg (NEG) Urine Urobilinogen Dipstick 0.2 mg/dL (0.2 mg/dL) Urine Leukocyte Esterase Trace (NEG) Urine RBC Occ /HPF (0-2) Urine WBC 5-10 /HPF (0-4) Urine Squamous Epithelial Cells Mod /LPF Urine Bacteria Few /HPF (0-FEW) Current Medications: I have reviewed the current psychotropics carefully including drug interactions. Risk benefit ratio favors no change other than as noted in my dictated progress note. Diagnosis: Problems: (1) Impulse control disorder, unspecified (2) Anxiety disorder, unspecified (3) Dementia, vascular, with depression (4) Dementia, vascular, with delusions (5) Dementia in Alzheimer's disease with depression (6) Dementia in Alzheimer's disease with delusions (7) Major neurocognitive disorder, due to vascular disease, with behavioral disturbance, mild NAEEM SADLER MD Sep 21, 2019 22:38
--- NOTE | 2019-09-21 22:56 | NUR ---
Nursing Note The patient was located in her room for her assessment and medication pass. The patient was located in her room for her assessment and medication pass. The patient
--- NOTE | 2019-09-21 23:01 | NUR ---
Nursing Note The patient was located in her room for her assessment and medication pass. The patient was restless and delusional during interactions but was compliant with her medication and was able to take them whole. The patient is currently sleeping in her room.
[2019-09-22 06:25] VITALS: BP 149/82
[2019-09-22] MEDS: SERTRALINE 50 MG TABLET. PO SCH (08:51)
[2019-09-22] MEDS: LACTOBACILLUS RHAMNOSUS GG 1 CAPSULE. PO SCH ×2 (08:51→20:49)
[2019-09-22] MEDS: ASCORBIC ACID 500 MG TABLET PO SCH (08:51)
[2019-09-22] MEDS: POTASSIUM CHLORIDE 10 MEQ TABLET.ER. PO SCH (08:51)
[2019-09-22] MEDS: SENNOSIDES/DOCUSATE 8.6/50MG TABLET. PO SCH ×2 (08:51→20:50)
[2019-09-22] MEDS: busPIRone 5 MG TABLET. PO SCH ×2 (08:51→17:11)
[2019-09-22] MEDS: FUROSEMIDE 20 MG TABLET PO SCH (08:51)
[2019-09-22] MEDS: hydrALAZINE 25 MG TABLET PO SCH ×2 (08:52→21:00)
[2019-09-22] MEDS: DIVALPROEX 125 MG CAP.SPRINK PO SCH ×3 (08:52→20:50)
[2019-09-22] MEDS: THIAMINE 100 MG TABLET. PO SCH (08:52)
[2019-09-22] MEDS: risperiDONE 0.5 MG TABLET. PO SCH ×2 (08:52→17:11)
[2019-09-22] MEDS: MULTIVITAMIN with MINERAL TABLET. PO SCH (08:52)
--- NOTE | 2019-09-22 11:00 | NUR ---
WEEKLY ACTIVITY THERAPY NOTE Date of Admission: 08/04/19 Date of AT Assessment: 08/05/19 Precipitating behaviors that initiated intake and admission: Patient reportedly believes staff are poisoning her; talking to people that aren't there; attempting to bite and kick staff; hitting staff; and hallucinating Goal aimed: to increase sensory stimulation Initial Goal: Pt. will participate in at least one individual Activity Therapy session before discharge. Goal changed 08/18/19: Pt. will participate in at three Activity Therapy group sessions per week Goal changed 08/25/19: Pt. will participate moderately in at least three Activity Therapy Sessions per week. Weekly progress towards goal: 06/16 at least moderate groups Group participation level: 2 full, 2 mod, 4 min Weekly highlights: full participation in Bingo on the 16 of September Behaviors observed: varied throughout this week-engaged with minimal prompting at times and then difficult to redirect, yelling out to Domenic and needs to be escorted out of group other times, delusional about leaving, people in her house, and money concerns Plan: no change to goal Beneficial adaptations: direct prompting, simple step by step directions, delightful person, funny
--- NOTE | 2019-09-22 12:27 | TX PLAN ---
Interdisciplinary Tx Plan Admission Information August 04, 2019 at 16:31 Legal Status (on Admission): Voluntary DPOA/Guardian Name: Pal Curiel Contact Other Contact Name: Rock Duarte Other Contact Verified Code Status: DNR Allergies: Coded Allergies: amoxicillin (Verified Allergy, Intermediate, 09/09/19) clavulanic acid (Verified Allergy, Intermediate, 09/09/19) Diagnoses Primary Diagnosis: Major Neurocognitive D/O, vascular alzheimers with delusions Reasons for Admission: Aggressive, Combative, Confusion/Disoriented, Poor impulse control Problem in Patient's Words: She has never been like this. I assume this is part of the diagnosis? Additional Admission Comments: According to the intake, pt things that staff are poisoning her, confused, talking to people not there, kicking and hitting the nurse, attempted to bite, hallucinating, paranoid (picking at her skin), agitated. Problems Active Problems: hitting staff delusional hallucinating screaming paranoid (picking at skin) Inactive Problems: Compliant with cares Pt Strengths/Limitations Ability for [place]: Poor Cognitive Functioning/Ability: Poor Communication Skills/Ability: Poor Financial Resources: Fair Insight/Judgement: Poor Intellectual Ability: Poor Physical Health: Poor Social Skills: Poor Stability in Family: Good Stability in School/Work: Poor Verbal Skills: Fair Discharge Criteria Discharge Criteria: No need for close observ., Adequate arrangements @DC, Improved behavior Preliminary Discharge Plan Preliminary DC Plan: Current Living Arrange. Special Precautions Fall Risk: Moderate Initial D/C Plan Pt is scheduled to return to [facility] Identified Discharge Needs: Potential for a different level of care; family is concerned that current placement cannot handle pt. Currently Utilized Resources Currently Utilized Resources/P: Primary Care Physician through placement Referrals Community Resources: Mental health services Identified Problems/Hx/Goals Objectives/Short-Term Goals Short Term Goals: Dec. Aggression, Dec. Hallucination/Delus, Dec. Outbursts, Medication Stabilization, Promote Coping Skill Short Term Goals in Patient's: Get me out of here Interventions/Frequency Staff Interventions/Frequency&: Psychiatrist to assess pt at least 3x per week. Social Work to asses pt at least 2x per week. Nursing to assess medications, behaviors and complete 15 minute checks daily Encourage group participation or 1:1 engagement based off activity assessment and goals. History Vocational History: Pt has worked at [employer] since the age 14 and retired from there. Education: Pt graduated from . 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 Pt continues to be disorganized, restless, and delusional in that she is looking for her sister Pal, Uncle Lv and the baby. Pt can be irritable at times, but is better redirected. Pt currently is on Depakote, Risperdal, Zoloft, Buspar and Trazodone. Pt VPA is therapeutic at 56; however, pt did have a repeat UA and that has gone to culture with results pending. [facility]IDY has sent out multiple referrals and have received denials due inability to "handle pt behaviors". C[facility]Y will continue to work with pt family o placement in hopes to discharge within the next week. TELLO PRITCHETT Sep 22, 2019 12:27
[2019-09-22] MEDS: traZODone 50 MG TABLET. PO SCH ×2 (13:21→17:11)
[2019-09-22 15:35] VITALS: BP 98/64
--- NOTE | 2019-09-22 15:45 | NUR ---
Wound Care patient seen for a f/u of Wound care consult. see wound assessment. patient has scabs to the right heel, the area was cleaned and redressed with recommendations of Xeroform gauze with an abd pad with Kerlix and tape, change every 3 days. patient has 2 scabbed areas on the left foot, recommendations of Xeroform with Kerlix and tape, change every 3 days. patient had a stage 3 pressure ulcer to the left ischium, this wound is closed at this time, recommendations of Calazime cream, prn. all areas were all cleaned, and redressed. patient turned to her left side at this time. Pt unable to retain teaching of PU prevention due to mental status, please continue to reinforce. patient would benefit from post -op shoes, d/t patient scooting herself in the wheelchair. Notified RN about the POC and wound care will continue to f/u for changes.
--- NOTE | 2019-09-22 18:29 | NUR ---
Patient has been restless. Yelling out for family members. Tearful asking staff "what did I do to you?" Compliant with medications most of day, pt was agitated before dinner so meds crushed and hidden in dinner. Pt believes that she is working here now. Wound dressing changes done by WC today. Pt wheeling self around in wheelchair. BONNY.
[2019-09-22] MEDS: MELATONIN 3 MG TABLET PO SCH (20:50)
--- NOTE | 2019-09-22 22:03 | PDOC ---
Exam Note: David Note: Please also refer to the separate dictated note~for this date of service dictated separately.~Patient seen individually. Discussed the patient with Nursing staff reviewed the chart.~Reviewed interim history and current functioning. Reviewed vital signs,~Labs/ Radiology~and current medications noted below. Continue current treatment with the changes noted in the dictated addendum note Assessment: Vital Signs/I&O: Vital Signs Date Time Temp Pulse Resp B/P (MAP) Pulse Ox O2 Delivery O2 Flow Rate FiO2 09/22/19 15:35 98.2 93 20 98/64 (75) 94 09/20/19 16:10 Room Air I & O 09/21/19 09/21/19 09/22/19 15:00 23:00 07:00 Intake Total 960 ml 600 ml 120 ml Balance 960 ml 600 ml 120 ml Current Medications: I have reviewed the current psychotropics carefully including drug interactions. Risk benefit ratio favors no change other than as noted in my dictated progress note. Diagnosis: Problems: (1) Impulse control disorder, unspecified (2) Anxiety disorder, unspecified (3) Dementia, vascular, with depression (4) Dementia, vascular, with delusions (5) Dementia in Alzheimer's disease with depression (6) Dementia in Alzheimer's disease with delusions (7) Major neurocognitive disorder, due to vascular disease, with behavioral disturbance, mild NAEEM SADLER MD Sep 22, 2019 22:03
[2019-09-23 06:08] VITALS: BP 146/84
[2019-09-23 06:46] LABS: BASO % 1 % (0-3); EOS # 0.2 x10^3/uL (0.0-0.7); EOS % 5 % (0-3); HEMATOCRIT 40.4 % (36.0-47.0); HEMOGLOBIN 13.6 g/dL (12.0-15.5); LYMPH # 0.9 x10^3/uL (1.0-4.8); LYMPH % 20 % (24-48); MEAN CORPUSCULAR HEMOGLOBIN 33 pg (25-35); MEAN CORPUSCULAR HGB CONC 34 g/dL (31-37); MEAN CORPUSCULAR VOLUME 97 fL (79-100); MONO # 0.5 x10^3/uL (0.0-1.1); MONO % 10 % (0-9); NEUT # 2.9 x10^3uL (1.8-7.7); NEUT % 63 % (31-73); PLATELET COUNT 260 x10^3/uL (140-400); RED BLOOD COUNT 4.18 x10^6/uL (3.50-5.40); RED CELL DISTRIBUTION WIDTH 14.1 % (11.5-14.5); WHITE BLOOD COUNT 4.6 x10^3/uL (4.0-11.0)
[2019-09-23 07:04] LABS: ALBUMIN/GLOBULIN RATIO 0.8 (1.0-1.7); CALCIUM 8.7 mg/dL (8.5-10.1); CREATININE 0.7 mg/dL (0.6-1.0); GFR 82.5; MAGNESIUM 1.9 mg/dL (1.8-2.4); POTASSIUM 4.3 mmol/L (3.5-5.1); TOTAL BILIRUBIN 0.3 mg/dL (0.2-1.0); TOTAL PROTEIN 6.7 g/dL (6.4-8.2)
--- NOTE | 2019-09-23 07:09 | PDOC ---
Exam Note: David Note: This note is a late entry for 09/21/2019 covers elements not covered in my initial note. Subjective: The patient was seen individually in the evening of 09/21/2019. Per [place] COHN, she slept 5 hours previous night. Previous evening she was calling out loud, restless. Oral intake is poor. She has had less yelling morning of September 20. Her meds were held at 8 a.m. She is calmer, somewhat drowsy, refused Risperdal and Depakote. We will check her UA to make sure UTI is not worsening her agitation. Review of Systems: Ambulation impaired, in Broda chair. No CV, , pulmonary, eye, ENT system symptoms on review. Reliability poor. Mental Status Exam: Oriented to herself. Insight and judgment, recent and remote memory, attention and concentration, fund of knowledge is poor consistent with her diagnoses. Laboratory Data: Reviewed. Impression: Major neurocognitive disorder Alzheimer, vascular with delusion. Anxiety disorder unspecified. Impulse control disorder unspecified. Plan: Continue rest psychotropics unchanged. We will check her UA to make sure UTI is not worsening her agitation. Adjust further as clinically indicated. Assessment: Vital Signs/I&O: Vital Signs Date Time Temp Pulse Resp B/P (MAP) Pulse Ox O2 Delivery O2 Flow Rate FiO2 09/23/19 06:08 97.4 82 20 146/84 (104) 96 09/20/19 16:10 Room Air I & O 09/22/19 09/22/19 09/23/19 15:00 23:00 07:00 Intake Total 960 ml 480 ml Balance 960 ml 480 ml Labs: Laboratory Tests Test 09/23/19 06:11 White Blood Count 4.6 x10^3/uL (4.0-11.0) Red Blood Count 4.18 x10^6/uL (3.50-5.40) Hemoglobin 13.6 g/dL (12.0-15.5) Hematocrit 40.4 % (36.0-47.0) Mean Corpuscular Volume 97 fL (79-100) Mean Corpuscular Hemoglobin 33 pg (25-35) Mean Corpuscular Hemoglobin Concent 34 g/dL (31-37) Red Cell Distribution Width 14.1 % (11.5-14.5) Platelet Count 260 x10^3/uL (140-400) Neutrophils (%) (Auto) 63 % (31-73) Lymphocytes (%) (Auto) 20 % (24-48) L Monocytes (%) (Auto) 10 % (0-9) H Eosinophils (%) (Auto) 5 % (0-3) H Basophils (%) (Auto) 1 % (0-3) Neutrophils # (Auto) 2.9 x10^3uL (1.8-7.7) Lymphocytes # (Auto) 0.9 x10^3/uL (1.0-4.8) L Monocytes # (Auto) 0.5 x10^3/uL (0.0-1.1) Eosinophils # (Auto) 0.2 x10^3/uL (0.0-0.7) Basophils # (Auto) 0.0 x10^3/uL (0.0-0.2) Current Medications: I have reviewed the current psychotropics carefully including drug interactions. Risk benefit ratio favors no change other than as noted in my dictated progress note. Diagnosis: Problems: (1) Impulse control disorder, unspecified (2) Anxiety disorder, unspecified (3) Dementia, vascular, with depression (4) Dementia, vascular, with delusions (5) Dementia in Alzheimer's disease with depression (6) Dementia in Alzheimer's disease with delusions (7) Major neurocognitive disorder, due to vascular disease, with behavioral disturbance, mild NAEEM SADLER MD Sep 23, 2019 07:09
--- NOTE | 2019-09-23 07:35 | PDOC ---
Exam Note: David Note: This note is a late entry for 09/22/2019 covers elements not covered in my initial note. Subjective: The patient was seen individually in the morning of 09/22/2019 with treatment team meeting with Marc (social service staff), [facility] Activity Therapy staff, Key COHN. She was also seen individually in the evening several times as she followed me around the unit. Sleeping average is 6 hours. Appetite is 100%. She remains disorganized, restless, confused. Urine has reflex to culture. Review of Systems: Ambulation impaired, in Broda chair. No CV, , pulmonary, eye, ENT system symptoms on review. Reliability poor. Mental Status Exam: Oriented to herself. Insight and judgment, recent and remote memory, attention and concentration, fund of knowledge is poor consistent with her diagnoses. Laboratory Data: Reviewed. Impression: Major neurocognitive disorder Alzheimer, vascular with delusion. Anxiety disorder unspecified. Impulse control disorder unspecified. Plan: No change from initial note. Assessment: Vital Signs/I&O: Vital Signs Date Time Temp Pulse Resp B/P (MAP) Pulse Ox O2 Delivery O2 Flow Rate FiO2 09/23/19 06:08 97.4 82 20 146/84 (104) 96 09/20/19 16:10 Room Air I & O 09/22/19 09/22/19 09/23/19 15:00 23:00 07:00 Intake Total 960 ml 480 ml Balance 960 ml 480 ml Labs: Laboratory Tests Test 09/23/19 06:11 White Blood Count 4.6 x10^3/uL (4.0-11.0) Red Blood Count 4.18 x10^6/uL (3.50-5.40) Hemoglobin 13.6 g/dL (12.0-15.5) Hematocrit 40.4 % (36.0-47.0) Mean Corpuscular Volume 97 fL (79-100) Mean Corpuscular Hemoglobin 33 pg (25-35) Mean Corpuscular Hemoglobin Concent 34 g/dL (31-37) Red Cell Distribution Width 14.1 % (11.5-14.5) Platelet Count 260 x10^3/uL (140-400) Neutrophils (%) (Auto) 63 % (31-73) Lymphocytes (%) (Auto) 20 % (24-48) L Monocytes (%) (Auto) 10 % (0-9) H Eosinophils (%) (Auto) 5 % (0-3) H Basophils (%) (Auto) 1 % (0-3) Neutrophils # (Auto) 2.9 x10^3uL (1.8-7.7) Lymphocytes # (Auto) 0.9 x10^3/uL (1.0-4.8) L Monocytes # (Auto) 0.5 x10^3/uL (0.0-1.1) Eosinophils # (Auto) 0.2 x10^3/uL (0.0-0.7) Basophils # (Auto) 0.0 x10^3/uL (0.0-0.2) Sodium Level 140 mmol/L (136-145) Potassium Level 4.3 mmol/L (3.5-5.1) Chloride Level 103 mmol/L (98-107) Carbon Dioxide Level 31 mmol/L (21-32) Anion Gap 6 (6-14) Blood Urea Nitrogen 24 mg/dL (7-20) H Creatinine 0.7 mg/dL (0.6-1.0) Estimated GFR (Cockcroft-Gault) 82.5 BUN/Creatinine Ratio 34 (6-20) H Glucose Level 80 mg/dL (70-99) Calcium Level 8.7 mg/dL (8.5-10.1) Magnesium Level 1.9 mg/dL (1.8-2.4) Total Bilirubin 0.3 mg/dL (0.2-1.0) Aspartate Amino Transferase (AST) 20 U/L (15-37) Alanine Aminotransferase (ALT) 19 U/L (14-59) Alkaline Phosphatase 86 U/L (46-116) Total Protein 6.7 g/dL (6.4-8.2) Albumin 3.0 g/dL (3.4-5.0) L Albumin/Globulin Ratio 0.8 (1.0-1.7) L Current Medications: I have reviewed the current psychotropics carefully including drug interactions. Risk benefit ratio favors no change other than as noted in my dictated progress note. Diagnosis: Problems: (1) Impulse control disorder, unspecified (2) Anxiety disorder, unspecified (3) Dementia, vascular, with depression (4) Dementia, vascular, with delusions (5) Dementia in Alzheimer's disease with depression (6) Dementia in Alzheimer's disease with delusions (7) Major neurocognitive disorder, due to vascular disease, with behavioral disturbance, mild NAEEM SADLER MD Sep 23, 2019 07:35
[2019-09-23] MEDS: MULTIVITAMIN with MINERAL TABLET. PO SCH (08:07)
[2019-09-23] MEDS: hydrALAZINE 25 MG TABLET PO SCH ×2 (08:07→19:55)
[2019-09-23] MEDS: DIVALPROEX 125 MG CAP.SPRINK PO SCH ×3 (08:07→19:56)
[2019-09-23] MEDS: SENNOSIDES/DOCUSATE 8.6/50MG TABLET. PO SCH ×2 (08:08→19:55)
[2019-09-23] MEDS: busPIRone 5 MG TABLET. PO SCH ×2 (08:08→17:00)
[2019-09-23] MEDS: SERTRALINE 50 MG TABLET. PO SCH (08:08)
[2019-09-23] MEDS: THIAMINE 100 MG TABLET. PO SCH (08:08)
[2019-09-23] MEDS: FUROSEMIDE 20 MG TABLET PO SCH (08:08)
[2019-09-23] MEDS: ASCORBIC ACID 500 MG TABLET PO SCH (08:08)
[2019-09-23] MEDS: LACTOBACILLUS RHAMNOSUS GG 1 CAPSULE. PO SCH ×2 (08:08→19:56)
[2019-09-23] MEDS: risperiDONE 0.5 MG TABLET. PO SCH ×2 (08:08→15:00)
[2019-09-23] MEDS: POTASSIUM CHLORIDE 10 MEQ TABLET.ER. PO SCH (08:09)
[2019-09-23] MEDS: traZODone 50 MG TABLET. PO SCH ×2 (12:00→17:00)
[2019-09-23 15:37] VITALS: BP 119/68
--- NOTE | 2019-09-23 18:18 | NUR ---
Pt up in wc for meals. Out to groups. Has been anxious at times but is usually redirectable. Has been compliant with meds and cares.
[2019-09-23] MEDS: MELATONIN 3 MG TABLET PO SCH (19:54)
--- NOTE | 2019-09-23 21:32 | NUR ---
Patient is in the day room on assumption of care. She is disorganized, hyperverbal, but in pleasant spirits. She is compliant with assessments and medications taken whole. No agitation. No s/s or c/o pain or discomfort.
--- NOTE | 2019-09-23 21:59 | PDOC ---
Exam Note: David Note: Please also refer to the separate dictated note~for this date of service dictated separately.~Patient seen individually. Discussed the patient with Nursing staff reviewed the chart.~Reviewed interim history and current functioning. Reviewed vital signs,~Labs/ Radiology~and current medications noted below. Continue current treatment with the changes noted in the dictated addendum note Assessment: Vital Signs/I&O: Vital Signs Date Time Temp Pulse Resp B/P (MAP) Pulse Ox O2 Delivery O2 Flow Rate FiO2 09/23/19 19:55 92 119/68 09/23/19 15:37 97.6 20 95 Room Air I & O 09/22/19 09/22/19 09/23/19 15:00 23:00 07:00 Intake Total 960 ml 480 ml Balance 960 ml 480 ml Labs: Laboratory Tests Test 09/23/19 06:11 White Blood Count 4.6 x10^3/uL (4.0-11.0) Red Blood Count 4.18 x10^6/uL (3.50-5.40) Hemoglobin 13.6 g/dL (12.0-15.5) Hematocrit 40.4 % (36.0-47.0) Mean Corpuscular Volume 97 fL (79-100) Mean Corpuscular Hemoglobin 33 pg (25-35) Mean Corpuscular Hemoglobin Concent 34 g/dL (31-37) Red Cell Distribution Width 14.1 % (11.5-14.5) Platelet Count 260 x10^3/uL (140-400) Neutrophils (%) (Auto) 63 % (31-73) Lymphocytes (%) (Auto) 20 % (24-48) L Monocytes (%) (Auto) 10 % (0-9) H Eosinophils (%) (Auto) 5 % (0-3) H Basophils (%) (Auto) 1 % (0-3) Neutrophils # (Auto) 2.9 x10^3uL (1.8-7.7) Lymphocytes # (Auto) 0.9 x10^3/uL (1.0-4.8) L Monocytes # (Auto) 0.5 x10^3/uL (0.0-1.1) Eosinophils # (Auto) 0.2 x10^3/uL (0.0-0.7) Basophils # (Auto) 0.0 x10^3/uL (0.0-0.2) Sodium Level 140 mmol/L (136-145) Potassium Level 4.3 mmol/L (3.5-5.1) Chloride Level 103 mmol/L (98-107) Carbon Dioxide Level 31 mmol/L (21-32) Anion Gap 6 (6-14) Blood Urea Nitrogen 24 mg/dL (7-20) H Creatinine 0.7 mg/dL (0.6-1.0) Estimated GFR (Cockcroft-Gault) 82.5 BUN/Creatinine Ratio 34 (6-20) H Glucose Level 80 mg/dL (70-99) Calcium Level 8.7 mg/dL (8.5-10.1) Magnesium Level 1.9 mg/dL (1.8-2.4) Total Bilirubin 0.3 mg/dL (0.2-1.0) Aspartate Amino Transferase (AST) 20 U/L (15-37) Alanine Aminotransferase (ALT) 19 U/L (14-59) Alkaline Phosphatase 86 U/L (46-116) Total Protein 6.7 g/dL (6.4-8.2) Albumin 3.0 g/dL (3.4-5.0) L Albumin/Globulin Ratio 0.8 (1.0-1.7) L Current Medications: I have reviewed the current psychotropics carefully including drug interactions. Risk benefit ratio favors no change other than as noted in my dictated progress note. Diagnosis: Problems: (1) Impulse control disorder, unspecified (2) Anxiety disorder, unspecified (3) Dementia, vascular, with depression (4) Dementia, vascular, with delusions (5) Dementia in Alzheimer's disease with depression (6) Dementia in Alzheimer's disease with delusions (7) Major neurocognitive disorder, due to vascular disease, with behavioral disturbance, mild NAEEM SADLER MD Sep 23, 2019 21:59
--- NOTE | 2019-09-24 03:21 | NUR ---
Patient has been intermittently yelling and disrobing since being put to bed earlier. She was medicated with PRN Zydis at 2245, with very little effect. She urinated in her brief. Appeared to settle down after being changed and slept for a couple of hours. Redirection is very ineffective. Keeps yelling "Catracho! Catracho!" and states "I don't want to , there's a fire, don't you see the taylor and smoke? I'm gonna keep yelling and I don't care who hears." New order for one time dose of Trazadone 50mg MR1, which she has not received yet. Patient was reassured and covered back up, and is quiet currently. Will medicate with PRN Trazadone if patient continues to be agitated.
[2019-09-24] MEDS ORDERED: traZODone 50 MG TABLET. PO ONE ×2 (03:45→23:30)
[2019-09-24 05:59] VITALS: BP 147/93
--- NOTE | 2019-09-24 06:09 | NUR ---
Patient slept well for remainder of night and did not require the one time dose of Trazadone. Will continue to monitor.
[2019-09-24] MEDS: risperiDONE 0.5 MG TABLET. PO SCH ×2 (08:20→15:00)
[2019-09-24] MEDS: hydrALAZINE 25 MG TABLET PO SCH ×2 (08:20→19:48)
[2019-09-24] MEDS: POTASSIUM CHLORIDE 10 MEQ TABLET.ER. PO SCH (08:20)
[2019-09-24] MEDS: SENNOSIDES/DOCUSATE 8.6/50MG TABLET. PO SCH ×2 (08:20→19:47)
[2019-09-24] MEDS: busPIRone 5 MG TABLET. PO SCH ×2 (08:20→16:13)
[2019-09-24] MEDS: MULTIVITAMIN with MINERAL TABLET. PO SCH (08:20)
[2019-09-24] MEDS: SERTRALINE 50 MG TABLET. PO SCH (08:21)
[2019-09-24] MEDS: THIAMINE 100 MG TABLET. PO SCH (08:21)
[2019-09-24] MEDS: ASCORBIC ACID 500 MG TABLET PO SCH (08:21)
[2019-09-24] MEDS: FUROSEMIDE 20 MG TABLET PO SCH (08:21)
[2019-09-24] MEDS: LACTOBACILLUS RHAMNOSUS GG 1 CAPSULE. PO SCH ×2 (08:21→19:47)
[2019-09-24] MEDS: DIVALPROEX 125 MG CAP.SPRINK PO SCH ×3 (08:21→19:48)
[2019-09-24] MEDS: traZODone 50 MG TABLET. PO SCH ×2 (12:00→16:13)
[2019-09-24 16:08] VITALS: BP 114/71
[2019-09-24] MEDS: hydrOXYzine HCL 25 MG TABLET PO PRN (16:14)
--- NOTE | 2019-09-24 16:23 | NUR ---
Pt up in wc for meals and out to day room. Delusional at times but has been redirectable until mid afternoon. Pt extremely anxious, wandering in wc, asking for purse and money. Dr Hensley notified. Atarax 25mg x1.
[2019-09-24] MEDS: MELATONIN 3 MG TABLET PO SCH (19:48)
--- NOTE | 2019-09-24 22:15 | PDOC ---
Exam Note: David Note: Please also refer to the separate dictated note~for this date of service dictated separately.~Patient seen individually. Discussed the patient with Nursing staff reviewed the chart.~Reviewed interim history and current functioning. Reviewed vital signs,~Labs/ Radiology~and current medications noted below. Continue current treatment with the changes noted in the dictated addendum note Assessment: Vital Signs/I&O: Vital Signs Date Time Temp Pulse Resp B/P (MAP) Pulse Ox O2 Delivery O2 Flow Rate FiO2 09/24/19 19:48 105 114/71 09/24/19 16:08 97.9 18 94 09/24/19 05:59 Room Air I & O 09/23/19 09/23/19 09/24/19 15:00 23:00 07:00 Intake Total 960 ml 830 ml Balance 960 ml 830 ml Current Medications: Meds: Current Medications Medications (Trade) Dose Ordered Sig/Bindu Route PRN Reason Start Time Stop Time Status Last Admin Dose Admin Hydroxyzine HCl (Atarax) 25 mg PRN Q2HR PRN PO ANXIETY / AGITATION 09/24/19 15:45 09/24/19 16:14 I have reviewed the current psychotropics carefully including drug interactions. Risk benefit ratio favors no change other than as noted in my dictated progress note. Diagnosis: Problems: (1) Impulse control disorder, unspecified (2) Anxiety disorder, unspecified (3) Dementia, vascular, with depression (4) Dementia, vascular, with delusions (5) Dementia in Alzheimer's disease with depression (6) Dementia in Alzheimer's disease with delusions (7) Major neurocognitive disorder, due to vascular disease, with behavioral disturbance, mild NAEEM SADLER MD Sep 24, 2019 22:15
--- NOTE | 2019-09-24 22:31 | NUR ---
Pt wandering the unit this evening, yelling out occasionally. Compliant with whole medications. Continues to be delusional, stating that she is quitting tonight.
[2019-09-25 05:44] VITALS: BP 162/96
--- NOTE | 2019-09-25 06:51 | PDOC ---
Exam Note: David Note: This note is a late entry for 09/23/2019 covers elements not covered in my initial note. Subjective: The patient was seen individually in the evening of 09/23/2019. Per Ana COHN, she slept 5-1/4 hours previous night. She remains confused, extremely restless, constantly moving in her Broda chair, up and down the hallway, hyperverbal, talking about wanting to grape picker things and put the palette somewhere. She restless at shower times, rest of the days better. Review of Systems: Ambulation impaired, in Broda chair. No CV, , pulmonary, eye, ENT system symptoms on review. Reliability poor. Mental Status Exam: Oriented to herself. Insight and judgment, recent and remote memory, attention and concentration, fund of knowledge is poor consistent with her diagnoses. Laboratory Data: Reviewed. Impression: Major neurocognitive disorder Alzheimer, vascular with delusion. Anxiety disorder unspecified. Impulse control disorder unspecified. Plan: No change from initial note. Assessment: Vital Signs/I&O: Vital Signs Date Time Temp Pulse Resp B/P (MAP) Pulse Ox O2 Delivery O2 Flow Rate FiO2 09/25/19 05:44 98.1 78 16 162/96 (118) 98 09/24/19 05:59 Room Air I & O 09/24/19 09/24/19 09/25/19 15:00 23:00 07:00 Intake Total 600 ml 720 ml Balance 600 ml 720 ml Current Medications: Meds: Current Medications Medications (Trade) Dose Ordered Sig/Bindu Route PRN Reason Start Time Stop Time Status Last Admin Dose Admin Hydroxyzine HCl (Atarax) 25 mg PRN Q2HR PRN PO ANXIETY / AGITATION 09/24/19 15:45 09/24/19 16:14 Trazodone HCl (Desyrel) 50 mg 1X ONCE PO 09/24/19 23:30 09/24/19 23:31 DC 09/24/19 23:37 I have reviewed the current psychotropics carefully including drug interactions. Risk benefit ratio favors no change other than as noted in my dictated progress note. Diagnosis: Problems: (1) Impulse control disorder, unspecified (2) Anxiety disorder, unspecified (3) Dementia, vascular, with depression (4) Dementia, vascular, with delusions (5) Dementia in Alzheimer's disease with depression (6) Dementia in Alzheimer's disease with delusions (7) Major neurocognitive disorder, due to vascular disease, with behavioral disturbance, mild NAEEM SADLER MD Sep 25, 2019 06:51
--- NOTE | 2019-09-25 07:16 | PDOC ---
Exam Note: David Note: This note is a late entry for 09/24/2019 covers elements not covered in my initial note. Subjective: The patient was seen individually in the evening of 09/24/2019. Per Ana COHN, she slept 4-3/4 hours previous night. She remains extremely agitated. Urine shows Corynebacterium. Sensitivity is awaited. We will defer to Dr. Alatorre for treatment if indicated. I had been called as an emergency previous night at 3 a.m. The patient was not sleeping, extremely restless, up and down, difficult to redirect. I spent an extended period of time. She had been given Zyprexa p.r.n. We added trazodone for insomnia but it was too late in the morning to give her the trazodone and she soon slept anyway. We did add one time dosage 50 mg h.s. p.r.n. She was following me around the unit on rounds evening of 09/23. She is again fixated on having to keep things in order. She was repeatedly asking me where she should put all these things and despite reassurance from me she had to be told some things specific to disengage her which she finally did after an extended period of time. Review of Systems: Ambulation impaired, in Broda chair. No CV, , pulmonary, eye, ENT system symptoms on review. Reliability poor. Mental Status Exam: Oriented to herself. She is hyperverbal as before. Insight and judgment, recent and remote memory, attention and concentration, fund of knowledge is poor consistent with her diagnoses. Laboratory Data: Reviewed. Impression: Major neurocognitive disorder Alzheimer, vascular with delusion. Anxiety disorder unspecified. Impulse control disorder unspecified. Plan: No change from initial note. We added trazodone for insomnia but it was too late in the morning to give her the trazodone and she soon slept anyway. We did add one time dosage 50 mg h.s. p.r.n. Assessment: Vital Signs/I&O: Vital Signs Date Time Temp Pulse Resp B/P (MAP) Pulse Ox O2 Delivery O2 Flow Rate FiO2 09/25/19 05:44 98.1 78 16 162/96 (118) 98 09/24/19 05:59 Room Air I & O 09/24/19 09/24/19 09/25/19 15:00 23:00 07:00 Intake Total 600 ml 720 ml Balance 600 ml 720 ml Current Medications: Meds: Current Medications Medications (Trade) Dose Ordered Sig/Bindu Route PRN Reason Start Time Stop Time Status Last Admin Dose Admin Hydroxyzine HCl (Atarax) 25 mg PRN Q2HR PRN PO ANXIETY / AGITATION 09/24/19 15:45 09/24/19 16:14 Trazodone HCl (Desyrel) 50 mg 1X ONCE PO 09/24/19 23:30 09/24/19 23:31 DC 09/24/19 23:37 I have reviewed the current psychotropics carefully including drug interactions. Risk benefit ratio favors no change other than as noted in my dictated progress note. Diagnosis: Problems: (1) Impulse control disorder, unspecified (2) Anxiety disorder, unspecified (3) Dementia, vascular, with depression (4) Dementia, vascular, with delusions (5) Dementia in Alzheimer's disease with depression (6) Dementia in Alzheimer's disease with delusions (7) Major neurocognitive disorder, due to vascular disease, with behavioral disturbance, mild NAEEM SADLER MD Sep 25, 2019 07:16
[2019-09-25] MEDS: busPIRone 5 MG TABLET. PO SCH ×2 (08:16→17:00)
[2019-09-25] MEDS: SENNOSIDES/DOCUSATE 8.6/50MG TABLET. PO SCH ×2 (08:16→20:14)
[2019-09-25] MEDS: THIAMINE 100 MG TABLET. PO SCH (08:16)
[2019-09-25] MEDS: LACTOBACILLUS RHAMNOSUS GG 1 CAPSULE. PO SCH ×2 (08:16→20:14)
[2019-09-25] MEDS: DIVALPROEX 125 MG CAP.SPRINK PO SCH ×3 (08:16→20:16)
[2019-09-25] MEDS: hydrALAZINE 25 MG TABLET PO SCH ×2 (08:16→20:15)
[2019-09-25] MEDS: MULTIVITAMIN with MINERAL TABLET. PO SCH (08:16)
[2019-09-25] MEDS: SERTRALINE 50 MG TABLET. PO SCH (08:17)
[2019-09-25] MEDS: risperiDONE 0.5 MG TABLET. PO SCH ×2 (08:17→15:00)
[2019-09-25] MEDS: POTASSIUM CHLORIDE 10 MEQ TABLET.ER. PO SCH (08:17)
[2019-09-25] MEDS: ASCORBIC ACID 500 MG TABLET PO SCH (08:17)
[2019-09-25] MEDS: FUROSEMIDE 20 MG TABLET PO SCH (08:17)
[2019-09-25] MEDS: traZODone 50 MG TABLET. PO SCH ×2 (12:00→17:00)
[2019-09-25] MEDS: hydrOXYzine HCL 25 MG TABLET PO PRN (12:58)
[2019-09-25 15:42] VITALS: BP 119/80
--- NOTE | 2019-09-25 17:25 | NUR ---
Pt drowsy in am but escalated to anxious and tearful behavior. Pt thought something bad had happened to her sister. Got sister on phone and pt spoke with sister. Pt calmer for a short while. By lunch pt was back to looking for way home and trying to find sister. Pt inconsolable. PRN Zydis and Atarax given. Pt showered and was laid down for a nap. Dressing changed to lower extremities. Pt c/o burning B feet. Pt delusional at this time. Asked this nurse to get out of here before "they" found me in there. Thinks "they" burned her feet and would blame this nurse. Calmed down shortly after and fell asleep. Is resting quietly in bed. Will get up for supper and meds.
[2019-09-25] MEDS: MELATONIN 3 MG TABLET PO SCH (20:15)
--- NOTE | 2019-09-25 22:00 | PDOC ---
Exam Note: David Note: Please also refer to the separate dictated note~for this date of service dictated separately.~Patient seen individually. Discussed the patient with Nursing staff reviewed the chart.~Reviewed interim history and current functioning. Reviewed vital signs,~Labs/ Radiology~and current medications noted below. Continue current treatment with the changes noted in the dictated addendum note Assessment: Vital Signs/I&O: Vital Signs Date Time Temp Pulse Resp B/P (MAP) Pulse Ox O2 Delivery O2 Flow Rate FiO2 09/25/19 20:15 75 119/80 09/25/19 15:42 98.2 18 96 09/24/19 05:59 Room Air I & O 09/24/19 09/24/19 09/25/19 15:00 23:00 07:00 Intake Total 600 ml 720 ml Balance 600 ml 720 ml Current Medications: Meds: Current Medications Medications (Trade) Dose Ordered Sig/Bindu Route PRN Reason Start Time Stop Time Status Last Admin Dose Admin Trazodone HCl (Desyrel) 50 mg 1X ONCE PO 09/24/19 23:30 09/24/19 23:31 DC 09/24/19 23:37 I have reviewed the current psychotropics carefully including drug interactions. Risk benefit ratio favors no change other than as noted in my dictated progress note. Diagnosis: Problems: (1) Impulse control disorder, unspecified (2) Anxiety disorder, unspecified (3) Dementia, vascular, with depression (4) Dementia, vascular, with delusions (5) Dementia in Alzheimer's disease with depression (6) Dementia in Alzheimer's disease with delusions (7) Major neurocognitive disorder, due to vascular disease, with behavioral disturbance, mild NAEEM SADLER MD Sep 25, 2019 22:00
[2019-09-26 05:39] VITALS: BP 128/81
[2019-09-26] MEDS: SENNOSIDES/DOCUSATE 8.6/50MG TABLET. PO SCH ×2 (08:21→20:11)
[2019-09-26] MEDS: busPIRone 5 MG TABLET. PO SCH ×2 (08:21→17:14)
[2019-09-26] MEDS: SERTRALINE 50 MG TABLET. PO SCH (08:21)
[2019-09-26] MEDS: THIAMINE 100 MG TABLET. PO SCH (08:21)
[2019-09-26] MEDS: FUROSEMIDE 20 MG TABLET PO SCH (08:21)
[2019-09-26] MEDS: LACTOBACILLUS RHAMNOSUS GG 1 CAPSULE. PO SCH ×2 (08:22→20:06)
[2019-09-26] MEDS: DIVALPROEX 125 MG CAP.SPRINK PO SCH ×3 (08:22→20:06)
[2019-09-26] MEDS: POTASSIUM CHLORIDE 10 MEQ TABLET.ER. PO SCH (08:22)
[2019-09-26] MEDS: hydrALAZINE 25 MG TABLET PO SCH ×2 (08:22→20:07)
[2019-09-26] MEDS: ASCORBIC ACID 500 MG TABLET PO SCH (08:22)
[2019-09-26] MEDS: risperiDONE 0.5 MG TABLET. PO SCH ×2 (08:22→15:14)
[2019-09-26] MEDS: MULTIVITAMIN with MINERAL TABLET. PO SCH (08:22)
[2019-09-26] MEDS: traZODone 50 MG TABLET. PO SCH ×2 (12:17→17:14)
--- NOTE | 2019-09-26 12:28 | NUR ---
Pt drowsy this morning, is compliant with medications. Pt is pleasantly confused. Cooperative with cares this am. BONNY.
[2019-09-26 16:08] VITALS: BP 125/83
[2019-09-26] MEDS: MELATONIN 3 MG TABLET PO SCH (20:05)
--- NOTE | 2019-09-26 21:59 | PDOC ---
Exam Note: David Note: Please also refer to the separate dictated note~for this date of service dictated separately.~Patient seen individually. Discussed the patient with Nursing staff reviewed the chart.~Reviewed interim history and current functioning. Reviewed vital signs,~Labs/ Radiology~and current medications noted below. Continue current treatment with the changes noted in the dictated addendum note Assessment: Vital Signs/I&O: Vital Signs Date Time Temp Pulse Resp B/P (MAP) Pulse Ox O2 Delivery O2 Flow Rate FiO2 09/26/19 20:07 97 125/83 09/26/19 16:08 98.1 16 96 09/24/19 05:59 Room Air I & O 09/25/19 09/25/19 09/26/19 15:00 23:00 07:00 Intake Total 840 ml 580 ml Balance 840 ml 580 ml Current Medications: I have reviewed the current psychotropics carefully including drug interactions. Risk benefit ratio favors no change other than as noted in my dictated progress note. Diagnosis: Problems: (1) Impulse control disorder, unspecified (2) Anxiety disorder, unspecified (3) Dementia, vascular, with depression (4) Dementia, vascular, with delusions (5) Dementia in Alzheimer's disease with depression (6) Dementia in Alzheimer's disease with delusions (7) Major neurocognitive disorder, due to vascular disease, with behavioral disturbance, mild NAEEM SADLER MD Sep 26, 2019 21:59
--- NOTE | 2019-09-26 23:49 | NUR ---
Nursing Note The patient was located in the day room for her medication and assessment. The patient took her medication whole. The patient remains extremely disorganized and confused. The patient is currently sleeping in her room.
[2019-09-27 05:00] VITALS: BP 145/79
--- NOTE | 2019-09-27 08:52 | PDOC ---
Exam Note: David Note: This note is a late entry for 09/25/2019 covers elements not covered in my initial note. Subjective: The patient was seen individually in the evening of 09/25/2019. Per Ana COHN, the patient has been anxious, restless, confused in her Broda chair, going up and down the hallway, wheeling herself, disorganized, very verbal, somewhat loud, disruptive at times, redirects. She followed me around the unit, repeatedly asking different questions, wanting to keep certain things somewhere, very circuitous in her thinking. Review of Systems: Ambulation impaired, in Broda chair. No CV, , pulmonary, eye, ENT system symptoms on review. Reliability poor. Mental Status Exam: Oriented to herself. She is hyperverbal, disruptive at times. Insight and judgment, recent and remote memory, attention and concentration, fund of knowledge is poor consistent with her diagnoses. Laboratory Data: Reviewed. Impression: Major neurocognitive disorder Alzheimer, vascular with delusion. Anxiety disorder unspecified. Impulse control disorder unspecified. Plan: No change from initial note. Assessment: Vital Signs/I&O: Vital Signs Date Time Temp Pulse Resp B/P (MAP) Pulse Ox O2 Delivery O2 Flow Rate FiO2 09/27/19 08:25 97.6 09/26/19 20:07 97 125/83 09/26/19 16:08 16 96 09/24/19 05:59 Room Air I & O 09/26/19 09/26/19 09/27/19 15:00 23:00 07:00 Intake Total 240 ml 360 ml Balance 240 ml 360 ml Current Medications: I have reviewed the current psychotropics carefully including drug interactions. Risk benefit ratio favors no change other than as noted in my dictated progress note. Diagnosis: Problems: (1) Impulse control disorder, unspecified (2) Anxiety disorder, unspecified (3) Dementia, vascular, with depression (4) Dementia, vascular, with delusions (5) Dementia in Alzheimer's disease with depression (6) Dementia in Alzheimer's disease with delusions (7) Major neurocognitive disorder, due to vascular disease, with behavioral disturbance, mild NAEEM SADLER MD Sep 27, 2019 08:52
[2019-09-27] MEDS: SERTRALINE 50 MG TABLET. PO SCH (08:59)
[2019-09-27] MEDS: risperiDONE 0.5 MG TABLET. PO SCH ×2 (08:59→14:35)
[2019-09-27] MEDS: POTASSIUM CHLORIDE 10 MEQ TABLET.ER. PO SCH (08:59)
[2019-09-27] MEDS: busPIRone 5 MG TABLET. PO SCH ×2 (08:59→16:55)
[2019-09-27] MEDS: DIVALPROEX 125 MG CAP.SPRINK PO SCH ×3 (08:59→19:43)
[2019-09-27] MEDS: MULTIVITAMIN with MINERAL TABLET. PO SCH (08:59)
[2019-09-27] MEDS: hydrALAZINE 25 MG TABLET PO SCH ×2 (08:59→21:00)
[2019-09-27] MEDS: LACTOBACILLUS RHAMNOSUS GG 1 CAPSULE. PO SCH ×2 (09:00→19:43)
[2019-09-27] MEDS: FUROSEMIDE 20 MG TABLET PO SCH (09:00)
[2019-09-27] MEDS: SENNOSIDES/DOCUSATE 8.6/50MG TABLET. PO SCH ×2 (09:00→19:43)
[2019-09-27] MEDS: ASCORBIC ACID 500 MG TABLET PO SCH (09:00)
[2019-09-27] MEDS: THIAMINE 100 MG TABLET. PO SCH (09:00)
--- NOTE | 2019-09-27 09:10 | PDOC ---
Exam Note: David Note: This note is a late entry for 09/26/2019 covers elements not covered in my initial note. Subjective: The patient was seen individually in the evening of 09/26/2019. Per Mandie COHN, she slept 6 hours previous night. Previous evening she had a very difficult night, was yelling repeatedly, today has done a little better, drowsy in the morning, took a 2-hour nap, much better after that. No yelling. Review of Systems: Ambulation impaired, in Broda chair. No CV, , pulmonary, eye, ENT system symptoms on review. Mental Status Exam: Oriented to herself. Insight and judgment, recent and remote memory, attention and concentration, fund of knowledge is poor consistent with her diagnoses. Laboratory Data: Reviewed. Impression: Major neurocognitive disorder Alzheimer, vascular with delusion. Anxiety disorder unspecified. Impulse control disorder unspecified. Plan: No change from initial note. Assessment: Vital Signs/I&O: Vital Signs Date Time Temp Pulse Resp B/P (MAP) Pulse Ox O2 Delivery O2 Flow Rate FiO2 09/27/19 08:59 97 125/83 09/27/19 08:25 97.6 09/26/19 16:08 16 96 09/24/19 05:59 Room Air I & O 09/26/19 09/26/19 09/27/19 15:00 23:00 07:00 Intake Total 240 ml 360 ml Balance 240 ml 360 ml Current Medications: I have reviewed the current psychotropics carefully including drug interactions. Risk benefit ratio favors no change other than as noted in my dictated progress note. Diagnosis: Problems: (1) Impulse control disorder, unspecified (2) Anxiety disorder, unspecified (3) Dementia, vascular, with depression (4) Dementia, vascular, with delusions (5) Dementia in Alzheimer's disease with depression (6) Dementia in Alzheimer's disease with delusions (7) Major neurocognitive disorder, due to vascular disease, with behavioral disturbance, mild NAEEM SADLER MD Sep 27, 2019 09:10
--- NOTE | 2019-09-27 10:29 | NUR ---
Nursing note: Pt in her room for morning meds and assessment. She was pleasant, med compliant, and cooperative. Pt had no complaints at time of assessment. She has been yelling out intermittently for Pal and [place], but is able to be redirected. She is currently laying quietly in her bed. Will continue to monitor.
[2019-09-27] MEDS: ACETAMINOPHEN 325 MG TABLET PO PRN (12:07)
[2019-09-27] MEDS: traZODone 50 MG TABLET. PO SCH ×2 (12:07→16:55)
[2019-09-27 15:18] VITALS: BP 97/60
--- NOTE | 2019-09-27 16:00 | NUR ---
CASSIDY spoke with pt sister, Pal, regarding the positive COVOID-19 test on the unit. Per the [facility], there will be no admissions in and no discharges out. All staff and all residents will be tested as well. CASSIDY will continue to update pt sister on pt behaviors and once the 2 week lift occurs, CASSIDY will notify all parties that discharges are permissible and make plans at that time.
[2019-09-27] MEDS: MELATONIN 3 MG TABLET PO SCH (19:44)
[2019-09-27] MEDS: hydrOXYzine HCL 25 MG TABLET PO PRN (19:44)
--- NOTE | 2019-09-27 21:58 | PDOC ---
Exam Note: David Note: Please also refer to the separate dictated note~for this date of service dictated separately.~Patient seen individually. Discussed the patient with Nursing staff reviewed the chart.~Reviewed interim history and current functioning. Reviewed vital signs,~Labs/ Radiology~and current medications noted below. Continue current treatment with the changes noted in the dictated addendum note Assessment: Vital Signs/I&O: Vital Signs Date Time Temp Pulse Resp B/P (MAP) Pulse Ox O2 Delivery O2 Flow Rate FiO2 09/27/19 20:42 98.6 95 09/27/19 15:18 90 18 97/60 (72) 09/24/19 05:59 Room Air I & O 09/26/19 09/26/19 09/27/19 15:00 23:00 07:00 Intake Total 240 ml 360 ml Balance 240 ml 360 ml Current Medications: I have reviewed the current psychotropics carefully including drug interactions. Risk benefit ratio favors no change other than as noted in my dictated progress note. Diagnosis: Problems: (1) Impulse control disorder, unspecified (2) Anxiety disorder, unspecified (3) Dementia, vascular, with depression (4) Dementia, vascular, with delusions (5) Dementia in Alzheimer's disease with depression (6) Dementia in Alzheimer's disease with delusions (7) Major neurocognitive disorder, due to vascular disease, with behavioral disturbance, mild NAEEM SADLER MD Sep 27, 2019 21:58
--- NOTE | 2019-09-28 00:19 | NUR ---
Nursing Note The patient was located in her room this shift when approached for her assessment and medication pass. The patient remains very disorganized and confused. The patient took her medication whole. The patient is currently sleeping in her room.
[2019-09-28 06:08] VITALS: BP 124/76
--- NOTE | 2019-09-28 07:35 | PDOC ---
Exam Note: David Note: This note is a late entry for 09/27/2019 covers elements not covered in my initial note. Subjective: The patient was seen on telehealth rounds in the evening of 09/27/2019 with Porfirio RN and Rola RN. COVID-19 screen has been done on all patients and staff members since one patient has turned up positive for COVID-19 on the unit today. The unit is on lockdown per the [facility] of [facility] and [facility] ([facility])/Centers for Disease Control (CDC) due to the COVID positive patient on our unit, which was discovered. All patients are back in their rooms and are not using main dining room either to avoid group activities and exposure. Per Mandie COHN, she slept 7 hours previous night. The patient was quite restless previous night, yelling occasionally but redirected. She is quite animated as I met with her in the evening of 09/26 but disorganized, confused. Review of Systems: Ambulation impaired, in Broda chair. No CV, , pulmonary, eye, ENT system symptoms on review. Mental Status Exam: Oriented to herself. Insight and judgment, recent and remote memory, attention and concentration, fund of knowledge is poor consistent with her diagnoses. Laboratory Data: Reviewed. Impression: Major neurocognitive disorder Alzheimer, vascular with delusion. Anxiety disorder unspecified. Impulse control disorder unspecified. Plan: No change from initial note. Assessment: Vital Signs/I&O: Vital Signs Date Time Temp Pulse Resp B/P (MAP) Pulse Ox O2 Delivery O2 Flow Rate FiO2 09/28/19 06:08 97.8 82 18 124/76 (92) 93 09/24/19 05:59 Room Air I & O 09/27/19 09/27/19 09/28/19 15:00 23:00 07:00 Intake Total 960 ml 840 ml Balance 960 ml 840 ml Current Medications: I have reviewed the current psychotropics carefully including drug interactions. Risk benefit ratio favors no change other than as noted in my dictated progress note. Diagnosis: Problems: (1) Impulse control disorder, unspecified (2) Anxiety disorder, unspecified (3) Dementia, vascular, with depression (4) Dementia, vascular, with delusions (5) Dementia in Alzheimer's disease with depression (6) Dementia in Alzheimer's disease with delusions (7) Major neurocognitive disorder, due to vascular disease, with behavioral disturbance, mild NAEEM SADLER MD Sep 28, 2019 07:35
[2019-09-28] MEDS: MULTIVITAMIN with MINERAL TABLET. PO SCH (08:30)
[2019-09-28] MEDS: FUROSEMIDE 20 MG TABLET PO SCH (08:30)
[2019-09-28] MEDS: ASCORBIC ACID 500 MG TABLET PO SCH (08:30)
[2019-09-28] MEDS: LACTOBACILLUS RHAMNOSUS GG 1 CAPSULE. PO SCH ×2 (08:30→22:18)
[2019-09-28] MEDS: busPIRone 5 MG TABLET. PO SCH ×2 (08:30→16:17)
[2019-09-28] MEDS: SENNOSIDES/DOCUSATE 8.6/50MG TABLET. PO SCH ×2 (08:30→22:17)
[2019-09-28] MEDS: SERTRALINE 50 MG TABLET. PO SCH (08:30)
[2019-09-28] MEDS: POTASSIUM CHLORIDE 10 MEQ TABLET.ER. PO SCH (08:31)
[2019-09-28] MEDS: risperiDONE 0.5 MG TABLET. PO SCH ×2 (08:31→14:05)
[2019-09-28] MEDS: DIVALPROEX 125 MG CAP.SPRINK PO SCH ×3 (08:31→22:18)
[2019-09-28] MEDS: hydrALAZINE 25 MG TABLET PO SCH ×2 (08:31→21:00)
[2019-09-28] MEDS: THIAMINE 100 MG TABLET. PO SCH (08:31)
--- NOTE | 2019-09-28 09:39 | NUR ---
Nursing note: Pt was in bed this morning for her meds and assessment. She was withdrawn this morning, not interacting much with this nurse. She continues to be very confused and disorganized, but is med compliant and cooperative. She is currently quietly laying in bed. Will continue to monitor.
[2019-09-28] MEDS: traZODone 50 MG TABLET. PO SCH ×2 (11:58→16:17)
--- NOTE | 2019-09-28 15:24 | NUR ---
COVID swab complete and sent to lab.
[2019-09-28 15:32] VITALS: BP 100/62
--- NOTE | 2019-09-28 16:30 | NUR ---
Nursing note: Pt continuously yelling out for Pal and banging her hands on the wall and throwing trash and pillows throughout the room. Pt unable to be redirected. PRN given. Will continue to monitor.
--- NOTE | 2019-09-28 16:32 | NUR ---
Wound Care Due to unit lockdown, field attendant unable to assess patient. Recommend to continue current dressing recommendations. Please call wound center if changes occur. WC will follow up 10/11/2019
[2019-09-28] MEDS: busPIRone 10 MG TABLET. PO SCH (17:00)
--- NOTE | 2019-09-28 22:03 | PDOC ---
Exam Note: David Note: Please also refer to the separate dictated note~for this date of service dictated separately.~Patient seen individually. Discussed the patient with Nursing staff reviewed the chart.~Reviewed interim history and current functioning. Reviewed vital signs,~Labs/ Radiology~and current medications noted below. Continue current treatment with the changes noted in the dictated addendum note Assessment: Vital Signs/I&O: Vital Signs Date Time Temp Pulse Resp B/P (MAP) Pulse Ox O2 Delivery O2 Flow Rate FiO2 09/28/19 19:02 97.8 09/28/19 15:32 89 20 100/62 (75) 95 09/24/19 05:59 Room Air I & O 09/27/19 09/27/19 09/28/19 15:00 23:00 07:00 Intake Total 960 ml 840 ml Balance 960 ml 840 ml Current Medications: I have reviewed the current psychotropics carefully including drug interactions. Risk benefit ratio favors no change other than as noted in my dictated progress note. Diagnosis: Problems: (1) Impulse control disorder, unspecified (2) Anxiety disorder, unspecified (3) Dementia, vascular, with depression (4) Dementia, vascular, with delusions (5) Dementia in Alzheimer's disease with depression (6) Dementia in Alzheimer's disease with delusions (7) Major neurocognitive disorder, due to vascular disease, with behavioral disturbance, mild NAEEM SADLER MD Sep 28, 2019 22:03
[2019-09-28] MEDS: MELATONIN 3 MG TABLET PO SCH (22:17)
--- NOTE | 2019-09-29 02:00 | NUR ---
Nursing Note The patient was located in her room laying in bed for her assessment and medication pass. The patient was very disorganized and irritable during interactions with this nurse. The patient had destroyed her brief and was covered in gel from inside her brief. The patient took her medication whole. The patient is currently awake in her bed yelling intermittently.
[2019-09-29 06:20] VITALS: BP 151/85
--- NOTE | 2019-09-29 07:03 | PDOC ---
Exam Note: David Note: This note is a late entry for 09/28/2019 covers elements not covered in my initial note. Subjective: The patient was seen on telehealth rounds in the evening of 09/28/2019 with nursing staff. The unit is on lockdown due to the COVID positive patient on our unit, which was discovered. Each patient is in their room, not able to come out to the dining room or to interact with others according to the recommendation by the [facility] of [facility] and [facility]. Per Mandie COHN, she slept 4-1/4 hours previous night. She has been restless previous night and during the day spending time in her room. It is very difficult for her. She is constantly moving out in the hallway. Her COVID-19 test is awaited. Review of Systems: Ambulation impaired, in Broda chair. No CV, , pulmonary, eye, ENT system symptoms on review. Mental Status Exam: Oriented to herself. Insight and judgment, recent and remote memory, attention and concentration, fund of knowledge is poor consistent with her diagnoses. Laboratory Data: Reviewed. Impression: Major neurocognitive disorder Alzheimer, vascular with delusion. Anxiety disorder unspecified. Impulse control disorder unspecified. Plan: The patient remains extremely anxious labile. We will increase BuSpar from 5 mg twice a day to 10 mg twice a day. Rest unchanged. Assessment: Vital Signs/I&O: Vital Signs Date Time Temp Pulse Resp B/P (MAP) Pulse Ox O2 Delivery O2 Flow Rate FiO2 09/29/19 06:20 98.3 84 18 151/85 (107) 94 09/24/19 05:59 Room Air I & O 09/28/19 09/28/19 09/29/19 15:00 23:00 07:00 Intake Total 960 ml 240 ml 240 ml Balance 960 ml 240 ml 240 ml Current Medications: I have reviewed the current psychotropics carefully including drug interactions. Risk benefit ratio favors no change other than as noted in my dictated progress note. Diagnosis: Problems: (1) Impulse control disorder, unspecified (2) Anxiety disorder, unspecified (3) Dementia, vascular, with depression (4) Dementia, vascular, with delusions (5) Dementia in Alzheimer's disease with depression (6) Dementia in Alzheimer's disease with delusions (7) Major neurocognitive disorder, due to vascular disease, with behavioral disturbance, mild VIKTORIYA,MAN M MD Sep 29, 2019 07:03
[2019-09-29] MEDS: SENNOSIDES/DOCUSATE 8.6/50MG TABLET. PO SCH (09:42)
[2019-09-29] MEDS: DIVALPROEX 125 MG CAP.SPRINK PO SCH (09:42)
[2019-09-29] MEDS: FUROSEMIDE 20 MG TABLET PO SCH (09:42)
[2019-09-29] MEDS: busPIRone 10 MG TABLET. PO SCH (09:42)
[2019-09-29 09:43] VITALS: BP 151/85
[2019-09-29] MEDS: THIAMINE 100 MG TABLET. PO SCH (09:43)
[2019-09-29] MEDS: risperiDONE 0.5 MG TABLET. PO SCH (09:43)
[2019-09-29] MEDS: MULTIVITAMIN with MINERAL TABLET. PO SCH (09:43)
[2019-09-29] MEDS: hydrALAZINE 25 MG TABLET PO SCH (09:43)
[2019-09-29] MEDS: POTASSIUM CHLORIDE 10 MEQ TABLET.ER. PO SCH (09:43)
[2019-09-29] MEDS: ASCORBIC ACID 500 MG TABLET PO SCH (09:43)
[2019-09-29] MEDS: LACTOBACILLUS RHAMNOSUS GG 1 CAPSULE. PO SCH (09:43)
[2019-09-29] MEDS: SERTRALINE 50 MG TABLET. PO SCH (09:45)
--- NOTE | 2019-09-29 10:48 | NUR ---
CASSIDY contacted pt sister, Pal to inform her that pt test did come back with a positive result. CASSIDY updated Pal on pt not feeling well, restless and her recent development of a cough on top of potentially doing a UTI. The unit is currently in the process of getting pt moved downstairs to a Covoid unit and develop a medical treatment goal from there. CASSIDY will continue to work on pt and with the family as pt does not have placement. Pal was thankful that CASSIDY contacted her and will plan to let pt nephew Wil know pt current status.
[2019-09-29] MEDS ORDERED: ACET325T21 PO (11:11)
[2019-09-29] MEDS ORDERED: DIVA125C2 PO ×2 (11:14→11:15)
[2019-09-29] MEDS ORDERED: LACT1CAP2 PO (11:16)
[2019-09-29] MEDS ORDERED: MAG-115 PO (11:22)
[2019-09-29] MEDS ORDERED: MAGN24003 PO (11:23)
[2019-09-29] MEDS ORDERED: MELA3TAB43 PO (11:25)
[2019-09-29] MEDS ORDERED: METH57CR17 TP (11:26)
[2019-09-29] MEDS ORDERED: NYST15PO9 TP (11:32)
[2019-09-29] MEDS ORDERED: MULT-245 PO (11:32)
[2019-09-29] MEDS ORDERED: SERT25TA PO (11:33)
[2019-09-29] MEDS ORDERED: BUSP10TA PO (11:33)
[2019-09-29] MEDS ORDERED: HYDR25TA PO (11:38)
[2019-09-29] MEDS ORDERED: TRAZ-120 PO (11:39)
--- NOTE | 2019-09-29 12:57 | NUR ---
Patient has been drowsy today, states she is not feeling well. Has a cough, sore throat and voice is hoarse. Resisitive to meds, took 1 bite of pudding with meds. Threatened to throw the spoon if nurse continued to try to administer rest of bite. BONNY.
--- NOTE | 2019-09-29 23:32 | PDOC ---
Exam Note: David Note: Please also refer to the separate dictated note~for this date of service dictated separately.~Patient seen individually. Discussed the patient with Nursing staff reviewed the chart.~Reviewed interim history and current functioning. Reviewed vital signs,~Labs/ Radiology~and current medications noted below. Continue current treatment with the changes noted in the dictated addendum note Assessment: Vital Signs/I&O: Vital Signs Date Time Temp Pulse Resp B/P (MAP) Pulse Ox O2 Delivery O2 Flow Rate FiO2 09/29/19 09:44 98.9 94 09/29/19 09:43 84 151/85 09/29/19 06:20 18 09/24/19 05:59 Room Air I & O 09/28/19 09/28/19 09/29/19 15:00 23:00 07:00 Intake Total 960 ml 240 ml 240 ml Balance 960 ml 240 ml 240 ml Current Medications: I have reviewed the current psychotropics carefully including drug interactions. Risk benefit ratio favors no change other than as noted in my dictated progress note. Diagnosis: Problems: (1) Impulse control disorder, unspecified (2) Anxiety disorder, unspecified (3) Dementia, vascular, with depression (4) Dementia, vascular, with delusions (5) Dementia in Alzheimer's disease with depression (6) Dementia in Alzheimer's disease with delusions (7) Major neurocognitive disorder, due to vascular disease, with behavioral disturbance, mild NAEEM SADLER MD Sep 29, 2019 23:32
== END 2019-09-29 12:59 | disposition short-term general hospital (02) | DRG 56 ==
LOC: ER 14:10 → GEROPSY 16:31
PROVIDERS: ADMIT Psychiatry & Neurology Psychiatry; ATTEND Psychiatry & Neurology Psychiatry
DX: G30.9 Alzheimer's disease, unspecified (principal); U07.1 COVID-19; F01.51 Vascular dementia, unspecified severity, with behavioral disturbance; F02.81 Dementia in other diseases classified elsewhere, unspecified severity, with behavioral disturbance; N39.0 Urinary tract infection, site not specified; E78.00 Pure hypercholesterolemia, unspecified; E78.5 Hyperlipidemia, unspecified; F32.9 Major depressive disorder, single episode, unspecified; F41.9 Anxiety disorder, unspecified; F63.9 Impulse disorder, unspecified; Z66 Do not resuscitate; Z85.820 Personal history of malignant melanoma of skin; G43.909 Migraine, unspecified, not intractable, without status migrainosus; G47.00 Insomnia, unspecified; K21.9 Gastro-esophageal reflux disease without esophagitis; B96.5 Pseudomonas (aeruginosa) (mallei) (pseudomallei) as the cause of diseases classified elsewhere
CPT/HCPCS: 36415; 70450; 71045; 73620; 80053; 80061; 80164; 80307; 80329; 81001; 82140; 82306; 82553; 82607; 83036; 83540; 83550; 83605; 83735; 84436; 84443; 84480; 84484; 85025; 85610; 85730; 86592; 87077; 87086; 87186; 93005; 93971; 96361; 96374; J2060; 99285-25; G0480; J7030; U0003-CS

== ENCOUNTER 2019-09-29 13:07 | Inpatient (IN) | payer MEDICARE ==
[~2019-09-29] VITALS: Ht 172.7 cm; Wt 81.6 kg
[~2019-09-29 13:07] MED LIST: ACET325T21 PO; ACET500T68 PO; ASCO500C PO; BISA10SU4 RC; BUSP10TA PO; CEPH500C PO; DIVA125C2 PO; FURO20TA3 PO; HYDR-2868 PO; HYDR25TA PO; LACT1CAP2 PO; LORA-254 PO; MAG-115 PO; MAGN24003 PO; MELA3TAB43 PO; MELA5TAB20 PO; METH57CR17 TP; MULT-245 PO; MUPI15CR8 TP; NYST15PO9 TP; OLAN10VI2 IM; OLAN5TAB9 PO; POTA10TA5 PO; RISP0.5T3 PO; SENN1TAB62 PO; SERT25TA PO; THIA100T57 PO; TRAZ-120 PO; ZIPR20CA3 PO; [UNRECOGNIZED DRUG - CODE] TP
[2019-09-29] MEDS ORDERED: NYSTATIN TOPICAL POWDER 15GM BOTTLE. TP PRN (13:45)
[2019-09-29] MEDS ORDERED: METHYL SALICYLATE/MENTHOL TOPICAL OINTMENT 57GM TUBE. TP PRN (13:45)
[2019-09-29] MEDS ORDERED: BISACODYL 10 MG SUPP.RECT RC PRN (13:45)
[2019-09-29] MEDS ORDERED: MAG HYDROX/AL HYDROX/SIMETH 30 ML ORAL.SUSP PO PRN (13:45)
[2019-09-29] MEDS ORDERED: MAGNESIUM HYDROXIDE 2,400 MG/30 ML ORAL.SUSP. PO PRN (14:30)
[2019-09-29] MEDS: risperiDONE 0.5 MG TABLET. PO SCH (14:56)
[2019-09-29] MEDS: DIVALPROEX 125 MG CAP.SPRINK PO SCH ×2 (14:56→20:35)
[2019-09-29 16:04] VITALS: BP 119/62
[2019-09-29 16:23] VITALS: BP 106/70
--- NOTE | 2019-09-29 16:47 | NUR ---
PATIENT IS 69 Y O FEMALE ADMITTED FROM [facility] WITH COVID 19 RESULT POSITIVE. PT IS A/O X 1, NICE AND PLEASANT UPON ASSESSMENT, PT WAS ORIENTED TO THE ROOM, CALL LIGHT AND HOSPITAL POLICIES, PERSONAL BELONGINGS ARE OBTAINED AND RECORDED. [place] PRECAUTIONS INITIATED. WILL CONTINUE TO MONITOR.
[2019-09-29] MEDS: traZODone 50 MG TABLET. PO SCH (17:00)
[2019-09-29] MEDS: busPIRone 10 MG TABLET. PO SCH (17:00)
--- NOTE | 2019-09-29 17:35 | NUR ---
CONSULT FOR DR. SADLER HAS BEEN FAXED.
--- NOTE | 2019-09-29 19:54 | HP ---
ADMIT DATE: 09/29/2019 HISTORY OF PRESENT ILLNESS: The patient is a 69-year-old female patient who was transferred from [facility] on account of testing positive for COVID-19. She herself denied any complaint and nursing staff did not voice any concern. The patient was basically afebrile. Denied any cough, phlegm. Denied any chest pain or shortness of breath. Denied any diarrhea. Denied any nausea, vomiting or abdominal pain. The patient is a 69-year-old female patient, a resident at [facility] who was admitted to [facility] on account of hitting staff thinks they are poisoning her, hallucinating, screaming, paranoid, picking at her skin, all this in a background of major neurocognitive disorder, vascular Alzheimer with delusion. She was admitted for inpatient psychiatric stabilization. She is profoundly demented and does not really give any useful information. PAST MEDICAL HISTORY: Significant for hyperlipidemia, gastroesophageal reflux disease, migraine headache, squamous cell carcinoma, lung nodules and anxiety. PAST SURGICAL HISTORY: Unremarkable. PAST PSYCHIATRIC HISTORY: Significant for dementia of Alzheimer, vascular type, anxiety disorder. ALLERGIES: She is allergic to AUGMENTIN. MEDICATIONS: She is currently on buspirone 10 mg p.o. twice a day, hydroxyzine 25 mg every 2 hours, olanzapine 5 mg every 6 hours, trazodone 12.5 mg twice a day, sertraline 75 mg daily, divalproex sodium 250 mg twice a day, divalproex 375 mg at bedtime, risperidone 0.5 mg at 3:00 in the afternoon, risperidone 0.5 mg daily, hydralazine 25 mg twice a day, nystatin powder twice a day, multivitamin 1 tablet once a day, lactobacillus rhamnosus 1 capsule twice a day, thiamine 100 mg once a day, potassium chloride 10 mEq once a day, ascorbic acid 500 mg daily, furosemide 20 mg once a day, melatonin 4.5 mg at bedtime, Senna-S 1 tablet twice a day, bisacodyl 10 mg daily, magnesium hydroxide for milk of magnesia 30 mL p.o. daily p.r.n. for constipation, Mylanta 15 mL after meals and as needed, and Tylenol 650 mg every 6 hours as needed. REVIEW OF SYSTEMS: Unobtainable. The patient is really demented, although she has no fever. Denied any cough, phlegm or shortness of breath. PHYSICAL EXAMINATION: GENERAL: When I examined her, she was resting slightly propped up in bed, in no apparent respiratory distress. No pallor, jaundice, cyanosis or thyromegaly. No jugular venous distention. No lower limb edema. VITAL SIGNS: Her heart rate was 88, blood pressure was 106/70, temperature was 98.3, respiratory rate 20, and oxygen saturation was 94%. HEAD, EYES, EARS, NOSE AND THROAT: Normocephalic, atraumatic. NECK: Supple. HEART: Showed normal first and second heart sounds. No gallop or murmur. CHEST: Clear to auscultation. No crepitation or rhonchi. ABDOMEN: Distended, soft, nontender. NEUROLOGIC: She is demented, but without any obvious lateralizing sign. All her cranial nerves intact. EXTREMITIES: She moves extremities without difficulty. She has multiple wounds that are healed and scabbed on both feet. LABORATORY DATA: Her most recent lab work available showed that her most recent white cell count was 4600, hemoglobin 13.6, hematocrit 40, MCV 97 and platelet count 260,000. Her serum sodium was 140, potassium 4.3, chloride 103, bicarbonate 31, anion gap of 6, BUN 24, creatinine 0.7, estimated GFR was 82 mL per minute. Her glucose was 80, calcium was 8.7, magnesium was 1.9. Total bilirubin, AST, ALT, alkaline phosphatase were normal. Total protein was 6.7, albumin 3. Her prothrombin time was 9.9, INR 1, and aPTT was 31. ASSESSMENT: In summary, this is a 69-year-old female patient who was transferred from [facility] on account of testing positive for COVID-19. She does have multiple other medical problems including hypertension, hyperlipidemia, migraine headache, squamous cell carcinoma, lung nodules and anxiety. She obviously has profound dementia, Alzheimer, vascular type with anxiety disorder. PLAN: Obviously to keep her in isolation with droplet precaution. We will check her labs tomorrow including a CBC, CMP, CRP and D-dimer. I will also continue all her medications. JESSICA GALEAS MD DR: DENNY/telma JOB#: [id number] / [id number]
[2019-09-29 20:27] VITALS: BP 102/53
[2019-09-29] MEDS: MELATONIN 3 MG TABLET PO SCH (20:34)
[2019-09-29] MEDS: SENNOSIDES/DOCUSATE 8.6/50MG TABLET. PO SCH (20:34)
[2019-09-29] MEDS: LACTOBACILLUS RHAMNOSUS GG 1 CAPSULE. PO SCH (20:34)
[2019-09-29] MEDS: hydrALAZINE 25 MG TABLET PO SCH (20:35)
[2019-09-29 22:15] VITALS: BP 119/59
[2019-09-30] VITALS (10 sets, daily range): BP systolic 60–140; BP diastolic 40–64
--- NOTE | 2019-09-30 05:45 | NUR ---
Pt in bed at change of shift watching TV. Pt pleasantly confused but disorganized with assessment and cares. Pt intermittently yells out for staff until someone enters her room. Pt took HS medications whole and ate HS snack independently. Pt was more irritable with AM incont care but was able to be redirected. Pt with low fever late last night with small improvement this AM. Pt tolerated and was cooperative with AM labs, still pending.
[2019-09-30 06:01] LABS: HEMATOCRIT 40.3 % (36.0-47.0); HEMOGLOBIN 13.5 g/dL (12.0-15.5); RED BLOOD COUNT 4.18 x10^6/uL (3.50-5.40); RED CELL DISTRIBUTION WIDTH 14.3 % (11.5-14.5); WHITE BLOOD COUNT 5.8 x10^3/uL (4.0-11.0)
[2019-09-30 06:16] LABS: ALBUMIN 2.8 g/dL (3.4-5.0); ALBUMIN/GLOBULIN RATIO 0.8 (1.0-1.7); C REACTIVE PROTEIN 20.4 mg/L (0-3.3); CALCIUM 8.4 mg/dL (8.5-10.1); CREATININE 0.7 mg/dL (0.6-1.0); GFR 82.5; POTASSIUM 4.7 mmol/L (3.5-5.1); TOTAL BILIRUBIN 0.2 mg/dL (0.2-1.0); TOTAL PROTEIN 6.1 g/dL (6.4-8.2)
--- NOTE | 2019-09-30 07:57 | NUR ---
IP: patient COVID-19 +, requires contact and airborne precautions.
[2019-09-30] MEDS ORDERED: POTASSIUM CHLORIDE 10 MEQ TABLET.ER. PO SCH (08:00)
[2019-09-30] MEDS: LACTOBACILLUS RHAMNOSUS GG 1 CAPSULE. PO SCH ×2 (08:00→21:20)
[2019-09-30] MEDS: SENNOSIDES/DOCUSATE 8.6/50MG TABLET. PO SCH ×2 (08:01→21:20)
[2019-09-30] MEDS: busPIRone 10 MG TABLET. PO SCH ×2 (08:01→17:05)
[2019-09-30] MEDS: hydrALAZINE 25 MG TABLET PO SCH (08:01)
[2019-09-30] MEDS: risperiDONE 0.5 MG TABLET. PO SCH ×2 (08:01→17:05)
[2019-09-30] MEDS: DIVALPROEX 125 MG CAP.SPRINK PO SCH ×3 (08:01→21:20)
[2019-09-30] MEDS: MULTIVITAMIN with MINERAL TABLET. PO SCH (08:02)
[2019-09-30] MEDS: THIAMINE 100 MG TABLET. PO SCH (08:03)
[2019-09-30] MEDS: ASCORBIC ACID 500 MG TABLET PO SCH (08:05)
[2019-09-30] MEDS ORDERED: FUROSEMIDE 20 MG TABLET PO SCH (09:00)
[2019-09-30] MEDS: SERTRALINE 25 MG TABLET. PO SCH (09:00)
--- NOTE | 2019-09-30 12:44 | RAD ---
PORTABLE CHEST 1V History: COVID 19 POSITIVE, COUGH Comparison: August 04, 2019 Findings: Single view of the chest is submitted. No convincing lobar infiltrate is identified by radiograph. There is no dependent pleural fluid or pneumothorax. There is again somewhat tortuous thoracic aorta. Impression: 1. No lobar infiltrate is identified by radiograph. Electronically signed by: Hipolito Wang MD (09/30/2019 12:41 PM) [id number]
[2019-09-30] MEDS: traZODone 50 MG TABLET. PO SCH ×2 (14:02→17:05)
--- NOTE | 2019-09-30 15:54 | NUR ---
PATIENT IS AWAKE, NICE AND PLESANT, SMILING DURING ASSESSMENT THIS AM, PATIENT COOPERATED WITH CARE, PT WAS TRYING TO GRAB ON THIS RN PPE AT TIMES, PT WAS REDIRECTED AND INSTRUCTED TO VERBALIZE HER NEEDS. PT WAS EATING HER BREAKFAST WITH ASSIST, PT TAKES A BIG BITES ALL AT THE SAME TIME AND SWALLOWING FAST, PT WAS INSTRUCTED TO SLOW DOWN AND TAKE A TIME WITH CHEWING HER MEAL. WILL CONTINUE TO MONITOR.
--- NOTE | 2019-09-30 17:14 | NUR ---
wound care patient was being seen by wound care on [facility], spoke with LALIT Llamas regarding the current recommendations by wound care. patients recommendations were transferred with patient. wound care will continue to f/u.
[2019-09-30] MEDS: IV NORMAL SALINE 1,000ML 1,000 ML IV SCH (17:30)
--- NOTE | 2019-09-30 20:42 | PN ---
DATE: 09/30/2019 SUBJECTIVE: The patient is resting, slightly propped up in bed, no apparent distress. She herself denied any complaint; however, the nursing staff stated that she did have a cough this morning. She also had spiked her temperature slightly up to 100.3 yesterday and this morning, it was 99.6. After she received her blood pressure medication, her blood pressure apparently dropped significantly and she received half a liter of fluid and her blood pressure remained stable. PHYSICAL EXAMINATION: GENERAL: When I examined her this afternoon, she was pale, but no jaundice, cyanosis or thyromegaly. No jugular venous distention. No lower limb edema. VITAL SIGNS: Her heart rate was 80, blood pressure was 95/59, temperature was 98.6, respiratory rate 20, and oxygen saturation was 97%. HEAD, EYES, EARS, NOSE AND THROAT: Normocephalic, atraumatic. NECK: Supple. HEART: Showed normal first and second heart sounds. No gallop or murmur. CHEST: Clear to auscultation. No crepitation or rhonchi. ABDOMEN: Distended, soft, nontender. No guarding or rigidity. No organomegaly. All hernial orifices intact. Bowel sounds normal. NEUROLOGIC: She is demented, but without any obvious lateralizing sign. She is mostly bedbound, wheelchair bound. Her intake and output are incompletely recorded. LABORATORY DATA: Her lab work this morning showed a white cell count 5800, hemoglobin 13.5, hematocrit 40, MCV 96, and platelet count 212,000. Her serum sodium was 137, potassium 4.7, chloride 102, bicarbonate 26, anion gap of 9, BUN 25, creatinine was 0.7, estimated GFR was 82 mL per minute. Her glucose was 87, calcium was 8.4. Total bilirubin, AST, ALT, alkaline phosphatase were normal. Her total protein was 6.1, albumin 2.8. C-reactive protein was 20.4. Her D-dimer was high at 2.87. Her chest x-ray, however, showed that there is no convincing lobar infiltrate identified. There is no dependent pleural fluid or pneumothorax. ASSESSMENT: 1. In summary, this is a 69-year-old female patient who was transferred from [facility] on account of testing positive for COVID-19. 2. She did have mild elevation of temperature yesterday up to 100.5, was noted this morning to have recurrent bouts of cough that has apparently subsided. Her inflammatory markers are slightly elevated including D-dimer of 2.87 and C-reactive protein of 20.4. PLAN: My plan is to cut down on her blood pressure medication as the blood pressure dropped dramatically this morning. I will give her another half a liter of normal saline and started also on Lovenox. JESSICA GALEAS MD DR: DENNY/telma JOB#: [id number] / [id number]
[2019-09-30] MEDS: MELATONIN 3 MG TABLET PO SCH (21:20)
[2019-09-30] MEDS: ACETAMINOPHEN 325 MG TABLET PO PRN (21:21)
[2019-09-30] MEDS: ENOXAPARIN 40 MG/0.4 ML SYRINGE. SQ SCH (21:24)
--- NOTE | 2019-09-30 22:26 | NUR ---
Pt pulled out IV during nurse report exchange; reported by TITLE PROCESSOR. Pt abrupt and jovial during initial exchange with this nurse during assessment which quickly changed to crying when told she was at [facility]. Pt believed she was at home and giving this nurse instructions to find things in her house to retrieve for her. Pt disoriented to situation and date as well. Pt affect changed again back to smiling by the end of the conversation while discussing her hydration and pain levels. Pt encouraged to drink gatorade or other fluids of choice as much as desired. She resists checking of her brief for urination by stiffening up and states she does not know when she is wet. IV placement attempted during med pass. Pt moved and jerked her arms often causing placement difficulty. Will try again later. Will continue to monitor.
--- NOTE | 2019-10-01 00:06 | NUR ---
New IV placed, wrapped with kerlix and covered with an elastic sleeve. Pt demanding I go out and get her a cheeseburger; yelling out loud for attention; making sexual remarks. Pt offered snacks from inventory along with olanzipine. Pt threw pill across the room and demanded a cheeseburger or nothing, using cuss words. STAFFING COORDINATOR later went in with chocolate ice cream and an apple nutrigrain bar. Pt complied with olanzipine. Will continue to monitor.
[2019-10-01] MEDS: IV NORMAL SALINE 1,000ML 1,000 ML IV SCH ×2 (01:45→16:56)
[2019-10-01 06:32] LABS: ALBUMIN 2.5 g/dL (3.4-5.0); ALBUMIN/GLOBULIN RATIO 0.7 (1.0-1.7); CALCIUM 8.4 mg/dL (8.5-10.1); CREATININE 0.8 mg/dL (0.6-1.0); GFR 70.7; POTASSIUM 3.9 mmol/L (3.5-5.1); TOTAL BILIRUBIN 0.2 mg/dL (0.2-1.0); TOTAL PROTEIN 6.1 g/dL (6.4-8.2)
[2019-10-01 06:36] VITALS: BP 129/80
[2019-10-01] MEDS: SENNOSIDES/DOCUSATE 8.6/50MG TABLET. PO SCH ×2 (08:28→21:07)
[2019-10-01] MEDS: MULTIVITAMIN with MINERAL TABLET. PO SCH (08:28)
[2019-10-01] MEDS: ASCORBIC ACID 500 MG TABLET PO SCH (08:28)
[2019-10-01] MEDS: THIAMINE 100 MG TABLET. PO SCH (08:28)
[2019-10-01] MEDS: busPIRone 10 MG TABLET. PO SCH ×2 (08:28→16:54)
[2019-10-01] MEDS: SERTRALINE 25 MG TABLET. PO SCH (08:28)
[2019-10-01] MEDS: LACTOBACILLUS RHAMNOSUS GG 1 CAPSULE. PO SCH ×2 (08:28→21:07)
[2019-10-01] MEDS: DIVALPROEX 125 MG CAP.SPRINK PO SCH ×3 (08:28→21:07)
[2019-10-01] MEDS: risperiDONE 0.5 MG TABLET. PO SCH ×2 (08:28→15:00)
[2019-10-01] MEDS: ENOXAPARIN 40 MG/0.4 ML SYRINGE. SQ SCH ×2 (08:30→21:06)
[2019-10-01 10:04] VITALS: BP 135/71
[2019-10-01] MEDS: traZODone 50 MG TABLET. PO SCH ×2 (11:32→16:55)
[2019-10-01] MEDS: hydrOXYzine HCL 25 MG TABLET PO PRN ×2 (11:32→21:09)
[2019-10-01 15:39] VITALS: BP 112/58
--- NOTE | 2019-10-01 16:21 | PN ---
DATE: 10/01/2019 SUBJECTIVE: The patient is resting, slightly propped up in bed, in no apparent respiratory distress. She continued to be obviously demented and confused, but however, she is afebrile, hemodynamically stable with normal white cell count. The nursing staff did not voice any concern. PHYSICAL EXAMINATION: GENERAL: When I examined her, she was pale. No jaundice, cyanosis or thyromegaly. No jugular venous distention. No limb edema. VITAL SIGNS: Her heart rate was 82, blood pressure was 135/71, temperature was 97.3, respiratory rate was 20, and oxygen saturation was 95% on room air. HEAD, EYES, EARS, NOSE AND THROAT: Showed normocephalic, atraumatic. NECK: Supple. CARDIAC: Normal first and second heart sounds. No gallop or murmur. CHEST: Clear to auscultation. No crepitation or rhonchi. ABDOMEN: Distended, soft, nontender. NEUROLOGIC: She is profoundly demented, but without any obvious lateralizing sign. Her intake over the last 24 hours was 714, output was recorded. LABORATORY DATA: As of yesterday, her white cell count is 5800, hemoglobin 13, hematocrit 40, MCV 96, and platelet count 212,000. Her serum sodium was 141, potassium 3.9, chloride 106, bicarbonate 27, anion gap of 8, BUN 34, creatinine 0.8, estimated GFR was 70 mL per minute. Her glucose was 76, calcium was 8.4. Total bilirubin, AST, ALT, alkaline phosphatase were normal. Total protein 6.1, albumin 2.5. Her D-dimer was high at 2.87 and C-reactive protein was 20.4 mg/L. ASSESSMENT: 1. This is a 69-year-old female patient who was transferred from [facility] on account of testing positive for COVID-19. 2. She did have mild elevation of temperature at 100.5 with recurrent bouts of cough, it is mostly dry, it has subsided completely. Her inflammatory markers are slightly elevated; however, she remains asymptomatic. 3. She did have an episode of hypotension yesterday and therefore, I stopped the diuretics and antihypertensive medication. 4. She was started on Lovenox. Likely her kidney function remained stable. JESSICA GALEAS MD DR: DENNY/telma JOB#: [id number] / [id number]
[2019-10-01 20:15] VITALS: BP 110/57
[2019-10-01] MEDS: MELATONIN 3 MG TABLET PO SCH (21:07)
[2019-10-01 23:44] VITALS: BP 92/71
[2019-10-02 06:05] VITALS: BP 147/68
[2019-10-02] MEDS: IV NORMAL SALINE 1,000ML 1,000 ML IV SCH ×2 (06:37→09:30)
[2019-10-02] MEDS: DIVALPROEX 125 MG CAP.SPRINK PO SCH ×3 (09:31→20:23)
[2019-10-02] MEDS: MULTIVITAMIN with MINERAL TABLET. PO SCH (09:31)
[2019-10-02] MEDS: LACTOBACILLUS RHAMNOSUS GG 1 CAPSULE. PO SCH ×2 (09:31→20:22)
[2019-10-02] MEDS: SENNOSIDES/DOCUSATE 8.6/50MG TABLET. PO SCH ×2 (09:31→20:23)
[2019-10-02] MEDS: risperiDONE 0.5 MG TABLET. PO SCH ×2 (09:31→12:58)
[2019-10-02] MEDS: ASCORBIC ACID 500 MG TABLET PO SCH (09:31)
[2019-10-02] MEDS: busPIRone 10 MG TABLET. PO SCH ×2 (09:31→16:05)
[2019-10-02] MEDS: SERTRALINE 25 MG TABLET. PO SCH (09:31)
[2019-10-02] MEDS: THIAMINE 100 MG TABLET. PO SCH (09:31)
[2019-10-02] MEDS: hydrOXYzine HCL 25 MG TABLET PO PRN ×2 (09:31→20:23)
[2019-10-02] MEDS: ENOXAPARIN 40 MG/0.4 ML SYRINGE. SQ SCH ×2 (09:32→20:24)
[2019-10-02 10:53] VITALS: BP 117/63
[2019-10-02] MEDS: traZODone 50 MG TABLET. PO SCH ×2 (12:58→16:05)
[2019-10-02 15:22] VITALS: BP 110/58
--- NOTE | 2019-10-02 15:27 | PN ---
DATE: 10/02/2019 SUBJECTIVE: The patient is resting, slightly propped up in bed, in no apparent respiratory distress, continued yelling and hollering, continued to be confused and disoriented; however, she remained hemodynamically stable and afebrile. OBJECTIVE: GENERAL: When I examined her, she was pale, but no jaundice, cyanosis or thyromegaly. No jugular venous distention. No limb edema. VITAL SIGNS: Her heart rate was 72, blood pressure was 117/63, temperature 96.9, respiratory rate was 18 and oxygen saturation was 94% on room air. HEAD, EYES, EARS, NOSE, AND THROAT: Showed normocephalic, atraumatic. NECK: Supple. HEART: Showed normal first and second heart sounds. No gallop, rub or murmur. CHEST: Clear to auscultation. No crepitation or rhonchi. ABDOMEN: Distended, soft, nontender. NEUROLOGIC: She is demented, but without any obvious lateralizing sign. All her cranial nerves are intact. She moves extremities without difficulty, though she is mostly chair bound, has multiple wounds that are healed on both feet. Her intake over the last 24 hours is 1700, no output was recorded. LABORATORY DATA: As of yesterday, her BUN was 34, creatinine 0.8. Her white cell count was 5100, hemoglobin 13, hematocrit 40, MCV 96, and platelet count 212,000. Her D-dimer was slightly high at 2.87. ASSESSMENT: This is a 69-year-old female patient who was transferred from [facility] on account of testing being positive for COVID-19. No further episode of mild low-grade fever and no more cough, although her inflammatory markers are slightly elevated. She remains asymptomatic. Today, she did have an episode of hypotension and therefore, I stopped her IV diuretics and hypertensive medication. We did start her on Lovenox. So far, she remains afebrile, hemodynamically stable with normal liver enzymes and kidney function. JESSICA GALEAS MD DR: DENNY/telma JOB#: [id number] / [id number]
[2019-10-02 19:42] VITALS: BP 137/66
[2019-10-02] MEDS: MELATONIN 3 MG TABLET PO SCH (20:23)
[2019-10-03 06:28] VITALS: BP 158/103
[2019-10-03] MEDS: THIAMINE 100 MG TABLET. PO SCH (08:49)
[2019-10-03] MEDS: ASCORBIC ACID 500 MG TABLET PO SCH (08:49)
[2019-10-03] MEDS: risperiDONE 0.5 MG TABLET. PO SCH ×2 (08:49→15:58)
[2019-10-03] MEDS: DIVALPROEX 125 MG CAP.SPRINK PO SCH ×3 (08:50→20:14)
[2019-10-03] MEDS: SENNOSIDES/DOCUSATE 8.6/50MG TABLET. PO SCH (08:50)
[2019-10-03] MEDS: MULTIVITAMIN with MINERAL TABLET. PO SCH (08:50)
[2019-10-03] MEDS: busPIRone 10 MG TABLET. PO SCH ×2 (08:50→17:03)
[2019-10-03] MEDS: LACTOBACILLUS RHAMNOSUS GG 1 CAPSULE. PO SCH ×2 (08:50→20:13)
[2019-10-03] MEDS: ENOXAPARIN 40 MG/0.4 ML SYRINGE. SQ SCH ×2 (08:51→20:14)
[2019-10-03 10:51] VITALS: BP 99/69
[2019-10-03] MEDS: SERTRALINE 25 MG TABLET. PO SCH (11:05)
[2019-10-03] MEDS: traZODone 50 MG TABLET. PO SCH ×2 (11:06→17:04)
[2019-10-03 14:17] VITALS: BP 117/56
--- NOTE | 2019-10-03 19:07 | PN ---
DATE: 10/03/2019 SUBJECTIVE: The patient is resting, slightly propped up in bed, in no apparent distress. She is demented, continued to have a problem with impulse control as she is yelling and hollering the whole day; however, she remains asymptomatic. She is afebrile, hemodynamically stable and her white cell count, liver enzymes and kidney functions are all within normal range. PHYSICAL EXAMINATION: GENERAL: When I saw her this morning, she looked pale, but no jaundice, cyanosis or thyromegaly. No jugular venous distention. No lower limb edema. VITAL SIGNS: Her heart rate was 83, blood pressure was 99/69, temperature was 98.2, respiratory rate was 18 and oxygen saturation was 95% on room air. HEAD, EYES, EARS, NOSE AND THROAT: Showed normocephalic, atraumatic. NECK: Supple. HEART: Showed normal first and second heart sounds. No gallop or murmur. CHEST: Clear to auscultation. No crepitation or rhonchi. ABDOMEN: Slightly distended, soft, nontender. NEUROLOGIC: She is demented, but without any obvious lateralizing signs. All her cranial nerves are intact. She moves extremities without difficulty, although she is mostly bedbound, chair bound, and the wounds in both her feet have healed completely. Her intake was 2200, no output was recorded. LABORATORY DATA: She had no lab work done this morning; however, her chest x-ray showed no lobar infiltrate identified by radiographs and no pleural effusion or pneumothorax. ASSESSMENT: 1. This is a 69-year-old female patient who was transferred from [facility] on account of being positive for COVID-19. The patient continued to be hemodynamically stable and afebrile. 2. Other medical problems include: A. Hyperlipidemia. B. Gastroesophageal reflux disease. C. Migraine headache. D. Squamous cell carcinoma. E. Lung nodules and anxiety. PLAN: To continue all her current medications. She will be swabbed again for COVID-19 on 10/05/2019. JESSICA GALEAS MD DR: DENNY/telma JOB#: [id number] / [id number]
[2019-10-03 19:29] VITALS: BP 132/62
[2019-10-03] MEDS: MELATONIN 3 MG TABLET PO SCH (20:14)
[2019-10-03 22:10] VITALS: BP 139/73
[2019-10-04 06:12] VITALS: BP 108/61
[2019-10-04] MEDS: THIAMINE 100 MG TABLET. PO SCH (10:16)
[2019-10-04] MEDS: LACTOBACILLUS RHAMNOSUS GG 1 CAPSULE. PO SCH ×2 (10:16→20:16)
[2019-10-04] MEDS: busPIRone 10 MG TABLET. PO SCH ×2 (10:17→18:33)
[2019-10-04] MEDS: SENNOSIDES/DOCUSATE 8.6/50MG TABLET. PO SCH (10:17)
[2019-10-04] MEDS: MULTIVITAMIN with MINERAL TABLET. PO SCH (10:17)
[2019-10-04] MEDS: risperiDONE 0.5 MG TABLET. PO SCH ×2 (10:17→15:33)
[2019-10-04] MEDS: ASCORBIC ACID 500 MG TABLET PO SCH (10:17)
[2019-10-04] MEDS: SERTRALINE 25 MG TABLET. PO SCH (10:18)
[2019-10-04] MEDS: ENOXAPARIN 40 MG/0.4 ML SYRINGE. SQ SCH ×2 (10:18→20:16)
[2019-10-04] MEDS: DIVALPROEX 125 MG CAP.SPRINK PO SCH ×3 (10:18→20:16)
[2019-10-04 10:42] VITALS: BP 137/72
--- NOTE | 2019-10-04 13:47 | PN ---
DATE: 10/04/2019 SUBJECTIVE: The patient is resting, slightly propped up in bed, in no apparent respiratory distress. Denied any complaint. Nursing staff did not voice any concern and stated that she continued to be afebrile, hemodynamically stable. PHYSICAL EXAMINATION: GENERAL: When I saw her, she looked pale, but no jaundice, cyanosis or thyromegaly. No jugular venous distention. No limb edema. VITAL SIGNS: Her heart rate was 90, blood pressure was 137/72, temperature 97.4, respiratory rate was 18 and oxygen saturation was 94%. The rest of clinical exam is stable. The wounds in her feet have healed. Her intake over the last 24 hours was 1414, output was recorded. LABORATORY WORK: Her most recent lab work showed her BUN was 34, creatinine 0.8 with normal electrolytes and liver enzyme, hemoglobin 13.5, hematocrit 40 with normal white cell count and platelets. ASSESSMENT: 1. This is a 69-year-old female patient who was transferred from [facility] on account of being positive for COVID-19. The patient continued to be hemodynamically stable and afebrile. 2. Other medical problems include; A. Hyperlipidemia. B. Gastroesophageal reflux disease. C. Migraine headache. D. Squamous cell carcinoma. E. Lung nodules and anxiety. F. Severe protein-calorie malnutrition. PLAN: To continue with all her current medication. Apparently, she will be swabbed again for coronavirus-19 on 10/05/2019. JESSICA GALEAS MD DR: DENNY/telma JOB#: [id number] / [id number]
[2019-10-04 15:23] VITALS: BP 134/65
[2019-10-04] MEDS: traZODone 50 MG TABLET. PO SCH ×2 (15:33→16:40)
--- NOTE | 2019-10-04 17:23 | NUR ---
wound care patient seen for a f/u of wound care consult. wound assessment completed at this time. patient has no open wounds at this time. wound care is signing off at this time, please reconsult wound care if the integumentary assessment changes. notified RN about the POC.
[2019-10-04 19:47] VITALS: BP 113/61
[2019-10-04] MEDS: hydrOXYzine HCL 25 MG TABLET PO PRN (20:16)
[2019-10-04] MEDS: MELATONIN 3 MG TABLET PO SCH (20:16)
[2019-10-04 22:28] VITALS: BP 116/60
[2019-10-05 06:14] VITALS: BP 137/77
[2019-10-05] MEDS: SERTRALINE 25 MG TABLET. PO SCH (08:17)
[2019-10-05] MEDS: MULTIVITAMIN with MINERAL TABLET. PO SCH (08:17)
[2019-10-05] MEDS: THIAMINE 100 MG TABLET. PO SCH (08:17)
[2019-10-05] MEDS: DIVALPROEX 125 MG CAP.SPRINK PO SCH ×3 (08:17→20:32)
[2019-10-05] MEDS: LACTOBACILLUS RHAMNOSUS GG 1 CAPSULE. PO SCH ×2 (08:17→20:32)
[2019-10-05] MEDS: risperiDONE 0.5 MG TABLET. PO SCH ×2 (08:17→14:09)
[2019-10-05] MEDS: SENNOSIDES/DOCUSATE 8.6/50MG TABLET. PO SCH (08:17)
[2019-10-05] MEDS: busPIRone 10 MG TABLET. PO SCH ×2 (08:18→15:56)
[2019-10-05] MEDS: ENOXAPARIN 40 MG/0.4 ML SYRINGE. SQ SCH ×2 (08:18→20:32)
[2019-10-05] MEDS: ASCORBIC ACID 500 MG TABLET PO SCH (08:18)
[2019-10-05 11:35] VITALS: BP 130/75
[2019-10-05] MEDS: traZODone 50 MG TABLET. PO SCH ×2 (12:00→15:56)
--- NOTE | 2019-10-05 12:29 | RAD ---
EXAM: CHEST ONE VIEW. HISTORY: Cough, shortness of breath. COMPARISON: 09/30/2019. FINDINGS: A frontal view of the chest is obtained. There is a mild airspace opacity in the right base. Mild scarring is suspected in the left base. There is no pneumothorax or pleural effusion. The heart is not enlarged. There are atherosclerotic calcifications of the aorta. IMPRESSION: 1. Correlate for mild right basilar pneumonia. Electronically signed by: Anuj Johnson MD (10/05/2019 12:27 PM) [id number]
[2019-10-05] MEDS: hydrOXYzine HCL 25 MG TABLET PO PRN ×2 (14:09→20:32)
--- NOTE | 2019-10-05 14:16 | PN ---
DATE: 10/05/2019 ATTENDING PHYSICIAN: Dr. Avery. SUBJECTIVE: The patient is asleep, but arousable. She appears a bit sedated, but she has agitation if not on medication. OBJECTIVE FINDINGS: VITAL SIGNS: Today, her blood pressure is 137/77 mmHg, pulse is 80 and regular, temperature 97.4 degrees Fahrenheit, oxygen saturation 92% on room air. HEENT: Head is without trauma. Pupils are reactive. Sclerae nonicteric. Oropharynx is clear. NECK: Supple, no bruits identified. LUNGS: Shallow respirations. CARDIOVASCULAR: Showed distant heart tones. No gallops. ABDOMEN: Soft, nontender, no organomegaly. Bowel sounds were hypoactive. EXTREMITIES: Showed trace edema. NEUROLOGIC: Function focally intact without any deficits. PERTINENT LABORATORY STUDIES: Reviewed. Her hemoglobin earlier was 13.5 g/dL. Chemistry panel from the was within normal range. ASSESSMENT: 1. This is a 69-year-old female who has tested positive for COVID-19 virus. She is asymptomatic. 2. Underlying confusion. 3. Gastroesophageal reflux disease. 4. History of lung nodules. 5. Depression with anxiety. 6. Protein-calorie malnutrition. PLAN: 1. Follow up chest x-ray today. 2. Meds were reviewed. 3. Diet as tolerated. 4. She will be swabbed again for coronavirus today. MARY ANGELO MD DR: ERIC/telma JOB#: [id number] / [id number]
[2019-10-05 14:23] VITALS: BP 105/52
--- NOTE | 2019-10-05 15:16 | RAD ---
Examination: CT CHEST WO CONTRAST History: Reason: SOB, Cough, covid 19+, best images obtained / Spl. Instructions: OKAY TO CHANGE TO WITHOUT / History: Comparison/Correlation: 01/06/2018 CT chest without contrast, 09/30/2019 and 10/05/2023 chest x-ray exams Findings: Axial images of the chest were obtained without contrast. Motion is noted on multiple images throughout the exam. Calcified left hilar lymph nodes present. Distal tracheomalacia is present. Linear atelectasis at the posterior lung bases is noted. Very small pleural effusions noted. On the right. Subtle groundglass interstitial infiltrate at the right lateral mid thoracic level is questioned on axial image 30 measuring up to 0.8 cm diameter. Motion limits assessment. No pneumothorax. Hepatic cysts are visualized similar to prior exam and there is no need for follow-up. Left adrenal gland is somewhat enlarged similar to the prior exam resolved representing adenomatous involvement. Impression: Very small pleural effusions are present greater on the right. Small right lateral midthoracic level infiltrate. This is new compared to the prior exam. Consider interval follow-up in 1 year to assess stability. PQRS Compliance Statement: One or more of the following individualized dose reduction techniques were utilized for this examination: 1. Automated exposure control 2. Adjustment of the mA and/or kV according to patient size 3. Use of iterative reconstruction technique Electronically signed by: Shashank Langston MD (10/05/2019 3:13 PM) [email or web address]
[2019-10-05 19:48] VITALS: BP 105/68
[2019-10-05] MEDS: MELATONIN 3 MG TABLET PO SCH (20:32)
[2019-10-05 22:21] VITALS: BP 94/56
[2019-10-06 06:16] LABS: BASO % 1 % (0-3); EOS # 0.1 x10^3/uL (0.0-0.7); EOS % 3 % (0-3); HEMATOCRIT 40.4 % (36.0-47.0); HEMOGLOBIN 13.5 g/dL (12.0-15.5); LYMPH # 1.1 x10^3/uL (1.0-4.8); LYMPH % 32 % (24-48); MEAN CORPUSCULAR HEMOGLOBIN 32 pg (25-35); MEAN CORPUSCULAR HGB CONC 33 g/dL (31-37); MEAN CORPUSCULAR VOLUME 96 fL (79-100); MONO # 0.4 x10^3/uL (0.0-1.1); MONO % 14 % (0-9); NEUT # 1.7 x10^3uL (1.8-7.7); NEUT % 52 % (31-73); PLATELET COUNT 197 x10^3/uL (140-400); RED BLOOD COUNT 4.23 x10^6/uL (3.50-5.40); RED CELL DISTRIBUTION WIDTH 13.7 % (11.5-14.5); WHITE BLOOD COUNT 3.3 x10^3/uL (4.0-11.0)
[2019-10-06 06:18] VITALS: BP 117/77
[2019-10-06] MEDS: busPIRone 10 MG TABLET. PO SCH ×2 (09:00→16:40)
[2019-10-06] MEDS: THIAMINE 100 MG TABLET. PO SCH (09:00)
[2019-10-06] MEDS ORDERED: DEXAMETHASONE SOD PHOS 10 MG/ML VIAL. IV SCH (09:00)
[2019-10-06] MEDS: ENOXAPARIN 40 MG/0.4 ML SYRINGE. SQ SCH ×2 (10:32→20:01)
[2019-10-06] MEDS: MULTIVITAMIN with MINERAL TABLET. PO SCH (10:32)
[2019-10-06] MEDS: DIVALPROEX 125 MG CAP.SPRINK PO SCH ×3 (10:32→20:02)
[2019-10-06] MEDS: risperiDONE 0.5 MG TABLET. PO SCH ×2 (10:32→15:12)
[2019-10-06] MEDS: LACTOBACILLUS RHAMNOSUS GG 1 CAPSULE. PO SCH ×2 (10:32→20:02)
[2019-10-06] MEDS: SENNOSIDES/DOCUSATE 8.6/50MG TABLET. PO SCH (10:33)
[2019-10-06] MEDS: ASCORBIC ACID 500 MG TABLET PO SCH (10:33)
[2019-10-06 11:08] VITALS: BP 119/78
[2019-10-06] MEDS: traZODone 50 MG TABLET. PO SCH ×2 (14:02→16:40)
[2019-10-06 15:00] VITALS: BP 112/69
[2019-10-06] MEDS: hydrOXYzine HCL 25 MG TABLET PO PRN ×2 (15:12→20:02)
[2019-10-06] MEDS: SERTRALINE 25 MG TABLET. PO SCH (15:12)
--- NOTE | 2019-10-06 16:42 | NUR ---
PLACEMENT UPDATES: [facility] -- cannot care for pt bx [facility] -- cannot care for pt bx [facility] -- private pay only [facility] (2x) -- cannot accept pt at this time [facility] -- not accepting pts [facility] ([facility]x) -- NO RESPONSE [facility] -- NO RESPONSE [facility] -- NO RESPONSE [facility] -- considering [facility] -- cannot accept in LTC and not appropriate for SN[facility] -- at full capacity with waiting list [facility] -- considering [facility] -- [facility] -- considering [facility] considering [facility] -- considering [facility] -- considering [facility] -- considering [email or web address] -- considering [facility] -- considering
[2019-10-06 19:15] VITALS: BP 137/85
[2019-10-06] MEDS: MELATONIN 3 MG TABLET PO SCH (20:02)
--- NOTE | 2019-10-06 21:27 | PN ---
DATE: 10/06/2019 ATTENDING PHYSICIAN: Dr. Avery. SUBJECTIVE: The patient is a little more agitated today. She is confused. She has no concept of what is going on. Yesterday, she had diminished breath sounds. Chest x-ray was nondiagnostic. It led to a CT of the chest, which showed a small infiltrate which is new in the right middle lobe. It is nonspecific in nature. Because of the positive COVID swab, she was started on empiric antibacterial and Decadron. OBJECTIVE FINDINGS: VITAL SIGNS: Blood pressure today is 119/78, pulse 86 and regular, temperature 96.7 degrees Fahrenheit, oxygen saturation 94% on room air. HEENT: Head is without trauma. Pupils are reactive. Sclerae nonicteric. Oropharynx clear. NECK: Supple, no bruits identified. LUNGS: Diminished breath sounds at the bases. CARDIOVASCULAR: Showed regular heart tones. No gallops. Peripheral pulses are palpable and full. ABDOMEN: Soft, scaphoid, nontender, normal bowel sounds. EXTREMITIES: Show no cyanosis or edema. SKIN: Warm and dry. NEUROLOGIC: Pleasantly confused. LABORATORY DATA: CT of the chest shows very small right pleural effusion, small right lateral mid thoracic infiltrate, new compared with prior exam. Followup scanning recommended. ASSESSMENT: 1. Abnormal CT of the chest with possible early pneumonia. Whether this is bacterial related or COVID-19 remains to be seen. 2. Positive swab for COVID-19 status. She had been asymptomatic. 3. Underlying dementia. 4. Gastroesophageal reflux disease. 5. Depression with anxiety. 6. Protein-calorie malnutrition. PLAN: 1. Empiric Rocephin started. 2. Empiric Decadron 6 mg IV daily. 3. Other meds reviewed. 4. Diet as tolerated. 5. Reassessment for coronavirus swab. MARY ANGELO MD DR: ERIC/telma JOB#: [id number] / [id number]
[2019-10-06 23:15] VITALS: BP 104/62
--- NOTE | 2019-10-07 03:19 | NUR ---
Pt. was restless but cooperative during assessment. Pt. is still pleasantly confused when discussing orientation to unit and date. Pt's HS meds where given crushed in pudding and where tolerated well. Pt. began to become more agitated and restless later in the night and received PRN Zydis as indicated. Pt then rested comfortably w/o behaviors. Pt is on Q2 turn schedule to prevent skin breakdown.
[2019-10-07 05:22] VITALS: BP 164/94
[2019-10-07 05:42] LABS: CALCIUM 8.9 mg/dL (8.5-10.1); CREATININE 0.8 mg/dL (0.6-1.0); GFR 70.7; POTASSIUM 4.2 mmol/L (3.5-5.1)
[2019-10-07] MEDS: busPIRone 10 MG TABLET. PO SCH ×2 (08:44→16:55)
[2019-10-07] MEDS: DIVALPROEX 125 MG CAP.SPRINK PO SCH ×3 (08:44→20:41)
[2019-10-07] MEDS: LACTOBACILLUS RHAMNOSUS GG 1 CAPSULE. PO SCH ×2 (08:44→20:40)
[2019-10-07] MEDS: ENOXAPARIN 40 MG/0.4 ML SYRINGE. SQ SCH ×2 (08:44→20:41)
[2019-10-07] MEDS: MULTIVITAMIN with MINERAL TABLET. PO SCH (08:44)
[2019-10-07] MEDS: ASCORBIC ACID 500 MG TABLET PO SCH (08:45)
[2019-10-07] MEDS: SENNOSIDES/DOCUSATE 8.6/50MG TABLET. PO SCH (08:45)
[2019-10-07] MEDS: risperiDONE 0.5 MG TABLET. PO SCH ×2 (08:45→13:36)
[2019-10-07] MEDS: SERTRALINE 25 MG TABLET. PO SCH (08:45)
[2019-10-07] MEDS: THIAMINE 100 MG TABLET. PO SCH (08:46)
[2019-10-07 10:35] VITALS: BP 101/57
[2019-10-07] MEDS: DEXAMETHASONE 4 MG TABLET PO SCH (10:51)
[2019-10-07] MEDS: traZODone 50 MG TABLET. PO SCH ×2 (10:51→16:55)
--- NOTE | 2019-10-07 11:23 | NUR ---
CASSIDY returned call to pt sister Pal and ended up leaving a message informing her that SW is out of the office today but gave her the main number to the hospital and told her to ask for pt nurse for an update or the switchboard could transfer her to pt room to talk to pt. CASSIDY informed Pal that SW would be in on Thursday and can follow-up with her on Thursday.
[2019-10-07] MEDS: CEPHALEXIN 250 MG CAPSULE PO SCH ×2 (12:49→20:40)
[2019-10-07] MEDS: hydrOXYzine HCL 25 MG TABLET PO PRN ×2 (12:49→20:40)
[2019-10-07] MEDS ORDERED: CEPHALEXIN 250 MG/5 ML ORAL.SUSP. PO SCH (14:00)
[2019-10-07 14:57] VITALS: BP 117/53
--- NOTE | 2019-10-07 15:49 | NUR ---
PATIENT WAS AWAKE CALM AND COOPERATIVE UPON ASSESSMENT THIS AM, LATER BECAME PROGRESSIVELY LOUD YELLING AND CALLING FOR STAFF TO ENTER HER ROOM, PT IS CONFUSED AND DISORGANIZED, THROWING BED LINEN AND PILLOWS ACROSS THE ROOM, PULLING AND GRABBING ON CORDS, TABLE , BLANKETS. OLANZAPINE IS GIVEN ORDERED TO DECREASE ANXIETY AND PROMOTE REST. WCTM.
--- NOTE | 2019-10-07 17:00 | PN ---
DATE: 10/07/2019 ATTENDING PHYSICIAN: Dr. Avery. SUBJECTIVE: Doing better today. She is very awake. She is hungry. She has no symptoms. She actually states that she felt better. She has been on Decadron and antibiotics for abnormal CT of the chest. She was sent down here last week with a positive COVID-19 swab from the [facility]. OBJECTIVE FINDINGS: VITAL SIGNS: Blood pressure today is 101/57 mmHg, temperature 97.3 degrees Fahrenheit, pulse 80 and regular and her room air saturations are 93%. HEENT: Head is without trauma. Pupils are reactive. Oropharynx clear. NECK: Supple, no bruits. LUNGS: Otherwise clear. CARDIOVASCULAR: Showed regular heart tones. No gallops. ABDOMEN: Soft, scaphoid, nontender. Normal bowel sounds. EXTREMITIES: Showed no cyanosis or edema. NEUROLOGIC: Pleasantly confused, but relatively alert and responsive. SKIN: Warm and dry. LABORATORY STUDIES: Repeat ____ today showed normal electrolytes, BUN is 26, creatinine 0.8 mg/dL. ASSESSMENT: 1. A 69-year-old female with COVID-19 positive swab, sent here for quarantine. 2. Abnormal CT of the chest with possible early pneumonia, treated. 3. Underlying dementia. 4. Gastroesophageal reflux disease. 5. Depression with anxiety. 6. Protein-calorie malnutrition. PLAN: 1. Continue Rocephin as ordered. 2. Decadron has been changed to oral. 3. She pulled out her IV. We will substitute cephalexin in lieu of Rocephin. 4. Other home meds reviewed. 5. Diet as tolerated. 6. Followup reassessment and re-swab for coronavirus. MARY ANGELO MD DR: ERIC/telma JOB#: [id number] / [id number]
[2019-10-07 19:00] VITALS: BP 117/60
[2019-10-07] MEDS: MELATONIN 3 MG TABLET PO SCH (20:40)
[2019-10-07] MEDS: ACETAMINOPHEN 325 MG TABLET PO PRN (20:40)
[2019-10-07 22:22] VITALS: BP 108/63
[2019-10-08 05:36] VITALS: BP 131/72
[2019-10-08] MEDS: busPIRone 10 MG TABLET. PO SCH ×2 (08:32→16:31)
[2019-10-08] MEDS: DEXAMETHASONE 4 MG TABLET PO SCH (08:32)
[2019-10-08] MEDS: risperiDONE 0.5 MG TABLET. PO SCH ×2 (08:32→14:03)
[2019-10-08] MEDS: CEPHALEXIN 250 MG CAPSULE PO SCH ×3 (08:32→20:23)
[2019-10-08] MEDS: SENNOSIDES/DOCUSATE 8.6/50MG TABLET. PO SCH (08:32)
[2019-10-08] MEDS: THIAMINE 100 MG TABLET. PO SCH (08:32)
[2019-10-08] MEDS: SERTRALINE 25 MG TABLET. PO SCH (08:32)
[2019-10-08] MEDS: ASCORBIC ACID 500 MG TABLET PO SCH (08:32)
[2019-10-08] MEDS: DIVALPROEX 125 MG CAP.SPRINK PO SCH ×3 (08:33→20:23)
[2019-10-08] MEDS: LACTOBACILLUS RHAMNOSUS GG 1 CAPSULE. PO SCH ×2 (08:33→20:23)
[2019-10-08] MEDS: ENOXAPARIN 40 MG/0.4 ML SYRINGE. SQ SCH ×2 (08:33→20:22)
[2019-10-08] MEDS: MULTIVITAMIN with MINERAL TABLET. PO SCH (08:33)
[2019-10-08 10:38] VITALS: BP 106/56
[2019-10-08] MEDS: traZODone 50 MG TABLET. PO SCH ×2 (11:08→16:31)
[2019-10-08 14:31] VITALS: BP 110/60
[2019-10-08 19:33] VITALS: BP 111/62
[2019-10-08] MEDS: hydrOXYzine HCL 25 MG TABLET PO PRN (20:22)
[2019-10-08] MEDS: ACETAMINOPHEN 325 MG TABLET PO PRN (20:22)
[2019-10-08] MEDS: MELATONIN 3 MG TABLET PO SCH (20:22)
[2019-10-08 22:43] VITALS: BP 114/55
--- NOTE | 2019-10-09 05:18 | NUR ---
At beginning of shift, pt was easily agitated. She claimed there was a green and cabezas snake on the wall and that I needed to "inform my manager ethics so it can be removed." Pt also spoke often toward the window, carrying on a conversation with people by name that were not in the room. She could intelligibly explain who each person was and what they were doing. Pt is not able to be reoriented to current date and location. She believes she is at home. She takes her medications in ice cream. She slept most of the night and is pleasant and cooperative this morning. Will continue to monitor.
[2019-10-09 05:32] VITALS: BP 122/69
[2019-10-09] MEDS: MULTIVITAMIN with MINERAL TABLET. PO SCH (08:21)
[2019-10-09] MEDS: ASCORBIC ACID 500 MG TABLET PO SCH (08:21)
[2019-10-09] MEDS: LACTOBACILLUS RHAMNOSUS GG 1 CAPSULE. PO SCH ×2 (08:21→19:55)
[2019-10-09] MEDS: SENNOSIDES/DOCUSATE 8.6/50MG TABLET. PO SCH (08:21)
[2019-10-09] MEDS: THIAMINE 100 MG TABLET. PO SCH (08:21)
[2019-10-09] MEDS: busPIRone 10 MG TABLET. PO SCH ×2 (08:21→16:38)
[2019-10-09] MEDS: DEXAMETHASONE 4 MG TABLET PO SCH (08:21)
[2019-10-09] MEDS: risperiDONE 0.5 MG TABLET. PO SCH ×2 (08:21→13:55)
[2019-10-09] MEDS: CEPHALEXIN 250 MG CAPSULE PO SCH ×3 (08:21→19:55)
[2019-10-09] MEDS: ENOXAPARIN 40 MG/0.4 ML SYRINGE. SQ SCH ×2 (08:22→19:55)
[2019-10-09] MEDS: DIVALPROEX 125 MG CAP.SPRINK PO SCH ×3 (08:22→19:56)
[2019-10-09] MEDS: SERTRALINE 25 MG TABLET. PO SCH (08:22)
[2019-10-09] MEDS: hydrOXYzine HCL 25 MG TABLET PO PRN ×4 (09:17→16:38)
[2019-10-09] MEDS: ACETAMINOPHEN 325 MG TABLET PO PRN (09:17)
--- NOTE | 2019-10-09 10:05 | PN ---
DATE: 10/08/2019 ATTENDING PHYSICIANS: Dr. Avery and Dr. Angelo. SUBJECTIVE: The patient is less agitated today. She is awake. She has significant memory issues. She is asymptomatic. She has a positive [facility]. Because of abnormal CT, there is potential early pneumonia. She has been on antibiotics and Decadron. OBJECTIVE FINDINGS: VITAL SIGNS: Blood pressure today is 106/56 mmHg, temperature 97.3 degrees Fahrenheit, oxygen saturation 92% on room air. HEENT: Head is without trauma. Pupils are reactive. Sclerae nonicteric. Oropharynx clear. NECK: Supple, no bruits. LUNGS: Good breath sounds, otherwise clear. CARDIOVASCULAR: Showed regular heart tones. No obvious gallops. Peripheral pulses are palpable and full. ABDOMEN: Soft, scaphoid, nontender, no organomegaly. Bowel sounds are normoactive. EXTREMITIES: Show no cyanosis or edema. NEUROLOGIC FINDINGS: Pleasantly confused, relatively alert. SKIN: Warm and dry. ASSESSMENT: 1. A 69-year-old female with COVID-19 positive swab, sent here for quarantine. 2. Abnormal CT chest with possible early pneumonia, treated. 3. Underlying dementia. 4. Gastroesophageal reflux disease. 5. Depression with anxiety. 6. Protein-calorie malnutrition. PLAN: 1. Continue antibiotics orally as ordered. 2. Decadron switched to oral. 3. Home meds reviewed. 4. Diet as tolerated. 5. Follow up swab next week when indicated. MARY ANGELO MD DR: ERIC/telma JOB#: [id number] / [id number]
[2019-10-09 11:00] VITALS: BP 107/58
--- NOTE | 2019-10-09 11:25 | PN ---
DATE: 10/09/2019 ATTENDING PHYSICIAN: Dr. Angelo. SUBJECTIVE: The patient is pleasantly confused and less agitated. Her speech is somewhat rambling. There is no obvious respiratory distress. OBJECTIVE FINDINGS: VITAL SIGNS: Her blood pressure today is 122/69 mmHg, temperature 98.1 degrees Fahrenheit, oxygen saturation 96% on room air, pulse is 85 and regular. HEENT: The head is without trauma. Pupils are reactive. Sclerae is nonicteric. Oropharynx is clear. Mucous membranes moist. NECK: Supple, no bruits or thyromegaly. LUNGS: Good breath sounds, otherwise clear. CARDIOVASCULAR: Showed regular heart tones. No gallops. Peripheral pulses palpable and full. ABDOMEN: Soft, scaphoid, nontender, no organomegaly. EXTREMITIES: Showed no cyanosis or edema. NEUROLOGIC: Pleasantly confused. No focal deficits. SKIN: Warm and dry. ASSESSMENT: 1. A 69-year-old female with COVID-19 positive swabs, sent here for quarantine. She remains stable. 2. Abnormal CT chest with possible early pneumonia, treated. 3. Underlying dementia. 4. Gastroesophageal reflux disease. 5. Depression with anxiety. 6. Protein-calorie malnutrition. PLAN: 1. Continue oral antibiotics as ordered. 2. Decadron switched to p.o. 3. Home meds reviewed. 4. Diet as tolerated. 5. Followup swab as indicated per schedule. MARY ANGELO MD DR: ERIC/telma JOB#: [id number] / [id number]
[2019-10-09] MEDS: traZODone 50 MG TABLET. PO SCH ×2 (11:35→16:38)
[2019-10-09 15:30] VITALS: BP 115/57
[2019-10-09 19:23] VITALS: BP 95/58
[2019-10-09] MEDS: MELATONIN 3 MG TABLET PO SCH (19:56)
[2019-10-09 22:39] VITALS: BP 113/69
[2019-10-10] MEDS: hydrOXYzine HCL 25 MG TABLET PO PRN ×4 (00:51→20:10)
[2019-10-10 05:40] VITALS: BP 135/76
[2019-10-10] MEDS: CEPHALEXIN 250 MG CAPSULE PO SCH ×3 (07:54→20:10)
[2019-10-10] MEDS: DEXAMETHASONE 4 MG TABLET PO SCH (07:55)
[2019-10-10] MEDS: DIVALPROEX 125 MG CAP.SPRINK PO SCH ×3 (07:55→20:10)
[2019-10-10] MEDS: SERTRALINE 25 MG TABLET. PO SCH (07:56)
[2019-10-10] MEDS: THIAMINE 100 MG TABLET. PO SCH (07:56)
[2019-10-10] MEDS: busPIRone 10 MG TABLET. PO SCH ×2 (07:56→17:29)
[2019-10-10] MEDS: risperiDONE 0.5 MG TABLET. PO SCH ×2 (07:56→12:07)
[2019-10-10] MEDS: MULTIVITAMIN with MINERAL TABLET. PO SCH (07:57)
[2019-10-10] MEDS: ASCORBIC ACID 500 MG TABLET PO SCH (07:57)
[2019-10-10] MEDS: LACTOBACILLUS RHAMNOSUS GG 1 CAPSULE. PO SCH ×2 (07:57→21:00)
[2019-10-10] MEDS: SENNOSIDES/DOCUSATE 8.6/50MG TABLET. PO SCH (07:57)
[2019-10-10] MEDS: ENOXAPARIN 40 MG/0.4 ML SYRINGE. SQ SCH ×2 (07:58→20:09)
[2019-10-10 10:24] VITALS: BP 115/58
--- NOTE | 2019-10-10 11:04 | PN ---
DATE: 10/10/2019 ATTENDING PHYSICIAN: Dr. Angelo. SUBJECTIVE: The patient is very confused still, but she is pleasant. She is not agitated. There is no obvious respiratory distress. OBJECTIVE FINDINGS: VITAL SIGNS: Temperature is 98.1 degrees Fahrenheit, blood pressure is 135/76 mmHg, oxygen saturation 94% on room air, pulse is 71 and regular. HEENT: Head is without trauma. Pupils are reactive. Sclerae nonicteric. Oropharynx clear. NECK: Supple, no bruits. LUNGS: Clear with excellent breath sounds. No stridor or rhonchi. CARDIOVASCULAR: Showed regular heart tones. Peripheral pulses are palpable and full. No murmurs identified. ABDOMEN: Soft, scaphoid, nontender, no organomegaly. Bowel sounds are normoactive. EXTREMITIES: Showed no cyanosis or edema. NEUROLOGIC: Pleasantly confused. No deficits. Speech is fluent. SKIN: Warm and dry. ASSESSMENT: 1. A 69-year-old female with COVID-19 positive swabs, sent here for quarantine. 2. Abnormal CT with possible early pneumonia. This has been treated. I do not think she has active infection at this time. 3. Underlying dementia, profound. 4. Gastroesophageal reflux disease. 5. Depression with anxiety. 6. Protein-calorie malnutrition. PLAN: 1. We will continue to oral antibiotics until complete. 2. I will stop the Decadron as I do not think she needs it. 3. Other home meds reviewed. 4. Diet as tolerated. 5. Follow up swaps and indicated for eventual placement. MARY ANGELO MD DR: ERIC/telma JOB#: [id number] / [id number]
[2019-10-10] MEDS: traZODone 50 MG TABLET. PO SCH ×2 (12:06→17:29)
[2019-10-10 14:43] VITALS: BP 117/62
[2019-10-10 19:00] VITALS: BP 140/64
[2019-10-10] MEDS: MELATONIN 3 MG TABLET PO SCH (20:10)
[2019-10-10 23:09] VITALS: BP 140/64
[2019-10-11 05:52] VITALS: BP 138/73
[2019-10-11] MEDS: risperiDONE 0.5 MG TABLET. PO SCH ×2 (09:04→14:24)
[2019-10-11] MEDS: THIAMINE 100 MG TABLET. PO SCH (09:04)
[2019-10-11] MEDS: CEPHALEXIN 250 MG CAPSULE PO SCH ×3 (09:04→20:39)
[2019-10-11] MEDS: hydrOXYzine HCL 25 MG TABLET PO PRN ×3 (09:04→17:02)
[2019-10-11] MEDS: SENNOSIDES/DOCUSATE 8.6/50MG TABLET. PO SCH (09:04)
[2019-10-11] MEDS: SERTRALINE 25 MG TABLET. PO SCH (09:04)
[2019-10-11] MEDS: busPIRone 10 MG TABLET. PO SCH ×2 (09:04→17:02)
[2019-10-11] MEDS: LACTOBACILLUS RHAMNOSUS GG 1 CAPSULE. PO SCH ×2 (09:04→20:40)
[2019-10-11] MEDS: MULTIVITAMIN with MINERAL TABLET. PO SCH (09:04)
[2019-10-11] MEDS: DIVALPROEX 125 MG CAP.SPRINK PO SCH ×3 (09:04→20:40)
[2019-10-11] MEDS: ASCORBIC ACID 500 MG TABLET PO SCH (09:04)
[2019-10-11] MEDS: ENOXAPARIN 40 MG/0.4 ML SYRINGE. SQ SCH ×2 (09:05→20:39)
[2019-10-11 10:11] VITALS: BP 113/63
[2019-10-11] MEDS: traZODone 50 MG TABLET. PO SCH ×2 (11:52→17:02)
--- NOTE | 2019-10-11 12:12 | PN ---
DATE: 10/11/2019 ATTENDING PHYSICIAN: Dr. Angelo. SUBJECTIVE: Very confused. She has no concept of how to manage her call lights, still agitated, calling for nurses frequently. No obvious respiratory distress. OBJECTIVE FINDINGS: VITAL SIGNS: Temperature 97.7 degrees Fahrenheit, blood pressure 113/63 mmHg, oxygen saturation 96% on room air, pulse is 75 and regular. HEENT: Head is without trauma. Pupils are reactive. Sclerae nonicteric. The oropharynx is clear. NECK: Supple. LUNGS: Good breath sounds. CARDIOVASCULAR: Showed regular heart tones. No gallops. Peripheral pulses are palpable and full. ABDOMEN: Soft, scaphoid, nontender. EXTREMITIES: Showed no cyanosis or edema. NEUROLOGIC: Pleasantly confused, little bit agitated. Memory is quite poor. SKIN: Warm and dry. ASSESSMENT: 1. A 69-year-old female with COVID-19 positive swabs, sent here for quarantine. 2. Abnormal CT with possible early pneumonia, treated. 3. Underlying dementia, profound. 4. Gastroesophageal reflux disease. 5. Depression. 6. Protein-calorie malnutrition. PLAN: 1. We will finish her oral cephalexin until the end of the week. 2. Decadron has been stopped and she has no changes in status. 3. Other meds were reviewed. 4. Followup swabs as indicated. 5. Placement. MARY ANGELO MD DR: ERIC/telma JOB#: [id number] / [id number]
[2019-10-11 14:59] VITALS: BP 107/59
--- NOTE | 2019-10-11 16:01 | NUR ---
Patient has been agitated, restless, attention seeking, and repeatedly calling out all shift. She was repeatedly calling out this morning, prn medication provided with scheduled medications per eMAR; patient did not have a noticeable change in behaviour, another prn was provided just before noon as per eMAR. Patient has been destructive of property, this morning she had ripped her gown off, wrapped up in a sheet, and was removing the stuffing from a pillow. When beverages are left on her bedside table, she threw them about the room. Staff reports patient was very cooperative when provided with a bed bath. Patient was repeatedly calling out and attempting to crawl out of her bed this afternoon; prn and scheduled meds provided per eMAR. Patient currently laying in bed, restless, and confused. Will continue to monitor and report to oncoming shift.
[2019-10-11 19:44] VITALS: BP 127/67
[2019-10-11] MEDS: MELATONIN 3 MG TABLET PO SCH (20:40)
[2019-10-11 22:56] VITALS: BP 92/44
[2019-10-11 23:58] VITALS: BP 110/58
[2019-10-12 05:54] VITALS: BP 108/63
[2019-10-12] MEDS: CEPHALEXIN 250 MG CAPSULE PO SCH ×3 (08:42→20:26)
[2019-10-12] MEDS: DIVALPROEX 125 MG CAP.SPRINK PO SCH ×3 (08:42→20:26)
[2019-10-12] MEDS: busPIRone 10 MG TABLET. PO SCH ×2 (08:43→18:09)
[2019-10-12] MEDS: THIAMINE 100 MG TABLET. PO SCH (08:43)
[2019-10-12] MEDS: ACETAMINOPHEN 325 MG TABLET PO PRN (08:43)
[2019-10-12] MEDS: LACTOBACILLUS RHAMNOSUS GG 1 CAPSULE. PO SCH ×2 (08:43→20:26)
[2019-10-12] MEDS: SERTRALINE 25 MG TABLET. PO SCH (08:43)
[2019-10-12] MEDS: MULTIVITAMIN with MINERAL TABLET. PO SCH (08:43)
[2019-10-12] MEDS: hydrOXYzine HCL 25 MG TABLET PO PRN ×4 (08:43→20:26)
[2019-10-12] MEDS: SENNOSIDES/DOCUSATE 8.6/50MG TABLET. PO SCH (08:43)
[2019-10-12] MEDS: ASCORBIC ACID 500 MG TABLET PO SCH (08:43)
[2019-10-12] MEDS: risperiDONE 0.5 MG TABLET. PO SCH ×2 (08:43→14:12)
[2019-10-12] MEDS: ENOXAPARIN 40 MG/0.4 ML SYRINGE. SQ SCH ×2 (09:48→20:27)
[2019-10-12 10:37] VITALS: BP 110/63
[2019-10-12] MEDS: traZODone 50 MG TABLET. PO SCH ×2 (11:57→18:09)
[2019-10-12] MEDS: traMADol 50 MG TABLET PO PRN (18:09)
--- NOTE | 2019-10-12 19:35 | PN ---
DATE: 10/12/2019 SUBJECTIVE: The patient is resting, slightly propped up in bed, clearly very agitated and according to the nursing staff, she does this always in the evening. She has some form of sundowning during which she becomes very extremely agitated, restless, and yelling. PHYSICAL EXAMINATION: GENERAL: However, when I examined her, she looked pale, but no jaundice, cyanosis or thyromegaly. No jugular venous distention. No limb edema. VITAL SIGNS: Her heart rate was 93, blood pressure was 110/63, temperature 97, respiratory rate was 18 and oxygen saturation was 94% on room air. HEENT: Showed normocephalic, atraumatic. NECK: Supple. HEART: Normal first and second heart sounds. No gallop, rub or murmur. CHEST: Clear to auscultation. No crepitation or rhonchi. ABDOMEN: Distended, soft, nontender. NEUROLOGIC: She was awake, alert, but obviously extremely confused. All her cranial nerves intact. She moves extremities without difficulty, although she is mostly bedbound, chair bound. The wounds in her both feet have largely healed. LABORATORY DATA: Her most recent lab work showed a serum sodium 140, potassium 4.2, chloride 104, bicarbonate 31, anion gap of 5, BUN 26, creatinine 0.8, estimated GFR was 70 mL per minute. Her glucose was 87, calcium was 8.9. White cell count was 3300, hemoglobin 13, hematocrit 40, MCV 96, and platelet count 197,000. ASSESSMENT: 1. This is a 69-year-old female with COVID-19 positive swabs, currently here for quarantine. 2. She had abnormal CT with possible early pneumonia, treated. 3. Underlying profound dementia with sundowning. 4. Gastroesophageal reflux disease. 5. Depression. 6. Protein-calorie malnutrition. PLAN: She apparently is on Keflex 500 mg 3 times a day for pneumonia. Continue with all her psychotropic medications. We will consult Dr. Hensley to assist with her management as she continued to have same episode of agitation and restlessness, particularly in the evening and nighttime. JESSICA GALEAS MD DR: DENNY/telma JOB#: [id number] / [id number]
[2019-10-12 20:03] VITALS: BP 123/72
[2019-10-12] MEDS: MELATONIN 3 MG TABLET PO SCH (20:26)
--- NOTE | 2019-10-13 05:45 | NUR ---
PT has been sleeping throughout the night. PT was calm and cooperative with assessment and took her medications whole with little resistance.
[2019-10-13] MEDS: risperiDONE 0.5 MG TABLET. PO SCH ×2 (07:58→13:26)
[2019-10-13] MEDS: LACTOBACILLUS RHAMNOSUS GG 1 CAPSULE. PO SCH ×2 (07:58→20:43)
[2019-10-13] MEDS: SERTRALINE 25 MG TABLET. PO SCH (07:58)
[2019-10-13] MEDS: busPIRone 10 MG TABLET. PO SCH ×2 (07:58→17:16)
[2019-10-13] MEDS: DIVALPROEX 125 MG CAP.SPRINK PO SCH ×3 (07:58→20:43)
[2019-10-13] MEDS: MULTIVITAMIN with MINERAL TABLET. PO SCH (07:58)
[2019-10-13] MEDS: THIAMINE 100 MG TABLET. PO SCH (07:58)
[2019-10-13] MEDS: SENNOSIDES/DOCUSATE 8.6/50MG TABLET. PO SCH (07:59)
[2019-10-13] MEDS: hydrOXYzine HCL 25 MG TABLET PO PRN ×3 (07:59→20:43)
[2019-10-13] MEDS: ASCORBIC ACID 500 MG TABLET PO SCH (07:59)
[2019-10-13] MEDS: CEPHALEXIN 250 MG CAPSULE PO SCH ×3 (07:59→20:43)
[2019-10-13] MEDS: ENOXAPARIN 40 MG/0.4 ML SYRINGE. SQ SCH ×2 (08:00→20:43)
[2019-10-13 08:45] VITALS: BP 116/70
[2019-10-13] MEDS: traZODone 50 MG TABLET. PO SCH ×3 (11:32→17:15)
--- NOTE | 2019-10-13 11:39 | NUR ---
EXTENDED PLACEMENT UPDATES: [facility] (2x) -- [facility] -- cannot care for pt bx [facility] -- private pay only [facility] (2x) -- cannot accept pt at this time [facility] -- not accepting pts [facility] (2x) -- NO RESPONSE [facility] -- NO RESPONSE [facility] -- NO RESPONSE [facility] -- considering [facility] -- cannot accept in LTC and not appropriate for SNF [facility] -- at full capacity with waiting list [facility] -- considering [facility] -- considering [facility] cannot accept [facility] -- considering [facility] -- cannot accept [facility] -- considering [facility] -- not able to accept [place] [facility] -- considering [facility] -- considering [facility] -- cannot accept as no beds [facility] -- considering [facility] -- [facility] - considering [facility] -- considering [facility] -- considering [facility] -- cannot accept no beds [facility] -- cannot accept [place] -- considering [facility] -- considering [facility] -- cannot accept [facility] -- not accepting admissions right now [facility] -- considering [facility] -- considering [facility] -- cannot accept [facility] -- considering [facility] -- cannot accept [place] -- full for the next 10 days; can try back at that time [facility] -- cannot accept full capacity
[2019-10-13] MEDS: traMADol 50 MG TABLET PO PRN (13:26)
[2019-10-13 19:31] VITALS: BP 119/60
[2019-10-13] MEDS: MELATONIN 3 MG TABLET PO SCH (20:43)
--- NOTE | 2019-10-13 22:35 | PN ---
DATE: 10/13/2019 SUBJECTIVE: The patient is resting, slightly propped up in bed, in no apparent distress. She continued to be agitated, restless, continued to have sundowning, yelling and hollering the whole day, worse in the evening at night time; however, on exam, she is completely asymptomatic. She has no fever, no cough, no phlegm, no shortness of breath. Her oxygen saturation is normal at 95% on room air. PHYSICAL EXAMINATION: GENERAL: When I examined her, she was pale, but no jaundiced, cyanosed or thyromegaly. No jugular venous distention. No limb edema. VITAL SIGNS: Her heart rate was 88, blood pressure 116/70, temperature was 97.3, respiratory rate was 20, and oxygen saturation was 95%. HEENT: She is normocephalic, atraumatic. NECK: Supple. HEART: Normal first and second heart sounds. No gallop, rub or murmur. CHEST: Shows central trachea, equal bilateral expansion, air entry, vesicular sounds. No crepitation or rhonchi. ABDOMEN: Distended, soft, nontender. NEUROLOGIC: She is demented, but without any obvious lateralizing sign. All her cranial nerves are intact. She moves extremities without difficulty, though she is mostly bedbound, chair bound. Her intake was 620, no output was recorded. LABORATORY DATA: She has no lab work done today. ASSESSMENT: 1. This is a 69-year-old female with COVID positive swabs, currently here for quarantine. She continued to be completely asymptomatic. 2. She has abnormal CT with possible early pneumonia, treated. 3. Underlying profound dementia with sundowning. 4. Gastroesophageal reflux disease. 5. Depression. 6. Protein-calorie malnutrition. PLAN: To continue with antibiotics for her pneumonia. Continue with psychotropic medication. She was swabbed again today for COVID-19 and dependence on the result and the requirement of the nursing facilities, she may or may not be able to be discharged sooner. JESSICA GALEAS MD DR: DENNY/telma JOB#: [id number] / [id number]
--- NOTE | 2019-10-13 22:49 | PDOC ---
Exam Note: [facility] Note: This is a late entry for DOS 10/12/19. Please also refer to the separate dictated note~for this date of service dictated separately.~Patient seen individually. Discussed the patient with Nursing staff reviewed the chart.~Reviewed interim history and current functioning. Reviewed vital signs,~Labs/ Radiology~and current medications noted below. Continue current treatment with the changes noted in the dictated addendum note Assessment: Vital Signs/I&O: Vital Signs Date Time Temp Pulse Resp B/P (MAP) Pulse Ox O2 Delivery O2 Flow Rate FiO2 10/13/19 20:53 Room Air 10/13/19 19:31 97.0 80 20 119/60 (79) 95 I & O 10/12/19 10/12/19 10/13/19 15:00 23:00 07:00 Intake Total 480 ml 390 ml Balance 480 ml 390 ml Current Medications: I have reviewed the current psychotropics carefully including drug interactions. Risk benefit ratio favors no change other than as noted in my dictated progress note. Diagnosis: Problems: (1) Impulse control disorder, unspecified (2) Anxiety disorder, unspecified (3) Dementia, vascular, with depression (4) Dementia, vascular, with delusions (5) Dementia in Alzheimer's disease with depression (6) Dementia in Alzheimer's disease with delusions (7) Major neurocognitive disorder, due to vascular disease, with behavioral disturbance, mild NAEEM SADLER MD Oct 13, 2019 22:49
[2019-10-14] MEDS: traMADol 50 MG TABLET PO PRN (00:15)
[2019-10-14] MEDS: hydrOXYzine HCL 25 MG TABLET PO PRN ×3 (02:53→20:18)
--- NOTE | 2019-10-14 07:14 | PDOC ---
Exam Note: [facility] Note: This note is a late entry for 10/12/2019 covers elements not covered in my initial note. Subjective: The patient was evaluated on telehealth rounds on 10/12/2019 with [facility]. The patient remains confused, anxious restless, somewhat agitated, distractible, difficult to redirect. She has had some disturbance of sleep. Appetite varies. Review of Systems: Ambulation impaired in wheelchair. No CV, , eye, ENT system symptoms on review. Mental Status Exam: Per observation per nursing staff, she remains confused, otherwise, fairly animated, typical for her oriented to herself. Insight and judgment, recent and remote memory, attention and concentration, fund of knowledge is poor consistent with her diagnosis per observations including nursing. Laboratory Data: Reviewed. Impression: Major neurocognitive disorder, Alzheimer vascular with delusion, depression, behavioral disturbance. Anxiety disorder unspecified. Impulse control disorder unspecified. Plan: No change from initial note. Continue psychotropics unchanged from initial note. Start low dose trazodone for her agitation, anxiety. Adjust further as clinically indicated. Assessment: Vital Signs/I&O: Vital Signs Date Time Temp Pulse Resp B/P (MAP) Pulse Ox O2 Delivery O2 Flow Rate FiO2 10/14/19 01:25 16 10/14/19 00:15 Room Air 10/13/19 19:31 97.0 80 119/60 (79) 95 I & O 10/13/19 10/13/19 10/14/19 15:00 23:00 07:00 Intake Total 1060 ml 580 ml Balance 1060 ml 580 ml Current Medications: I have reviewed the current psychotropics carefully including drug interactions. Risk benefit ratio favors no change other than as noted in my dictated progress note. Diagnosis: Problems: (1) Impulse control disorder, unspecified (2) Anxiety disorder, unspecified (3) Dementia, vascular, with depression (4) Dementia, vascular, with delusions (5) Dementia in Alzheimer's disease with depression (6) Dementia in Alzheimer's disease with delusions (7) Major neurocognitive disorder, due to vascular disease, with behavioral disturbance, mild NAEEM SADLER MD Oct 14, 2019 07:14
[2019-10-14 08:11] VITALS: BP 109/56
[2019-10-14] MEDS: busPIRone 10 MG TABLET. PO SCH ×2 (08:42→16:48)
[2019-10-14] MEDS: SERTRALINE 25 MG TABLET. PO SCH (08:42)
[2019-10-14] MEDS: DIVALPROEX 125 MG CAP.SPRINK PO SCH ×3 (08:42→20:18)
[2019-10-14] MEDS: LACTOBACILLUS RHAMNOSUS GG 1 CAPSULE. PO SCH ×2 (08:42→20:18)
[2019-10-14] MEDS: risperiDONE 0.5 MG TABLET. PO SCH ×2 (08:43→14:13)
[2019-10-14] MEDS: ASCORBIC ACID 500 MG TABLET PO SCH (08:43)
[2019-10-14] MEDS: MULTIVITAMIN with MINERAL TABLET. PO SCH (08:43)
[2019-10-14] MEDS: CEPHALEXIN 250 MG CAPSULE PO SCH ×3 (08:43→20:18)
[2019-10-14] MEDS: ENOXAPARIN 40 MG/0.4 ML SYRINGE. SQ SCH ×2 (08:43→20:19)
[2019-10-14] MEDS: THIAMINE 100 MG TABLET. PO SCH (08:44)
[2019-10-14] MEDS: SENNOSIDES/DOCUSATE 8.6/50MG TABLET. PO SCH (08:44)
[2019-10-14] MEDS: traZODone 50 MG TABLET. PO SCH ×3 (12:19→16:48)
--- NOTE | 2019-10-14 17:33 | NUR ---
Pt has been yelling out most of day, does better if someone is in room with patient. Pt struggling since she is confined to room under quarantine. Pt began hallucinating this afternoon, talking to people in room. Instructing them to do "jobs" like "move that there and take the hay over there". At one point yelled for her sister to tell her the barn was smoking. Yelled out, "hey tell her her hair is on fire!" Pt does much better when able to move about freely. PRNs given throughout the day. Pt did not sleep well last night per report. Dr Avery notified, requested nurse call Dr Hensley with psych. TM.
[2019-10-14] MEDS: MELATONIN 3 MG TABLET PO SCH (20:18)
--- NOTE | 2019-10-14 21:04 | PN ---
DATE: 10/14/2019 SUBJECTIVE: The patient continues to be extremely confused, agitated, hallucinating, yelling, owning despite all the medications she is on. Unfortunately, her coronavirus was detected again with the swab done yesterday, although she continues to be completely asymptomatic. PHYSICAL EXAMINATION: GENERAL: When I examined her this afternoon, she was resting slightly propped up in bed, in no apparent distress. She was pale, but no jaundice, cyanosis or thyromegaly. No jugular venous distention. No limb edema. VITAL SIGNS: Her heart rate was 76, blood pressure was 109/56, her temperature was 97, respiratory rate 20, and oxygen saturation was 95%. HEENT: Showed normocephalic, atraumatic. NECK: Supple. HEART: Showed normal first and second heart sounds. No gallop or murmur. CHEST: Clear to auscultation. No crepitation or rhonchi. ABDOMEN: Distended, soft, nontender. NEUROLOGIC: She is extremely confused, disorganized and agitated, but all her cranial nerves are grossly intact. She moves extremities without difficulty though she is mostly bedbound, chair bound. Her wounds in her both feet have completely healed. Her intake over the last 24 hours was 870, no output was recorded. LABORATORY DATA: Her most recent lab work was on 10/06/2019. At that time, her white cell count was 3300, hemoglobin 13.5, hematocrit 40, MCV 96, and platelet count of 197,000. Her chemistry showed a serum sodium 140, potassium 4.2, chloride 104, bicarbonate 31, anion gap of 5, BUN 26, creatinine 0.8, estimated GFR was 71 mL per minute. Her glucose was 87 and calcium was 8.9, her D-dimer was high at 2.87 and her coronavirus PCR was detected again with the swab done yesterday. ASSESSMENT: 1. This is a 69-year-old female with COVID positive swabs done twice on the and again yesterday 10/13/2019, here for quarantine. She continues to be completely asymptomatic. 2. She has abnormal CT with possible early pneumonia that was treated. 3. Underlying profound dementia with . 4. Gastroesophageal reflux disease. 5. Depression. 6. Protein-calorie malnutrition. PLAN: She continues to be on cephalexin 500 mg 3 times a day. We will continue with Lovenox for DVT prophylaxis. Continue with all her other medications. Unfortunately, this is the third swab that is positive. JESSICA GALEAS MD DR: DENNY/telma JOB#: [id number] / [id number]
[2019-10-14 22:01] VITALS: BP 123/49
--- NOTE | 2019-10-15 04:23 | NUR ---
covid 19 swab done on 10-13-19 came back positive
[2019-10-15 08:00] VITALS: BP 129/85
[2019-10-15] MEDS: hydrOXYzine HCL 25 MG TABLET PO PRN ×3 (08:51→15:37)
[2019-10-15] MEDS: THIAMINE 100 MG TABLET. PO SCH (08:51)
[2019-10-15] MEDS: busPIRone 10 MG TABLET. PO SCH (08:52)
[2019-10-15] MEDS: ASCORBIC ACID 500 MG TABLET PO SCH (08:52)
[2019-10-15] MEDS: ACETAMINOPHEN 325 MG TABLET PO PRN (08:52)
[2019-10-15] MEDS: DIVALPROEX 125 MG CAP.SPRINK PO SCH ×3 (08:52→21:00)
[2019-10-15] MEDS: MULTIVITAMIN with MINERAL TABLET. PO SCH (08:52)
[2019-10-15] MEDS: SENNOSIDES/DOCUSATE 8.6/50MG TABLET. PO SCH (08:52)
[2019-10-15] MEDS: SERTRALINE 25 MG TABLET. PO SCH (08:52)
[2019-10-15] MEDS: CEPHALEXIN 250 MG CAPSULE PO SCH ×3 (08:52→21:00)
[2019-10-15] MEDS: risperiDONE 0.5 MG TABLET. PO SCH (08:52)
[2019-10-15] MEDS: ENOXAPARIN 40 MG/0.4 ML SYRINGE. SQ SCH ×2 (08:53→21:00)
[2019-10-15] MEDS: LACTOBACILLUS RHAMNOSUS GG 1 CAPSULE. PO SCH ×2 (08:53→21:00)
[2019-10-15] MEDS: traZODone 50 MG TABLET. PO SCH ×4 (11:02→18:10)
[2019-10-15] MEDS: traMADol 50 MG TABLET PO PRN ×2 (11:02→15:36)
[2019-10-15] MEDS: HALOPERIDOL LACT 5 MG/ML VIAL. IM PRN ×2 (12:36→16:45)
[2019-10-15] MEDS ORDERED: traZODone 50 MG TABLET. PO ONE (15:00)
[2019-10-15] MEDS: QUEtiapine 25 MG TABLET. PO SCH ×2 (15:36→18:10)
[2019-10-15 18:13] LABS: BASO # 0.1 x10^3/uL (0.0-0.2); BASO % 1 % (0-3); EOS # 0.1 x10^3/uL (0.0-0.7); EOS % 1 % (0-3); HEMATOCRIT 41.8 % (36.0-47.0); HEMOGLOBIN 13.9 g/dL (12.0-15.5); LYMPH # 0.8 x10^3/uL (1.0-4.8); LYMPH % 12 % (24-48); MEAN CORPUSCULAR HEMOGLOBIN 32 pg (25-35); MEAN CORPUSCULAR HGB CONC 33 g/dL (31-37); MEAN CORPUSCULAR VOLUME 97 fL (79-100); MONO # 0.5 x10^3/uL (0.0-1.1); MONO % 8 % (0-9); NEUT # 5.5 x10^3uL (1.8-7.7); NEUT % 79 % (31-73); PLATELET COUNT 273 x10^3/uL (140-400); RED BLOOD COUNT 4.33 x10^6/uL (3.50-5.40)
[2019-10-15 18:22] LABS: ALBUMIN 2.8 g/dL (3.4-5.0); ALBUMIN/GLOBULIN RATIO 0.8 (1.0-1.7); ALK PHOS 75 U/L (46-116); ALT (SGPT) 25 U/L (14-59); ANION GAP 7 (6-14); AST (SGOT) 21 U/L (15-37); BLOOD UREA NITROGEN 28 mg/dL (7-20); BUN/CREATININE RATIO 35 (6-20); CALCIUM 8.6 mg/dL (8.5-10.1); CARBON DIOXIDE 28 mmol/L (21-32); CHLORIDE 106 mmol/L (98-107); CREATININE 0.8 mg/dL (0.6-1.0); GFR 70.7; GLUCOSE 132 mg/dL (70-99); POTASSIUM 3.7 mmol/L (3.5-5.1); SODIUM 141 mmol/L (136-145); TOTAL BILIRUBIN 0.3 mg/dL (0.2-1.0); TOTAL PROTEIN 6.3 g/dL (6.4-8.2)
[2019-10-15 18:23] LABS: VAL ACID 47 mcg/mL (50-100)
[2019-10-15 18:28] LABS: CLARITY,URINE HAZY; COLOR,URINE YELLOW
[2019-10-15 18:29] LABS: BACTERIA,URINE FEW /HPF (0-FEW); BILIRUBIN,URINE NEG (NEG); GLUCOSE,URINE NEG (NEG); NITRITE,URINE POS (NEG); SQUAMOUS EPITHELIAL CELL,UR FEW /LPF; WBC,URINE >40 /HPF (0-4)
[2019-10-15 20:12] VITALS: BP 119/53
--- NOTE | 2019-10-15 20:45 | NUR ---
Attempted to administer medications to pt. She aroused to name but went immediately back to sleep. Patted on pt's arm and shook it calling her name, pt agreed to take her medications but continued to keep her eyes shut and went right back to sleep. Will reattempt later.
[2019-10-15] MEDS: MELATONIN 3 MG TABLET PO SCH (21:00)
--- NOTE | 2019-10-15 21:57 | PDOC ---
Exam Note: David Note: Please also refer to the separate dictated note~for this date of service dictated separately.~Patient seen individually. Discussed the patient with Nursing staff reviewed the chart.~Reviewed interim history and current functioning. Reviewed vital signs,~Labs/ Radiology~and current medications noted below. Continue current treatment with the changes noted in the dictated addendum note Assessment: Vital Signs/I&O: Vital Signs Date Time Temp Pulse Resp B/P (MAP) Pulse Ox O2 Delivery O2 Flow Rate FiO2 10/15/19 20:12 97.9 67 20 119/53 (75) 96 Room Air I & O 10/14/19 10/14/19 10/15/19 15:00 23:00 07:00 Intake Total 480 ml 340 ml 360 ml Balance 480 ml 340 ml 360 ml Labs: Laboratory Tests Test 10/15/19 17:40 10/15/19 17:45 White Blood Count 7.0 x10^3/uL (4.0-11.0) Red Blood Count 4.33 x10^6/uL (3.50-5.40) Hemoglobin 13.9 g/dL (12.0-15.5) Hematocrit 41.8 % (36.0-47.0) Mean Corpuscular Volume 97 fL (79-100) Mean Corpuscular Hemoglobin 32 pg (25-35) Mean Corpuscular Hemoglobin Concent 33 g/dL (31-37) Red Cell Distribution Width 14.0 % (11.5-14.5) Platelet Count 273 x10^3/uL (140-400) Neutrophils (%) (Auto) 79 % (31-73) H Lymphocytes (%) (Auto) 12 % (24-48) L Monocytes (%) (Auto) 8 % (0-9) Eosinophils (%) (Auto) 1 % (0-3) Basophils (%) (Auto) 1 % (0-3) Neutrophils # (Auto) 5.5 x10^3uL (1.8-7.7) Lymphocytes # (Auto) 0.8 x10^3/uL (1.0-4.8) L Monocytes # (Auto) 0.5 x10^3/uL (0.0-1.1) Eosinophils # (Auto) 0.1 x10^3/uL (0.0-0.7) Basophils # (Auto) 0.1 x10^3/uL (0.0-0.2) Sodium Level 141 mmol/L (136-145) Potassium Level 3.7 mmol/L (3.5-5.1) Chloride Level 106 mmol/L (98-107) Carbon Dioxide Level 28 mmol/L (21-32) Anion Gap 7 (6-14) Blood Urea Nitrogen 28 mg/dL (7-20) H Creatinine 0.8 mg/dL (0.6-1.0) Estimated GFR (Cockcroft-Gault) 70.7 BUN/Creatinine Ratio 35 (6-20) H Glucose Level 132 mg/dL (70-99) H Calcium Level 8.6 mg/dL (8.5-10.1) Total Bilirubin 0.3 mg/dL (0.2-1.0) Aspartate Amino Transferase (AST) 21 U/L (15-37) Alanine Aminotransferase (ALT) 25 U/L (14-59) Alkaline Phosphatase 75 U/L (46-116) Total Protein 6.3 g/dL (6.4-8.2) L Albumin 2.8 g/dL (3.4-5.0) L Albumin/Globulin Ratio 0.8 (1.0-1.7) L Valproic Acid Level 47 mcg/mL (50-100) L Valproic Acid Last Dose Date 10/15/2019 Valproic Acid Last Dose Time 0800 Urine Collection Type U cath Urine Color Yellow Urine Clarity Hazy Urine pH 7.0 Urine Specific [place] 1.025 Urine Protein Neg (NEG-TRACE) Urine Glucose (UA) Neg mg/dL (NEG) Urine Ketones (Stick) Trace mg/dL (NEG) Urine Blood Neg (NEG) Urine Nitrite Pos (NEG) Urine Bilirubin Neg (NEG) Urine Urobilinogen Dipstick 2.0 mg/dL (0.2 mg/dL) Urine Leukocyte Esterase Mod (NEG) Urine RBC 1-2 /HPF (0-2) Urine WBC >40 /HPF (0-4) Urine Squamous Epithelial Cells Few /LPF Urine Bacteria Few /HPF (0-FEW) Current Medications: Meds: Current Medications Medications (Trade) Dose Ordered Sig/Bindu Route PRN Reason Start Time Stop Time Status Last Admin Dose Admin Haloperidol Lactate (Haldol) 5 mg PRN Q4HRS PRN IM ANXIETY / AGITATION 10/15/19 12:15 10/15/19 16:45 Trazodone HCl (Desyrel) 25 mg 0900,1300,1700 PO 10/15/19 15:00 10/15/19 18:10 Quetiapine Fumarate (SEROquel) 25 mg 0900,1300,1700 PO 10/15/19 15:00 10/15/19 18:10 Trazodone HCl (Desyrel) 25 mg 1X ONCE PO 10/15/19 15:00 10/15/19 15:10 DC 10/15/19 15:37 I have reviewed the current psychotropics carefully including drug interactions. Risk benefit ratio favors no change other than as noted in my dictated progress note. Diagnosis: Problems: (1) Impulse control disorder, unspecified (2) Anxiety disorder, unspecified (3) Dementia, vascular, with depression (4) Dementia, vascular, with delusions (5) Dementia in Alzheimer's disease with depression (6) Dementia in Alzheimer's disease with delusions (7) Major neurocognitive disorder, due to vascular disease, with behavioral disturbance, mild NAEEM SADLER MD Oct 15, 2019 21:57
--- NOTE | 2019-10-16 00:53 | NUR ---
Attempted to again wake pt and give her medications multiple times. Each time, pt spoke clearly and affirmed she would take the medications and would like some ice cream, which often averts behaviors, then would not open her eyes and seemed to go right back to sleep. Medications had been opened and placed in ice cream during scheduled administration time; disposed of medications, non-administered in chart. Pt bed pad changed d/t soil from urination. Pt able to assist in rolling to each side with help, while being cleaned up. Mild redness noted on bottom. Calazime cream applied. Pt decline snack or drink. Will continue to monitor.
--- NOTE | 2019-10-16 02:10 | PN ---
DATE: 10/15/2019 SUBJECTIVE: The patient continued to be very restless, agitated, yelling, refusing to take her medication, ____ them out of the nurses' hands when tried to ____ her medication into her mouth, she spitted out and has been constantly yelling throughout the day. I did order some Haldol, but does not seem to be of much help. PHYSICAL EXAMINATION: GENERAL: On examining her, she was pale, not jaundiced, cyanosed or thyromegaly. No jugular venous distention. No limb edema. VITAL SIGNS: Her heart rate was 84, blood pressure was 129/85, temperature 97.6, respiratory rate was 20, and oxygen saturation was 93%. HEENT: Normocephalic, atraumatic. NECK: Supple. CARDIAC: Normal first and second heart sounds. No gallop or murmur. CHEST: Clear to auscultation. No crepitation or rhonchi. ABDOMEN: Distended, soft, nontender. NEUROLOGIC: She is profoundly demented, restless, agitated; however, all her cranial nerves are intact. She moves extremities without difficulty, although she is mostly bedbound, chair bound. Her intake over the last 24 hours was 1614, no output was recorded. LABORATORY DATA: She has no lab work done recently; however, her coronavirus-2 PCR was detected again yesterday. ASSESSMENT: 1. This is a 69-year-old female patient with COVID positive swabs done twice on the 10/04 and again on 10/12, here for quarantine. She continued to be completely asymptomatic. 2. She continued to struggle with confinement in 1 room under quarantine, has been constantly yelling, hollering, has been uncooperative with medication. She has other medical problems include: A. Profound dementia with . B. Gastroesophageal reflux disease. C. Depression. D. Protein-calorie malnutrition. PLAN: To continue with oral antibiotic. Continue with Lovenox for DVT prophylaxis. Continue with all her other psychotropic medications and we did contact Dr. Hensley to assist with adjustment of her medication as Haldol was ineffective. JESSICA GALEAS MD DR: DENNY/telma JOB#: [id number] / [id number]
--- NOTE | 2019-10-16 06:41 | NUR ---
Pt changed twice d/t urination. Pt seems unaware of urinating while bed pads being changed. Calazime cream applied. Red skin on lateral right ankle. Pillow used to position off bed. Pt woke during change but quickly went back to sleep. Will continue to monitor.
--- NOTE | 2019-10-16 07:19 | PDOC ---
Exam Note: David Note: This note is a late entry for 10/15/2019 covers elements not covered in my initial note. Subjective: I received a call from Muriel COHN on 10/15/2019. The patient has had a very difficult day, yelling, screaming, labile, caring up her clothes, aggressive, throwing medications on the floor, constantly moving, restless, and totally unmanageable. She is still on the COVID unit and was tested 2 day ago and the repeat COVID test has come back positive once again after the prior one about 10 days back was positive as well. Nevertheless, she is not symptomatic. She remains on Keflex but it is unclear whether additionally she might have UTI worsening her agitation. Review of Systems: Ambulation impaired in wheelchair. No CV, , eye, ENT system symptoms on review. Reliability poor. Mental Status Exam: Per nursing staff review, insight and judgment, recent and remote memory, attention and concentration, fund of knowledge is poor consistent with her diagnosis. She is oriented to herself. Her sister is not called in a day or two to check on her per Muriel COHN. Laboratory Data: Reviewed. Impression: Major neurocognitive disorder, Alzheimer vascular with delusion, depression, behavioral disturbance. Anxiety disorder unspecified. Impulse control disorder unspecified. Plan: I have carefully reviewed the patients psychotropics. She remains on Risperdal, BuSpar, scheduled trazodone, Depakote in addition to Zyprexa p.r.n., Atarax p.r.n I had been called by Guanako COHN 3 to 4 days back. She was still agitated and we had increased the trazodone schedule but this seems to have not made much of a difference at least so far. The patient may possibly having some acathisia on Risperdal. We will go ahead and stop this and start schedule Seroquel as noted in my initial note. Stop the BuSpar, increase trazodone again as noted. Continue Depakote. Check CBC, CMP, valproic acid level and UA to rule out UTI causing increased agitation. She remains on Keflex but it is unclear if she has UTI and this is appropriate antibiotic in any case. We will make further adjustments as clinically indicated. Assessment: Vital Signs/I&O: Vital Signs Date Time Temp Pulse Resp B/P (MAP) Pulse Ox O2 Delivery O2 Flow Rate FiO2 10/15/19 20:12 97.9 67 20 119/53 (75) 96 Room Air I & O 10/15/19 10/15/19 10/16/19 15:00 23:00 07:00 Intake Total 120 ml Balance 120 ml Labs: Laboratory Tests Test 10/15/19 17:40 10/15/19 17:45 White Blood Count 7.0 x10^3/uL (4.0-11.0) Red Blood Count 4.33 x10^6/uL (3.50-5.40) Hemoglobin 13.9 g/dL (12.0-15.5) Hematocrit 41.8 % (36.0-47.0) Mean Corpuscular Volume 97 fL (79-100) Mean Corpuscular Hemoglobin 32 pg (25-35) Mean Corpuscular Hemoglobin Concent 33 g/dL (31-37) Red Cell Distribution Width 14.0 % (11.5-14.5) Platelet Count 273 x10^3/uL (140-400) Neutrophils (%) (Auto) 79 % (31-73) H Lymphocytes (%) (Auto) 12 % (24-48) L Monocytes (%) (Auto) 8 % (0-9) Eosinophils (%) (Auto) 1 % (0-3) Basophils (%) (Auto) 1 % (0-3) Neutrophils # (Auto) 5.5 x10^3uL (1.8-7.7) Lymphocytes # (Auto) 0.8 x10^3/uL (1.0-4.8) L Monocytes # (Auto) 0.5 x10^3/uL (0.0-1.1) Eosinophils # (Auto) 0.1 x10^3/uL (0.0-0.7) Basophils # (Auto) 0.1 x10^3/uL (0.0-0.2) Sodium Level 141 mmol/L (136-145) Potassium Level 3.7 mmol/L (3.5-5.1) Chloride Level 106 mmol/L (98-107) Carbon Dioxide Level 28 mmol/L (21-32) Anion Gap 7 (6-14) Blood Urea Nitrogen 28 mg/dL (7-20) H Creatinine 0.8 mg/dL (0.6-1.0) Estimated GFR (Cockcroft-Gault) 70.7 BUN/Creatinine Ratio 35 (6-20) H Glucose Level 132 mg/dL (70-99) H Calcium Level 8.6 mg/dL (8.5-10.1) Total Bilirubin 0.3 mg/dL (0.2-1.0) Aspartate Amino Transferase (AST) 21 U/L (15-37) Alanine Aminotransferase (ALT) 25 U/L (14-59) Alkaline Phosphatase 75 U/L (46-116) Total Protein 6.3 g/dL (6.4-8.2) L Albumin 2.8 g/dL (3.4-5.0) L Albumin/Globulin Ratio 0.8 (1.0-1.7) L Valproic Acid Level 47 mcg/mL (50-100) L Valproic Acid Last Dose Date 10/15/2019 Valproic Acid Last Dose Time 0800 Urine Collection Type U cath Urine Color Yellow Urine Clarity Hazy Urine pH 7.0 Urine Specific [place] 1.025 Urine Protein Neg (NEG-TRACE) Urine Glucose (UA) Neg mg/dL (NEG) Urine Ketones (Stick) Trace mg/dL (NEG) Urine Blood Neg (NEG) Urine Nitrite Pos (NEG) Urine Bilirubin Neg (NEG) Urine Urobilinogen Dipstick 2.0 mg/dL (0.2 mg/dL) Urine Leukocyte Esterase Mod (NEG) Urine RBC 1-2 /HPF (0-2) Urine WBC >40 /HPF (0-4) Urine Squamous Epithelial Cells Few /LPF Urine Bacteria Few /HPF (0-FEW) Current Medications: Meds: Current Medications Medications (Trade) Dose Ordered Sig/Bindu Route PRN Reason Start Time Stop Time Status Last Admin Dose Admin Haloperidol Lactate (Haldol) 5 mg PRN Q4HRS PRN IM ANXIETY / AGITATION 10/15/19 12:15 10/15/19 16:45 Trazodone HCl (Desyrel) 25 mg 0900,1300,1700 PO 10/15/19 15:00 10/15/19 18:10 Quetiapine Fumarate (SEROquel) 25 mg 0900,1300,1700 PO 10/15/19 15:00 10/15/19 18:10 Trazodone HCl (Desyrel) 25 mg 1X ONCE PO 10/15/19 15:00 10/15/19 15:10 DC 10/15/19 15:37 I have reviewed the current psychotropics carefully including drug interactions. Risk benefit ratio favors no change other than as noted in my dictated progress note. Diagnosis: Problems: (1) COVID-19 (2) Impulse control disorder, unspecified (3) Anxiety disorder, unspecified (4) Dementia, vascular, with depression (5) Dementia, vascular, with delusions (6) Dementia in Alzheimer's disease with depression (7) Dementia in Alzheimer's disease with delusions (8) Major neurocognitive disorder, due to vascular disease, with behavioral disturbance, mild NAEEM SADLER MD Oct 16, 2019 07:19
[2019-10-16] MEDS: SENNOSIDES/DOCUSATE 8.6/50MG TABLET. PO SCH (07:51)
[2019-10-16] MEDS: QUEtiapine 25 MG TABLET. PO SCH ×3 (07:52→17:55)
[2019-10-16] MEDS: traZODone 50 MG TABLET. PO SCH ×3 (07:52→18:01)
[2019-10-16] MEDS: THIAMINE 100 MG TABLET. PO SCH (07:52)
[2019-10-16] MEDS: ASCORBIC ACID 500 MG TABLET PO SCH (07:52)
[2019-10-16] MEDS: DIVALPROEX 125 MG CAP.SPRINK PO SCH ×3 (07:52→20:40)
[2019-10-16] MEDS: SERTRALINE 25 MG TABLET. PO SCH (07:52)
[2019-10-16] MEDS: LACTOBACILLUS RHAMNOSUS GG 1 CAPSULE. PO SCH ×2 (07:53→20:41)
[2019-10-16] MEDS: CEPHALEXIN 250 MG CAPSULE PO SCH ×3 (07:53→20:40)
[2019-10-16] MEDS: MULTIVITAMIN with MINERAL TABLET. PO SCH (07:53)
[2019-10-16] MEDS: ENOXAPARIN 40 MG/0.4 ML SYRINGE. SQ SCH ×2 (07:53→20:40)
[2019-10-16 09:51] VITALS: BP 135/83
--- NOTE | 2019-10-16 13:45 | PN ---
DATE: 10/16/2019 SUBJECTIVE: The patient continues to be extremely agitated, restless, yelling constantly, worse in the evening at night time. We did contact Dr. Hensley and he made multiple adjustments to her medication and seemed to be doing slightly better today. PHYSICAL EXAMINATION: GENERAL: When I examined her, she was pale, but no jaundice, cyanosis or thyromegaly. No jugular venous distention. No limb edema. VITAL SIGNS: Her heart rate was 84, blood pressure was 135/83, temperature 98.1, respiratory rate was 20, and oxygen saturation was 93% on room air. The rest of clinical exam is stable, has not really changed. Her intake was 820, no output was recorded. LABORATORY DATA: As of yesterday showed hemoglobin of 14, hematocrit 42 with normal white cell count and platelets. Her chemistry showed that her serum sodium was 141, potassium 3.7, chloride 106, bicarbonate 28, anion gap of 7, BUN 28, creatinine 0.8, estimated GFR was 70 mL per minute. Her glucose 132, calcium was 8.6. Total bilirubin, AST, ALT, alkaline phosphatase were normal. Total protein was 6.3, albumin 2.8. ASSESSMENT: 1. This is a 69-year-old female patient with COVID positive swabs done twice on 10/05/2019 and again on 10/13/2019, here for quarantine. 2. She continued to be completely asymptomatic. 3. She continued to struggle with confinement in one room under quarantine, has been constantly yelling, hollering, has been uncooperative with medication. 4. She has multiple other medical problems that include: A. Profound dementia with sundowning. B. Gastroesophageal reflux disease. C. Depression. D. Protein-calorie malnutrition. PLAN: To continue with Lovenox. Continue with DVT prophylaxis. Continue with psychotropic medication. JESSICA GALEAS MD DR: DENNY/telma JOB#: [id number] / [id number]
--- NOTE | 2019-10-16 15:48 | NUR ---
Patient awake in bed at shift change. Patient alert with confusion, refused medication so crushed them and put in ice cream. Patient took without difficulty. Patient continues to call out frequently but is pleasant when assisting her. Patient incontinent of bladder and brief and chucks changed and patient was cooperative. Bed alarm on and call light in reach. Will continue to monitor.
[2019-10-16 19:48] VITALS: BP 109/67
[2019-10-16] MEDS: MELATONIN 3 MG TABLET PO SCH (20:40)
[2019-10-16] MEDS: traMADol 50 MG TABLET PO PRN (20:41)
[2019-10-17] MEDS: MULTIVITAMIN with MINERAL TABLET. PO SCH (07:47)
[2019-10-17] MEDS: THIAMINE 100 MG TABLET. PO SCH (07:47)
[2019-10-17] MEDS: SENNOSIDES/DOCUSATE 8.6/50MG TABLET. PO SCH (07:47)
[2019-10-17] MEDS: SERTRALINE 25 MG TABLET. PO SCH (07:47)
[2019-10-17] MEDS: DIVALPROEX 125 MG CAP.SPRINK PO SCH ×3 (07:47→19:55)
[2019-10-17] MEDS: QUEtiapine 25 MG TABLET. PO SCH ×3 (07:47→16:21)
[2019-10-17] MEDS: CEPHALEXIN 250 MG CAPSULE PO SCH (07:47)
[2019-10-17] MEDS: ASCORBIC ACID 500 MG TABLET PO SCH (07:47)
[2019-10-17] MEDS: LACTOBACILLUS RHAMNOSUS GG 1 CAPSULE. PO SCH ×2 (07:47→19:55)
[2019-10-17] MEDS: traZODone 50 MG TABLET. PO SCH ×3 (07:48→16:21)
[2019-10-17] MEDS: ENOXAPARIN 40 MG/0.4 ML SYRINGE. SQ SCH ×2 (07:49→19:55)
[2019-10-17 08:40] VITALS: BP 100/52
[2019-10-17] MEDS: HALOPERIDOL LACT 5 MG/ML VIAL. IM PRN (11:07)
[2019-10-17] MEDS: hydrOXYzine HCL 25 MG TABLET PO PRN ×2 (13:51→19:55)
--- NOTE | 2019-10-17 17:21 | NUR ---
NSG NOTE; PT CALMER TODAY PT'S PSYCH MEDS WERE ADJUSTED BY DR SADLER 2 DAYS AGO AND THE PATIENT HAS BEEN MORE CALM TODAY WITH LESS CALLING OUT.
[2019-10-17 19:31] VITALS: BP 106/62
[2019-10-17] MEDS: MELATONIN 3 MG TABLET PO SCH (19:55)
--- NOTE | 2019-10-18 00:49 | PN ---
DATE: 10/17/2019 SUBJECTIVE: The patient is resting, slightly propped up in bed, in no apparent respiratory distress. She is actually less agitated, has not been yelling or hollering the whole day like yesterday. Her psychotropic medication had been adjusted and seems to be probably working. Her urinalysis showed the urine was yellow, hazy with a pH of 7, specific gravity of 1.025. The urine was negative for glucose, ketones. It was positive for nitrite, moderate amount of leukocyte esterase. There were only 1-2 rbc's, and more than 40 wbc's and very few bacteria. Her urine culture has grown more than 100,000 colony forming units per mL of gram-negative rods identified as Pseudomonas aeruginosa. The sensitivity of which is still pending at the time of this dictation. PHYSICAL EXAMINATION: GENERAL: When I examined her, she looked pale, no jaundice, cyanosis or thyromegaly. No jugular venous distention or limb edema. VITAL SIGNS: Her heart rate was 79, blood pressure 100/52, her temperature was 97, respiratory rate 20, and oxygen saturation was 94% on room air. HEAD, EYES, EARS, NOSE AND THROAT: Showed normocephalic, atraumatic. NECK: Supple. HEART: Showed normal first and second heart sounds. No gallop, rub or murmur. CHEST: Clear to auscultation. No crepitation or rhonchi. ABDOMEN: Scaphoid, soft, nontender. NEUROLOGIC: She is profoundly demented, but without any obvious lateralizing sign. All her cranial nerves intact. She moves extremities without difficulty, although she is mostly bedbound, chair bound, her wounds in both feet has largely healed. Her intake over the last 24 hours was ____, no output was recorded. LABORATORY DATA: Her most recent lab work showed a white cell count 7000, hemoglobin 14, hematocrit 42, MCV 97 and platelet count 273,000. Her most recent chemistry showed a serum sodium 141, potassium 3.7, chloride 106, bicarbonate 28, anion gap of 7, BUN 28. Her serum creatinine was 0.8, estimated GFR was 70 mL per minute. Her glucose was 132, calcium was 8.6. Total bilirubin, AST, ALT, alkaline phosphatase were normal. Total protein 6.3, albumin 2.8. ASSESSMENT: 1. This is a 69-year-old female patient with COVID positive swabs done twice on 10/04 and again on 10/12, here for quarantine. 2. She continued to be completely asymptomatic. 3. She continued to struggle with confinement in one room and in her quarantine has been constantly yelling, hollering, has been uncooperative and noncompliant with medication, although she seemed to be much better today as Dr. Hensley has adjusted some of her psychotropic medication with good effect. 4. She has multiple other medical problems including: A. Profound dementia with sundowning. B. Gastroesophageal reflux disease. C. Depression. D. Protein-calorie malnutrition. E. She has urinary tract infection with growth of more than 100,000 colony forming units per mL of gram-negative rods identified as Pseudomonas aeruginosa. PLAN: My plan is to discontinue the Keflex as probably ineffective in this bacteria. Continue otherwise with all her psychotropic medication. Continue with DVT prophylaxis. Continue with Lovenox. I will discontinue her Keflex. JESSICA GALEAS MD DR: DENNY/telma JOB#: [id number] / [id number]
[2019-10-18 07:33] VITALS: BP 122/55
[2019-10-18] MEDS: LACTOBACILLUS RHAMNOSUS GG 1 CAPSULE. PO SCH ×2 (08:47→20:37)
[2019-10-18] MEDS: MULTIVITAMIN with MINERAL TABLET. PO SCH (08:47)
[2019-10-18] MEDS: THIAMINE 100 MG TABLET. PO SCH (08:48)
[2019-10-18] MEDS: DIVALPROEX 125 MG CAP.SPRINK PO SCH ×3 (08:48→20:38)
[2019-10-18] MEDS: ASCORBIC ACID 500 MG TABLET PO SCH (08:48)
[2019-10-18] MEDS: SERTRALINE 25 MG TABLET. PO SCH (08:48)
[2019-10-18] MEDS: traMADol 50 MG TABLET PO PRN ×2 (08:49→20:38)
[2019-10-18] MEDS: SENNOSIDES/DOCUSATE 8.6/50MG TABLET. PO SCH (08:49)
[2019-10-18] MEDS: traZODone 50 MG TABLET. PO SCH ×3 (08:49→17:00)
[2019-10-18] MEDS: ENOXAPARIN 40 MG/0.4 ML SYRINGE. SQ SCH ×2 (08:50→20:39)
[2019-10-18] MEDS: hydrOXYzine HCL 25 MG TABLET PO PRN (10:43)
[2019-10-18] MEDS: QUEtiapine 25 MG TABLET. PO SCH ×3 (10:43→17:00)
--- NOTE | 2019-10-18 19:24 | PN ---
DATE: 10/18/2019 SUBJECTIVE: The patient is resting, slightly propped up, sleeping comfortably, in no apparent distress. She finally has found the right combination of psychotropic medication to basically keep her quiet and calm. She is not yelling. PHYSICAL EXAMINATION: GENERAL: When I examined her, she was pale. No jaundice, cyanosis or thyromegaly. No jugular venous distention or limb edema. VITAL SIGNS: Her heart rate was 83, blood pressure was 122/55, temperature was 97.6, respiratory rate was 16, and oxygen saturation was 95%. The rest of exam is stable. The patient is mostly bedbound, chair bound. Her intake and output were incompletely recorded. LABORATORY DATA: Her most recent lab work showed a BUN of 28, creatinine 0.8. White cell count 7000, hemoglobin 14, hematocrit 42, MCV 97 and platelet count of 273,000. ASSESSMENT AND PLAN: 1. This is a 69-year-old female patient with COVID positive swabs done twice on 10/05/2019, again on 10/13/2019 here for quarantine. 2. She continued to be completely asymptomatic. 3. She continued to struggle with confinement in 1 room and in her quarantine. She has been constantly yelling, hollering, has been uncooperative and noncompliant with medication, although she seemed much more quieter today as Dr. Hensley has been adjusting her psychotropic medication with good effect. 4. She has multiple other medical problems including: A. Profound dementia with sundowning. B. Gastroesophageal reflux disease. C. Depression. D. Protein-calorie malnutrition. E. She has urinary tract infection with growth of more than 100,000 colony forming units per mL of gram-negative rods identified as Pseudomonas aeruginosa, sensitive to amikacin, aztreonam, ceftazidime, ciprofloxacin, levofloxacin, meropenem, piperacillin/tazobactam and tobramycin. As she is allergic to AMOXICILLIN AND CLAVULANIC ACID, I will start her on ciprofloxacin. Meanwhile, continue with all her psychotropic medication. JESSICA GALEAS MD DR: DENNY/telma JOB#: [id number] / [id number]
[2019-10-18] MEDS: CIPROFLOXACIN HCL 250 MG TABLET PO SCH (20:37)
[2019-10-18] MEDS: MELATONIN 3 MG TABLET PO SCH (20:38)
[2019-10-18 20:53] VITALS: BP 108/56
[2019-10-19 07:29] VITALS: BP 119/62
[2019-10-19] MEDS: CIPROFLOXACIN HCL 250 MG TABLET PO SCH ×2 (08:19→20:32)
[2019-10-19] MEDS: ASCORBIC ACID 500 MG TABLET PO SCH (08:19)
[2019-10-19] MEDS: DIVALPROEX 125 MG CAP.SPRINK PO SCH ×3 (08:19→20:32)
[2019-10-19] MEDS: LACTOBACILLUS RHAMNOSUS GG 1 CAPSULE. PO SCH ×2 (08:19→20:32)
[2019-10-19] MEDS: traMADol 50 MG TABLET PO PRN (08:19)
[2019-10-19] MEDS: SENNOSIDES/DOCUSATE 8.6/50MG TABLET. PO SCH (08:19)
[2019-10-19] MEDS: THIAMINE 100 MG TABLET. PO SCH (08:19)
[2019-10-19] MEDS: QUEtiapine 25 MG TABLET. PO SCH ×3 (08:19→16:54)
[2019-10-19] MEDS: traZODone 50 MG TABLET. PO SCH ×3 (08:20→16:54)
[2019-10-19] MEDS: MULTIVITAMIN with MINERAL TABLET. PO SCH (08:20)
[2019-10-19] MEDS: hydrOXYzine HCL 25 MG TABLET PO PRN ×3 (08:20→20:32)
[2019-10-19] MEDS: ENOXAPARIN 40 MG/0.4 ML SYRINGE. SQ SCH ×2 (08:21→20:33)
[2019-10-19] MEDS: SERTRALINE 25 MG TABLET. PO SCH (08:27)
--- NOTE | 2019-10-19 11:51 | PN ---
DATE: 10/19/2019 ATTENDING PHYSICIAN: Dr. Avery and Dr. Angelo. SUBJECTIVE: No new complaints. She is comfortable. She remains calm, but she is still calling out frequently. OBJECTIVE FINDINGS: VITAL SIGNS: Blood pressure today is 119/62 mmHg, pulse 80 and regular, temperature 97.0 degrees Fahrenheit, oxygen saturation 95% on room air. HEENT: Head is without trauma. Pupils are reactive. Sclerae nonicteric. The oropharynx is clear. NECK: Supple, no bruits identified. LUNGS: Good breath sounds. CARDIOVASCULAR: Showed regular heart tones. No gallops. ABDOMEN: Soft, scaphoid, nontender. EXTREMITIES: Showed trace edema. NEUROLOGIC: Pleasantly confused. SKIN: Warm and dry. ASSESSMENT: 1. A 69-year-old female with COVID-19 positive swabs. She remains asymptomatic. 2. Profound dementia with sundowning. 3. Gastroesophageal reflux disease. 4. Protein-calorie malnutrition. 5. Depression with anxiety. 6. Urinary tract infection growing Pseudomonas. PLAN: 1. Continue Cipro as ordered. 2. Diet as tolerated. 3. Recheck swab when appropriate. MARY ANGELO MD DR: ERIC/telma JOB#: [id number] / [id number]
[2019-10-19 19:44] VITALS: BP 110/50
[2019-10-19] MEDS: MELATONIN 3 MG TABLET PO SCH (20:32)
--- NOTE | 2019-10-20 06:17 | NUR ---
PT awake for half of shift. PT continues to call out, even while appearing to be asleep. PT compliant with medications, assessment and cares with adequate direction. PT tolerated COVID testing well.
[2019-10-20] MEDS: SENNOSIDES/DOCUSATE 8.6/50MG TABLET. PO SCH (07:30)
[2019-10-20] MEDS: ENOXAPARIN 40 MG/0.4 ML SYRINGE. SQ SCH ×2 (07:30→21:37)
[2019-10-20] MEDS: DIVALPROEX 125 MG CAP.SPRINK PO SCH ×3 (07:30→21:36)
[2019-10-20] MEDS: ASCORBIC ACID 500 MG TABLET PO SCH (07:31)
[2019-10-20] MEDS: hydrOXYzine HCL 25 MG TABLET PO PRN ×3 (07:31→21:37)
[2019-10-20] MEDS: LACTOBACILLUS RHAMNOSUS GG 1 CAPSULE. PO SCH ×2 (07:31→21:36)
[2019-10-20] MEDS: QUEtiapine 25 MG TABLET. PO SCH ×3 (07:31→16:49)
[2019-10-20] MEDS: THIAMINE 100 MG TABLET. PO SCH (07:31)
[2019-10-20] MEDS: traZODone 50 MG TABLET. PO SCH ×3 (07:31→16:49)
[2019-10-20] MEDS: CIPROFLOXACIN HCL 250 MG TABLET PO SCH ×2 (07:32→21:36)
[2019-10-20] MEDS: MULTIVITAMIN with MINERAL TABLET. PO SCH (07:32)
[2019-10-20 08:00] VITALS: BP 124/68
[2019-10-20] MEDS: SERTRALINE 25 MG TABLET. PO SCH (10:42)
--- NOTE | 2019-10-20 10:53 | NUR ---
PATIENT IS CONFUSED AND DISORGANIZED THIS AM, CONTINUOUSLY CALLING "HELLO", REFUSING TO HAVE ASSISTANCE WITH MEAL, THOWING CUP OF JUICE AT STAFF MEMBER, REPEATEDLY UNDRESSING HERSELF. ATARAX AND OLANZAPINE GIVEN ORDERED TO PROMOTE REST AND DECREASE RESTLESSNESS. WILL CONTINUE TO MONITOR.
--- NOTE | 2019-10-20 13:15 | PN ---
DATE: 10/20/2019 SUBJECTIVE: The patient is acting up today, taking her clothes off, testing the nursing staff's patience. She is very agitated and cannot remain calm. OBJECTIVE FINDINGS: VITAL SIGNS: Her blood pressure today is 124/68 mmHg, temperature 97.1 degrees Fahrenheit, pulse is 80 and regular, room air saturation 95%. HEENT: Head is without trauma. Pupils are reactive. Sclerae nonicteric. Oropharynx clear. NECK: Supple. LUNGS: Shallow respirations. CARDIOVASCULAR: Showed regular heart tones. No murmurs. Peripheral pulses are palpable and full. ABDOMEN: Soft, scaphoid, nontender. EXTREMITIES: Trace edema. NEUROLOGIC: Very agitated today. SKIN: Warm and dry. ASSESSMENT: 1. A 69-year-old female with COVID-19 positive swabs. She remains asymptomatic. 2. Profound dementia with agitation and sundowning. 3. Gastroesophageal reflux disease. 4. Protein-calorie malnutrition. 5. Depression with anxiety. 6. Urinary tract infection growing out pseudomonas. PLAN: 1. Continue Cipro as ordered. 2. We should try to calm her down and treat her agitation. 3. Recheck COVID swabs when appropriate. 4. Working on placement. MARY ANGELO MD DR: ERIC/telma JOB#: [id number] / [id number]
--- NOTE | 2019-10-20 15:07 | NUR ---
Patient has small skin tear on LLE from repeatedly trying to clime out of bed and possibly scratching against the bed rail. foam dressing applied. Patient continuously yelling " hello" and "help", pt tore apart pillow into pieces. pt was redirected by giving some towels and a doll to refocus her attention, pt given some afternoon snack. wctm.
[2019-10-20] MEDS: traMADol 50 MG TABLET PO PRN (15:27)
--- NOTE | 2019-10-20 15:58 | NUR ---
patient tearful, stated her head hurts, tramadol given as ordered, wctm.
[2019-10-20 19:05] VITALS: BP 119/69
[2019-10-20] MEDS: MELATONIN 3 MG TABLET PO SCH (21:37)
[2019-10-21] MEDS: ENOXAPARIN 40 MG/0.4 ML SYRINGE. SQ SCH ×2 (07:45→21:19)
[2019-10-21] MEDS: DIVALPROEX 125 MG CAP.SPRINK PO SCH ×3 (07:45→21:20)
[2019-10-21] MEDS: SENNOSIDES/DOCUSATE 8.6/50MG TABLET. PO SCH (07:45)
[2019-10-21] MEDS: QUEtiapine 25 MG TABLET. PO SCH ×3 (07:46→16:53)
[2019-10-21] MEDS: LACTOBACILLUS RHAMNOSUS GG 1 CAPSULE. PO SCH ×2 (07:46→21:20)
[2019-10-21] MEDS: THIAMINE 100 MG TABLET. PO SCH (07:46)
[2019-10-21] MEDS: CIPROFLOXACIN HCL 250 MG TABLET PO SCH ×2 (07:46→21:00)
[2019-10-21] MEDS: ASCORBIC ACID 500 MG TABLET PO SCH (07:46)
[2019-10-21] MEDS: SERTRALINE 25 MG TABLET. PO SCH (07:46)
[2019-10-21] MEDS: MULTIVITAMIN with MINERAL TABLET. PO SCH (07:46)
[2019-10-21] MEDS: traZODone 50 MG TABLET. PO SCH ×3 (07:47→16:53)
[2019-10-21 08:30] VITALS: BP 130/61
--- NOTE | 2019-10-21 15:24 | PN ---
DATE: 10/21/2019 ATTENDING PHYSICIANS: Dr. Avery and Dr. Angelo. SUBJECTIVE: The patient is less agitated today. She is still very confused. She did not sleep much last night. Unfortunately, she is unaware of the situation and why she is in the hospital. OBJECTIVE FINDINGS: VITAL SIGNS: Blood pressure is 130/61 mmHg, her temperature is 97.9 degrees Fahrenheit, and her oxygen saturation 96% on room air. HEENT: Head is without trauma. Pupils are reactive. Sclerae is nonicteric. Oropharynx clear. Mucous membranes are bit dry. NECK: Supple, no bruits. LUNGS: Shallow respirations. CARDIOVASCULAR: Showed regular heart tones. No gallops. Peripheral pulses are palpable and full. ABDOMEN: Soft, no guarding or rebound tenderness. Bowel sounds are hypoactive. EXTREMITIES: Showed trace edema. NEUROLOGIC FINDING: Flat affect with blank stare, but arousable. ASSESSMENT: 1. A 69-year-old female with COVID-19 positive swabs. She remains totally asymptomatic. 2. Profound dementia with agitation and sundowning. 3. Gastroesophageal reflux disease. 4. Protein-calorie malnutrition. 5. Depression with anxiety. 6. Urinary tract infection growing out pseudomonas. PLAN: 1. Meds reviewed. 2. Diet as tolerated. 3. Continue Cipro. 4. Recheck COVID swabs when appropriate. MARY ANGELO MD DR: ERIC/telma JOB#: [id number] / [id number]
[2019-10-21] MEDS: hydrOXYzine HCL 25 MG TABLET PO PRN ×2 (16:53→21:21)
[2019-10-21 20:15] VITALS: BP 123/80
[2019-10-21] MEDS: ACETAMINOPHEN 325 MG TABLET PO PRN (21:19)
[2019-10-21] MEDS: MELATONIN 3 MG TABLET PO SCH (21:20)
--- NOTE | 2019-10-22 05:33 | NUR ---
Pt slept off and on through this shift. She continually disrobes when awake. She pulls her sheets and blankets off and throws them in the floor. Pt shredded her brief. Pt is somewhat helpful in rollng in bed during bed changes. She is fearful of falling during rolling. At one point pt was tearful and crying but unable to verbalize her feelings. Encouraged pt to rest and tried to make her comfortable in bed with extra blankets and towel roll under her neck. Will continue to monitor.
[2019-10-22] MEDS: SENNOSIDES/DOCUSATE 8.6/50MG TABLET. PO SCH (07:35)
[2019-10-22] MEDS: CIPROFLOXACIN HCL 250 MG TABLET PO SCH ×2 (07:35→20:24)
[2019-10-22] MEDS: hydrOXYzine HCL 25 MG TABLET PO PRN ×2 (07:35→20:25)
[2019-10-22] MEDS: DIVALPROEX 125 MG CAP.SPRINK PO SCH ×3 (07:35→20:24)
[2019-10-22] MEDS: traZODone 50 MG TABLET. PO SCH ×3 (07:35→17:03)
[2019-10-22] MEDS: LACTOBACILLUS RHAMNOSUS GG 1 CAPSULE. PO SCH ×2 (07:35→20:24)
[2019-10-22] MEDS: SERTRALINE 25 MG TABLET. PO SCH (07:35)
[2019-10-22] MEDS: MULTIVITAMIN with MINERAL TABLET. PO SCH (07:35)
[2019-10-22] MEDS: THIAMINE 100 MG TABLET. PO SCH (07:35)
[2019-10-22] MEDS: QUEtiapine 25 MG TABLET. PO SCH ×3 (07:35→17:03)
[2019-10-22] MEDS: HALOPERIDOL LACT 5 MG/ML VIAL. IM PRN (07:36)
[2019-10-22] MEDS: ASCORBIC ACID 500 MG TABLET PO SCH (07:36)
[2019-10-22] MEDS: ENOXAPARIN 40 MG/0.4 ML SYRINGE. SQ SCH ×2 (07:36→20:26)
[2019-10-22 08:19] VITALS: BP 108/65
--- NOTE | 2019-10-22 12:18 | PN ---
DATE: 10/22/2019 ATTENDING PHYSICIAN: Dr. Angelo. SUBJECTIVE: The patient has intermittent bouts of agitation. She would not keep any clothes on. She posed at her bed. She calls the nurses, call light all the time. Her meds were reviewed. She still has required intermittent medication to calm her agitation down. OBJECTIVE FINDINGS: VITAL SIGNS: Blood pressure today is 123/80 mmHg, saturation 93% on room air, pulse is 84 and regular, temperature 97.0 degrees Fahrenheit. HEENT: Head is without trauma. Pupils are reactive. Sclerae is nonicteric. Oropharynx is clear. NECK: Supple. No stridor. LUNGS: Shallow respirations. No rhonchi. CARDIOVASCULAR: Showed regular heart tones. ABDOMEN: Soft, no guarding. Bowel sounds are hypoactive. EXTREMITIES: Show trace edema. NEUROLOGIC FINDING: The patient is responsive, but is not aware of person, place or time. SKIN: Warm and dry. ASSESSMENT: 1. A 69-year-old female with COVID-19 positive swabs. She remains asymptomatic. 2. Profound dementia with agitation and sundowning. 3. Urinary tract infection growing out pseudomonas. Currently on Cipro. 4. Gastroesophageal reflux disease. 5. Protein-calorie malnutrition. 6. Depression with anxiety. PLAN: 1. Medications review. 2. Unfortunately, repeat COVID swab on 10/20/2019, remained positive. 3. Continue Cipro as ordered. 4. Placement will necessitate consecutive negative swabs that were not at that point yet. MARY ANGELO MD DR: ERIC/telma JOB#: [id number] / [id number]
[2019-10-22] MEDS: ACETAMINOPHEN 325 MG TABLET PO PRN (20:24)
[2019-10-22] MEDS: MELATONIN 3 MG TABLET PO SCH (20:25)
[2019-10-22 20:35] VITALS: BP 104/64
--- NOTE | 2019-10-23 04:21 | NUR ---
Pt took medications with applesauce tonight d/t conflict with Cipro and calcium based foods. Pt not fond of applesauce and states she "doesn't like the color." Added 2 pats of jelly to applesauce to add flavor and darken it. Pt states she likes it better and finished the cup with medications. Pt dozed sporadically this night and rests quietly watching television during wake periods. Will continue to monitor.
[2019-10-23] MEDS: hydrOXYzine HCL 25 MG TABLET PO PRN ×3 (04:33→20:54)
[2019-10-23] MEDS: QUEtiapine 25 MG TABLET. PO SCH ×3 (07:25→18:03)
[2019-10-23] MEDS: traZODone 50 MG TABLET. PO SCH ×3 (07:25→18:03)
[2019-10-23] MEDS: DIVALPROEX 125 MG CAP.SPRINK PO SCH ×3 (07:25→20:54)
[2019-10-23] MEDS: THIAMINE 100 MG TABLET. PO SCH (07:25)
[2019-10-23] MEDS: HALOPERIDOL LACT 5 MG/ML VIAL. IM PRN ×2 (07:25→16:46)
[2019-10-23] MEDS: ASCORBIC ACID 500 MG TABLET PO SCH (07:26)
[2019-10-23] MEDS: SENNOSIDES/DOCUSATE 8.6/50MG TABLET. PO SCH (07:26)
[2019-10-23] MEDS: CIPROFLOXACIN HCL 250 MG TABLET PO SCH ×2 (07:26→20:54)
[2019-10-23] MEDS: SERTRALINE 25 MG TABLET. PO SCH (07:26)
[2019-10-23] MEDS: MULTIVITAMIN with MINERAL TABLET. PO SCH (07:27)
[2019-10-23] MEDS: LACTOBACILLUS RHAMNOSUS GG 1 CAPSULE. PO SCH ×2 (07:29→20:54)
[2019-10-23 08:00] VITALS: BP 143/76
--- NOTE | 2019-10-23 12:09 | PN ---
DATE: 10/23/2019 ATTENDING PHYSICIAN: Dr. Angelo. SUBJECTIVE: The patient has intermittent bouts of agitation. She remains bed rest. All her clothes have been removed. She will not keep any clothes or blankets on. Her call light is on constantly. She remains very agitated. OBJECTIVE FINDINGS: VITAL SIGNS: Blood pressure today is 143/76 mmHg, pulse 94 and regular, temperature 98.4 degrees Fahrenheit, oxygen saturation 94% on room air. HEENT: Head is without trauma. Pupils are reactive. Sclerae nonicteric. Oropharynx is clear. NECK: Supple, no bruits identified. LUNGS: Clear with good bowel sounds. CARDIOVASCULAR: Showed regular heart tones. No gallops. Peripheral pulses are palpable and full. ABDOMEN: Soft, nontender to palpation. Bowel sounds are hypoactive. EXTREMITIES: Showed no cyanosis or edema. NEUROLOGIC: Focally intact, but she remains quite confused and not aware of person or time. SKIN: Warm and dry. ASSESSMENT: 1. A 69-year-old female with COVID-19 positive swabs. She remains asymptomatic. 2. Profound dementia with agitation. 3. Urinary tract infection, currently on Cipro for pseudomonas urinary tract infection. 4. Gastroesophageal reflux disease. 5. Protein-calorie malnutrition. 6. Depression with anxiety. PLAN: 1. Medications reviewed. 2. Diet as tolerated. 3. Continue Cipro as ordered. 4. Placement has been difficult as she continues test positive for the coronavirus. MARY ANGELO MD DR: ERIC/telma JOB#: [id number] / [id number]
[2019-10-23 20:24] VITALS: BP 112/59
[2019-10-23] MEDS: MELATONIN 3 MG TABLET PO SCH (20:54)
[2019-10-23] MEDS: ENOXAPARIN 40 MG/0.4 ML SYRINGE. SQ SCH (20:55)
--- NOTE | 2019-10-23 21:58 | NUR ---
PT sleeping at start of assessment, woke up very agitated. PT given PRN. PT able to take medications with encouragement to swallow multiple times. PT will not stay dressed and is in tab brief only at this time.
[2019-10-24 07:48] VITALS: BP 137/62
[2019-10-24] MEDS: SENNOSIDES/DOCUSATE 8.6/50MG TABLET. PO SCH (07:49)
[2019-10-24] MEDS: SERTRALINE 25 MG TABLET. PO SCH (07:49)
[2019-10-24] MEDS: traZODone 50 MG TABLET. PO SCH ×3 (07:49→17:28)
[2019-10-24] MEDS: hydrOXYzine HCL 25 MG TABLET PO PRN ×3 (07:49→20:44)
[2019-10-24] MEDS: LACTOBACILLUS RHAMNOSUS GG 1 CAPSULE. PO SCH ×2 (07:49→20:44)
[2019-10-24] MEDS: DIVALPROEX 125 MG CAP.SPRINK PO SCH ×3 (07:49→20:44)
[2019-10-24] MEDS: CIPROFLOXACIN HCL 250 MG TABLET PO SCH (07:49)
[2019-10-24] MEDS: MULTIVITAMIN with MINERAL TABLET. PO SCH (07:50)
[2019-10-24] MEDS: THIAMINE 100 MG TABLET. PO SCH (07:50)
[2019-10-24] MEDS: QUEtiapine 25 MG TABLET. PO SCH ×3 (07:50→17:28)
[2019-10-24] MEDS: ASCORBIC ACID 500 MG TABLET PO SCH (07:50)
[2019-10-24] MEDS: HALOPERIDOL LACT 5 MG/ML VIAL. IM PRN ×2 (07:50→17:28)
--- NOTE | 2019-10-24 10:45 | NUR ---
CASSIDY received a call from pt sister wanting an update on how pt is doing. CASSIDY informed Pal that aside from pt taking off her clothes, she is actually calmer than she was upstairs. She still yells out for Domenic and needs some coaxing to take her medications but is eventually compliant with everything. CASSIDY informed Pal that pt would be swabbed again later this week, as testing needs to be a week apart for the medical floor. CASSIDY will be able to contact Pal once pt testing results come back. CASSIDY also informed Pal that [facility] is interested in taking pt and is keeping them up to date as well.
[2019-10-24] MEDS: traMADol 50 MG TABLET PO PRN (12:00)
--- NOTE | 2019-10-24 12:19 | PN ---
DATE: 10/24/2019 ATTENDING PHYSICIAN: Dr. Angelo. SUBJECTIVE: The patient is less agitated today. She is calm. She is responsive. She is still staying in bed. Her call light is not on incessantly as yesterday. She clearly is less agitated. OBJECTIVE FINDINGS: VITAL SIGNS: Her blood pressure today is 137/62 mmHg, temperature 97.0 degrees Fahrenheit, oxygen saturation 97% on room air. HEENT: Head is without trauma. Pupils are reactive. Sclerae nonicteric. Oropharynx is clear. NECK: Supple. LUNGS: Shallow respirations. CARDIOVASCULAR: Showed regular heart tones. No gallops. ABDOMEN: Soft, no guarding or rebound tenderness. EXTREMITIES: Showed no cyanosis or edema. NEUROLOGIC: Focally intact. She remains confused, but less agitated. SKIN: Her skin was warm and dry. ASSESSMENT: 1. A 69-year-old female with COVID-19 positive swabs. She remains asymptomatic. 2. Profound dementia with agitation. 3. Urinary tract infection, treated. Cipro has been discontinued. 4. Gastroesophageal reflux disease. 5. Depression with anxiety. 6. Protein-calorie malnutrition. PLAN: 1. Medications reviewed. 2. Diet as tolerated. 3. Cipro has been stopped. 4. Placement remains difficult as she continues to test positive for the coronavirus. Clearly, she needs snf care and cannot be discharged safely. MARY ANGELO MD DR: ERIC/telma JOB#: [id number] / [id number]
[2019-10-24 20:43] VITALS: BP 108/51
[2019-10-24] MEDS: MELATONIN 3 MG TABLET PO SCH (20:44)
[2019-10-24] MEDS: ENOXAPARIN 40 MG/0.4 ML SYRINGE. SQ SCH (20:44)
--- NOTE | 2019-10-24 23:47 | NUR ---
PT agitated at assessment but cooperative.
[2019-10-25] MEDS: MULTIVITAMIN with MINERAL TABLET. PO SCH (07:29)
[2019-10-25] MEDS: LACTOBACILLUS RHAMNOSUS GG 1 CAPSULE. PO SCH ×2 (07:29→20:22)
[2019-10-25] MEDS: THIAMINE 100 MG TABLET. PO SCH (07:29)
[2019-10-25] MEDS: DIVALPROEX 125 MG CAP.SPRINK PO SCH ×3 (07:29→20:22)
[2019-10-25] MEDS: ASCORBIC ACID 500 MG TABLET PO SCH (07:29)
[2019-10-25] MEDS: SENNOSIDES/DOCUSATE 8.6/50MG TABLET. PO SCH (07:29)
[2019-10-25] MEDS: QUEtiapine 25 MG TABLET. PO SCH ×3 (07:30→16:40)
[2019-10-25] MEDS: traZODone 50 MG TABLET. PO SCH ×3 (07:30→16:40)
[2019-10-25] MEDS: SERTRALINE 25 MG TABLET. PO SCH (07:30)
[2019-10-25 08:25] VITALS: BP 125/69
[2019-10-25] MEDS: hydrOXYzine HCL 25 MG TABLET PO PRN ×3 (11:25→20:22)
--- NOTE | 2019-10-25 12:08 | PN ---
DATE: 10/25/2019 ATTENDING PHYSICIAN: Dr. Angelo. SUBJECTIVE: The patient is calm, sleepy, but arousable. No obvious respiratory distress. OBJECTIVE FINDINGS: VITAL SIGNS: Her blood pressure today is 125/69 mmHg, temperature 97.1 degrees Fahrenheit, heart rate 86 and regular, oxygen saturation 94% on room air. HEENT: Head is without trauma. The pupils are reactive. Sclerae nonicteric. Oropharynx clear. NECK: Supple. LUNGS: Good breath sounds, shallow respirations. CARDIOVASCULAR: Showed regular heart tones. No gallops. ABDOMEN: Soft, no guarding. EXTREMITIES: Showed no cyanosis or edema. NEUROLOGIC: Focally intact. She remains confused. SKIN: Her skin is warm and dry. ASSESSMENT: 1. A 69-year-old female with COVID-19 positive swabs. She remains asymptomatic. 2. Profound dementia with agitation. 3. Recent urinary tract infection, treated. 4. Gastroesophageal reflux disease. 5. Depression with anxiety. 6. Protein-calorie malnutrition. PLAN: 1. Medications reviewed. 2. Diet as tolerated. 3. Cipro has been stopped. 4. Placement is still pending. It is difficult to find a senior care and we continue have positive swabs even though she is asymptomatic. MARY ANGELO MD DR: ERIC/telma JOB#: [id number] / [id number]
[2019-10-25 18:35] VITALS: BP 125/83
--- NOTE | 2019-10-25 18:59 | NUR ---
PATIENT WAS FOUND IN THE ROOM BY RESOURCE ANALYST SITTING COMFORTABLY ON THE FLOOR BY THE BED, BED ALARM WAS ON, BED WAS IN LOW POSITION, PATIENT APPEARED TO SLID DOWN FROM HER BED, PATIENT DENIED ANY PAIN, VS OBTAINED AND ARE STABLE, PT WAS ASSESSED AND NO NEW INJURIES HAS BEEN FOUND. PATIENT IS CURRENTLY ON THE [place]RASS ON THE FLOOR. WILL CONTINUE TO MONITOR.
[2019-10-25] MEDS: MELATONIN 3 MG TABLET PO SCH (20:22)
[2019-10-25] MEDS: ENOXAPARIN 40 MG/0.4 ML SYRINGE. SQ SCH (20:23)
--- NOTE | 2019-10-25 21:00 | NUR ---
Pt restless and yelling, rolling around on mattress placed on floor beside bed. After much coaxing, pt took meds whole, one at a time. PRN atarax given per order. Pt then assisted x3 back to bed. Bed in lowest position with tab alarm in place for safety. Pt did settle shortly after laying down in bed.
--- NOTE | 2019-10-26 07:05 | NUR ---
Pt slept through much of the night. Awoke this morning, repeatedly yelling out and restless in bed. Agitated with redirection. PRN zydis given as indicated.
[2019-10-26 08:19] VITALS: BP 120/79
[2019-10-26] MEDS: HALOPERIDOL LACT 5 MG/ML VIAL. IM PRN ×2 (08:20→14:08)
[2019-10-26] MEDS: SENNOSIDES/DOCUSATE 8.6/50MG TABLET. PO SCH (08:25)
[2019-10-26] MEDS: DIVALPROEX 125 MG CAP.SPRINK PO SCH ×3 (08:25→20:05)
[2019-10-26] MEDS: LACTOBACILLUS RHAMNOSUS GG 1 CAPSULE. PO SCH ×2 (08:26→20:05)
[2019-10-26] MEDS: SERTRALINE 25 MG TABLET. PO SCH (08:26)
[2019-10-26] MEDS: MULTIVITAMIN with MINERAL TABLET. PO SCH (08:26)
[2019-10-26] MEDS: THIAMINE 100 MG TABLET. PO SCH (08:26)
[2019-10-26] MEDS: QUEtiapine 25 MG TABLET. PO SCH ×3 (08:26→16:57)
[2019-10-26] MEDS: traMADol 50 MG TABLET PO PRN (08:27)
[2019-10-26] MEDS: hydrOXYzine HCL 25 MG TABLET PO PRN ×2 (08:27→20:05)
[2019-10-26] MEDS: ASCORBIC ACID 500 MG TABLET PO SCH (08:27)
[2019-10-26] MEDS: traZODone 50 MG TABLET. PO SCH ×3 (08:27→16:57)
--- NOTE | 2019-10-26 19:27 | PN ---
DATE: 10/26/2019 SUBJECTIVE: The patient is resting, slightly propped up in bed, in no apparent distress. She continued to be restless, yelling; however, she is asymptomatic despite persistently positive coronavirus with PCR. PHYSICAL EXAMINATION: GENERAL: When I examined her this afternoon, she looked well and was clearly in no apparent respiratory distress, somewhat pale, but not jaundiced, cyanosed or thyromegaly. No jugular venous distention. No lower limb edema. VITAL SIGNS: Her heart rate was 90, blood pressure was 120/79, temperature 97.2, respiratory rate was 18 and oxygen saturation was 95% on room air. HEENT: Showed normocephalic, atraumatic. NECK: Supple. HEART: Showed normal first and second heart sounds. No gallop or murmur. CHEST: Clear to auscultation. No crepitation or rhonchi. ABDOMEN: Distended, soft, nontender. NEUROLOGIC: She was awake, alert, confused, but without any obvious lateralizing sign. SKIN: Warm and dry. EXTREMITIES: There is no clubbing, cyanosis or edema. ASSESSMENT: 1. This 69-year-old with COVID-19 positive swabs. She remains asymptomatic. 2. Profound dementia with agitation. 3. Recent urinary tract infection, treated. 4. Gastroesophageal reflux disease. 5. Depression with anxiety. 6. Protein-calorie malnutrition. PLAN: To continue with medication. Continue with nutritional support. Placement still pending as she continued to be positive and there are no nursing homes that will accept her unless she is negative. JESSICA GALEAS MD DR: DENNY/telma JOB#: [id number] / [id number]
[2019-10-26 20:00] VITALS: BP 140/72
[2019-10-26] MEDS: MELATONIN 3 MG TABLET PO SCH (20:05)
[2019-10-26] MEDS: ENOXAPARIN 40 MG/0.4 ML SYRINGE. SQ SCH (20:05)
--- NOTE | 2019-10-26 21:37 | NUR ---
Pt lying in bed, awake at shift change. Pt restless, disorganized, and confused, yelling out at times. Pt cooperative with assessment and cares, compliant with medications administered whole with water.
[2019-10-27] MEDS: hydrOXYzine HCL 25 MG TABLET PO PRN ×3 (02:02→11:37)
--- NOTE | 2019-10-27 02:09 | NUR ---
Pt yelling out, restless, disorganized, and resistive to re-direction. PRN Atarax and PRN Zyprexa administered.
--- NOTE | 2019-10-27 06:00 | NUR ---
Specimen for COVID-19 collected this morning, pt tolerated procedure well.
[2019-10-27] MEDS: SENNOSIDES/DOCUSATE 8.6/50MG TABLET. PO SCH (08:18)
[2019-10-27] MEDS: DIVALPROEX 125 MG CAP.SPRINK PO SCH ×3 (08:18→19:31)
[2019-10-27] MEDS: QUEtiapine 25 MG TABLET. PO SCH ×3 (08:18→17:30)
[2019-10-27] MEDS: traZODone 50 MG TABLET. PO SCH ×3 (08:19→17:30)
[2019-10-27] MEDS: ASCORBIC ACID 500 MG TABLET PO SCH (08:19)
[2019-10-27] MEDS: MULTIVITAMIN with MINERAL TABLET. PO SCH (08:19)
[2019-10-27] MEDS: THIAMINE 100 MG TABLET. PO SCH (08:19)
[2019-10-27] MEDS: LACTOBACILLUS RHAMNOSUS GG 1 CAPSULE. PO SCH ×2 (08:19→19:31)
[2019-10-27] MEDS: SERTRALINE 25 MG TABLET. PO SCH (08:20)
[2019-10-27] MEDS: HALOPERIDOL LACT 5 MG/ML VIAL. IM PRN (08:47)
[2019-10-27 09:02] VITALS: BP 125/76
--- NOTE | 2019-10-27 09:21 | NUR ---
PATIENT IS AWAKE THIS AM UPON ASSESSMENT, CONFUSED AND DISORGANIZED, PATIENT REFUSED TO TAKE PO MEDS, PUSHING THE SPOON AND CUP OF WATER AWAY, PT IS LOUD AND RESTLESS, AFTER A FEW ATTEMPTS TO ADMINISTER PO MEDICATIONS HALDOL WAS GIVEN ORDERED TO DECREASE RESTLESSNESS AND PROMOTE REST. WILL CONTINUE TO MONITOR.
--- NOTE | 2019-10-27 12:27 | NUR ---
SW sent updates to [facility] today with the update on pt being swabbed for Covoid today. In the event that pt is negative, she will be swabbed for a second negative with a possible discharge for Thursday or Thursday.
--- NOTE | 2019-10-27 17:56 | PN ---
DATE: 10/27/2019 SUBJECTIVE: The patient is resting, slightly propped up in bed, in no apparent distress. She continues to be completely asymptomatic as far as COVID-19 infection; however, she obviously has profound dementia with behavioral disturbances. She continues to yell constantly. PHYSICAL EXAMINATION: GENERAL: However, when I examined her this afternoon, she looked pale, but no jaundice, cyanosis, or thyromegaly. No jugular venous distention. No limb edema. VITAL SIGNS: Her heart rate was 98, blood pressure was 125/76, temperature 98.1, respiratory rate was 18, and oxygen saturation was 96%. HEAD, EYES, EARS, NOSE, AND THROAT: Normocephalic, atraumatic. NECK: Supple. HEART: Showed normal first and second heart sounds. No gallop or murmur. CHEST: Clear to auscultation. No crepitation or rhonchi. ABDOMEN: Distended, soft, nontender. No guarding or rigidity. No organomegaly. All hernial orifice intact. Bowel sounds normal. NEUROLOGIC: She was profoundly demented without any obvious lateralizing sign. The patient is mostly bedbound, chair bound. Her intake over the last 24 hours was 840, no output was recorded. Her most recent coronavirus by PCR was positive on 10/20/2019. LABORATORY DATA: She has no lab work done recently. ASSESSMENT: 1. This is a 69-year-old with COVID-19 positive swabs who remains asymptomatic. 2. Profound dementia with behavioral disturbances. 3. Recent urinary tract infection, treated. 4. Gastroesophageal reflux disease. 5. Depression and anxiety. 6. Protein-calorie malnutrition. PLAN: To continue with all her current medications. Continue nutritional support. She apparently was swabbed again for COVID-19 and obviously once she has 2 consecutive negative tests, she can be placed in a senior living facility. JESSICA GALEAS MD DR: DENNY/telma JOB#: [id number] / [id number]
[2019-10-27 19:08] VITALS: BP 120/69
[2019-10-27] MEDS: MELATONIN 3 MG TABLET PO SCH (19:31)
[2019-10-27] MEDS: ENOXAPARIN 40 MG/0.4 ML SYRINGE. SQ SCH (19:32)
[2019-10-28] MEDS: hydrOXYzine HCL 25 MG TABLET PO PRN (00:13)
--- NOTE | 2019-10-28 00:15 | NUR ---
Pt was restless and disorganized last evening calling out for persons not here and wanting to go outside to help her sister work on the yard. She took one of her pills whole then refused others. Remainder were given in food. After meds she quieted and slept till approx MN. She started yelling and trying to get up. PRN meds given after bathing and she fell back to sleep.
[2019-10-28 06:19] LABS: HEMATOCRIT 43.9 % (36.0-47.0); HEMOGLOBIN 14.6 g/dL (12.0-15.5); RED BLOOD COUNT 4.55 x10^6/uL (3.50-5.40); RED CELL DISTRIBUTION WIDTH 14.1 % (11.5-14.5); WHITE BLOOD COUNT 4.4 x10^3/uL (4.0-11.0)
[2019-10-28 06:30] LABS: ALBUMIN 2.8 g/dL (3.4-5.0); ALBUMIN/GLOBULIN RATIO 0.7 (1.0-1.7); CREATININE 0.8 mg/dL (0.6-1.0); GFR 70.7; POTASSIUM 4.5 mmol/L (3.5-5.1); TOTAL BILIRUBIN 0.3 mg/dL (0.2-1.0); TOTAL PROTEIN 6.7 g/dL (6.4-8.2)
[2019-10-28] MEDS: SENNOSIDES/DOCUSATE 8.6/50MG TABLET. PO SCH (07:48)
[2019-10-28] MEDS: DIVALPROEX 125 MG CAP.SPRINK PO SCH ×3 (07:48→20:16)
[2019-10-28] MEDS: SERTRALINE 25 MG TABLET. PO SCH (07:48)
[2019-10-28] MEDS: MULTIVITAMIN with MINERAL TABLET. PO SCH (07:48)
[2019-10-28] MEDS: LACTOBACILLUS RHAMNOSUS GG 1 CAPSULE. PO SCH ×2 (07:48→20:16)
[2019-10-28] MEDS: traZODone 50 MG TABLET. PO SCH ×3 (07:49→17:17)
[2019-10-28] MEDS: QUEtiapine 25 MG TABLET. PO SCH ×3 (07:49→17:17)
[2019-10-28] MEDS: THIAMINE 100 MG TABLET. PO SCH (07:49)
[2019-10-28] MEDS: ASCORBIC ACID 500 MG TABLET PO SCH (07:49)
[2019-10-28 08:32] VITALS: BP 151/75
--- NOTE | 2019-10-28 18:51 | PN ---
DATE: 10/28/2019 SUBJECTIVE: The patient is resting slightly propped up in bed, in no apparent distress. She continued to be slightly agitated, yelling, calling although less than before. Nursing staff, however, did not voice any concern. She continued to be asymptomatic as far as her coronavirus infection. PHYSICAL EXAMINATION: GENERAL: When I examined her, she looked pale, no jaundice, cyanosis or thyromegaly. No jugular venous distention. No limb edema. VITAL SIGNS: Her heart rate was 86, blood pressure 151/75, temperature 97, respiratory rate 20, and oxygen saturation was 96%. HEAD, EYES, EARS, NOSE AND THROAT: Showed normocephalic, atraumatic. NECK: Supple. HEART: Showed normal first and second heart sounds. No gallop or murmur. CHEST: Clear to auscultation. No crepitation or rhonchi. ABDOMEN: Distended, soft, nontender. NEUROLOGIC: She is profoundly demented, but without any obvious lateralizing sign; however, she is mostly bedbound, chair bound. Her intake over the last 24 hours was 720, no output was recorded. LABORATORY DATA: As of this morning showed her white cell count was 4400, hemoglobin 14.6, hematocrit 43.9, MCV 97 and platelet count 243,000. Her chemistry showed serum sodium of 145, potassium 4.5, chloride 107, bicarbonate 32, anion gap of 6, BUN 17, creatinine 0.8, and estimated GFR was 70 mL per minute. Her glucose was 85 and calcium 9. Total bilirubin, AST, ALT, alkaline phosphatase were normal. Total protein was 6.7 and albumin was 2.8. ASSESSMENT: 1. This is a 69-year-old with COVID-19 positive swabs, who remains asymptomatic despite 3 consecutive positive swabs for COVID-19. 2. Profound dementia with behavioral disturbances. 3. Recent urinary tract infection, treated. 4. Gastroesophageal reflux disease. 5. Depression and anxiety. 6. Protein-calorie malnutrition. PLAN: To continue with all her current medications. Continue nutritional support. She was swabbed today and the results of which will probably be available tomorrow. However, she has to have 2 consecutive negative tests before she can be placed in a prison. JESSICA GALEAS MD DR: DENNY/telma JOB#: [id number] / [id number]
[2019-10-28 20:00] VITALS: BP 106/58
[2019-10-28] MEDS: ACETAMINOPHEN 325 MG TABLET PO PRN (20:16)
[2019-10-28] MEDS: ENOXAPARIN 40 MG/0.4 ML SYRINGE. SQ SCH (20:16)
[2019-10-28] MEDS: MELATONIN 3 MG TABLET PO SCH (20:16)
--- NOTE | 2019-10-29 06:00 | NUR ---
Pt slept soundly through the night. Pt is awake but a little groggy. She seems pleasant and cooperative. She is verbalizing concerns about hallucinations of people in the room. She is requesting someone to stay in her room so she won't be alone. Will continue to monitor.
[2019-10-29 06:42] VITALS: BP 134/73
[2019-10-29] MEDS: ASCORBIC ACID 500 MG TABLET PO SCH (08:12)
[2019-10-29] MEDS: MULTIVITAMIN with MINERAL TABLET. PO SCH (08:12)
[2019-10-29] MEDS: SENNOSIDES/DOCUSATE 8.6/50MG TABLET. PO SCH (08:12)
[2019-10-29] MEDS: hydrOXYzine HCL 25 MG TABLET PO PRN ×4 (08:12→22:31)
[2019-10-29] MEDS: DIVALPROEX 125 MG CAP.SPRINK PO SCH ×3 (08:12→22:31)
[2019-10-29] MEDS: THIAMINE 100 MG TABLET. PO SCH (08:12)
[2019-10-29] MEDS: QUEtiapine 25 MG TABLET. PO SCH ×3 (08:12→17:09)
[2019-10-29] MEDS: traZODone 50 MG TABLET. PO SCH ×3 (08:13→17:09)
[2019-10-29] MEDS: HALOPERIDOL LACT 5 MG/ML VIAL. IM PRN (08:13)
[2019-10-29] MEDS: SERTRALINE 25 MG TABLET. PO SCH (08:13)
[2019-10-29] MEDS: LACTOBACILLUS RHAMNOSUS GG 1 CAPSULE. PO SCH ×2 (08:13→22:31)
--- NOTE | 2019-10-29 18:26 | PN ---
DATE: 10/29/2019 SUBJECTIVE: The patient is resting, slightly propped up in bed, no apparent distress. She is less agitated, restless, has been calling as much. Her coronavirus PCR was detectable again; however, she continued to be completely asymptomatic and as far as her coronavirus infection is concerned. PHYSICAL EXAMINATION: GENERAL: When I examined her, she looked well and was clearly in no apparent respiratory distress. No pallor, jaundice, cyanosis or thyromegaly. No jugular venous distention. No lower limb edema. VITAL SIGNS: Her heart rate was 79, blood pressure was 134/73, temperature 97, respiratory rate was 18 and oxygen saturation was 93% on room air. HEAD, EYES, EARS, NOSE, AND THROAT: Showed normocephalic, atraumatic. NECK: Supple. CARDIAC: Normal first and second heart sounds. No gallop, rub or murmur. CHEST: Clear to auscultation. No crepitation or rhonchi. ABDOMEN: Distended, soft, nontender. NEUROLOGIC: She is profoundly demented without any lateralizing sign. She is mostly bedbound, chair bound. Her intake is 1000, no output was recorded. LABORATORY DATA: As of yesterday, her white cell count was 4400, hemoglobin 14.6, hematocrit 44, MCV 97 and platelet count 243,000. Her serum sodium was 145, potassium 4.5, chloride 107, bicarbonate 32, anion gap of 6, BUN 17, creatinine 0.8. Unfortunately, her coronavirus by PCR is still detectable. ASSESSMENT: 1. This is a 69-year-old female patient who was COVID positive for 4 consecutive time, the first time was on 10/05/2019, 10/13/2019, 10/20/2019 and 10/27/2019; however, she remains asymptomatic and as far as her coronavirus infection. 2. The patient has profound dementia with behavioral disturbances. 3. Recent urinary tract infection, treated. 4. Gastroesophageal reflux disease. 5. Depression and anxiety. 6. Protein-calorie malnutrition. PLAN: To continue with all her current medications. Continue nutritional support. Continue to monitor her COVID-19 and once she has 2 consecutive negatives, patient can be placed in intermediate. JESSICA GALEAS MD DR: DENNY/telma JOB#: [id number] / [id number]
[2019-10-29 19:05] VITALS: BP 103/68
--- NOTE | 2019-10-29 19:23 | PN ---
DATE: 10/28/2019 PSYCHIATRIC PROGRESS NOTE This late entry of date of service 10/28/2019 covers elements not covered in my initial note. SUBJECTIVE: The patient was seen on the COVID Unit on telehealth rounds. The patient was [facility], turned up positive for COVID, was transferred to the COVID Unit and I have been asked to follow her here. She remains somewhat anxious, restless at times, yelling out, but showing some improvement. REVIEW OF SYSTEMS: No CV, , pulmonary, eye system symptoms on review. Ambulation impaired. Reliability poor. MENTAL STATUS EXAM: Oriented to herself. Insight, judgment, recent and remote memory, attention, concentration, fund of knowledge poor, consistent with her diagnoses. IMPRESSION: Major neurocognitive disorder; Alzheimer, vascular with delusion; depression, behavioral disturbance; anxiety disorder, unspecified; impulse control disorder, unspecified. Rest unchanged. PLAN: The patient appeared a little sedated as I met with her, but nursing staff reassured me that this was just since she was seen after lunch, not sedated, otherwise. We will continue Seroquel 25 mg 3 times a day, trazodone 25 mg 3 times a day, Haldol p.r.n., Zoloft 75 mg a day, melatonin 4.5 mg at bedtime, Depakote Sprinkles 375 mg at bedtime; 250 mg 0900 and 1400, hydroxyzine and Zyprexa p.r.n. Adjust further as clinically indicated. NAEEM SADLER MD DR: BEN/telma JOB#: [id number] / [id number]
[2019-10-29] MEDS: ACETAMINOPHEN 325 MG TABLET PO PRN (22:31)
[2019-10-29] MEDS: MELATONIN 3 MG TABLET PO SCH (22:31)
[2019-10-29] MEDS: ENOXAPARIN 40 MG/0.4 ML SYRINGE. SQ SCH (22:32)
--- NOTE | 2019-10-29 22:32 | PDOC ---
Exam Note: David Note: This is a late entry for 10/28/2019. Please also refer to the separate dictated note~for this date of service dictated separately.~Patient seen individually. Discussed the patient with Nursing staff reviewed the chart.~Reviewed interim history and current functioning. Reviewed vital signs,~Labs/ Radiology~and cur rent medications noted below. Continue current treatment with the changes noted in the dictated addendum note Assessment: Vital Signs/I&O: Vital Signs Date Time Temp Pulse Resp B/P (MAP) Pulse Ox O2 Delivery O2 Flow Rate FiO2 10/29/19 19:05 97.2 80 20 103/68 (80) 92 Room Air I & O 10/28/19 10/28/19 10/29/19 15:00 23:00 07:00 Intake Total 960 ml 240 ml 50 ml Balance 960 ml 240 ml 50 ml Current Medications: I have reviewed the current psychotropics carefully including drug interactions. Risk benefit ratio favors no change other than as noted in my dictated progress note. Diagnosis: Problems: (1) Impulse control disorder, unspecified (2) Anxiety disorder, unspecified (3) Dementia, vascular, with depression (4) Dementia, vascular, with delusions (5) Dementia in Alzheimer's disease with depression (6) Dementia in Alzheimer's disease with delusions (7) Major neurocognitive disorder, due to vascular disease, with behavioral disturbance, mild NAEEM SADLER MD Oct 29, 2019 22:31
--- NOTE | 2019-10-30 03:01 | NUR ---
Pt screaming out for her , Archie and her friends. She is pleasant and cooperative. She repeatedly removes her clothes and bed linens. Brief remains intact. Pt resistant to helping turn in bed to change her brief. Will continue to monitor.
[2019-10-30] MEDS: hydrOXYzine HCL 25 MG TABLET PO PRN (06:36)
[2019-10-30 07:47] VITALS: BP 127/64
[2019-10-30] MEDS: LACTOBACILLUS RHAMNOSUS GG 1 CAPSULE. PO SCH ×2 (07:51→19:57)
[2019-10-30] MEDS: DIVALPROEX 125 MG CAP.SPRINK PO SCH ×3 (07:51→19:57)
[2019-10-30] MEDS: SENNOSIDES/DOCUSATE 8.6/50MG TABLET. PO SCH (07:51)
[2019-10-30] MEDS: SERTRALINE 25 MG TABLET. PO SCH (07:51)
[2019-10-30] MEDS: THIAMINE 100 MG TABLET. PO SCH (07:52)
[2019-10-30] MEDS: MULTIVITAMIN with MINERAL TABLET. PO SCH (07:52)
[2019-10-30] MEDS: traMADol 50 MG TABLET PO PRN (07:52)
[2019-10-30] MEDS: QUEtiapine 25 MG TABLET. PO SCH ×3 (07:52→17:32)
[2019-10-30] MEDS: ASCORBIC ACID 500 MG TABLET PO SCH (07:52)
[2019-10-30] MEDS: traZODone 50 MG TABLET. PO SCH ×3 (07:52→17:31)
--- NOTE | 2019-10-30 12:35 | PN ---
DATE: SUBJECTIVE: The patient is resting, slightly, propped up in bed, in no apparent distress. She is less agitated today, has been yelling as much. Nursing staff, however, did not voice any concerns that she has generally uneventful night. PHYSICAL EXAMINATION: GENERAL: When I examined her, she looked pale, no jaundice, cyanosis or thyromegaly. No jugular venous distention. No lower limb edema. VITAL SIGNS: Her heart rate was 88, blood pressure was 127/64, temperature was 97.5, respiratory rate 18 and oxygen saturation was 96%. HEAD, EYES, EARS, NOSE AND THROAT: Normocephalic, atraumatic. NECK: Supple. CARDIAC: Normal first and second heart sounds. No gallop or murmur. CHEST: Clear to auscultation. No crepitation or rhonchi. ABDOMEN: Distended, soft, nontender. NEUROLOGIC: She was profoundly demented, but without any obvious lateralizing sign. She has all her cranial nerves intact. She moves extremities without difficulty, although she is mostly bedbound and chair bound. Her intake was 1250, no output was recorded. No lab works done this morning. ASSESSMENT: 1. This is a 69-year-old female patient who was COVID positive for 4 consecutive times, first time was on 10/05/2019, 10/13/2019, 10/20/2019 and 10/27/2019; however, she remains asymptomatic and as far as her coronavirus infection is concerned. 2. The patient has profound dementia with behavioral disturbances. 3. Recent urinary tract infection, treated. 4. Gastroesophageal reflux disease. 5. Depression and anxiety. 6. Protein-calorie malnutrition. PLAN: To continue with her all current medications. Continue with psychotropic medication as recommended by Dr. Hensley. Continue obviously to monitor her COVID-19 unless she has 2 consecutive negative tests, she can be placed in a nursing facility. JESSICA GALEAS MD DR: DENNY/telma JOB#: [id number] / [id number]
[2019-10-30] MEDS: HALOPERIDOL LACT 5 MG/ML VIAL. IM PRN (14:33)
[2019-10-30 19:21] VITALS: BP 112/50
[2019-10-30] MEDS: MELATONIN 3 MG TABLET PO SCH (19:57)
[2019-10-30] MEDS: ENOXAPARIN 40 MG/0.4 ML SYRINGE. SQ SCH (19:58)
[2019-10-31 07:23] VITALS: BP 120/69
[2019-10-31] MEDS: SERTRALINE 25 MG TABLET. PO SCH (08:15)
[2019-10-31] MEDS: HALOPERIDOL LACT 5 MG/ML VIAL. IM PRN (08:15)
[2019-10-31] MEDS: ASCORBIC ACID 500 MG TABLET PO SCH (08:16)
[2019-10-31] MEDS: SENNOSIDES/DOCUSATE 8.6/50MG TABLET. PO SCH (08:16)
[2019-10-31] MEDS: traMADol 50 MG TABLET PO PRN (08:16)
[2019-10-31] MEDS: QUEtiapine 25 MG TABLET. PO SCH ×3 (08:16→17:18)
[2019-10-31] MEDS: LACTOBACILLUS RHAMNOSUS GG 1 CAPSULE. PO SCH ×2 (08:16→20:10)
[2019-10-31] MEDS: DIVALPROEX 125 MG CAP.SPRINK PO SCH ×3 (08:16→20:10)
[2019-10-31] MEDS: MULTIVITAMIN with MINERAL TABLET. PO SCH (08:16)
[2019-10-31] MEDS: THIAMINE 100 MG TABLET. PO SCH (08:18)
[2019-10-31] MEDS: hydrOXYzine HCL 25 MG TABLET PO PRN (08:18)
[2019-10-31] MEDS: traZODone 50 MG TABLET. PO SCH ×3 (08:18→17:18)
--- NOTE | 2019-10-31 19:21 | PN ---
DATE: 10/31/2019 SUBJECTIVE: The patient is resting, slightly propped up in bed, in no apparent distress. She is definitely much less agitated and restless, not feeling as much and the nursing staff did not voice any concern. OBJECTIVE: GENERAL: On examining her, she was pale. No jaundice, cyanosis or thyromegaly. No jugular venous distention. No limb edema. VITAL SIGNS: Her heart rate was 82, blood pressure 120/69, temperature was 97.3, respiratory rate was 20 and oxygen saturation was 95%. HEAD, EYES, NOSE AND THROAT: Normocephalic, atraumatic. NECK: Supple. HEART: Normal first and second heart sounds. No gallop or murmur. CHEST: Clear to auscultation. No crepitation or rhonchi. ABDOMEN: Distended, soft, nontender. NEUROLOGIC: She was grossly intact. All her cranial nerves intact. She moves extremities without difficulty, though she is mostly bedbound, chair bound. Her intake was 900, no output was recorded. No lab work done this morning. ASSESSMENT: 1. This is a 69-year-old female patient who was COVID positive for 4 consecutive times, first time was on 10/05/2019, 10/13/2019, 10/20/2019 and 10/27/2019, however, she remains asymptomatic and as far as her coronavirus infection is concerned. 2. The patient has profound dementia with behavioral disturbances. 3. Recent urinary tract infection, treated. 4. Gastroesophageal reflux disease. 5. Depression and anxiety. 6. Protein-calorie malnutrition. PLAN: To continue with all her current medications. Continue psychotropic medication as recommended by Dr. Hensley and continue obviously to monitor her for COVID-19 and once she has 2 consecutive negative tests, she can be placed in a nursing facility. JESSICA GALEAS MD DR: DENNY/telma JOB#: [id number] / [id number]
[2019-10-31 19:48] VITALS: BP 105/51
[2019-10-31] MEDS: MELATONIN 3 MG TABLET PO SCH (20:10)
[2019-10-31] MEDS: ENOXAPARIN 40 MG/0.4 ML SYRINGE. SQ SCH (20:10)
[2019-11-01 07:47] VITALS: BP 136/75
[2019-11-01] MEDS: ASCORBIC ACID 500 MG TABLET PO SCH (08:19)
[2019-11-01] MEDS: THIAMINE 100 MG TABLET. PO SCH (08:20)
[2019-11-01] MEDS: LACTOBACILLUS RHAMNOSUS GG 1 CAPSULE. PO SCH ×2 (08:20→20:14)
[2019-11-01] MEDS: hydrOXYzine HCL 25 MG TABLET PO PRN ×3 (08:20→20:14)
[2019-11-01] MEDS: MULTIVITAMIN with MINERAL TABLET. PO SCH (08:20)
[2019-11-01] MEDS: SERTRALINE 25 MG TABLET. PO SCH (08:20)
[2019-11-01] MEDS: DIVALPROEX 125 MG CAP.SPRINK PO SCH ×3 (08:20→20:14)
[2019-11-01] MEDS: QUEtiapine 25 MG TABLET. PO SCH ×3 (08:20→18:02)
[2019-11-01] MEDS: SENNOSIDES/DOCUSATE 8.6/50MG TABLET. PO SCH (08:20)
[2019-11-01] MEDS: HALOPERIDOL LACT 5 MG/ML VIAL. IM PRN (08:21)
[2019-11-01] MEDS: traZODone 50 MG TABLET. PO SCH ×3 (08:21→18:02)
[2019-11-01] MEDS: traMADol 50 MG TABLET PO PRN (08:21)
[2019-11-01] MEDS: HALOPERIDOL 5 MG TABLET PO PRN (18:02)
--- NOTE | 2019-11-01 18:56 | PN ---
DATE: 11/01/2019 SUBJECTIVE: The patient is a 69-year-old female patient who was tested multiple occasions positive for COVID. She continued to be completely asymptomatic and as far as her coronavirus infection is concerned, she is profoundly demented and very agitated, restless and yelling, and calling however, we did adjustment to her psychotropic medications, she seems to be much less agitated. Nursing staff did not voice any concern. PHYSICAL EXAMINATION: GENERAL: When I examined her, she looked pale, no jaundice or cyanosis. No lymphadenopathy, no thyromegaly. No jugular venous distention. No limb edema. VITAL SIGNS: Her heart rate was 72, blood pressure was 136/75, temperature 97.1, respiratory rate was 20, and oxygen saturation was 94%. HEAD, EYES, EARS, NOSE AND THROAT: Showed normocephalic, atraumatic. NECK: Supple. HEART: Showed normal first and second heart sounds. No gallop or murmur. CHEST: Clear to auscultation. No crepitation or rhonchi. ABDOMEN: Distended, soft, nontender. No guarding or rigidity. No organomegaly. All hernial orifice intact. Bowel sounds normal. NEUROLOGIC: She was awake, alert, profoundly demented, but without any obvious lateralizing sign. Her intake over the last 24 hours was 1320, no output was recorded. LABORATORY DATA: Her most recent lab works were stable. Her most recent positive COVID-19 test was on 10/27/2019. ASSESSMENT: 1. This is a 69-year-old female patient who was COVID positive for 4 consecutive times, first time was on 10/05/2019, 10/13/2019, 10/20/2019 and 10/27/2019, however, she remains asymptomatic in as far as her coronavirus infection is concerned. 2. The patient has profound dementia with behavioral disturbances. 3. Recent urinary tract infection, treated. 4. Gastroesophageal reflux disease. 5. Depression and anxiety. 6. Protein-calorie malnutrition. PLAN: To continue with all her current medications. Continue with psychotropic medication as recommended by Dr. Hensley and continue obviously to monitor here for COVID-19 when she has 2 consecutive negative test, she can be placed in a half-way facility. AHMED M. GUDELIA, MD DR: DENNY/telma JOB#: [id number] / [id number]
[2019-11-01 19:33] VITALS: BP 114/53
[2019-11-01] MEDS: ENOXAPARIN 40 MG/0.4 ML SYRINGE. SQ SCH (20:14)
[2019-11-01] MEDS: MELATONIN 3 MG TABLET PO SCH (20:14)
[2019-11-02] MEDS: THIAMINE 100 MG TABLET. PO SCH (07:27)
[2019-11-02] MEDS: ASCORBIC ACID 500 MG TABLET PO SCH (07:27)
[2019-11-02] MEDS: QUEtiapine 25 MG TABLET. PO SCH ×3 (07:27→17:32)
[2019-11-02] MEDS: DIVALPROEX 125 MG CAP.SPRINK PO SCH ×3 (07:28→20:16)
[2019-11-02] MEDS: SENNOSIDES/DOCUSATE 8.6/50MG TABLET. PO SCH (07:28)
[2019-11-02] MEDS: traZODone 50 MG TABLET. PO SCH ×3 (07:28→17:31)
[2019-11-02] MEDS: MULTIVITAMIN with MINERAL TABLET. PO SCH (07:28)
[2019-11-02] MEDS: LACTOBACILLUS RHAMNOSUS GG 1 CAPSULE. PO SCH ×2 (07:28→20:16)
[2019-11-02] MEDS: SERTRALINE 25 MG TABLET. PO SCH (07:28)
[2019-11-02 08:00] VITALS: BP 125/64
--- NOTE | 2019-11-02 11:39 | PN ---
DATE: 11/02/2019 ATTENDING PHYSICIAN: Dr. Angelo. SUBJECTIVE: No new complaints. She remains very confused. Her speech is tangential and she has no insight. There is no obvious distress. OBJECTIVE FINDINGS: VITAL SIGNS: Blood pressure today is 114/53 mmHg, pulse 87 and regular, temperature 97.6 degrees Fahrenheit, oxygen saturation 94% on room air. HEENT: Head is without trauma. Pupils are reactive. Sclerae nonicteric. Oropharynx clear. NECK: Supple, no bruits. LUNGS: Good breath sounds. No rhonchi. CARDIOVASCULAR: Showed regular heart tones. No gallops. ABDOMEN: Soft, nontender, no organomegaly. NEUROLOGIC: She is profoundly demented. No obvious lateralizing signs. She is awake, responsive. LABORATORY DATA: Her most recent COVID swab was positive on 10/27/2019. ASSESSMENT: 1. A 69-year-old female who is COVID positive 4 consecutive times. She remains asymptomatic. This is her second month here. She was admitted on 09/29/2019. 2. Profound dementia with behavioral disturbances. 3. Recent urinary tract infection, treated. 4. Gastroesophageal reflux disease. 5. Depression with anxiety. PLAN: 1. Medicines are reviewed and continued. 2. Psychotropic meds per Dr. Hensley. 3. Recheck a COVID swab today. MARY ANGELO MD DR: ERIC/telma JOB#: [id number] / [id number]
--- NOTE | 2019-11-02 17:57 | NUR ---
NSG NOTE; CALM DAY TODAY PT HAS BEEN AWAKE ALL DAY. SHE HAS BEEN CALM AND COOPERATIVE, COMPLIANT WITH MEDS. SHE HAS BEEN TALKING TO HERSELF BUT IS NOT YELLING OUT. SHE DOES HAVE VISUAL HALLUCINATIONS AND TALKS ABOUT PEOPLE, KIDS AND ANIMALS THAT SHE SEES IN HER ROOM BUT IS CALM ABOUT IT.
[2019-11-02 19:39] VITALS: BP 93/54
[2019-11-02] MEDS: MELATONIN 3 MG TABLET PO SCH (20:16)
[2019-11-02] MEDS: ENOXAPARIN 40 MG/0.4 ML SYRINGE. SQ SCH (20:16)
[2019-11-02] MEDS: hydrOXYzine HCL 25 MG TABLET PO PRN (20:17)
[2019-11-03] MEDS: ASCORBIC ACID 500 MG TABLET PO SCH (07:41)
[2019-11-03] MEDS: LACTOBACILLUS RHAMNOSUS GG 1 CAPSULE. PO SCH ×2 (07:42→19:58)
[2019-11-03] MEDS: DIVALPROEX 125 MG CAP.SPRINK PO SCH ×3 (07:42→19:58)
[2019-11-03] MEDS: QUEtiapine 25 MG TABLET. PO SCH ×3 (07:42→17:16)
[2019-11-03] MEDS: MULTIVITAMIN with MINERAL TABLET. PO SCH (07:42)
[2019-11-03] MEDS: SENNOSIDES/DOCUSATE 8.6/50MG TABLET. PO SCH (07:42)
[2019-11-03] MEDS: traZODone 50 MG TABLET. PO SCH ×3 (07:42→17:16)
[2019-11-03] MEDS: THIAMINE 100 MG TABLET. PO SCH (07:48)
[2019-11-03] MEDS: SERTRALINE 25 MG TABLET. PO SCH (07:48)
[2019-11-03 08:00] VITALS: BP 135/84
[2019-11-03] MEDS: HALOPERIDOL 5 MG TABLET PO PRN ×2 (08:59→19:58)
[2019-11-03] MEDS: hydrOXYzine HCL 25 MG TABLET PO PRN ×3 (08:59→17:16)
--- NOTE | 2019-11-03 12:33 | PN ---
DATE: 11/03/2019 ATTENDING PHYSICIAN: Dr. Angelo. SUBJECTIVE: The patient is little bit sleepy today, but arousable. She remains very confused and unfortunately we could not have a normal conversation due to her lack of insight. OBJECTIVE FINDINGS: VITAL SIGNS: Temperature today is 97.4 degrees Fahrenheit, blood pressure 135/84 mmHg, oxygen saturation 96% on room air and her pulse is 80 and regular. HEENT: Head is without trauma. Pupils are reactive. The sclerae are nonicteric. Oropharynx clear. NECK: Supple, no bruits. LUNGS: Shallow respirations, but clear. CARDIOVASCULAR: Showed distant heart tones. No gallops. ABDOMEN: Soft, no guarding, no organomegaly. Bowel sounds are hypoactive. NEUROLOGIC: She is profoundly demented. There are no focal lateralizing signs, she is responsive and will respond to some commands. A repeat COVID swab from yesterday is still pending. ASSESSMENT: 1. A 69-year-old female who is COVID-19 positive. Last 4 swabs have been positive consecutively. She remains totally asymptomatic. This is her second month here. 2. Profound dementia with behavioral disturbances. 3. Urinary tract infection, treated. 4. Gastroesophageal reflux disease. 5. Depression with anxiety. PLAN: 1. Medicines are reviewed and continued. 2. Psychotropic meds per Dr. Hensley. 3. We are awaiting the most recent COVID swab pending placement. MARY ANGELO MD DR: ERIC/telma JOB#: [id number] / [id number]
[2019-11-03 19:09] VITALS: BP 138/88
[2019-11-03] MEDS: ENOXAPARIN 40 MG/0.4 ML SYRINGE. SQ SCH (19:57)
[2019-11-03] MEDS: MELATONIN 3 MG TABLET PO SCH (19:58)
--- NOTE | 2019-11-04 03:03 | NUR ---
Report received from LALIT Sol. Assumed care of pt at this time. Upon rounding, pt resting comfortably in bed with alarm set for safety.
--- NOTE | 2019-11-04 06:29 | NUR ---
Pt cooperative with bed bath this morning, tolerated well. Pt settled back to sleep, but awoke at 0615 yelling out repeatedly for "mama!" Pt increasingly agitated with redirection. PRN zyprexa given as indicated.
[2019-11-04 08:00] VITALS: BP 113/69
[2019-11-04] MEDS: SENNOSIDES/DOCUSATE 8.6/50MG TABLET. PO SCH (08:11)
[2019-11-04] MEDS: THIAMINE 100 MG TABLET. PO SCH (08:11)
[2019-11-04] MEDS: QUEtiapine 25 MG TABLET. PO SCH ×3 (08:11→17:16)
[2019-11-04] MEDS: LACTOBACILLUS RHAMNOSUS GG 1 CAPSULE. PO SCH ×2 (08:11→20:00)
[2019-11-04] MEDS: SERTRALINE 25 MG TABLET. PO SCH (08:11)
[2019-11-04] MEDS: MULTIVITAMIN with MINERAL TABLET. PO SCH (08:11)
[2019-11-04] MEDS: traZODone 50 MG TABLET. PO SCH ×3 (08:12→17:16)
[2019-11-04] MEDS: DIVALPROEX 125 MG CAP.SPRINK PO SCH ×3 (08:12→20:00)
[2019-11-04] MEDS: ASCORBIC ACID 500 MG TABLET PO SCH (08:20)
--- NOTE | 2019-11-04 12:33 | PN ---
DATE: 11/04/2019 ATTENDING PHYSICIAN: Dr. Angelo. SUBJECTIVE: The patient remains confused. Her speech is rambling. She is not processing any of what I am trying to say, unfortunately due to her dementia. OBJECTIVE FINDINGS: VITAL SIGNS: Her blood pressure today is 138/88 mmHg, pulse 72 and regular, temperature 97.3 degrees Fahrenheit, oxygen saturation 95% on room air. HEENT: Head is without trauma. Pupils are reactive. Sclerae nonicteric. Oropharynx clear. NECK: Supple, no bruits. LUNGS: Shallow respirations, but good breath sounds. CARDIOVASCULAR: Showed regular heart tones. No gallops. ABDOMEN: Soft, no guarding. EXTREMITIES: Show no cyanosis or edema. NEUROLOGIC FINDINGS: Profoundly demented with a random speech. SKIN: Warm and dry. ASSESSMENT: 1. A 69-year-old female with COVID-19 positive swab, she now has 5 consecutive swabs that has tested positive. She remains asymptomatic. 2. Profound dementia with behavioral disturbance. 3. Urinary tract infection, recently treated. 4. Gastroesophageal reflux disease. 5. Depression with anxiety. PLAN: 1. Continue same meds. 2. Psychotropic meds per Dr. Hensley. 3. We are still waiting for negative swab, unfortunately she has tested positive on the last 5 swabs. MARY ANGELO MD DR: ERIC/telma JOB#: [id number] / [id number]
--- NOTE | 2019-11-04 16:45 | NUR ---
PT RESTED IN BED AND TOLERATED PO WELL. PT STILL YELLING OUT BUT REORIENTS WELL. PT PROGRESSING TOWARDS GOALS.
[2019-11-04] MEDS: MELATONIN 3 MG TABLET PO SCH (20:00)
[2019-11-04] MEDS: ENOXAPARIN 40 MG/0.4 ML SYRINGE. SQ SCH (20:01)
[2019-11-04 20:38] VITALS: BP 95/55
[2019-11-05] MEDS: MULTIVITAMIN with MINERAL TABLET. PO SCH (08:36)
[2019-11-05] MEDS: hydrOXYzine HCL 25 MG TABLET PO PRN ×2 (08:36→19:59)
[2019-11-05] MEDS: LACTOBACILLUS RHAMNOSUS GG 1 CAPSULE. PO SCH ×2 (08:36→19:58)
[2019-11-05] MEDS: traZODone 50 MG TABLET. PO SCH ×3 (08:36→17:23)
[2019-11-05] MEDS: traMADol 50 MG TABLET PO PRN (08:36)
[2019-11-05] MEDS: THIAMINE 100 MG TABLET. PO SCH (08:37)
[2019-11-05] MEDS: QUEtiapine 25 MG TABLET. PO SCH ×3 (08:37→17:23)
[2019-11-05] MEDS: SERTRALINE 25 MG TABLET. PO SCH (08:37)
[2019-11-05] MEDS: ASCORBIC ACID 500 MG TABLET PO SCH (08:37)
[2019-11-05] MEDS: DIVALPROEX 125 MG CAP.SPRINK PO SCH ×3 (08:37→19:59)
[2019-11-05] MEDS: HALOPERIDOL 5 MG TABLET PO PRN ×2 (08:37→19:59)
[2019-11-05] MEDS: SENNOSIDES/DOCUSATE 8.6/50MG TABLET. PO SCH (08:37)
--- NOTE | 2019-11-05 10:32 | NUR ---
SW notified pt sister, Pal, that pt testing came back as positive. Pt will have to be tested again next week; as pt new placement is requiring 2 negatives prior to admission. SW updated pt sister on pt behaviors and will continue to update pt next week with covoid testing results.
[2019-11-05 10:50] VITALS: BP 136/68
--- NOTE | 2019-11-05 11:03 | PN ---
DATE: 11/05/2019 ATTENDING PHYSICIAN: Dr. Angelo SUBJECTIVE: She is rambling, she is totally confused. She has no concept of person, place or time. She does not have any apparent distress. OBJECTIVE FINDINGS: VITAL SIGNS: Blood pressure today is 115/69 mmHg, temperature 96.1 degrees Fahrenheit, oxygen saturation 93% on room air. HEENT: Head is without trauma. Pupils are reactive. Sclerae nonicteric. Oropharynx clear. NECK: Supple. LUNGS: Good breath sounds. CARDIOVASCULAR: Showed regular heart tones. No gallops. ABDOMEN: Soft, no guarding. EXTREMITIES: Showed no cyanosis or edema. NEUROLOGIC: Profound dementia with rambling speech. SKIN: Warm and dry. ASSESSMENT: 1. A 69-year-old female with positive COVID-19 swab. She has now had 5 consecutive swabs that are tested positive. She still remains asymptomatic. 2. Profound dementia with behavior disturbances. 3. Urinary tract infection, treated. 4. Gastroesophageal reflux disease. 5. Depression with anxiety. PLAN: 1. Continue medications as ordered. 2. Psychotropic meds per Dr. Hensley. 3. We will continue to swab her until she has consecutive negative swabs. Otherwise, she will stay in the same room. MARY ANGELO MD DR: ERIC/telma JOB#: [id number] / [id number]
[2019-11-05] MEDS: MELATONIN 3 MG TABLET PO SCH (19:59)
[2019-11-05] MEDS: ENOXAPARIN 40 MG/0.4 ML SYRINGE. SQ SCH (20:00)
[2019-11-05 21:47] VITALS: BP 133/66
[2019-11-06] MEDS: DIVALPROEX 125 MG CAP.SPRINK PO SCH ×3 (08:28→21:18)
[2019-11-06] MEDS: ASCORBIC ACID 500 MG TABLET PO SCH (08:28)
[2019-11-06] MEDS: LACTOBACILLUS RHAMNOSUS GG 1 CAPSULE. PO SCH ×2 (08:28→21:17)
[2019-11-06] MEDS: traMADol 50 MG TABLET PO PRN (08:28)
[2019-11-06] MEDS: traZODone 50 MG TABLET. PO SCH ×3 (08:28→17:19)
[2019-11-06] MEDS: hydrOXYzine HCL 25 MG TABLET PO PRN (08:29)
[2019-11-06] MEDS: SERTRALINE 25 MG TABLET. PO SCH (08:29)
[2019-11-06] MEDS: THIAMINE 100 MG TABLET. PO SCH (08:29)
[2019-11-06] MEDS: SENNOSIDES/DOCUSATE 8.6/50MG TABLET. PO SCH (08:29)
[2019-11-06] MEDS: MULTIVITAMIN with MINERAL TABLET. PO SCH (08:29)
[2019-11-06] MEDS: QUEtiapine 25 MG TABLET. PO SCH ×3 (08:29→17:19)
[2019-11-06] MEDS: HALOPERIDOL 5 MG TABLET PO PRN (08:32)
--- NOTE | 2019-11-06 10:43 | PN ---
DATE: 11/06/2019 ATTENDING PHYSICIAN: Dr. Angelo SUBJECTIVE: Confused. She is talking to nonexistent people in the room. She has no counts of person, place or time. There is no obvious respiratory distress. OBJECTIVE FINDINGS: VITAL SIGNS: Blood pressure today is 133/66, pulse 76 and regular, temperature 97.0 degrees Fahrenheit, and her room air saturations are 95%. HEENT: Head is without trauma. Pupils are reactive. Sclerae nonicteric. Oropharynx clear. NECK: Supple, no bruits. LUNGS: Clear. CARDIOVASCULAR: Showed regular heart tones. No gallops. ABDOMEN: Soft, no guarding. EXTREMITIES: Showed no cyanosis or edema. NEUROLOGIC: Profound dementia with rambling speech. PLAN: 1. Continue medications as ordered. [address] Hensley. 2. Unfortunately, we have no discharge plan in sight as her last 5 swabs have come back positive. We will re-swab her as indicated. MARY ANGELO MD DR: ERIC/telma JOB#: [id number] / [id number]
[2019-11-06 13:00] VITALS: BP 117/82
[2019-11-06 18:36] VITALS: BP 121/62
[2019-11-06 19:49] VITALS: BP 100/51
[2019-11-06] MEDS: ENOXAPARIN 40 MG/0.4 ML SYRINGE. SQ SCH (21:18)
[2019-11-06] MEDS: MELATONIN 3 MG TABLET PO SCH (21:18)
[2019-11-07] MEDS: traZODone 50 MG TABLET. PO SCH ×3 (08:41→17:04)
[2019-11-07] MEDS: LACTOBACILLUS RHAMNOSUS GG 1 CAPSULE. PO SCH ×2 (08:41→21:11)
[2019-11-07] MEDS: THIAMINE 100 MG TABLET. PO SCH (08:41)
[2019-11-07] MEDS: ASCORBIC ACID 500 MG TABLET PO SCH (08:41)
[2019-11-07] MEDS: QUEtiapine 25 MG TABLET. PO SCH ×3 (08:41→17:04)
[2019-11-07] MEDS: SENNOSIDES/DOCUSATE 8.6/50MG TABLET. PO SCH (08:42)
[2019-11-07] MEDS: SERTRALINE 25 MG TABLET. PO SCH (08:42)
[2019-11-07] MEDS: DIVALPROEX 125 MG CAP.SPRINK PO SCH ×3 (08:42→21:11)
[2019-11-07] MEDS: MULTIVITAMIN with MINERAL TABLET. PO SCH (08:42)
[2019-11-07 08:43] VITALS: BP 134/71
--- NOTE | 2019-11-07 13:14 | PN ---
DATE: 11/07/2019 ATTENDING PHYSICIAN: Dr. Angelo. SUBJECTIVE: Confused. No new complaints. She is agitated and shouting. OBJECTIVE FINDINGS: VITAL SIGNS: The patient is afebrile, blood pressure today is 134/71 mmHg, oxygen saturation 94% on room air. HEENT: Head is without trauma. Pupils are reactive. Sclerae nonicteric. Oropharynx clear. NECK: Supple. LUNGS: Good breath sounds. CARDIOVASCULAR: Showed regular heart tones. No gallops. Peripheral pulses are palpable. ABDOMEN: Soft, scaphoid, nontender. EXTREMITIES: Without edema. NEUROLOGIC: Profoundly demented. Speech is rambling. SKIN: Warm and dry. ASSESSMENT: 1. A 69-year-old female with persistent positive COVID-19 swab. She now had 5 consecutive swabs that have turn positive. She remains asymptomatic. 2. Profound dementia with behavior disturbance. 3. Urinary tract infection, treated. 4. Gastroesophageal reflux disease, stable. 5. Depression with anxiety. PLAN: 1. Continue medications as ordered. 2. Psychotropic meds reviewed. 3. We will continue our protocol and quarantine her, and swabbed her accordingly until we have negative results. Otherwise, there are no plans for placement until she has negative swabs. MARY ANGELO MD DR: ERIC/telma JOB#: [id number] / [id number]
[2019-11-07 20:00] VITALS: BP 112/60
[2019-11-07] MEDS: ENOXAPARIN 40 MG/0.4 ML SYRINGE. SQ SCH (21:11)
[2019-11-07] MEDS: MELATONIN 3 MG TABLET PO SCH (21:11)
[2019-11-08] MEDS: LACTOBACILLUS RHAMNOSUS GG 1 CAPSULE. PO SCH ×2 (08:14→21:56)
[2019-11-08] MEDS: SERTRALINE 25 MG TABLET. PO SCH (08:14)
[2019-11-08] MEDS: MULTIVITAMIN with MINERAL TABLET. PO SCH (08:14)
[2019-11-08] MEDS: SENNOSIDES/DOCUSATE 8.6/50MG TABLET. PO SCH (08:14)
[2019-11-08] MEDS: QUEtiapine 25 MG TABLET. PO SCH ×3 (08:14→17:00)
[2019-11-08] MEDS: ASCORBIC ACID 500 MG TABLET PO SCH (08:14)
[2019-11-08] MEDS: traZODone 50 MG TABLET. PO SCH ×3 (08:14→17:00)
[2019-11-08] MEDS: THIAMINE 100 MG TABLET. PO SCH (08:14)
[2019-11-08] MEDS: hydrOXYzine HCL 25 MG TABLET PO PRN (08:14)
[2019-11-08] MEDS: DIVALPROEX 125 MG CAP.SPRINK PO SCH ×3 (08:15→21:55)
[2019-11-08 09:34] VITALS: BP 131/81
--- NOTE | 2019-11-08 12:45 | PN ---
DATE: 11/08/2019 ATTENDING PHYSICIAN: Dr. Angelo. SUBJECTIVE: Very confused, agitated, talking to people that are not in the room and hallucinating. OBJECTIVE FINDINGS: VITAL SIGNS: Her blood pressure today is 131/81 mmHg. She is afebrile. Oxygen saturation 94% on room air. HEENT: Head is without trauma. Pupils are reactive. Sclerae nonicteric. Oropharynx clear. NECK: Supple, no bruits. LUNGS: Good breath sounds. CARDIOVASCULAR: Showed regular heart tones. ABDOMEN: Soft, nontender, no organomegaly. EXTREMITIES: Without edema. NEUROLOGIC: Profoundly demented. Rambling speech. She is pointing at things and hallucinating. SKIN: Warm and dry. ASSESSMENT: 1. A 69-year-old female with persistent COVID-19 positive swab. Five consecutive swabs that have returned positive. She remains asymptomatic. 2. Profound dementia with behavior disturbances. 3. Urinary tract infection, treated. 4. Gastroesophageal reflux disease, stable. 5. Depression with anxiety. PLAN: 1. Continue medications ordered. 2. Psychotropic meds with intermittent doses to calm her down. 3. We will follow protocol for quarantine and recheck swabs when appropriate. MARY ANGELO MD DR: ERIC/telma JOB#: [id number] / [id number]
[2019-11-08 20:33] VITALS: BP 111/53
[2019-11-08] MEDS: MELATONIN 3 MG TABLET PO SCH (21:55)
[2019-11-08] MEDS: ENOXAPARIN 40 MG/0.4 ML SYRINGE. SQ SCH (21:56)
[2019-11-09 07:58] VITALS: BP 117/60
[2019-11-09] MEDS: traZODone 50 MG TABLET. PO SCH ×3 (08:05→16:55)
[2019-11-09] MEDS: SENNOSIDES/DOCUSATE 8.6/50MG TABLET. PO SCH (08:05)
[2019-11-09] MEDS: THIAMINE 100 MG TABLET. PO SCH (08:05)
[2019-11-09] MEDS: QUEtiapine 25 MG TABLET. PO SCH ×3 (08:06→16:54)
[2019-11-09] MEDS: ASCORBIC ACID 500 MG TABLET PO SCH (08:06)
[2019-11-09] MEDS: SERTRALINE 25 MG TABLET. PO SCH (08:06)
[2019-11-09] MEDS: DIVALPROEX 125 MG CAP.SPRINK PO SCH ×3 (08:06→20:15)
[2019-11-09] MEDS: MULTIVITAMIN with MINERAL TABLET. PO SCH (08:06)
[2019-11-09] MEDS: LACTOBACILLUS RHAMNOSUS GG 1 CAPSULE. PO SCH ×2 (08:06→20:15)
--- NOTE | 2019-11-09 19:05 | PN ---
DATE: 11/09/2019 SUBJECTIVE: The patient is resting, slightly propped up in bed, no apparent distress, sleeping comfortably. She seemed to be less restless, agitated. She is not yelling or hollering. PHYSICAL EXAMINATION: GENERAL: When I examined her, she looked pale, no jaundice, cyanosis or thyromegaly. No jugular venous distention. No lower limb edema. VITAL SIGNS: Her heart rate was 71, blood pressure 117/60, temperature was 98, respiratory rate was 20, and oxygen saturation was 98%. HEENT: Showed normocephalic, atraumatic. NECK: Supple. CARDIAC: Normal first and second heart sounds. No gallop, rub or murmur. CHEST: Clear to auscultation. No crepitation or rhonchi. ABDOMEN: Distended, soft, nontender. No guarding or rigidity. No organomegaly. All hernial orifice intact. Bowel sounds normal. NEUROLOGIC: She is profoundly demented, but without any obvious lateralizing sign. All cranial nerves intact. She moves extremities without difficulty, although she is mostly bedbound, chair bound. Her intake over the last 24 hours was 770, no output was recorded. She has not had any lab work since 10/27: ASSESSMENT: 1. This is a 69-year-old female with persistent COVID-19 positive swabs, 5 consecutive swabs that have returned positive. She remained completely asymptomatic. 2. Profound dementia with behavioral disturbances. 3. Urinary tract infection, was treated 4. Gastroesophageal reflux disease, stable. 5. Depression and anxiety. PLAN: Continue with medication ordered psychotropic medication with intermittent dose to calm her down. We will follow protocol for quarantine and recheck swabs when appropriate. JESSICA GALEAS MD DR: DENNY/telma JOB#: [id number] / [id number]
[2019-11-09 19:30] VITALS: BP 101/76
[2019-11-09] MEDS: MELATONIN 3 MG TABLET PO SCH (20:14)
[2019-11-09] MEDS: ENOXAPARIN 40 MG/0.4 ML SYRINGE. SQ SCH (20:15)
[2019-11-09] MEDS: hydrOXYzine HCL 25 MG TABLET PO PRN (20:15)
--- NOTE | 2019-11-10 06:14 | NUR ---
Pt yelling out intermittently, requiring frequent redirection. Pt is pleasant when approached, but restless in bed, disrobing and pulling apart brief. PRN zyprexa given as indicated.
[2019-11-10] MEDS: QUEtiapine 25 MG TABLET. PO SCH ×3 (08:14→16:21)
[2019-11-10] MEDS: SENNOSIDES/DOCUSATE 8.6/50MG TABLET. PO SCH (08:14)
[2019-11-10] MEDS: DIVALPROEX 125 MG CAP.SPRINK PO SCH ×3 (08:15→20:47)
[2019-11-10] MEDS: LACTOBACILLUS RHAMNOSUS GG 1 CAPSULE. PO SCH ×2 (08:15→20:47)
[2019-11-10] MEDS: traZODone 50 MG TABLET. PO SCH ×3 (08:15→16:21)
[2019-11-10] MEDS: MULTIVITAMIN with MINERAL TABLET. PO SCH (08:15)
[2019-11-10] MEDS: ASCORBIC ACID 500 MG TABLET PO SCH (08:15)
[2019-11-10] MEDS: SERTRALINE 25 MG TABLET. PO SCH (08:15)
[2019-11-10] MEDS: THIAMINE 100 MG TABLET. PO SCH (08:15)
[2019-11-10] MEDS: traMADol 50 MG TABLET PO PRN ×2 (09:16→20:47)
[2019-11-10] MEDS: hydrOXYzine HCL 25 MG TABLET PO PRN ×2 (09:16→20:47)
[2019-11-10 10:16] VITALS: BP 119/79
--- NOTE | 2019-11-10 16:44 | NUR ---
RESULT FOR COVID RECEIVED FROM THE LAB AND IS NEGATIVE. PATIENT TESTED TODAY FOR COVID X2 PER PROTOCOL, RESULT PENDING. PATIENT TOLERATED PROCEDURE WITHOUT DIFFICULTIES.
--- NOTE | 2019-11-10 17:00 | PN ---
DATE: 11/10/2019 SUBJECTIVE: The patient is resting, slightly propped up, sleeping comfortably, in no apparent distress. Nursing staff stated she continued to have periods of agitation during which she yelled ____; however, she had generally uneventful night. PHYSICAL EXAMINATION: GENERAL: When I examined her this morning, she looked well and was clearly in no apparent respiratory distress. No pallor, jaundice, cyanosis or thyromegaly. No jugular venous distention or limb edema. VITAL SIGNS: Her heart rate was 94, blood pressure was 119/79, temperature 97.2, respiratory rate was 18 and oxygen saturation was 95%. HEENT: Showed normocephalic, atraumatic. NECK: Supple. CARDIAC: Normal first and second heart sounds. No gallop or murmur. CHEST: Clear to auscultation. No crepitation or rhonchi. ABDOMEN: Distended, soft, nontender. NEUROLOGIC: She was sleepy, but arousable. She is profoundly demented, but without any obvious lateralizing sign. Her intake was 1370, no output was recorded. ASSESSMENT: 1. This is a 69-year-old female with persistent COVID-19 positive swabs. She was positive on 10/04, 10/12, 10/19, 10/26 and 11/01. 2. Profound dementia with behavioral disturbances. 3. Urinary tract infection that was treated. 4. Gastroesophageal reflux disease, stable. 5. Depression and anxiety. PLAN: To continue with DVT prophylaxis. Continue with psychotropic medication as per Dr. Hensley's recommendation. Continue to monitor her COVID test and once she has 2 consecutive negative, she can be discharged to a [facility] facility. JESSICA GALEAS MD DR: DENNY/telma JOB#: [id number] / [id number]
[2019-11-10 19:41] VITALS: BP 97/60
[2019-11-10] MEDS: ENOXAPARIN 40 MG/0.4 ML SYRINGE. SQ SCH (20:47)
[2019-11-10] MEDS: MELATONIN 3 MG TABLET PO SCH (20:47)
--- NOTE | 2019-11-10 21:50 | NUR ---
Pt. yelling out before assessment. Pt calmed when nurse and tech entered the room. Pt was then cooperative and calmer during assessment. Pt was give PRN Zyprexa and Atrax w/ HS med as indicated. Pt. is now resting comfortably in bed w/o behaviors. Will continue to monitor.
[2019-11-11 07:23] VITALS: BP 134/60
[2019-11-11] MEDS: SERTRALINE 25 MG TABLET. PO SCH (07:54)
[2019-11-11] MEDS: QUEtiapine 25 MG TABLET. PO SCH ×3 (07:54→16:37)
[2019-11-11] MEDS: ASCORBIC ACID 500 MG TABLET PO SCH (07:54)
[2019-11-11] MEDS: traZODone 50 MG TABLET. PO SCH ×3 (07:54→16:37)
[2019-11-11] MEDS: DIVALPROEX 125 MG CAP.SPRINK PO SCH ×3 (07:54→20:53)
[2019-11-11] MEDS: THIAMINE 100 MG TABLET. PO SCH (07:54)
[2019-11-11] MEDS: LACTOBACILLUS RHAMNOSUS GG 1 CAPSULE. PO SCH ×2 (07:54→20:53)
[2019-11-11] MEDS: SENNOSIDES/DOCUSATE 8.6/50MG TABLET. PO SCH (07:54)
[2019-11-11] MEDS: hydrOXYzine HCL 25 MG TABLET PO PRN ×2 (07:54→16:37)
[2019-11-11] MEDS: MULTIVITAMIN with MINERAL TABLET. PO SCH (07:54)
--- NOTE | 2019-11-11 19:41 | PN ---
DATE: SUBJECTIVE: The patient is resting, slightly propped up in bed, in no apparent distress. She is somewhat more restless and agitated, yelling and hollering today; however, she continued to be asymptomatic and as far as her COVID-19 infection, nursing staff did not voice any concern. PHYSICAL EXAMINATION: GENERAL: When I examined her, she looked pale, not jaundiced, cyanosis or thyromegaly. No jugular venous distention or limb edema. VITAL SIGNS: Her heart rate was 75, blood pressure was 134/60, temperature was 97.6, respiratory rate was 20, and oxygen saturation was 97%. HEAD, EYES, EARS, NOSE AND THROAT: Showed normocephalic, atraumatic. NECK: Supple. HEART: Showed normal first and second heart sounds. No gallop or murmur. CHEST: Shows central trachea, equal bilateral expansion and air entry, vesicular breath sounds. No crepitation or rhonchi. ABDOMEN: Distended, soft, nontender. NEUROLOGIC: She is profoundly demented, but without any obvious lateralizing sign. All her cranial nerves intact. She moves extremities without difficulty, although she is mostly bedbound, chair bound. Her intake over the last 24 hours was 1370, no output was recorded. No recent labs available. ASSESSMENT: 1. This is a 69-year-old female patient with persistent COVID-19 positive swabs. She was positive on 10/05/2019, 10/13/2019, 10/20/2019 10/26/2012 and 11/02/2019. 2. She continued to be completely asymptomatic. She has no fever, no cough, no shortness of breath. She is on room air, maintaining her oxygen saturation at 95%. 3. Profound dementia with behavioral disturbances. 4. Urinary tract infection that was treated. 5. Gastroesophageal reflux disease, stable. 6. Depression and anxiety. PLAN: 1. To continue with DVT prophylaxis. 2. Continue with psychotropic medication as per Dr. Hensley's recommendation. 3. Continue to monitor her COVID test and once she has 2 consecutive negatives, she can be discharged to a [facility] facility. JESSICA GALEAS MD DR: DENNY/telma JOB#: [id number] / [id number]
[2019-11-11 20:00] VITALS: BP 87/53
[2019-11-11] MEDS: MELATONIN 3 MG TABLET PO SCH (20:53)
[2019-11-11] MEDS: ENOXAPARIN 40 MG/0.4 ML SYRINGE. SQ SCH (20:53)
[2019-11-11 22:59] VITALS: BP 94/59
[2019-11-12] MEDS: DIVALPROEX 125 MG CAP.SPRINK PO SCH ×3 (08:39→20:40)
[2019-11-12] MEDS: SERTRALINE 25 MG TABLET. PO SCH (08:40)
[2019-11-12] MEDS: traMADol 50 MG TABLET PO PRN (08:40)
[2019-11-12] MEDS: MULTIVITAMIN with MINERAL TABLET. PO SCH (08:40)
[2019-11-12] MEDS: QUEtiapine 25 MG TABLET. PO SCH ×3 (08:40→17:42)
[2019-11-12] MEDS: THIAMINE 100 MG TABLET. PO SCH (08:40)
[2019-11-12] MEDS: traZODone 50 MG TABLET. PO SCH ×3 (08:40→17:42)
[2019-11-12] MEDS: ASCORBIC ACID 500 MG TABLET PO SCH (08:40)
[2019-11-12] MEDS: SENNOSIDES/DOCUSATE 8.6/50MG TABLET. PO SCH (08:40)
[2019-11-12] MEDS: LACTOBACILLUS RHAMNOSUS GG 1 CAPSULE. PO SCH ×2 (08:40→20:40)
[2019-11-12] MEDS: hydrOXYzine HCL 25 MG TABLET PO PRN ×2 (08:43→20:40)
[2019-11-12] MEDS: HALOPERIDOL 5 MG TABLET PO PRN (10:06)
[2019-11-12 11:20] VITALS: BP 99/68
--- NOTE | 2019-11-12 12:55 | PN ---
DATE: 11/12/2019 SUBJECTIVE: The patient is resting, slightly propped up in bed, no apparent distress. She continued to be agitated, restless, yelling. However, she is completely asymptomatic and as far as her COVID-19 infection, she is afebrile, hemodynamically stable. PHYSICAL EXAMINATION: GENERAL: When I examined her, she looked pale, but no jaundice, cyanosis or thyromegaly. No jugular venous distension. No limb edema. VITAL SIGNS: Her heart rate was 79, blood pressure was 94/59, temperature was 96.9, respiratory rate was 16, and oxygen saturation was 94% on room air. HEAD, EYES, EARS, NOSE AND THROAT: Showed normocephalic, atraumatic. NECK: Supple. HEART: Showed normal first and second heart sounds. No gallop, rub or murmur. CHEST: Clear to auscultation. No crepitation or rhonchi. ABDOMEN: Distended, soft, nontender. NEUROLOGIC: She is profoundly demented, but without any obvious lateralizing sign. Her intake over the last 24 hours was 913, no output was recorded. LABORATORY DATA: No lab works available this morning. I did order labs for tomorrow morning. ASSESSMENT: 1. This is a 69-year-old female patient with persistent COVID-19 positive swabs. She was positive on 10/05/2019, 10/13/2019, 10/20/2019, 10/27/2019 and 11/02/2019. 2. She continued, however, to be completely asymptomatic. She now has no fever, cough, shortness of breath. She is on room air, maintaining her oxygen saturation at 95%. 3. Profound dementia with behavioral disturbances. 4. Urinary tract infection that was treated. 5. Gastroesophageal reflux disease, stable. 6. Depression and anxiety. PLAN: 1. To continue with DVT prophylaxis. 2. Continue psychotropic medication as per Dr. Hensley's recommendation. 3. Continue to monitor her COVID test and once she has 2 consecutive negative, she can be discharged to a longterm facility. JESSICA GALEAS MD DR: DENNY/telma JOB#: [id number] / [id number]
[2019-11-12 20:08] VITALS: BP 97/56
[2019-11-12] MEDS: ENOXAPARIN 40 MG/0.4 ML SYRINGE. SQ SCH (20:40)
[2019-11-12] MEDS: MELATONIN 3 MG TABLET PO SCH (20:41)
--- NOTE | 2019-11-12 22:52 | NUR ---
Pt's COVID-19 swab from 11/09 has resulted negative; pt now has two negative results. Pt taken out of isolation precautions.
[2019-11-13 07:30] LABS: HEMATOCRIT 43.8 % (36.0-47.0); HEMOGLOBIN 14.6 g/dL (12.0-15.5); RED BLOOD COUNT 4.56 x10^6/uL (3.50-5.40); RED CELL DISTRIBUTION WIDTH 13.6 % (11.5-14.5); WHITE BLOOD COUNT 3.8 x10^3/uL (4.0-11.0)
[2019-11-13] MEDS: traMADol 50 MG TABLET PO PRN (07:44)
[2019-11-13] MEDS: hydrOXYzine HCL 25 MG TABLET PO PRN ×2 (07:44→16:40)
[2019-11-13] MEDS: SENNOSIDES/DOCUSATE 8.6/50MG TABLET. PO SCH (07:44)
[2019-11-13] MEDS: SERTRALINE 25 MG TABLET. PO SCH (07:44)
[2019-11-13] MEDS: LACTOBACILLUS RHAMNOSUS GG 1 CAPSULE. PO SCH ×2 (07:45→19:54)
[2019-11-13] MEDS: THIAMINE 100 MG TABLET. PO SCH (07:45)
[2019-11-13] MEDS: QUEtiapine 25 MG TABLET. PO SCH ×3 (07:45→16:40)
[2019-11-13] MEDS: HALOPERIDOL 5 MG TABLET PO PRN ×2 (07:45→11:42)
[2019-11-13] MEDS: ASCORBIC ACID 500 MG TABLET PO SCH (07:45)
[2019-11-13] MEDS: DIVALPROEX 125 MG CAP.SPRINK PO SCH ×3 (07:45→19:53)
[2019-11-13] MEDS: traZODone 50 MG TABLET. PO SCH ×3 (07:45→16:39)
[2019-11-13] MEDS: MULTIVITAMIN with MINERAL TABLET. PO SCH (07:45)
[2019-11-13 07:48] LABS: ALBUMIN 2.8 g/dL (3.4-5.0); ALBUMIN/GLOBULIN RATIO 0.8 (1.0-1.7); CALCIUM 8.6 mg/dL (8.5-10.1); CREATININE 0.6 mg/dL (0.6-1.0); GFR 98.5; POTASSIUM 3.9 mmol/L (3.5-5.1); TOTAL BILIRUBIN 0.3 mg/dL (0.2-1.0); TOTAL PROTEIN 6.3 g/dL (6.4-8.2)
[2019-11-13 11:25] VITALS: BP 108/75
--- NOTE | 2019-11-13 12:39 | PN ---
DATE: 11/13/2019 SUBJECTIVE: The patient is now off the droplet precaution and she is off isolation as she has 2 consecutive coronavirus by PCR negative. On questioning her, she denied any complaint. The nursing staff did not voice any concern and stated that she has generally uneventful night. PHYSICAL EXAMINATION: GENERAL: When I examined her, she looked well and was clearly in no apparent respiratory distress. No pallor, jaundice, cyanosis, or thyromegaly. No jugular venous distention. No limb edema. VITAL SIGNS: Her heart rate was 86, blood pressure was 108/75, temperature 97.5, respiratory rate 20, and oxygen saturation was 95%. HEAD, EYES, EARS, NOSE, AND THROAT: Normocephalic, atraumatic. NECK: Supple. HEART: Normal first and second heart sounds. No gallop or murmur. CHEST: Clear to auscultation. No crepitation or rhonchi. ABDOMEN: Distended, soft, nontender. NEUROLOGIC: She is profoundly demented, but without any obvious lateralizing sign. She is mostly bedbound, chair bound. She was wheeling herself around in her wheelchair. Her intake over the last 24 hours was 1100, no output was recorded. LABORATORY DATA: Her lab work as of this morning showed a white cell count of 3800, hemoglobin 14.6, hematocrit 44, MCV 96, and platelet count of 197,000. Her chemistry showed a serum sodium 144, potassium 3.9, chloride 107, bicarbonate 34, anion gap of 3, BUN 20, creatinine 0.6, estimated GFR was 98 mL per minute. Her glucose was 75, calcium was 8.6. Total bilirubin, AST, ALT, alkaline phosphatase were normal. Total protein was 6.3, albumin was 2.2. ASSESSMENT: The patient is coronavirus PCR negative on 11/09/2019 and 11/10/2019. ASSESSMENT: 1. This is a 69-year-old female patient, who has been positive for COVID-19 on swabs done on 10/05/2019, 10/13/2019, 10/20/2019, 10/27/2019, and 11/02/2019; however, now the coronavirus by swabs were negative on 11/09/2019 and 11/10/2019. The patient continued, however, to be completely asymptomatic. She has no fever, cough, shortness of breath. She is on room air, maintaining her oxygen saturations at 95%. 2. Profound dementia with behavioral disturbances. 3. Urinary tract infection that was treated. 4. Gastroesophageal reflux disease, stable. 5. Depression and anxiety. PLAN: To continue with DVT prophylaxis. Continue with psychotropic medication. We will discuss with the health care social worker the disposition plan as she is now negative on 2 consecutive tests and should be able to be accepted in a long term facility. JESSICA GALEAS MD DR: DENNY/telma JOB#: [id number] / [id number]
[2019-11-13] MEDS: MELATONIN 3 MG TABLET PO SCH (19:53)
[2019-11-13] MEDS: ENOXAPARIN 40 MG/0.4 ML SYRINGE. SQ SCH (19:54)
[2019-11-13 20:30] VITALS: BP 141/70
[2019-11-14 06:28] VITALS: BP 122/84
[2019-11-14] MEDS: MULTIVITAMIN with MINERAL TABLET. PO SCH (08:09)
[2019-11-14] MEDS: SENNOSIDES/DOCUSATE 8.6/50MG TABLET. PO SCH (08:09)
[2019-11-14] MEDS: LACTOBACILLUS RHAMNOSUS GG 1 CAPSULE. PO SCH ×2 (08:09→20:34)
[2019-11-14] MEDS: DIVALPROEX 125 MG CAP.SPRINK PO SCH ×3 (08:09→20:34)
[2019-11-14] MEDS: hydrOXYzine HCL 25 MG TABLET PO PRN (08:10)
[2019-11-14] MEDS: traZODone 50 MG TABLET. PO SCH ×3 (08:10→17:20)
[2019-11-14] MEDS: SERTRALINE 25 MG TABLET. PO SCH (08:10)
[2019-11-14] MEDS: ASCORBIC ACID 500 MG TABLET PO SCH (08:10)
[2019-11-14] MEDS: QUEtiapine 25 MG TABLET. PO SCH ×3 (08:10→17:19)
[2019-11-14] MEDS: THIAMINE 100 MG TABLET. PO SCH (08:10)
[2019-11-14 11:06] VITALS: BP 135/88
--- NOTE | 2019-11-14 11:20 | NUR ---
CASSIDY spoke with Lucrecia Rodriguez at [facility] known [facility], re: an update on if pt was still accepted to their program. Lucrecia asked that SW send over a packet for them to review again, as well as pt current negative covoid tests. CASSIDY will ask that Yanira do so ramila as pt will need placement either later today if not discharge tomorrow.
--- NOTE | 2019-11-14 11:40 | NUR ---
CASSIDY updated pt sister, Pal, to let her know that pt received her 2nd negative for Covoid and will look forward with placement and discharge for this week. CASSIDY informed pt sister that an updated packet was sent to [facility], formerly known as [facility] and a back up referral will be sent out to [facility]. CASSIDY will keep pt up to date as much as possible. Pt will be private pay for at least a year and then will need Medicaid to continue payments and care services.
[2019-11-14] MEDS: HALOPERIDOL 5 MG TABLET PO PRN (13:41)
--- NOTE | 2019-11-14 15:20 | NUR ---
SW attempted to contact admissions to follow up on the updated referral that was sent over and to see if anyone was able to review her case yet. SW left a message and asked that she be called back with an answer.
--- NOTE | 2019-11-14 17:13 | NUR ---
NURSING NOTE WILL TAKE OVER PATIENT CARE. REPORT TAKEN FROM NAVARRO COHN. PT WILL BE MOVED TO A NEW ROOM #111. LALIT AMBROSE
--- NOTE | 2019-11-14 17:38 | PN ---
DATE: 11/14/2019 SUBJECTIVE: The patient is resting comfortably in her wheelchair, in no apparent distress. She continued to be agitated, yelling, and calling; however, she remains asymptomatic and as far as her coronavirus infection is concerned, she in fact has tested negative on 2 consecutive times and our social worker psychiatric is working to see if she can be placed in a jail facility. PHYSICAL EXAMINATION: GENERAL: When I examined her this morning, she looked well and was clearly in no apparent respiratory distress. No pallor, jaundice, cyanosis or thyromegaly. No jugular venous distention. No limb edema. VITAL SIGNS: Her heart rate was 89, blood pressure was 135/88, temperature 97.6, respiratory rate was 20, and oxygen saturation was 95%. HEENT: Showed normocephalic, atraumatic. NECK: Supple. HEART: Showed normal first and second heart sounds. No gallop, rub or murmur. CHEST: Clear to auscultation. No crepitation or rhonchi. ABDOMEN: Distended, soft, nontender. NEUROLOGICAL: She is demented, but without any obvious lateralizing sign. She is mostly bedbound, chair bound. Her intake over the last 24 hours was 1000. No output was recorded. LABORATORY DATA: Her most recent lab work as of yesterday showed a white cell count of 3800, hemoglobin 14.6, hematocrit 44, MCV 96, and platelet count of 197,000. His serum sodium was 144, potassium 3.9, chloride 107, bicarbonate 34, anion gap of 3, BUN 20, creatinine 0.6, estimated GFR was 98 mL per minute. Her glucose was 75, calcium was 8.6. Total bilirubin, AST, ALT, alkaline phosphatase were normal. Total protein 6.3, albumin 2.8. ASSESSMENT: 1. This is a 69-year-old female patient. She was positive for COVID-19 on swabs done on 10/05/2019, 10/13/2019, 10/20/2019, 10/27/2019 as well as 11/02/2019; however, her coronavirus by swabs were negative on 11/09/2019 and 11/10/2019. 2. The patient, however, continued to be completely asymptomatic throughout her stay. She has never had any fever, cough, shortness of breath, hypoxia. She is maintaining her oxygen saturation at 95% on room air. 3. Profound dementia with behavioral disturbances. 4. Urinary tract infection that was treated. 5. Gastroesophageal reflux disease, stable. 6. Depression and anxiety. PLAN: Continue with all psychotropic medication, continue with ____. We have already consulted our case manager specialist to assist with her disposition to a jail facility. JESSICA GALEAS MD DR: DENNY/telma JOB#: [id number] / [id number]
[2019-11-14 19:36] VITALS: BP 111/78
[2019-11-14] MEDS: MELATONIN 3 MG TABLET PO SCH (20:34)
[2019-11-14] MEDS: ENOXAPARIN 40 MG/0.4 ML SYRINGE. SQ SCH (20:35)
[2019-11-15] MEDS: hydrOXYzine HCL 25 MG TABLET PO PRN ×3 (06:27→20:04)
[2019-11-15 07:21] VITALS: BP 124/79
[2019-11-15] MEDS: ASCORBIC ACID 500 MG TABLET PO SCH (07:59)
[2019-11-15] MEDS: DIVALPROEX 125 MG CAP.SPRINK PO SCH ×3 (07:59→20:04)
[2019-11-15] MEDS: MULTIVITAMIN with MINERAL TABLET. PO SCH (07:59)
[2019-11-15] MEDS: LACTOBACILLUS RHAMNOSUS GG 1 CAPSULE. PO SCH ×2 (07:59→20:04)
[2019-11-15] MEDS: traZODone 50 MG TABLET. PO SCH ×3 (07:59→16:44)
[2019-11-15] MEDS: SENNOSIDES/DOCUSATE 8.6/50MG TABLET. PO SCH (07:59)
[2019-11-15] MEDS: SERTRALINE 25 MG TABLET. PO SCH (07:59)
[2019-11-15] MEDS: THIAMINE 100 MG TABLET. PO SCH (08:00)
[2019-11-15] MEDS: QUEtiapine 25 MG TABLET. PO SCH ×3 (08:00→16:44)
[2019-11-15] MEDS: HALOPERIDOL 5 MG TABLET PO PRN (09:37)
--- NOTE | 2019-11-15 09:50 | NUR ---
CASSIDY left a message with the admissions team at [facility] to contact CASSIDY when possible about pt review from the notes sent yesterday. CASSIDY will attempt to contact them again at a later time today.
--- NOTE | 2019-11-15 10:11 | NUR ---
NURSING NOTE PT WAS VERY UPSET THIS MORNING, CRYING, YELLING, THROWING CUPS OF WATER, THROWING HER STUFFED ANIMALS ACROSS THE ROOM, PT WAS UPSET WANTING TO TALK TO HER MOTHER, BANGING HER CALL LIGHT AGAINST THE BED. UNABLE TO REDIRECT PT THIS AM. PRN HALDOL GIVEN. PT STILL UPSET IN HER ROOM. WILL CONTINUE TO MONITOR. LALIT CHERY.
--- NOTE | 2019-11-15 11:12 | NUR ---
Referral was faxed to Ama, support director at [facility], for review should [facility] be unable to accept Kavitha for placement. Awaiting admission decision.
--- NOTE | 2019-11-15 11:44 | NUR ---
CASSIDY attempted to contact Lucrecia Rodriguez, cyber systems administrator at [facility] formerly known [facility] to find out an answer as to if they will continue to accept pt for admission. CASSIDY left a message and asked Lucrecia to call CASSIDY back with an answer when possible.
--- NOTE | 2019-11-15 14:03 | PN ---
DATE: 11/15/2019 SUBJECTIVE: The patient is resting, slightly propped up in her bed, no apparent distress. She continued to be restless, agitated, yelling and hollering; however, she continued to be hemodynamically stable and afebrile. Nursing staff did not voice any concerns and said that she has generally uneventful night. PHYSICAL EXAMINATION: GENERAL: When I examined her, she looked pale, no jaundice, cyanosis or thyromegaly. No jugular venous distention. No lower limb edema. VITAL SIGNS: Her heart rate was 81, blood pressure was 124/79, temperature was 98.8, respiratory rate was 18 and oxygen saturation was 95% on room air. HEAD, EYES, EARS, NOSE AND THROAT: Showed normocephalic, atraumatic. NECK: Supple. HEART: Showed normal first and second heart sounds. No gallop, rub or murmur. CHEST: Clear to auscultation. No crepitation or rhonchi. ABDOMEN: Distended, soft, nontender. NEUROLOGIC: She is profoundly demented, but without any obvious lateralizing sign. All her cranial nerves are intact. She moves upper extremities to much a good extent than lower extremities. She is mostly bedbound, chair bound. Her intake over the last 24 hours was 770, no output was recorded. LABORATORY DATA: Her most recent hemoglobin was 14, hematocrit 44 with normal white cell count and platelets. Her most recent lab work showed a serum sodium 144, potassium 3.9, chloride 107, bicarbonate 34, anion gap of 3, BUN of 20, creatinine 0.6, estimated GFR was 98 mL per minute. Her glucose was 75, calcium was 8.6. Total bilirubin, AST, ALT, alkaline phosphatase were normal. ASSESSMENT: 1. This is a 69-year-old female patient who was positive for COVID-19, swabs done on 10/05/2019, 10/13/2019, 10/20/2019, 10/27/2019, and 11/02/2019; however, her coronavirus by swabs was negative on swabs taken on 11/09/2019 and 11/10/2019. 2. The patient has continued to be completely asymptomatic throughout her stay. She has never had any fever, cough, shortness of breath, hypoxia. She is maintaining her oxygen saturation at 95% on room air. 3. Profound dementia with behavioral disturbances. 4. Urinary tract infection and that was treated. 5. Gastroesophageal reflux disease, stable. 6. Depression and anxiety. PLAN: To basically continue with all her psychotropic medications. Continue with nutritional support and DVT prophylaxis. The patient has already had 2 consecutive negative COVID-19 tests and should be able to be placed in a nursing home facility. JESSICA GALEAS MD DR: DENNY/telma JOB#: [id number] / [id number]
[2019-11-15 19:31] VITALS: BP 119/79
[2019-11-15] MEDS: MELATONIN 3 MG TABLET PO SCH (20:04)
[2019-11-15] MEDS: ENOXAPARIN 40 MG/0.4 ML SYRINGE. SQ SCH (20:04)
[2019-11-16 06:38] VITALS: BP 133/86
--- NOTE | 2019-11-16 06:42 | NUR ---
Pt intermittently calling out when approached for shift assessment. Pt tearful, unable to console. PRN atarax given with HS meds. Pt then settled and slept well throughout with night, awaking only for brief changes. Pt awoke in pleasant mood this AM. Able to follow directions and assisted x1 with cares. Tolerated well.
[2019-11-16 07:06] VITALS: BP 145/81
[2019-11-16] MEDS: LACTOBACILLUS RHAMNOSUS GG 1 CAPSULE. PO SCH ×2 (08:08→20:00)
[2019-11-16] MEDS: MULTIVITAMIN with MINERAL TABLET. PO SCH (08:09)
[2019-11-16] MEDS: traZODone 50 MG TABLET. PO SCH ×3 (08:09→16:51)
[2019-11-16] MEDS: DIVALPROEX 125 MG CAP.SPRINK PO SCH ×3 (08:09→20:00)
[2019-11-16] MEDS: QUEtiapine 25 MG TABLET. PO SCH ×3 (08:09→16:51)
[2019-11-16] MEDS: THIAMINE 100 MG TABLET. PO SCH (08:10)
[2019-11-16] MEDS: ASCORBIC ACID 500 MG TABLET PO SCH (08:10)
[2019-11-16] MEDS: SERTRALINE 25 MG TABLET. PO SCH (08:10)
[2019-11-16] MEDS: SENNOSIDES/DOCUSATE 8.6/50MG TABLET. PO SCH (08:10)
[2019-11-16] MEDS: hydrOXYzine HCL 25 MG TABLET PO PRN (11:14)
--- NOTE | 2019-11-16 12:22 | PN ---
DATE: 11/16/2019 ATTENDING PHYSICIAN: Dr. Hensley. SUBJECTIVE: She is in the hallways, still agitated, yelling. She appears to be not aware of what the current situation. OBJECTIVE FINDINGS: VITAL SIGNS: Blood pressure today is 145/81 mmHg, pulse 87 and regular, temperature 98.4 degrees Fahrenheit, oxygen saturation 94% on room air. HEENT: Head is without trauma. Pupils are reactive. Sclerae nonicteric. Oropharynx clear. NECK: Supple. LUNGS: Otherwise clear. CARDIOVASCULAR: Showed regular heart tones. No gallops. ABDOMEN: Soft, no guarding, rebound tenderness. Bowel sounds are hypoactive. EXTREMITIES: Showed no cyanosis or edema. NEUROLOGIC: Confused and agitated. SKIN: Warm and dry. ASSESSMENT: 1. This 69-year-old female who has been here 48 days now. She has COVID-19 coronavirus positive swab just recently last week, she had negative swabs consecutively on 11/09/2019 and 11/10/2019. 2. Profound dementia with behavior disturbance. 3. Urinary tract infection, treated. 4. Gastroesophageal reflux disease. 5. Depression with anxiety. PLAN: 1. We do see some light tentative plans for placement in a [facility] this Thursday. 2. Meds were reviewed. MARY ANGELO MD DR: ERIC/telma JOB#: [id number] / [id number]
[2019-11-16 19:56] VITALS: BP 115/77
[2019-11-16] MEDS: ENOXAPARIN 40 MG/0.4 ML SYRINGE. SQ SCH (20:00)
[2019-11-16] MEDS: MELATONIN 3 MG TABLET PO SCH (20:01)
--- NOTE | 2019-11-17 00:01 | NUR ---
Pt lying in bed at shift change. Pt confused, disorganized, and yelling out intermittently but easily re-directed this evening. Pt cooperative with cares and assessment, compliant with medications.
[2019-11-17] MEDS: MULTIVITAMIN with MINERAL TABLET. PO SCH (07:27)
[2019-11-17] MEDS: LACTOBACILLUS RHAMNOSUS GG 1 CAPSULE. PO SCH ×2 (07:27→19:48)
[2019-11-17] MEDS: traZODone 50 MG TABLET. PO SCH ×3 (07:27→16:40)
[2019-11-17] MEDS: ASCORBIC ACID 500 MG TABLET PO SCH (07:28)
[2019-11-17] MEDS: SENNOSIDES/DOCUSATE 8.6/50MG TABLET. PO SCH (07:28)
[2019-11-17] MEDS: THIAMINE 100 MG TABLET. PO SCH (07:28)
[2019-11-17] MEDS: SERTRALINE 25 MG TABLET. PO SCH (07:28)
[2019-11-17] MEDS: DIVALPROEX 125 MG CAP.SPRINK PO SCH ×3 (07:28→19:48)
[2019-11-17] MEDS: QUEtiapine 25 MG TABLET. PO SCH ×3 (07:28→16:40)
[2019-11-17 10:04] VITALS: BP 115/80
--- NOTE | 2019-11-17 12:02 | PN ---
DATE: 11/17/2019 ATTENDING PHYSICIAN: Dr. Hensley. SUBJECTIVE: The patient is wheeling around in the wheelchair in the hallways, still agitated, yelling and no sense of decorum. She is not aware of her situation. OBJECTIVE FINDINGS: VITAL SIGNS: Blood pressure today is 115/80 mmHg, temperature 98.0, oxygen saturation 95% on room air. HEENT: Head is without trauma. Pupils are reactive. Sclerae nonicteric. Oropharynx clear. NECK: Supple. LUNGS: Clear. CARDIOVASCULAR: Showed regular heart tones. ABDOMEN: Soft, no guarding. EXTREMITIES: No cyanosis or edema. NEUROLOGIC: Confused and agitated. SKIN: Warm and dry. ASSESSMENT: 1. A 69-year-old female has been on the unit for 49 days. She recently had 2 consecutive negative swabs for coronavirus. 2. Profound dementia with behavior disturbances. 3. Urinary tract infection, treated. 4. Gastroesophageal reflux disease. PLAN: 1. Meds reviewed. 2. We have tentative plans for discharge to a long term tomorrow, whether or not this will come to fruition remains to be seen. MARY ANGELO MD DR: ERIC/telma JOB#: [id number] / [id number]
[2019-11-17] MEDS: HALOPERIDOL 5 MG TABLET PO PRN (12:28)
[2019-11-17] MEDS: hydrOXYzine HCL 25 MG TABLET PO PRN ×2 (15:24→19:48)
[2019-11-17 19:22] VITALS: BP 92/61
[2019-11-17] MEDS: ENOXAPARIN 40 MG/0.4 ML SYRINGE. SQ SCH (19:48)
[2019-11-17] MEDS: MELATONIN 3 MG TABLET PO SCH (19:48)
[2019-11-18] MEDS: DIVALPROEX 125 MG CAP.SPRINK PO SCH ×2 (07:13→14:03)
[2019-11-18] MEDS: SERTRALINE 25 MG TABLET. PO SCH (07:14)
[2019-11-18] MEDS: LACTOBACILLUS RHAMNOSUS GG 1 CAPSULE. PO SCH (07:14)
[2019-11-18] MEDS: QUEtiapine 25 MG TABLET. PO SCH ×2 (07:14→12:06)
[2019-11-18] MEDS: ACETAMINOPHEN 325 MG TABLET PO PRN (07:14)
[2019-11-18] MEDS: traZODone 50 MG TABLET. PO SCH ×2 (07:14→12:06)
[2019-11-18] MEDS: SENNOSIDES/DOCUSATE 8.6/50MG TABLET. PO SCH (07:15)
[2019-11-18] MEDS: MULTIVITAMIN with MINERAL TABLET. PO SCH (07:15)
[2019-11-18] MEDS: hydrOXYzine HCL 25 MG TABLET PO PRN (07:15)
[2019-11-18] MEDS: ASCORBIC ACID 500 MG TABLET PO SCH (07:15)
[2019-11-18] MEDS: THIAMINE 100 MG TABLET. PO SCH (07:15)
[2019-11-18 07:41] VITALS: BP 118/72
[2019-11-18] MEDS: HALOPERIDOL 5 MG TABLET PO PRN (07:55)
--- NOTE | 2019-11-18 12:10 | DS ---
DATE OF DISCHARGE: 11/18/2019 ATTENDING PHYSICIAN: Dr. Avery, Dr. Angelo. FINAL DISCHARGE DIAGNOSES: 1. COVID coronavirus swab positive. She was asymptomatic, but she had tested positive on the [facility]. 2. Profound dementia with behavioral issues. 3. Chronic obstructive pulmonary disease, stable. 4. Urinary tract infection, treated. 5. Gastroesophageal reflux disease. 6. Depression with anxiety. HISTORY AND PHYSICAL: The patient is a 69-year-old female with dementia and multiple behavioral issues. She was very impulsive. She is forgetful. She has very little insight. She was on the [facility] when there was an outbreak of coronavirus exposure. She tested positive. She was sent to the medical floor for isolation. PHYSICAL EXAMINATION: Please see the daily dictated notes for the last 50 days. LABORATORY REVIEWS: Prior to discharge, she had stable hemoglobin of 14.6 g/dL, white count was 3800. Chemistry panel: Sodium 144 mEq, potassium 3.9 mEq, CO2 of 34, creatinine 0.6 mg percent. Transaminases all within normal range. Multiple serology swabs were taken throughout the hospitalization, the last 2 were negative and that was dated 11/09/2019 and 11/10/2019 respectively. Chest x-ray showed a small pleural effusion, no acute changes identified. COURSE IN THE HOSPITAL: The patient was admitted to the medical floor. She was in COVID precautions. She had a pseudomonas UTI midway through the hospitalization and treated accordingly with appropriate round of antibiotics. She was asymptomatic regarding her COVID virus. She had no respiratory issues. Diet was advanced. Home meds were continued and psychiatric meds to help calm her down per psychiatry services. Because of her persistently positive swabs, we kept her throughout the end of September and the first 3 weeks of October. Eventually, she had 2 consecutive negative coronavirus swabs dated 11/08 and 11/09 respectively. Arrangements were then made for her to go to [facility] in [place], [place] on the 50th hospital day. Her discharge meds are as follows: She will continue her hydralazine 25 b.i.d., Bengay as needed, Ultram p.r.n., Tylenol p.r.n., Depakote 250 b.i.d. and 375 at bedtime, Zoloft 75 mg daily, trazodone 12.5 mg daily, olanzapine p.r.n. agitation, risperidone 0.5 mg b.i.d., BuSpar 10 mg b.i.d., potassium, Lasix 20 mg daily, bisacodyl p.r.n., Maalox p.r.n., senna daily, nystatin powder p.r.n., thiamine daily, vitamin C daily, multivitamin daily, melatonin at bedtime. She is a DNR per advanced directives. She has been quite stable medically. Problem issue is her dementia with behavior disturbance. She was discharged then from our hospital with a secure transport to go to this facility in [place], [place]. TOTAL DISCHARGE TIME SPENT: 42 MINUTES. MARY ANGELO MD DR: ERIC/telma JOB#: [id number] / [id number] JESSICA Corcoran MD
--- NOTE | 2019-11-18 12:23 | NUR ---
SW contacted pt sister to remind her that without her paying for transport they will not send anyone to pick her up. As it stands, she was to pay last night when SW notified her and pt sister reports forgetting to do it. SW received confirmation that she will call immediately and pay for transport.
--- NOTE | 2019-11-18 13:34 | NUR ---
From report of TEE Kaplan, that has been communicating with Kavitha's POA, transportation has been arranged for a 4-4:30pm crab picker time this afternoon. Call placed to Kavitha's nurse, Jil, to inform.
--- NOTE | 2019-11-18 14:31 | NUR ---
PATIENT IS DISCHARGED TO [facility], PATIENT IS COMPLIANT WITH MEDICATIONS PRIOR TO DISCHARGE, VS ARE STABLE, REPORT GIVEN TO SHENG RN. PATIENT LEFT ROOM VIA W/C ACCOMPANIED BY NARAYAN RIZO. PATIENT IS TAKEN TO FACILITY BY TRANSPORTATION PROVIDED BY ANDRE.
== END 2019-11-18 14:30 | DRG 177 ==
LOC: 1 SOUTH 13:07 → LND 11-15 18:16
PROVIDERS: ADMIT Internal Medicine; ATTEND Internal Medicine
DX: U07.1 COVID-19 (principal); E43 Unspecified severe protein-calorie malnutrition; F01.51 Vascular dementia, unspecified severity, with behavioral disturbance; F02.81 Dementia in other diseases classified elsewhere, unspecified severity, with behavioral disturbance; F05 Delirium due to known physiological condition; N39.0 Urinary tract infection, site not specified; B96.5 Pseudomonas (aeruginosa) (mallei) (pseudomallei) as the cause of diseases classified elsewhere; E78.5 Hyperlipidemia, unspecified; F41.8 Other specified anxiety disorders; F63.9 Impulse disorder, unspecified; G30.9 Alzheimer's disease, unspecified; G43.909 Migraine, unspecified, not intractable, without status migrainosus; I10 Essential (primary) hypertension; J44.9 Chronic obstructive pulmonary disease, unspecified; K21.9 Gastro-esophageal reflux disease without esophagitis; Z66 Do not resuscitate; Z79.899 Other long term (current) drug therapy; Z88.0 Allergy status to penicillin; Z91.14 Patient's other noncompliance with medication regimen; Z68.27 Body mass index [BMI] 27.0-27.9, adult; Z88.8 Allergy status to other drugs, medicaments and biological substances; Z74.01 Bed confinement status
CPT/HCPCS: 36415; 71045; 71250; 80048; 80053; 80164; 81001; 85025; 85027; 85379; 86140; 87077; 87086; 87186; J0696; J1100; J1630; J1650; J8540; J7030; U0003-CS